=== PATIENT | male | born 1945 | race Caucasian/White ===

== ENCOUNTER → 2018-03-13 08:11 | Outpatient (CLI) | payer MEDICARE, OTHER, SELFPAY ==
--- NOTE | 2018-03-13 | DI.MRI.S_ITS ---
PROCEDURE: MR LUMBAR SPINE WO CON INDICATIONS: LUMBAR SPINE PAIN TECHNIQUE: Noncontrast sagittal T1 spin echo and T2 fast echo, sagittal STIR, axial T1 and T2 fast spin echo through the lumbar spine. In cases with scoliosis, additional coronal T2 fast spin echo may be performed. COMPARISON: [facility], CT, KIDNEY/ URETER/BLADDER, 04/29/2014, 1:57. [facility], CR, XR LUMBAR SPINE 2 OR 3 VIEWS, 03/05/2018, 10:36. FINDINGS: Image quality: Excellent. Alignment and Curvature: There is grade 1 anterolisthesis of L4 on L5. Bone Marrow: Marrow is of normal overall signal. No acute vertebral body compression fractures. Spinal Cord: Conus medullaris terminates at the L1-L2 level. Visualized cord demonstrates normal signal and size. Paraspinous Soft Tissues: No paravertebral masses. There is a 3 cm right renal cyst. L1-L2: Normal appearance. L2-L3: Mild loss of disc height and disc desiccation. There is mild broad posterior disc bulge. The central canal is mildly narrowed. Mild bilateral foraminal stenosis. L3-L4: Mild loss of disc height and disc desiccation. There is broad posterior disc bulge and small posterior central annular tear. Mild bilateral facet arthropathy and hypertrophy of ligamentum flavum. The central canal is mildly narrowed. Mild bilateral foraminal stenosis. L4-L5: Bgbg-em-upjjsmjk loss of disc height and disc desiccation. There is broad posterior disc bulge and disc protrusion. Moderate to severe bilateral facet arthropathy and hypertrophy of ligamentum flavum. The central canal is moderately narrowed. Zxkx-dg-puzjjrmd right and mild left foraminal stenosis. L5-S1: Mild loss of disc height and disc desiccation. There is broad posterior disc bulge. Mild bilateral facet arthropathy. The central canal is patent. Mild bilateral foraminal stenosis. IMPRESSION: 1. Multilevel degenerative disc disease and facet arthropathy as described. 2. Moderate central canal stenosis at L4-L5, and mild central canal stenosis at L2-L3 and L3-L4. 3. Multilevel foraminal stenoses as described. Dictated by: Esme Xiong M.D. on 03/13/2018 at 13:16 Approved by: Esme Xiong M.D. on 03/13/2018 at 13:25
== END ==
PROVIDERS: Family Provider Family Medicine; PCP Family Medicine; Visit Provider Physical Medicine & Rehabilitation Pain Medicine
DX: M51.36 Other intervertebral disc degeneration, lumbar region (principal); M48.061 Spinal stenosis, lumbar region without neurogenic claudication; M54.5 Low back pain
CPT/HCPCS: 72148

== ENCOUNTER → 2018-03-26 10:01 | Outpatient (CLI) | payer MEDICARE, OTHER, SELFPAY ==
[2018-03-26 11:28] LABS: BUN Creatinine Ratio 24.3 (6-22); Blood Urea Nitrogen 17 mg/dL (9-20); Calcium 9.9 mg/dL (8.4-10.2); Carbon Dioxide 27 mmol/L (22-32); Chloride 102 mmol/L (98-107); Estimated Glomerular Filt Rate > 60.0 mL/min (>60); Glucose 103 mg/dL (80-110); HEMOLYSIS < 15 (0-50); Potassium 4.5 mmol/L (3.4-5.1); Sodium 141 mmol/L (137-145)
== END ==
PROVIDERS: PCP Family Medicine; Visit Provider Internal Medicine Cardiovascular Disease
DX: I10 Essential (primary) hypertension (principal)
CPT/HCPCS: 36415; 80048

== ENCOUNTER → 2018-05-23 12:03 | Outpatient (CLI) | payer MEDICARE, OTHER, SELFPAY ==
--- NOTE | 2018-05-23 | DI.MRI.S_ITS ---
PROCEDURE: MR CERVICAL SPINE WO CON INDICATIONS: NECK AND RIGHT ARM PAIN TECHNIQUE: Noncontrast sagittal T1 spin echo and T2 fast spin echo, sagittal STIR, foraminal oblique sagittal T2 fast spin echo, and axial gradient echo or T2 fast spin echo through the cervical spine. COMPARISON: [facility], MR, C-SPINE WITHOUT CONTRAST, 04/09/2013, 17:29. FINDINGS: Image quality: Excellent. Alignment and Curvature: There is loss of normal cervical lordosis. There is mild grade 1 anterolisthesis of C3 on C4-3 mild grade 1 retrolisthesis of C4 on C5 and C7 on T1. Bone Marrow: Marrow demonstrates normal overall signal. There is mild reactive signal within the endplates adjacent to the C2-C3, C3-C4, and C5-C6 intervertebral discs. There is moderate reactive signal within the endplates adjacent to the C4-C5, C6-C7, and C7-T1 intervertebral discs. Spinal Cord: Visualized spinal cord has normal size and signal. No cerebellar tonsillar herniation. Paraspinous Soft Tissues: No paravertebral masses. Prevertebral soft tissues are normal in thickness. C2-C3: Mild disc desiccation. Mild facet and uncovertebral hypertrophy bilaterally. No significant canal stenosis. Mild bilateral foraminal stenosis. No change. C3-C4: Moderate disc desiccation. Left greater than right facet and uncovertebral hypertrophy. Mild canal stenosis. Severe left and moderate right foraminal stenosis. No change. C4-C5: Moderate disc height loss and desiccation. Mild diffuse disc bulge/osteophyte. Moderate facet and uncovertebral hypertrophy bilaterally. Increased, moderate canal stenosis. Increased, severe left greater than right foraminal stenosis. C5-C6: Severe disc height loss and desiccation. Mild diffuse disc bulge/osteophyte. Moderate facet and uncovertebral hypertrophy bilaterally. Moderate canal stenosis. Moderate left greater than right bilateral foraminal stenosis. No change. C6-C7: Moderate disc at loss and desiccation. Mild diffuse disc bulge/osteophyte. Mild facet and uncovertebral hypertrophy bilaterally. Mild canal stenosis. Mild bilateral foraminal stenosis. No change. C7-T1: Moderate disc at loss and desiccation. Mild diffuse disc bulge/osteophyte. Mild facet and uncovertebral hypertrophy. Mild canal stenosis. Moderate right and mild left foraminal stenosis. No change. IMPRESSION: 1. Multilevel degenerative disc and facet disease, as well as uncovertebral hypertrophy. 2. Multilevel canal stenoses worst at C4-C5 and C5-C6 where there are moderate canal stenoses present. 3. Multilevel foraminal stenoses, worst on the left at C3-C4, and left greater than right at C4-C5. Dictated by: Emory Morocho M.D. on 05/23/2018 at 12:57 Approved by: Emory Morocho M.D. on 05/23/2018 at 13:05
== END ==
PROVIDERS: PCP Family Medicine; Visit Provider Physical Medicine & Rehabilitation Pain Medicine
DX: M50.321 Other cervical disc degeneration at C4-C5 level (principal); M48.02 Spinal stenosis, cervical region; M79.601 Pain in right arm
CPT/HCPCS: 72141

== ENCOUNTER → 2018-08-03 12:02 | Outpatient (CLI) | payer MEDICARE, OTHER, SELFPAY ==
--- NOTE | 2018-08-03 | DI.MRI.S_ITS ---
PROCEDURE: MR SHOULDER RT WO CON INDICATIONS: INPIGMENT SYNDROME TECHNIQUE: Noncontrast oblique coronal T2 fast spin echo with fat saturation, oblique sagittal T1 spin echo and T2 fast spin echo with fat saturation, axial T1 spin echo and T2 fast spin echo with fat saturation through the shoulder. COMPARISON: None. FINDINGS: Image quality: Excellent. Rotator cuff: Supraspinatus tendinopathy and thickening is present. There is interstitial tearing as well as partial-thickness bursal and articular sided tear. No full-thickness defect is seen. There is also thickening and intrasubstance signal changes involving the subscapularis tendon in keeping with tendinopathy and interstitial tearing. There is low-grade bursal and articular surface fraying. The infraspinatus tendon appears intact. Teres minor appears intact. No atrophy of the rotator cuff musculature although mild fatty infiltration of the subscapularis, supraspinatus and infraspinatus muscles. Bones and bursae: No bone marrow contusions or fractures. Severe hypertrophic acromioclavicular joint degeneration. The acromion demonstrates conventional anatomy, without an os acromiale. Mild subacromial/subdeltoid bursal fluid is seen. Capsule and soft tissues: Low signal irregularity and mild hypertrophy of the anteroinferior labrum for example image 12 series 6. No intrasubstance fluid signal intensity to suggest discrete tear although this could be chronic tear with hypertrophy/scarring. Ill-defined fraying and similar signal changes present in the posterior and superior labrum, images 9 series 11, image 11 series 6. Inferior labrum is not well-visualized. There is slight posterior subluxation of the humeral head relative to glenoid. The long head of the biceps tendon demonstrates normal location and morphology. The rotator interval appears normal, without fibrosis. The coracohumeral ligament is normal in thickness. IMPRESSION: Supraspinatus tendinopathy with interstitial tearing, and partial-thickness bursal and articular sided tear. Subscapularis thickening and tendinopathy with low-grade bursal articular surface fraying. Diffuse fatty infiltration of the subscapularis, supraspinatus and infraspinatus muscles. Circumferential ill-defined intrasubstance signal changes as well as segmental hypertrophy in keeping with chronic degeneration versus long-standing poorly defined labral tear with scarring. Slight posterior subluxation of the humeral head relative to the glenoid suggestive of microinstability Mild subacromial/subdeltoid bursitis. Dictated by: Wes Scott M.D. on 08/03/2018 at 13:20 Approved by: Wes Scott M.D. on 08/03/2018 at 13:31
== END ==
PROVIDERS: PCP Family Medicine; Visit Provider Orthopaedic Surgery
DX: M75.41 Impingement syndrome of right shoulder (principal); M75.111 Incomplete rotator cuff tear or rupture of right shoulder, not specified as traumatic; M19.011 Primary osteoarthritis, right shoulder; M75.51 Bursitis of right shoulder
CPT/HCPCS: 73221

== ENCOUNTER → 2018-09-25 09:07 | Outpatient (CLI) | payer MEDICARE, OTHER, SELFPAY | PROVIDERS: PCP Family Medicine; Visit Provider Urology | DX: R97.20 Elevated prostate specific antigen [PSA] (principal) | CPT/HCPCS: 36415; 84153 ==

== ENCOUNTER 2018-11-29 23:57 | Emergency (ER) | payer MEDICARE, OTHER, SELFPAY ==
[2018-11-30 00:05] VITALS: BP 174/86; PULSE 79; RESP 15; TEMP 36.8; O2SAT 98; BMI 31.8
--- NOTE | 2018-11-30 00:38 | ED.EXTPRO ---
HPI - Extremity Problem General Chief complaint: Extremity Problem,Nontraumatic Stated complaint: RIGHT FOREARM PAIN X4 HOURS Time Seen by Provider: 11/30/18 00:11 Source: patient Mode of arrival: ambulatory Limitations: no limitations History of Present Illness HPI Narrative: Patient is 73-year-old male who presents with right forearm pain. It is in 1 particular area in the anterior side just above his wrist. He has no pain with flexion extension pronation. Able to move all fingers without any difficulty. He states yesterday he was painting a railing for about 3-4 hours. 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 Today he did not do much drove his to [place] him and was seen mainly fine until this evening. He has no arm weakness no headache no difficulty walking no chest pain shortness of breath nausea vomiting or vision changes. MD Complaint: extremity pain Onset (ago): minute(s) Pain Consistency: constant Location: right and upper extremity Quality: burning Radiation: none Relieving factors: nothing Exacerbating factors: range of motion Associated symptoms: denies other symptoms Related Data Home Medications Medication Instructions Recorded Confirmed Acyclovir (ZOVIRAX) 15 gm TOPICAL PRN #0 02/20/11 BETAMETH/CLOTRIMAZOLE 15 gm TOPICAL PRN #0 11/27/11 (Clotrimazole-Betamethasone Crm) Calcium Carbonate/Vitamin D 1 cap PO Q DAY #0 11/27/11 (#CALCIUM) FLAXSEED (FLAXSEED OIL) 1 cap PO Q DAY #0 11/27/11 MULTIVITAMIN (#MULTIPLE VITAMINS) 1 cap PO Q DAY #0 11/27/11 diltiazem HCl [Cartia XT] 240 mg PO Q DAY #0 11/27/11 fluocinonide 0.05 TP PRN #0 11/27/11 furosemide 20 mg PO QDAY PRN #0 06/03/17 potassium chloride [Klor-Con 8] 8 meq PO QDAY #0 06/03/17 Allergies Allergy/AdvReac Type Severity Reaction Status Date / Time niacin [NIACIN] Allergy Mild GETS ALL Unverified 11/29/17 12:18 RED/RASH Penicillins [PENICILLINS] Allergy Unknown Unverified 11/29/17 12:18 risedronate sodium Allergy Unknown Unverified 11/29/17 12:18 [RISEDRONATE SODIUM] cyclobenzaprine Allergy Verified 11/30/18 00:05 oxybutynin Allergy Verified 11/30/18 00:05 Pdxkrss-Lzj-Kpt Reductase Allergy Verified 11/30/18 00:05 Inhibitor ACTONAL Allergy Mild RASH Uncoded 11/29/17 12:18 Review of Systems Review of Systems ROS Unobtainable: All systems reviewed & are unremarkable except as noted in HPI and below Eyes Denies change in vision, Denies eye discharge, Denies irritation and Denies loss of vision Cardiovascular Denies chest pain, Denies irregular heart rhythm, Denies lightheadedness, Denies palpitations, Denies dyspnea, Denies dyspnea on exertion and Denies orthopnea Respiratory Denies cough, Denies dyspnea, Denies dyspnea on exertion and Denies wheezing Gastrointestinal Gastrointestinal: Denies abdominal pain, Denies change in bowel habits, Denies diarrhea, Denies nausea and Denies vomiting Musculoskeletal Reports as per HPI, Denies numbness and Denies tingling Integumentary/Breasts Denies pruritus, Denies erythema, Denies rash and Denies wounds Neurologic Denies lack of coordination, Denies loss of vision, Denies numbness, Denies tingling, Denies paresthesias and Denies tremor(s) Endocrine Denies palpitations Allergic/Immunologic Denies wheezing [facility] Medical History BPH (benign prostatic hyperplasia) (Acute) Social History (Updated 11/30/18 @ 01:34 by Micki Astudillo DO) marital status: lives independently: Yes Smoking Status: Never smoker alcohol intake: never substance use type: does not use Social History marital status: lives independently: Yes Smoking Status: Never smoker alcohol intake: never substance use type: does not use Exam Initial Vital Signs Initial Vital Signs: Vital Signs Temperature 98.2 F 11/30/18 00:05 Pulse Rate 79 11/30/18 00:05 Respiratory Rate 15 11/30/18 00:05 Blood Pressure 174/86 H 11/30/18 00:05 Pulse Oximetry 98 11/30/18 00:05 GENERAL: Alert elderly male no acute distress HEENT: Head atraumatic,EOMI, pupils reactive, CARDIOVASCULAR: Regular rate and rhythm without murmurs, rubs or gallops. RESPIRATORY: Breath sounds equal bilaterally, no wheezes rales or rhonchi. ABDOMEN: Soft, nontender. Normoactive bowel sounds all 4 quadrants. No guarding or rebound. EXTREMITIES: Normal range of motion, no clubbing or edema. Neurovascularly intact Right upper extremity: Pain in 1 area anterior distal arm near wrist. Positive Phalen's test full range of motion good pronation and supination against resistance. Good flexion and extension of wrist able to ab and adduct fingers cap refill less than 2 seconds. Product Distribution Specialist strength equal bilaterally. Distal radial pulses intact. no erythema no swelling NEUROLOGICAL: Alert and oriented x4.Normal gait and speech. SKIN: Warm, dry, no laceration, no petechiae, no rashes or lesions. Course Orders Ordered: ED Orders 11/30/18 00:40 Comprehensive Metabolic Panel Stat Creatine Kinase Stat 11/30/18 01:15 Complete Blood Count AUTO DIFF Stat Discontinued Medications Hydrocodone Bitart/Acetaminophen (Otis 5/325) 1 tab PO NOW ONE Stop: 11/30/18 01:28 Last Admin: 11/30/18 01:30 Dose: 1 tab Sodium Chloride (Normal Saline 0.9%) 1,000 mls @ 1,000 mls/hr IV BOLUS ONE Stop: 11/30/18 01:24 Last Infusion: 11/30/18 02:05 Dose: 0 mls/hr Admin: 11/30/18 01:32 Dose: 1,000 mls/hr Ketorolac Tromethamine (Toradol) 15 mg IV NOW ONE Stop: 11/30/18 00:26 Last Admin: 11/30/18 00:46 Dose: 15 mg Vital Signs - 8 hr 11/30/18 00:05 11/30/18 01:29 11/30/18 02:03 Temperature 98.2 F 97.0 F L Pulse Rate 79 63 64 Respiratory Rate 15 16 18 Blood Pressure 174/86 H 159/76 H Blood Pressure [Left Arm] 161/76 H Pulse Oximetry 98 97 MDM - Extremity (Nontraumatic) Lab Data Result diagrams: 11/30/18 01:15 11/30/18 00:40 Lab Results 11/30/18 11/30/18 Range/Units 00:40 01:15 WBC 4.7 (4.5-11.0) X10^3/uL RBC 4.21 L (4.5-5.9) X10^6/uL Hgb 14.1 (13.5-17.5) g/dL Hct 40.5 L (41-53) % MCV 96.4 (80-100) fL MCH 33.4 (26-34) PG MCHC 34.7 (30-36) % RDW 13.8 (11.6-14.8) % Plt Count 146 L (150-400) X10^3/uL Neut % (Auto) Not Reportable Lymph % (Auto) Not Reportable George % (Auto) Not Reportable Eos % (Auto) Not Reportable Baso % (Auto) Not Reportable Lymph # (Auto) Not Reportable George # (Auto) Not Reportable Baso # (Auto) Not Reportable Seg Neutrophils % 58.0 (38-70) % Band Neutrophils % 2.0 L (3-7) % Lymphocytes % (Manual) 23.0 L (25-45) % Monocytes % (Manual) 12.0 H (2-11) % Eosinophils % (Manual) 4.0 (2-4) % Basophils % (Manual) 1.0 (0-1) % RBC Morphology Normal morphology Sodium 141 (137-145) mmol/L Potassium 3.5 (3.4-5.1) mmol/L Chloride 104 (98-107) mmol/L Carbon Dioxide 26 (22-32) mmol/L BUN 14 (9-20) mg/dL Creatinine 0.80 (0.66-1.25) mg/dL Estimated GFR > 60.0 (>60) mL/min BUN/Creatinine Ratio 17.5 (6-22) Glucose 102 (80-110) mg/dL Calcium 8.9 (8.4-10.2) mg/dL Total Bilirubin 0.4 (0.2-1.3) mg/dL AST 33 (17-59) IU/L ALT 40 (21-72) IU/L Alkaline Phosphatase 55 (38-126) U/L Total Creatine Kinase 90 (55-170) U/L Total Protein 6.8 (6.3-8.2) g/dL Albumin 4.1 (3.5-5.0) g/dL Globulin 2.7 (1.7-4.1) g/dL Albumin/Globulin Ratio 1.5 (1.0-2.8) MDM Narrative Medical decision making narrative: Patient having significant pain in 1 area. At this time I do not believe him to have compartment syndrome he is moving his fingers quite easily no significant swelling. CPK was checked for any sort of rhabdo which is negative. Other blood work reassuring was given Toradol which does seem to help. Do not seem stroke logic he has moved his arm. This is in 1 particular area of his forearm, no fever. Based on patient's history of painting a rail and now increased pain. I think he likely strained it. He keeps moving it and opening and closing his hand. He says sometimes that helps it. He is given 1 Otis for increased pain. He states that he has Otis at home if needed. Discharge Plan Departure Patient Disposition: Home Clinical Impression: Repetitive strain injury of right forearm Discharge Date/Time: 11/30/18 02:05 Interventions: ED Discharge Assessment Last Done: 11/30/18 02:03 Instructions: DI for Forearm Muscle Strain Activity Restrictions/Additional Instructions: *You have been diagnosed with right forearm strain *What to do: I believe your pain is from painting. Recommend resting, elevating, ice *Continue to take medications as directed Ibuprofen 600 mg every 8 hours if needed for [id number] Otis 1 tablet every 6 hours if needed for severe pain *Follow up with your primary care provider in 2-3 days *Return to ER if you should have increasing numbness, tingling, weakness, inability to move fingers or any new, worsening or concerning symptoms Prescriptions: No Action Acyclovir (ZOVIRAX) 15 gm Topical PRN Qty: 0 RF: 0 diltiazem HCl [Cartia XT] 240 MG capsule,extended release 24hr 240 mg PO Q DAY Qty: 0 RF: 0 fluocinonide 0.05 % cream 0.05 TP PRN Qty: 0 RF: 0 BETAMETH/CLOTRIMAZOLE (Clotrimazole-Betamethasone Crm) 15 gm Topical PRN Qty: 0 RF: 0 Calcium Carbonate/Vitamin D (#CALCIUM) 1 cap PO Q DAY Qty: 0 RF: 0 FLAXSEED (FLAXSEED OIL) 1 cap PO Q DAY Qty: 0 RF: 0 MULTIVITAMIN (#MULTIPLE VITAMINS) 1 cap PO Q DAY Qty: 0 RF: 0 furosemide 20 MG tablet 20 mg PO QDAY PRNQty: 0 RF: 0 potassium chloride [Klor-Con 8] 8 MEQ tablet extended release 8 meq PO QDAY Qty: 0 RF: 0 Referrals: Noble Chino MD [Primary Care Provider] -
--- NOTE | 2018-11-30 00:41 | ED_ITS ---
HPI - Extremity Problem General Chief complaint: Extremity Problem,Nontraumatic Stated complaint: RIGHT FOREARM PAIN X4 HOURS Time Seen by Provider: 11/30/18 00:11 Source: patient Mode of arrival: ambulatory Limitations: no limitations History of Present Illness HPI Narrative: Patient is 73-year-old male who presents with right forearm pain. It is in 1 particular area in the anterior side just above his wrist. He has no pain with flexion extension pronation. Able to move all fingers without any difficulty. He states yesterday he was painting a railing for about 3-4 hours. 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 Today he did not do much drove his to [place] him and was seen mainly fine until this evening. He has no arm weakness no headache no di fficulty walking no chest pain shortness of breath nausea vomiting or vision changes. MD Complaint: extremity pain Onset (ago): minute(s) Pain Consistency: constant Location: right and upper extremity Quality: burning Radiation: none Relieving factors: nothing Exacerbating factors: range of motion Associated symptoms: denies other symptoms Related Data Home Medications Medication Instructions Recorded Confirmed Acyclovir (ZOVIRAX) 15 gm TOPICAL PRN #0 02/20/11 BETAMETH/CLOTRIMAZOLE 15 gm TOPICAL PRN #0 11/27/11 (Clotrimazole-Betamethasone Crm) Calcium Carbonate/Vitamin D 1 cap PO Q DAY #0 11/27/11 (#CALCIUM) FLAXSEED (FLAXSEED OIL) 1 cap PO Q DAY #0 11/27/11 MULTIVITAMIN (#MULTIPLE VITAMINS) 1 cap PO Q DAY #0 11/27/11 diltiazem HCl [Cartia XT] 240 mg PO Q DAY #0 11/27/11 fluocinonide 0.05 TP PRN #0 11/27/11 furosemide 20 mg PO QDAY PRN #0 06/03/17 potassium chloride [Klor-Con 8] 8 meq PO QDAY #0 06/03/17 Allergies Allergy/AdvReac Type Severity Reaction Status Date / Time niacin [NIACIN] Allergy Mild GETS ALL Unverified 11/29/17 12:18 RED/RASH Penicillins [PENICILLINS] Allergy Unknown Unverified 11/29/17 12:18 risedronate sodium Allergy Unknown Unverified 11/29/17 12:18 [RISEDRONATE SODIUM] cyclobenzaprine Allergy Verified 11/30/18 00:05 oxybutynin Allergy Verified 11/30/18 00:05 Xqfbucl-Uct-Ftw Reductase Allergy Verified 11/30/18 00:05 Inhibitor ACTONAL Allergy Mild RASH Uncoded 11/29/17 12:18 Review of Systems Review of Systems ROS Unobtainable: All systems reviewed & are unremarkable except as noted in HPI and below Eyes Denies change in vision, Denies eye discharge, Denies irritation and Denies loss of vision Cardiovascular Denies chest pain, Denies irregular heart rhythm, Denies lightheadedness, Denies palpitations, Denies dyspnea, Denies dyspnea on exertion and Denies orthopnea Respiratory Denies cough, Denies dyspnea, Denies dyspnea on exertion and Denies wheezing Gastrointestinal Gastrointestinal: Denies abdominal pain, Denies change in bowel habits, Denies diarrhea, Denies nausea and Denies vomiting Musculoskeletal Reports as per HPI, Denies numbness and Denies tingling Integumentary/Breasts Denies pruritus, Denies erythema, Denies rash and Denies wounds Neurologic Denies lack of coordination, Denies loss of vision, Denies numbness, Denies tingling, Denies paresthesias and Denies tremor(s) Endocrine Denies palpitations Allergic/Immunologic Denies wheezing [facility] Medical History BPH (benign prostatic hyperplasia) (Acute) Social History (Updated 11/30/18 @ 01:34 by Micki Astudillo DO) marital status: lives independently: Yes Smoking Status: Never smoker alcohol intake: never substance use type: does not use Social History marital status: lives independently: Yes Smoking Status: Never smoker alcohol intake: never substance use type: does not use Exam Initial Vital Signs Initial Vital Signs: Vital Signs Temperature 98.2 F 11/30/18 00:05 Pulse Rate 79 11/30/18 00:05 Respiratory Rate 15 11/30/18 00:05 Blood Pressure 174/86 H 11/30/18 00:05 Pulse Oximetry 98 11/30/18 00:05 GENERAL: Alert elderly male no acute distress HEENT: Head atraumatic,EOMI, pupils reactive, CARDIOVASCULAR: Regular rate and rhythm without murmurs, rubs or gallops. RESPIRATORY: Breath sounds equal bilaterally, no wheezes rales or rhonchi. ABDOMEN: Soft, nontender. Normoactive bowel sounds all 4 quadrants. No guarding or rebound. EXTREMITIES: Normal range of motion, no clubbing or edema. Neurovascularly intact Right upper extremity: Pain in 1 area anterior distal arm near wrist. Positive Phalen's test full range of motion good pronation and supination against resistance. Good flexion and extension of wrist able to ab and adduct fingers cap refill less than 2 seconds. Communication Specialist strength equal bilaterally. Distal radial pulses intact. no erythema no swelling NEUROLOGICAL: Alert and oriented x4.Normal gait and speech. SKIN: Warm, dry, no laceration, no petechiae, no rashes or lesions. Course Orders Ordered: ED Orders 11/30/18 00:40 Comprehensive Metabolic Panel Stat Creatine Kinase Stat 11/30/18 01:15 Complete Blood Count AUTO DIFF Stat Discontinued Medications Hydrocodone Bitart/Acetaminophen ([place] 5/325) 1 tab PO NOW ONE Stop: 11/30/18 01:28 Last Admin: 11/30/18 01:30 Dose: 1 tab Sodium Chloride (Normal Saline 0.9%) 1,000 mls @ 1,000 mls/hr IV BOLUS ONE Stop: 11/30/18 01:24 Last Infusion: 11/30/18 02:05 Dose: 0 mls/hr Admin: 11/30/18 01:32 Dose: 1,000 mls/hr Ketorolac Tromethamine (Toradol) 15 mg IV NOW ONE Stop: 11/30/18 00:26 Last Admin: 11/30/18 00:46 Dose: 15 mg Vital Signs - 8 hr 11/30/18 00:05 11/30/18 01:29 11/30/18 02:03 Temperature 98.2 F 97.0 F L Pulse Rate 79 63 64 Respiratory Rate 15 16 18 Blood Pressure 174/86 H 159/76 H Blood Pressure [Left Arm] 161/76 H Pulse Oximetry 98 97 MDM - Extremity (Nontraumatic) Lab Data Result diagrams: 11/30/18 01:15 11/30/18 00:40 Lab Results 11/30/18 11/30/18 Range/Units 00:40 01:15 WBC 4.7 (4.5-11.0) X10^3/uL RBC 4.21 L (4.5-5.9) X10^6/uL Hgb 14.1 (13.5-17.5) g/dL Hct 40.5 L (41-53) % MCV 96.4 (80-100) fL MCH 33.4 (26-34) PG MCHC 34.7 (30-36) % RDW 13.8 (11.6-14.8) % Plt Count 146 L (150-400) X10^3/uL Neut % (Auto) Not Reportable Lymph % (Auto) Not Reportable [place] % (Auto) Not Reportable Eos % (Auto) Not Reportable Baso % (Auto) Not Reportable Lymph # (Auto) Not Reportable [place] # (Auto) Not Reportable Baso # (Auto) Not Reportable Seg Neutrophils % 58.0 (38-70) % Band Neutrophils % 2.0 L (3-7) % Lymphocytes % (Manual) 23.0 L (25-45) % Monocytes % (Manual) 12.0 H (2-11) % Eosinophils % (Manual) 4.0 (2-4) % Basophils % (Manual) 1.0 (0-1) % RBC Morphology Normal morphology Sodium 141 (137-145) mmol/L Potassium 3.5 (3.4-5.1) mmol/L Chloride 104 (98-107) mmol/L Carbon Dioxide 26 (22-32) mmol/L BUN 14 (9-20) mg/dL Creatinine 0.80 (0.66-1.25) mg/dL Estimated GFR > 60.0 (>60) mL/min BUN/Creatinine Ratio 17.5 (6-22) Glucose 102 (80-110) mg/dL Calcium 8.9 (8.4-10.2) mg/dL Total Bilirubin 0.4 (0.2-1.3) mg/dL AST 33 (17-59) IU/L ALT 40 (21-72) IU/L Alkaline Phosphatase 55 (38-126) U/L Total Creatine Kinase 90 (55-170) U/L Total Protein 6.8 (6.3-8.2) g/dL Albumin 4.1 (3.5-5.0) g/dL Globulin 2.7 (1.7-4.1) g/dL Albumin/Globulin Ratio 1.5 (1.0-2.8) MDM Narrative Medical decision making narrative: Patient having significant pain in 1 area. At this time I do not believe him to have compartment syndrome he is moving his fingers quite easily no significant swelling. CPK was checked for any sort of rhabdo which is negative. Other blood work reassuring was given Toradol which does seem to help. Do not seem stroke logic he has moved his arm. This is in 1 particular area of his forearm, no fever. Based on patient's history of painting a rail and now increased pain. I think he likely strained it. He keeps moving it and opening and closing his hand. He says sometimes that helps it. He is given 1 Elvaston for increased pain. He states that he has Elvaston at home if needed. Discharge Plan Departure Patient Disposition: Home Clinical Impression: Repetitive strain injury of right forearm Discharge Date/Time: 11/30/18 02:05 Interventions: ED Discharge Assessment Last Done: 11/30/18 02:03 Instructions: DI for Forearm Muscle Strain Activity Restrictions/Additional Instructions: *You have been diagnosed with right forearm strain *What to do: I believe your pain is from painting. Recommend resting, elevating, ice *Continue to take medications as directed Ibuprofen 600 mg every 8 hours if needed for lelq-ur-iszcrqow Elvaston 1 tablet every 6 hours if needed for severe pain *Follow up with your primary care provider in 2-3 days *Return to ER if you should have increasing numbness, tingling, weakness, inability to move fingers or any new, worsening or concerning symptoms Prescriptions: No Action Acyclovir (ZOVIRAX) 15 gm Topical PRN Qty: 0 RF: 0 diltiazem HCl [Cartia XT] 240 MG capsule,extended release 24hr 240 mg PO Q DAY Qty: 0 RF: 0 fluocinonide 0.05 % cream 0.05 TP PRN Qty: 0 RF: 0 BETAMETH/CLOTRIMAZOLE (Clotrimazole-Betamethasone Crm) 15 gm Topical PRN Qty: 0 RF: 0 Calcium Carbonate/Vitamin D (#CALCIUM) 1 cap PO Q DAY Qty: 0 RF: 0 FLAXSEED (FLAXSEED OIL) 1 cap PO Q DAY Qty: 0 RF: 0 MULTIVITAMIN (#MULTIPLE VITAMINS) 1 cap PO Q DAY Qty: 0 RF: 0 furosemide 20 MG tablet 20 mg PO QDAY PRNQty: 0 RF: 0 potassium chloride [Klor-Con 8] 8 MEQ tablet extended release 8 meq PO QDAY Qty: 0 RF: 0 Referrals: Noble Chino MD [Primary Care Provider] -
[2018-11-30] MEDS: KETOROLAC 60 MG/2 ML VIAL 15 MG IV (00:46)
[2018-11-30 01:01] LABS: Alanine Aminotransferase 40 IU/L (21-72); Albumin 4.1 g/dL (3.5-5.0); Albumin Globulin Ratio 1.5 (1.0-2.8); Alkaline Phosphatase 55 U/L (38-126); Aspartate Aminotransferase 33 IU/L (17-59); BUN Creatinine Ratio 17.5 (6-22); Bilirubin Total 0.4 mg/dL (0.2-1.3); Blood Urea Nitrogen 14 mg/dL (9-20); Calcium 8.9 mg/dL (8.4-10.2); Carbon Dioxide 26 mmol/L (22-32); Chloride 104 mmol/L (98-107); Creatine Kinase 90 U/L (55-170); Estimated Glomerular Filt Rate > 60.0 mL/min (>60); Globulin 2.7 g/dL (1.7-4.1); Glucose 102 mg/dL (80-110); HEMOLYSIS 16 (0-50); Potassium 3.5 mmol/L (3.4-5.1); Sodium 141 mmol/L (137-145); Total Protein 6.8 g/dL (6.3-8.2)
[2018-11-30 01:29] VITALS: BP 161/76; PULSE 63; RESP 16; TEMP 36.1
[2018-11-30] MEDS: HYDROCODONE/ACET 5/325 TABLET 1 TAB PO (01:30)
[2018-11-30] MEDS: SODIUM CHLORIDE 0.9% 1,000 ML 1000 ML IV (01:32)
[2018-11-30 01:35] LABS: Hematocrit 40.5 % (41-53); Hemoglobin 14.1 g/dL (13.5-17.5); Mean Corpuscular HGB Conc 34.7 % (30-36); Mean Corpuscular Hemoglobin 33.4 PG (26-34); Mean Corpuscular Volume 96.4 fL (80-100); Platelet Count 146 X10^3/uL (150-400); Red Blood Cell Count 4.21 X10^6/uL (4.5-5.9); Red Cell Distribution Width 13.8 % (11.6-14.8); White Blood Cell Count 4.7 X10^3/uL (4.5-11.0)
[2018-11-30 01:56] LABS: Add Manual Diff / Slide Review YES
[2018-11-30 02:03] VITALS: BP 159/76; PULSE 64; RESP 18; O2SAT 97
[2018-11-30 02:03] LABS: RBC Morphology Normal Morphology
== END 2018-11-30 02:05 | disposition home or self-care (01) ==
PROVIDERS: Emergency Provider Emergency Medicine; PCP Family Medicine
DX: S56.911A Strain of unspecified muscles, fascia and tendons at forearm level, right arm, initial encounter (principal)
CPT/HCPCS: 36415; 80053; 82550; 85025; 96361; 96374; 99283; 99284; J1885

== ENCOUNTER 2019-01-21 00:05 | Emergency (ER) | payer MEDICARE, OTHER, SELFPAY ==
[2019-01-21 00:16] VITALS: BP 171/80; PULSE 71; RESP 18; TEMP 36.5; O2SAT 97
--- NOTE | 2019-01-21 02:10 | ED_ITS ---
HPI - Back Pain/Injury General Chief Complaint: Back Pain/Injury Stated Complaint: BACK WENT OUT/CANNOT WALK Time Seen by Provider: 01/21/19 00:21 Source: patient and family Mode of arrival: wheelchair Limitations: no limitations History of Present Illness HPI Narrative: 73-year-old male nonsmoker with history of multiple orthopedic injuries and hypertension presents with terrible lumbar pain with radiation down both legs that started on Monday. He denies any traumatic injury but states he was twisting at the torso in bent over ever so slightly and felt this pain. It is hot and searing in radiates from central back down into his hips. He denies any trouble with bowel or bladder control. He denies any numbness, tingling or weakness. He denies any foot drop. He denies saddle anesthesia. His pain is worse when standing upright and ambulating and improves with rest MD Complaint: back pain Onset (ago): day(s) Duration: constant Similar Symptoms Previously: No Location: lumbar spine Severity: severe Quality: sharp and stabbing Radiation: left leg and right leg Relieving factors: immobilization Exacerbating factors: movement and walking Context: turning/twisting Related Data Home Medications Medication Instructions Recorded Confirmed Acyclovir (ZOVIRAX) 15 gm TOPICAL PRN #0 02/20/11 BETAMETH/CLOTRIMAZOLE 15 gm TOPICAL PRN #0 11/27/11 (Clotrimazole-Betamethasone Crm) Calcium Carbonate/Vitamin D 1 cap PO Q DAY #0 11/27/11 (#CALCIUM) FLAXSEED (FLAXSEED OIL) 1 cap PO Q DAY #0 11/27/11 MULTIVITAMIN (#MULTIPLE VITAMINS) 1 cap PO Q DAY #0 11/27/11 diltiazem HCl [Cartia XT] 240 mg PO Q DAY #0 11/27/11 fluocinonide 0.05 TP PRN #0 11/27/11 furosemide 20 mg PO QDAY PRN #0 06/03/17 potassium chloride [Klor-Con 8] 8 meq PO QDAY #0 06/03/17 Previous Rx's Medication Instructions Recorded hydrocodone-acetaminophen 1 tab PO Q4-6H PRN #10 tab 01/21/19 ketorolac 10 mg PO Q6H PRN #14 tab 01/21/19 prednisone 10 mg PO BID #30 tab 01/21/19 Allergies Allergy/AdvReac Type Severity Reaction Status Date / Time niacin [NIACIN] Allergy Mild GETS ALL Verified 01/21/19 02:14 RED/RASH Penicillins [PENICILLINS] Allergy Unknown Verified 01/21/19 02:14 risedronate sodium Allergy Unknown Verified 01/21/19 02:14 [RISEDRONATE SODIUM] cyclobenzaprine Allergy Verified 01/21/19 02:14 oxybutynin Allergy Verified 01/21/19 02:14 Gjtvsbj-Sdp-Iew Reductase Allergy Verified 01/21/19 02:14 Inhibitor ACTONAL Allergy Mild RASH Uncoded 01/21/19 02:14 Review of Systems Constitutional Denies chills, Denies fever(s), Denies lethargy and Denies weakness Eyes Denies change in vision, Denies eye discharge, Denies irritation and Denies loss of vision ENT Ears, Nose, Mouth, and Throat: Denies change in voice, Denies neck pain and Denies sore throat Cardiovascular Denies chest pain, Denies irregular heart rhythm, Denies lightheadedness, Denies palpitations, Denies dyspnea, Denies dyspnea on exertion and Denies orthopnea Respiratory Denies cough, Denies dyspnea, Denies dyspnea on exertion and Denies wheezing Gastrointestinal Gastrointestinal: Denies abdominal pain, Denies change in bowel habits, Denies diarrhea, Denies nausea and Denies vomiting Genitourinary Denies hematuria, Denies flank pain, Denies urinary incontinence and Denies urinary urgency Musculoskeletal Reports limited range of motion and Denies neck pain Integumentary/Breasts Denies pruritus, Denies erythema, Denies rash and Denies wounds Neurologic Denies confusion, Denies loss of vision and Denies weakness Psychiatric Denies anxiety, Denies confusion, Denies depression, Denies homicidal ideation and Denies suicidal ideation Endocrine Denies palpitations Hematologic/Lymphatic Denies easy bruising Allergic/Immunologic Denies wheezing PFSH Medical History BPH (benign prostatic hyperplasia) (Acute) Social History marital status: lives independently: Yes Smoking Status: Never smoker alcohol intake: never substance use type: does not use Social History marital status: lives independently: Yes Smoking Status: Never smoker alcohol intake: never substance use type: does not use Exam Narrative Exam Narrative: GENERAL: 73-year-old male obviously uncomfortable. He appears stated age. Laying flat. HEAD: Atraumatic. Normocephalic. No temporal or scalp tenderness. EYES: Pupils equal round and reactive. Extraocular motions intact. No scleral icterus. No injection or drainage. ENT: Nose without bleeding, purulent drainage or septal hematoma. Throat without erythema, tonsillar hypertrophy or exudate. Uvula midline. Airway patent. NECK: Trachea midline. No JVD or lymphadenopathy. Supple, nontender, no meningeal signs. CARDIOVASCULAR: Regular rate and rhythm without murmurs, gallops, or rubs. RESPIRATORY: Clear to auscultation. Breath sounds equal bilaterally. No wheezes, rales, or rhonchi. GASTROINTESTINAL: Abdomen soft, non-tender, nondistended. No hepato- splenomegaly, or palpable masses. No guarding. EXTREMITIES: No clubbing, cyanosis, or edema. No joint tenderness, effusion, or edema noted. BACK: grinder tender but free of any obvious external abnormalities. Patient exam notes decreased range of motion and muscle spasm, but no CVA tenderness, or vertebral point tenderness. There are no symptoms of cauda equina such as saddle anesthesia, and decreased reflexes, decreased sensation or strength. NEURO: AOx3. SKIN: No rash or erythema. Initial Vital Signs Initial Vital Signs: Vital Signs Temperature 97.7 F 01/21/19 00:16 Pulse Rate 71 01/21/19 00:16 Respiratory Rate 18 01/21/19 00:16 Blood Pressure 171/80 H 01/21/19 00:16 Pulse Oximetry 97 01/21/19 00:16 Course Orders Ordered: Discontinued Medications Hydrocodone Bitart/Acetaminophen (Vicodin Prepack) 1 bottle MISC SEEINSTR ONE Stop: 01/21/19 02:03 Last Admin: 01/21/19 02:15 Dose: 1 bottle Ketorolac Tromethamine (Toradol) 60 mg IM NOW ONE Stop: 01/21/19 02:03 Last Admin: 01/21/19 02:15 Dose: 60 mg Prednisone (Deltasone) 40 mg PO NOW ONE Stop: 01/21/19 02:03 Last Admin: 01/21/19 02:15 Dose: 40 mg Vital Signs - 8 hr 01/21/19 00:16 Temperature 97.7 F Pulse Rate 71 Respiratory Rate 18 Blood Pressure 171/80 H Pulse Oximetry 97 MDM - Back Pain/Injury MDM Narrative Medical decision making narrative: Multiple etiologies of back pain considered including; Epidural abscess, cauda equina, mass occupying lesion, and other considered Discharge Plan Departure Patient Disposition: Home Clinical Impression: Lumbar radiculopathy Discharge Date/Time: 01/21/19 02:46 Instructions: DI for Back Pain With Sciatica Activity Restrictions/Additional Instructions: *You have been diagnosed with [lumbar back pain with radiculopathy] *What to do: *Take medications as directed *Follow up with Dr. Valdez today as planned. Let them know you were seen in the Emergency Department and that we ask that you be seen in follow up *Return to ER if you should have any new, worsening or concerning symptoms, such as [ ] Prescriptions: New hydrocodone-acetaminophen 5-325 mg tablet 1 tab PO Q4-6H PRN (Reason: pain) Qty: 10 RF: 0 ketorolac 10 mg tablet 10 mg PO Q6H PRN (Reason: pain) Qty: 14 RF: 0 prednisone 10 mg tablet 10 mg PO BID Qty: 30 RF: 0 No Action Acyclovir (ZOVIRAX) 15 gm Topical PRN Qty: 0 RF: 0 diltiazem HCl [Cartia XT] 240 MG capsule,extended release 24hr 240 mg PO Q DAY Qty: 0 RF: 0 fluocinonide 0.05 % cream 0.05 TP PRN Qty: 0 RF: 0 BETAMETH/CLOTRIMAZOLE (Clotrimazole-Betamethasone Crm) 15 gm Topical PRN Qty: 0 RF: 0 Calcium Carbonate/Vitamin D (#CALCIUM) 1 cap PO Q DAY Qty: 0 RF: 0 FLAXSEED (FLAXSEED OIL) 1 cap PO Q DAY Qty: 0 RF: 0 MULTIVITAMIN (#MULTIPLE VITAMINS) 1 cap PO Q DAY Qty: 0 RF: 0 furosemide 20 MG tablet 20 mg PO QDAY PRNQty: 0 RF: 0 potassium chloride [Klor-Con 8] 8 MEQ tablet extended release 8 meq PO QDAY Qty: 0 RF: 0 Referrals: Noble Chino MD [Primary Care Provider] -
[2019-01-21] MEDS: HYDROCODONE/ACET 5/325 PREPACK 1 BOTTLE MISC (02:15)
[2019-01-21] MEDS: predniSONE 20 MG TABLET 40 MG PO (02:15)
[2019-01-21] MEDS: KETOROLAC 60 MG/2 ML VIAL IM (02:15)
[2019-01-21 02:45] VITALS: BP 161/72; PULSE 70; RESP 18; O2SAT 99
== END 2019-01-21 02:46 | disposition home or self-care (01) ==
PROVIDERS: Emergency Provider Emergency Medicine; PCP Family Medicine
DX: M54.16 Radiculopathy, lumbar region (principal)
CPT/HCPCS: 96372; 99282; 99283; J1885

== ENCOUNTER → 2019-02-05 07:41 | Outpatient (CLI) | payer MEDICARE, OTHER, SELFPAY ==
--- NOTE | 2019-02-05 | DI.MRI.S_ITS ---
PROCEDURE: MR LUMBAR SPINE WO CON INDICATIONS: Other intervertebral disc degeneration, lumbar reg TECHNIQUE: Noncontrast sagittal T1 spin echo and T2 fast echo, sagittal STIR, axial T1 and T2 fast spin echo through the lumbar spine. In cases with scoliosis, additional coronal T2 fast spin echo may be performed. COMPARISON: [facility], MR, MR LUMBAR SPINE WO CON, 03/13/2018, 8:33. [facility], CT, KIDNEY/ URETER/BLADDER, 04/29/2014, 1:57. FINDINGS: Image quality: Excellent. Alignment and Curvature: There is minimal retrolisthesis seen at L2-L3 and L3-L4. Minimal anterolisthesis is seen at L4-L5. Bone Marrow: Marrow is of normal overall signal. Scattered foci are seen, which are hyperintense on T1-weighted and T2-weighted imaging, which are most consistent with benign vertebral body hemangiomas. The most prominent of these is seen within the S2 level. No acute vertebral body compression fractures. Spinal Cord: Conus medullaris terminates at the T12-L1 level. Visualized cord demonstrates normal signal and size. Paraspinous Soft Tissues: No paravertebral masses. There is a 3.1 cm cyst at the inferior pole of the right kidney posteriorly. T11-T12: Mild to moderate loss of disc height and disc signal are seen. No significant neural foraminal or central canal narrowing can be seen. T12-L1: Normal appearance. L1-L2: Normal appearance. L2-L3: The disc height is well-preserved. Loss of disc signal is seen at this level. Mild generalized disc bulge is seen. Moderate facet joint hypertrophy is seen. No significant neural foraminal or central canal narrowing can be seen. Stable from the prior study. L3-L4: The disc height is well-preserved. Loss of disc signal is seen at this level. Moderate generalized disc bulge is seen. Gbwi-hw-etyurtbe facet hypertrophy is seen. Mild bilateral neural foraminal narrowing is seen, right worse than left. Mild central canal narrowing is seen. Stable from the prior study. L4-L5: The disc height is well-preserved. Loss of disc signal is seen at this level. There is a focal annular fissure seen posteriorly. Moderate generalized disc bulge is seen. Moderate to prominent facet hypertrophy is seen. Moderate bilateral neural foraminal narrowing is seen. Moderate central canal narrowing is seen. No significant change from the prior. L5-S1: Mild loss of disc height is seen. Loss of disc signal is seen. There is a focal annular fissure seen posteriorly. Moderate generalized disc bulge is seen. Mild facet joint hypertrophy is seen. No significant neural foraminal or central canal narrowing can be seen. Stable from the prior study. IMPRESSION: Multilevel degenerative changes are seen, which are similar to 2018. Dictated by: Sergio Olivares M.D. on 02/05/2019 at 8:10 Approved by: Sergio Olivares M.D. on 02/05/2019 at 8:16
== END ==
PROVIDERS: PCP Family Medicine; Visit Provider Physical Medicine & Rehabilitation Pain Medicine
DX: M51.36 Other intervertebral disc degeneration, lumbar region (principal); M47.816 Spondylosis without myelopathy or radiculopathy, lumbar region; M47.817 Spondylosis without myelopathy or radiculopathy, lumbosacral region
CPT/HCPCS: 72148

== ENCOUNTER → 2019-04-18 07:06 | Outpatient (CLI) | payer MEDICARE, OTHER, SELFPAY ==
[2019-04-18 09:24] LABS: BUN Creatinine Ratio 18.8 (6-22); Blood Urea Nitrogen 15 mg/dL (9-20); Calcium 9.4 mg/dL (8.4-10.2); Carbon Dioxide 27 mmol/L (22-32); Chloride 102 mmol/L (98-107); Estimated Glomerular Filt Rate > 60.0 mL/min (>60); Glucose 96 mg/dL (80-110); HEMOLYSIS < 15 (0-50); Magnesium 1.9 mg/dL (1.6-2.3); Potassium 4.3 mmol/L (3.4-5.1); Sodium 138 mmol/L (137-145)
== END ==
PROVIDERS: Visit Provider Internal Medicine Cardiovascular Disease
DX: I10 Essential (primary) hypertension (principal)
CPT/HCPCS: 36415; 80048; 83735

== ENCOUNTER → 2019-09-06 09:49 | Outpatient (CLI) | payer MEDICARE, OTHER, SELFPAY ==
[2019-09-06 11:35] LABS: Prostate Specific Antigen 2.74 ng/mL (0.10-4.00)
== END ==
PROVIDERS: PCP Student in an Organized Health Care Education/Training Program; Visit Provider Urology
DX: R97.20 Elevated prostate specific antigen [PSA] (principal)
CPT/HCPCS: 36415; 84153

== ENCOUNTER → 2019-09-24 07:03 | Outpatient (CLI) | payer MEDICARE, OTHER, SELFPAY ==
[2019-09-24 08:31] LABS: BUN Creatinine Ratio 17.5 (6-22); Blood Urea Nitrogen 14 mg/dL (9-20); Carbon Dioxide 29 mmol/L (22-32); Chloride 104 mmol/L (98-107); Cholesterol 234 mg/dL (140-199); Estimated Glomerular Filt Rate > 60.0 mL/min (>60); Glucose 114 mg/dL (80-110); HDL Cholesterol 39 mg/dL (40-60); HEMOLYSIS < 15 (0-50); LDL Cholesterol Calculated 167 mg/dL (<100); Potassium 3.9 mmol/L (3.4-5.1); Sodium 139 mmol/L (137-145); Triglycerides 140 mg/dL (35-150)
== END ==
PROVIDERS: PCP Student in an Organized Health Care Education/Training Program; Referring Provider Internal Medicine Cardiovascular Disease; Visit Provider Internal Medicine Cardiovascular Disease
DX: E78.5 Hyperlipidemia, unspecified (principal)
CPT/HCPCS: 36415; 80048; 80061

== ENCOUNTER → 2019-10-18 08:48 | Outpatient (CLI) | payer MEDICARE, OTHER, SELFPAY ==
[2019-10-18 10:14] LABS: BUN Creatinine Ratio 17.8 (6-22); Blood Urea Nitrogen 16 mg/dL (9-20); Calcium 9.4 mg/dL (8.4-10.2); Carbon Dioxide 27 mmol/L (22-32); Chloride 101 mmol/L (98-107); Estimated Glomerular Filt Rate > 60.0 mL/min (>60); Glucose 146 mg/dL (80-110); HEMOLYSIS < 15 (0-50); Potassium 4.3 mmol/L (3.4-5.1); Sodium 138 mmol/L (137-145)
== END ==
PROVIDERS: PCP Student in an Organized Health Care Education/Training Program; Referring Provider Internal Medicine Cardiovascular Disease; Visit Provider Internal Medicine Cardiovascular Disease
DX: I10 Essential (primary) hypertension (principal)
CPT/HCPCS: 36415; 80048

== ENCOUNTER → 2020-01-14 07:47 | Outpatient (CLI) | payer MEDICARE, OTHER, SELFPAY ==
[2020-01-14 08:51] LABS: BUN Creatinine Ratio 17.1 (6-22); Blood Urea Nitrogen 14 mg/dL (9-20); Calcium 9.1 mg/dL (8.4-10.2); Carbon Dioxide 28 mmol/L (22-32); Chloride 103 mmol/L (98-107); Estimated Glomerular Filt Rate > 60.0 mL/min (>60); Glucose 122 mg/dL (80-110); HEMOLYSIS < 15 (0-50); Potassium 4.4 mmol/L (3.4-5.1); Sodium 138 mmol/L (137-145)
== END ==
PROVIDERS: PCP Student in an Organized Health Care Education/Training Program; Referring Provider Nurse Practitioner; Visit Provider Nurse Practitioner
DX: E78.5 Hyperlipidemia, unspecified (principal)
CPT/HCPCS: 36415; 80048

== ENCOUNTER → 2020-01-24 14:50 | Outpatient (CLI) | payer MEDICARE, OTHER, SELFPAY ==
--- NOTE | 2020-01-24 | DI.RAD.S_ITS ---
PROCEDURE: XR HIP W PEL IF DONE LT 2V INDICATIONS: LEFT HIP PAIN TECHNIQUE: AP pelvis with lateral view(s) of the left hip(s). COMPARISON: None. FINDINGS: Bones: No fractures or dislocations. Pelvic ring appears intact. No suspicious bony lesions. Soft tissues: The visualized bowel gas pattern is normal. No suspicious soft tissue calcifications. 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 Dictated by: Bishnu Muhammad M.D. on 01/24/2020 at 15:36 Approved by: Bishnu Muhammad M.D. on 01/24/2020 at 15:36
== END ==
PROVIDERS: PCP Student in an Organized Health Care Education/Training Program; Referring Provider Student in an Organized Health Care Education/Training Program; Visit Provider Student in an Organized Health Care Education/Training Program
DX: M25.552 Pain in left hip (principal); M16.12 Unilateral primary osteoarthritis, left hip
CPT/HCPCS: 73502

== ENCOUNTER → 2020-06-30 07:09 | Outpatient (CLI) | payer MEDICARE, OTHER, SELFPAY ==
[2020-06-30 09:05] LABS: Alanine Aminotransferase 27 IU/L (<50); Albumin 3.8 g/dL (3.5-5.0); Albumin Globulin Ratio 1.3 (1.0-2.8); Alkaline Phosphatase 65 U/L (38-126); Aspartate Aminotransferase 29 IU/L (17-59); BUN Creatinine Ratio 21.7 (6-22); Bilirubin Total 0.5 mg/dL (0.2-1.3); Blood Urea Nitrogen 20 mg/dL (9-20); Calcium 8.9 mg/dL (8.4-10.2); Carbon Dioxide 32 mmol/L (22-32); Chloride 103 mmol/L (98-107); Cholesterol 112 mg/dL (140-199); Estimated Glomerular Filt Rate > 60.0 mL/min (>60); Glucose 110 mg/dL (80-110); HDL Cholesterol 49 mg/dL (40-60); HEMOLYSIS < 15 (0-50); LDL Cholesterol Calculated 46 mg/dL (<100); Potassium 3.7 mmol/L (3.4-5.1); Sodium 137 mmol/L (137-145); Total Protein 6.8 g/dL (6.3-8.2); Triglycerides 84 mg/dL (35-150)
== END ==
PROVIDERS: PCP Student in an Organized Health Care Education/Training Program; Referring Provider Internal Medicine Cardiovascular Disease; Visit Provider Internal Medicine Cardiovascular Disease
DX: E78.5 Hyperlipidemia, unspecified (principal); I10 Essential (primary) hypertension
CPT/HCPCS: 36415; 80053; 80061

== ENCOUNTER 2020-09-07 15:18 | Observation (INO) | payer MEDICARE, OTHER, SELFPAY ==
[2020-09-07] VITALS (16 sets, daily range): BP systolic 147–190; BP diastolic 82–95; PULSE 72–84; RESP 11–29; TEMP 36.4–36.7; O2SAT 97–100; BMI 99.4
--- NOTE | 2020-09-07 15:38 | DI.RAD.S_ITS ---
PROCEDURE: XR CHEST 1V INDICATIONS: chest pain TECHNIQUE: One view of the chest was acquired. COMPARISON: [facility], , CHEST 1 VIEW, 06/03/2017, 11:22. FINDINGS: Surgical changes and devices: None. Lungs and pleura: An incomplete inspiratory result is noted, causing a crowded appearance to the lung markings. No focal infiltrates are seen. No pneumothorax or significant pleural effusions are seen. Mediastinum: The cardiac contours are within normal limits. The aorta demonstrates calcification and tortuosity. Bones and chest wall: No suspicious bony lesions. Age-appropriate bony degenerative changes are seen. Overlying soft tissues appear unremarkable. IMPRESSION: Limited portable chest examination, without a significant cardiopulmonary abnormality identified. Dictated by: Sergio Olivares M.D. on 09/07/2020 at 15:03 Approved by: Sergio Olivares M.D. on 09/07/2020 at 15:04
--- NOTE | 2020-09-07 15:41 | ED_ITS ---
HPI - Chest Pain General Chief Complaint: Chest Pain Stated Complaint: TIGHNESS OF MY CHEST Time Seen by Provider: 09/07/20 15:40 Source: patient and family Mode of arrival: Ambulatory Limitations: no limitations History of Present Illness HPI narrative: This is a 75-year-old male who comes to emergency department with complaint of chest tightness upon exertion. Patient states it is sort of substernal. Does not radiate to his neck, back, extremity or abdomen. Patient states it lasts about 5-10 minutes and when he rests it resolved. He had has not had any diaphoresis he denies any cold, cough or congestive type symptoms. He does feel little short of breath with these episodes he describes them as occurring when he goes up steps or goes for a long walk. Patient denies any nausea, no vomiting, no back or abdominal pain. No swelling in his extremities. Patient has not had symptoms in the past. He does have hypertension, dyslipidemia and chronic back pains. He takes an aspirin 81 mg every Monday, Monday and Monday and is on injectable cholesterol medication. He had a stress test 6 years prior, he has never had a cardiac catheterization. Patient has had multiple orthopedic surgeries as well as bilateral cataracts surgery. Patient's primary care is Dr. Leung and he follows with Dr. Mercado as his sociology adjunct instructor. Related Data Home Medications Medication Instructions Recorded Confirmed diltiazem HCl [Cartia XT] 240 mg PO Q DAY #0 11/27/11 09/07/20 furosemide 20 mg PO QDAY #0 06/03/17 09/07/20 acyclovir [Zovirax] 1 applic TOPICAL 5XD 09/07/20 09/07/20 alfuzosin 10 mg PO DAILY 09/07/20 09/07/20 ascorbate calcium (vitamin C) 500 mg PO BID 09/07/20 09/07/20 [Sheila-C] aspirin [Adult Low Dose Aspirin] 81 mg PO 3XW 09/07/20 09/07/20 calcium-vitamin D3-vitamin K 1 tab PO BID 09/07/20 09/07/20 chlorthalidone 12.5 mg PO QAM 09/07/20 09/07/20 cholecalciferol (vitamin D3) 75 mcg PO DAILY 09/07/20 09/07/20 [Vitamin D3] clotrimazole-betameth dip-zinc See Rx Instructions .ROUTE .COMPLEX 09/07/20 09/07/20 evolocumab [Repatha SureClick] 140 mg SUBCUT Q2W 09/07/20 09/07/20 fiber [Fiber Choice] 1 tab PO BID 09/07/20 09/07/20 flaxseed oil 2,000 mg PO BID 09/07/20 09/07/20 fluocinonide 1 applic TOPICAL BID-QID PRN 09/07/20 09/07/20 ketoconazole 1 applic TOPICAL 3XW 09/07/20 09/07/20 lactobacillus combination no.8 3,000 mmu cells PO BID 09/07/20 09/07/20 [Adult Probiotic] lisinopril 20 mg PO BID 09/07/20 09/07/20 omeprazole 20 mg PO DAILY 09/07/20 09/07/20 potassium gluconate 595 mg PO DAILY 09/07/20 09/07/20 pyridoxine (vitamin B6) 100 mg PO QAM 09/07/20 09/07/20 saw palmetto 160 mg PO BID 09/07/20 09/07/20 testosterone cypionate 50 mg IM QWEEK 09/07/20 09/07/20 timolol maleate 1 drp EYE-BOTH QAM 09/07/20 09/07/20 vitamin B complex 1 cap PO DAILY 09/07/20 09/07/20 Allergies Allergy/AdvReac Type Severity Reaction Status Date / Time niacin [NIACIN] Allergy Mild GETS ALL Verified 09/07/20 15:37 RED/RASH Penicillins [PENICILLINS] Allergy Unknown Verified 09/07/20 15:37 risedronate sodium Allergy Unknown Verified 09/07/20 15:37 [RISEDRONATE SODIUM] cyclobenzaprine Allergy Verified 09/07/20 15:37 oxybutynin Allergy Verified 09/07/20 15:37 Trehshe-Sau-Dui Reductase Allergy Verified 09/07/20 15:37 Inhibitor ACTONAL Allergy Mild RASH Uncoded 09/07/20 15:37 Review of Systems Review of Systems ROS Unobtainable: All systems reviewed & are unremarkable except as noted in HPI and below Patient History Medical History BPH (benign prostatic hyperplasia) Social History marital status: lives independently: Yes Smoking Status: Former smoker alcohol intake: never substance use type: does not use Smoking Status: Former smoker alcohol intake frequency: 3 or more drinks per day Alcohol type: wine Substance Use Type: does not use Exam Narrative Exam Narrative: GENERAL: Alert and oriented x three, well-nourished male in mild distress. HEENT: Head normocephalic, atraumatic, EOMI, pupils reactive, face symmetric, moist mucous membranes NECK: Supple, full range of motion CARDIOVASCULAR: Regular rate and rhythm without murmurs, rubs or gallops. No JVD no edema bilateral lower extremities. RESPIRATORY: Breath sounds equal bilaterally, no wheezes rales or rhonchi. ABDOMEN: Soft, nontender. Normoactive bowel sounds all 4 quadrants. No guarding or rebound, rigidity, no mass : No CVA tenderness EXTREMITIES: Normal range of motion. Neurovascularly intact NEUROLOGICAL: Cranial nerves II through XII grossly intact. Moving all extremities SKIN: Warm, dry, no petechiae, no rashes or lesions. Initial Vital Signs Initial Vital Signs: Vital Signs Temperature 98 F 09/07/20 15:32 Pulse Rate 79 09/07/20 15:32 Respiratory Rate 14 09/07/20 15:32 Blood Pressure 189/88 H 09/07/20 15:32 Pulse Oximetry 99 09/07/20 15:32 Scores HEART Score Heart Score history: Highly Suspicious Heart Score EKG: Non-Specific repolarization disturbance Heart Score Age: > or = 65 years old Heart Score risk factors: 1-2 risk factors Heart Score troponin: < or = to normal limit Heart Score Total: 6 Course Orders Ordered: ED Orders 09/07/20 15:37 Complete Blood Count AUTO DIFF Stat Comprehensive Metabolic Panel Stat Lipase Stat Partial Thromboplastin Time Stat Prothrombin Time INR Stat Troponin & CK Cardiac Panel Stat 09/07/20 15:38 XR chest 1V Stat EKG-12 Lead Stat 09/07/20 16:03 COVID19 Stat Discontinued Medications Aspirin (Aspirin 81 Mg Chew Tab) 324 mg PO NOW ONE Stop: 09/07/20 15:39 Last Admin: 09/07/20 15:52 Dose: 324 mg Documented by: SAM Consultations Consultation #1: Discussed with Dr. Pineda and he recommends stress testing as an inpatient. Does not feel patient needs to be transferred at this time. Time: 17:00 Consultation #2: Spoke with Dr. Boss who accepts for observation with plan for stress testing tomorrow. Discussed Dr. Joya recommendations and that he believes Dr. Mercado patient's personal sociology adjunct instructor is working tomorrow and available for consultation. Dr. Boss saw patient in the emergency department. Time: 17:16 Vital Signs Vital signs: Vital Signs - 8 hr 09/07/20 15:32 09/07/20 16:27 09/07/20 16:30 Temperature 98 F Pulse Rate 79 75 74 Respiratory Rate 14 24 11 L Blood Pressure 189/88 H 159/82 H Pulse Oximetry 99 99 98 09/07/20 16:45 09/07/20 17:00 09/07/20 17:15 Temperature Pulse Rate 74 72 76 Respiratory Rate 20 15 15 Blood Pressure 158/84 H Pulse Oximetry 99 99 99 MDM - Chest Pain Lab Data Attestation: I reviewed the patient's lab results. Result diagrams: 09/07/20 15:37 09/07/20 15:37 Labs: Lab Results 09/07/20 09/07/20 09/07/20 Range/Units 15:37 15:37 15:37 WBC 8.1 (4.5-11.0) X10^3/uL RBC 4.40 L (4.5-5.9) X10^6/uL Hgb 14.6 (13.5-17.5) g/dL Hct 42.6 (41-53) % MCV 96.8 (80-100) fL MCH 33.3 (26-34) PG MCHC 34.3 (30-36) % RDW 13.6 (11.6-14.8) % Plt Count 198 (150-400) X10^3/uL Neut % (Auto) 64.1 (50-75) % Lymph % (Auto) 22.0 L (25-40) % [place] % (Auto) 11.2 (3-14) % Eos % (Auto) 2.2 (2-4) % Baso % (Auto) 0.5 (0-2) % Neut # (Auto) 5200 (8810-1249) /uL Lymph # (Auto) 1800 (8335-2368) /uL [place] # (Auto) 900 (0-900) /uL Eos # (Auto) 200 (0-450) /uL Baso # (Auto) 0 (0-100) /uL PT 11.1 (10.1-12.7) SECONDS INR 1.0 (0.9-1.3) APTT 29 (26.4-36.2) SECONDS Sodium 135 L (137-145) mmol/L Potassium 3.4 (3.4-5.1) mmol/L Chloride 99 (98-107) mmol/L Carbon Dioxide 31 (22-32) mmol/L BUN 18 (9-20) mg/dL Creatinine 0.92 (0.66-1.25) mg/dL Estimated GFR > 60.0 (>60) mL/min BUN/Creatinine Ratio 19.6 (6-22) Glucose 105 (80-110) mg/dL Calcium 9.3 (8.4-10.2) mg/dL Total Bilirubin 0.5 (0.2-1.3) mg/dL AST 40 (17-59) IU/L ALT 47 (<50) IU/L Alkaline Phosphatase 70 (38-126) U/L Total Creatine Kinase 111 (55-170) U/L CK-MB (CK-2) 2.04 (<2.37) ng/mL CK-MB (CK-2) Rel Index 1.8 (1.5-5.0) % Troponin I < 0.012 (0.01-0.034) ng/mL Total Protein 7.5 (6.3-8.2) g/dL Albumin 4.4 (3.5-5.0) g/dL Globulin 3.1 (1.7-4.1) g/dL Albumin/Globulin Ratio 1.4 (1.0-2.8) Lipase 303 H (23-300) U/L SARS-CoV-2 (PCR) (Negative) 09/07/20 Range/Units 16:03 WBC (4.5-11.0) X10^3/uL RBC (4.5-5.9) X10^6/uL Hgb (13.5-17.5) g/dL Hct (41-53) % MCV (80-100) fL MCH (26-34) PG MCHC (30-36) % RDW (11.6-14.8) % Plt Count (150-400) X10^3/uL Neut % (Auto) (50-75) % Lymph % (Auto) (25-40) % [place] % (Auto) (3-14) % Eos % (Auto) (2-4) % Baso % (Auto) (0-2) % Neut # (Auto) (0316-5146) /uL Lymph # (Auto) (8952-3890) /uL [place] # (Auto) (0-900) /uL Eos # (Auto) (0-450) /uL Baso # (Auto) (0-100) /uL PT (10.1-12.7) SECONDS INR (0.9-1.3) APTT (26.4-36.2) SECONDS Sodium (137-145) mmol/L Potassium (3.4-5.1) mmol/L Chloride (98-107) mmol/L Carbon Dioxide (22-32) mmol/L BUN (9-20) mg/dL Creatinine (0.66-1.25) mg/dL Estimated GFR (>60) mL/min BUN/Creatinine Ratio (6-22) Glucose (80-110) mg/dL Calcium (8.4-10.2) mg/dL Total Bilirubin (0.2-1.3) mg/dL AST (17-59) IU/L ALT (<50) IU/L Alkaline Phosphatase (38-126) U/L Total Creatine Kinase (55-170) U/L CK-MB (CK-2) (<2.37) ng/mL CK-MB (CK-2) Rel Index (1.5-5.0) % Troponin I (0.01-0.034) ng/mL Total Protein (6.3-8.2) g/dL Albumin (3.5-5.0) g/dL Globulin (1.7-4.1) g/dL Albumin/Globulin Ratio (1.0-2.8) Lipase (23-300) U/L SARS-CoV-2 (PCR) Negative (Negative) Imaging Data Chest x-ray: Radiologist's Impression: [address] [id number] ReportSigned Patient: Rolo Naranjo FMR#: [id number]: 3Acct:[id number]/Sex: 75 / MDate of Service: 09/07/20Loc: EDAccession Number: [id number] Procedure: XR chest 1V Ordering Provider: Johana Woodruff D.O. PROCEDURE: XR CHEST 1V INDICATIONS: chest pain TECHNIQUE: One view of the chest was acquired. COMPARISON: [facility], CHEST 1 VIEW, 06/03/2017, 11:22. FINDINGS: Surgical changes and devices: None. Lungs and pleura: An incomplete inspiratory result is noted, causing a crowded appearance to the lung markings. No focal infiltrates are seen. No pneumothorax or significant pleural effusions are seen. Mediastinum: The cardiac contours are within normal limits. The aorta demonstrates calcification and tortuosity. Bones and chest wall: No suspicious bony lesions. Age-appropriate bony degenerative changes are seen. Overlying soft tissues appear unremarkable. IMPRESSION: Limited portable chest examination, without a significant cardiopulmonary abnormality identified. Dictated by: Sergio Olivares M.D. on 09/07/2020 at 15:03 Approved by: Sergio Olivares M.D. on 09/07/2020 at 15:04 ECG Data Attestation: I personally reviewed and interpreted this ECG as follows: Prior ECG tracings: available for review Interpretation: Sinus rhythm rate 72 P are 166 QRS of 96 and QTC 427[address] No [address] elevation depression appreciated. MDM Narrative Medical decision making narrative: 75-year-old male who comes in with classic stable angina symptoms he takes a baby aspirin Monday, Monday and Monday. He had 81 mg this morning an additional 243 mg in the department. He has no acute ST changes. He is not having any active chest pain, last episode was at 10am. His most recent episode was at 10:00 a.m. this morning after going up the stair s. Labs and imaging show no acute abnormalities, patient has lipase of 303. covid is negative. EKG shows no acute changes. Patient appears to have stable angina. After discussion with Dr. Pineda from Cardiology he recommends bring in for stress testing but does not feel patient needs transfer to outside facility or [facility] at this time. Discharge Plan Departure Patient Disposition: Admitted as Observation Clinical Impression: Stable angina Admit Date/Time: 09/07/20 17:18 Admit Provider: Jose David Boss
[2020-09-07 15:44] LABS: Add Manual Diff / Slide Review NO; Basophils Absolute Auto 0 /uL (0-100); Basophils Percent Auto 0.5 % (0-2); Eosinophils Absolute Auto 200 /uL (0-450); Eosinophils Percent Auto 2.2 % (2-4); Hematocrit 42.6 % (41-53); Hemoglobin 14.6 g/dL (13.5-17.5); Lymphocytes Absolute Auto 1800 /uL (1100-4500); Mean Corpuscular HGB Conc 34.3 % (30-36); Mean Corpuscular Hemoglobin 33.3 PG (26-34); Mean Corpuscular Volume 96.8 fL (80-100); Monocytes Absolute Auto 900 /uL (0-900); Monocytes Percent Auto 11.2 % (3-14); Neutrophils Absolute Auto 5200 /uL (1500-7000); Neutrophils Percent Auto 64.1 % (50-75); Platelet Count 198 X10^3/uL (150-400); Red Cell Distribution Width 13.6 % (11.6-14.8); White Blood Cell Count 8.1 X10^3/uL (4.5-11.0)
[2020-09-07] MEDS: ASPIRIN 81 MG CHEW TAB 324 MG PO (15:52)
[2020-09-07 15:58] LABS: Prothrombin Time 11.1 SECONDS (10.1-12.7)
[2020-09-07 16:00] LABS: PTT Partial Thromboplastin Tim 29 SECONDS (26.4-36.2)
[2020-09-07 16:02] LABS: HEMOLYSIS 16 (0-50); Potassium 3.4 mmol/L (3.4-5.1)
[2020-09-07 16:03] LABS: Alanine Aminotransferase 47 IU/L (<50); Albumin 4.4 g/dL (3.5-5.0); Albumin Globulin Ratio 1.4 (1.0-2.8); Alkaline Phosphatase 70 U/L (38-126); Aspartate Aminotransferase 40 IU/L (17-59); BUN Creatinine Ratio 19.6 (6-22); Bilirubin Total 0.5 mg/dL (0.2-1.3); Blood Urea Nitrogen 18 mg/dL (9-20); Calcium 9.3 mg/dL (8.4-10.2); Carbon Dioxide 31 mmol/L (22-32); Chloride 99 mmol/L (98-107); Creatine Kinase 111 U/L (55-170); Estimated Glomerular Filt Rate > 60.0 mL/min (>60); Globulin 3.1 g/dL (1.7-4.1); Glucose 105 mg/dL (80-110); Lipase 303 U/L (23-300); Sodium 135 mmol/L (137-145); Total Protein 7.5 g/dL (6.3-8.2)
[2020-09-07 16:16] LABS: Troponin I < 0.012 ng/mL (0.01-0.034)
[2020-09-07 16:18] LABS: CKMB % Relative Index 1.8 % (1.5-5.0); Creatine Kinase MB 2.04 ng/mL (<2.37)
[2020-09-07 16:45] LABS: COVID19 -Nasal RAPID Negative (Negative)
--- NOTE | 2020-09-07 18:27 | P.HP_ITS ---
History of Present Illness History of Present Illness Date Patient Seen: 09/07/20 Time Patient Seen: 18:27 Date of Onset of Symptoms: 09/07/20 Chief complaint: TIGHNESS OF MY CHEST Narrative: Patient is a 75-year-old male patient of Dr. Leung who has been in his usual state of health up until 3 days ago. Patient has had no previous discomfort in his chest and usually does well with hills or stairs but over the last 3 days no matter what he does going up stairs or going up hills he noticed substernal pressure which was new. He describes it as maybe 2 to 3/10 at its most intense. It had no radiation. Was not associated with any diaphoresis nausea vomiting or other changes. Lasted usually a few minutes after he rested. Never had it at rest. He otherwise has been feeling well. He has had no fevers or chills. No cough. No chest pain otherwise. Nothing with breathing. He has had no nausea vomiting or other changes. No also family has been sick. Patient's risk factors are hyperlipidemia hypertension. Has no other family history except for an 90-year-old dad with heart disease. 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 Patient History Medical History BPH (benign prostatic hyperplasia) Family & Social History Social History: lives independently Yes Safety & Behavioral: Feels Safe in Current Yes Environment Been Physically Hurt or No Threatened By a Person Tobacco & Substance use: Smoking Status Former smoker alcohol intake never alcohol intake frequency 3 or more drinks per day Substance Use Type does not use Meds Home Medications and Allergies Home Medications Medication Instructions Recorded Confirmed Type diltiazem HCl [Cartia XT] 240 mg PO Q DAY #0 11/27/11 09/07/20 History furosemide 20 mg PO QDAY #0 06/03/17 09/07/20 History acyclovir [Zovirax] 1 applic TOPICAL 5XD 09/07/20 09/07/20 History alfuzosin 10 mg PO DAILY 09/07/20 09/07/20 History ascorbate calcium (vitamin C) 500 mg PO BID 09/07/20 09/07/20 History [Sheila-C] aspirin [Adult Low Dose Aspirin] 81 mg PO 3XW 09/07/20 09/07/20 History calcium-vitamin D3-vitamin K 1 tab PO BID 09/07/20 09/07/20 History chlorthalidone 12.5 mg PO QAM 09/07/20 09/07/20 History cholecalciferol (vitamin D3) 75 mcg PO DAILY 09/07/20 09/07/20 History [Vitamin D3] clotrimazole-betameth dip-zinc See Rx Instructions .ROUTE .COMPLEX 09/07/20 09/07/20 History evolocumab [Repatha SureClick] 140 mg SUBCUT Q2W 09/07/20 09/07/20 History fiber [Fiber Choice] 1 tab PO BID 09/07/20 09/07/20 History flaxseed oil 2,000 mg PO BID 09/07/20 09/07/20 History fluocinonide 1 applic TOPICAL BID-QID PRN 09/07/20 09/07/20 History ketoconazole 1 applic TOPICAL 3XW 09/07/20 09/07/20 History lactobacillus combination no.8 3,000 mmu cells PO BID 09/07/20 09/07/20 History [Adult Probiotic] lisinopril 20 mg PO BID 09/07/20 09/07/20 History omeprazole 20 mg PO DAILY 09/07/20 09/07/20 History potassium gluconate 595 mg PO DAILY 09/07/20 09/07/20 History pyridoxine (vitamin B6) 100 mg PO QAM 09/07/20 09/07/20 History saw palmetto 160 mg PO BID 09/07/20 09/07/20 History testosterone cypionate 50 mg IM QWEEK 09/07/20 09/07/20 History timolol maleate 1 drp EYE-BOTH QAM 09/07/20 09/07/20 History vitamin B complex 1 cap PO DAILY 09/07/20 09/07/20 History Allergies Allergy/AdvReac Type Severity Reaction Status Date / Time niacin [NIACIN] Allergy Mild GETS ALL Verified 09/07/20 15:37 RED/RASH Penicillins [PENICILLINS] Allergy Unknown Verified 09/07/20 15:37 risedronate sodium Allergy Unknown Verified 09/07/20 15:37 [RISEDRONATE SODIUM] cyclobenzaprine Allergy Verified 09/07/20 15:37 oxybutynin Allergy Verified 09/07/20 15:37 Ulhhhsa-Uud-Jya Reductase Allergy Verified 09/07/20 15:37 Inhibitor ACTONAL Allergy Mild RASH Uncoded 09/07/20 15:37 Review of Systems Review of Systems ROS: Yes All systems reviewed with the patient and are negative except as otherwise documented Exam Vital Signs (past 8 hours): - 09/07/20 15:32 09/07/20 16:27 09/07/20 16:30 Temperature 98 F Pulse Rate 79 75 74 Respiratory Rate 14 24 11 L Blood Pressure 189/88 H 159/82 H Pulse Oximetry 99 99 98 09/07/20 16:45 09/07/20 17:00 09/07/20 17:15 Temperature Pulse Rate 74 72 76 Respiratory Rate 20 15 15 Blood Pressure 158/84 H Pulse Oximetry 99 99 99 09/07/20 17:39 09/07/20 17:42 09/07/20 17:45 Temperature Pulse Rate 80 79 80 Respiratory Rate 12 29 H Blood Pressure 186/95 H Pulse Oximetry 99 98 09/07/20 18:00 Temperature Pulse Rate 84 Respiratory Rate 19 Blood Pressure 190/90 H Pulse Oximetry 99 Oxygen Delivery Method Room Air Narrative Exam Narrative: Alert elderly male sitting in emergency room stretcher in no acute distress. HEENT exam is unremarkable neck supple without adenopathy JVD or bruits. Lungs are clear. Heart regular rate and rhythm without murmurs clicks rubs or gallops. Abdomen is benign. Extremities without cyanosis clubbing edema. Neurologic exam is nonfocal. Objective Labs Result Diagrams: 09/07/20 15:37 09/07/20 15:37 Labs: Laboratory Results - last 24 hr 09/07/20 09/07/20 09/07/20 15:37 15:37 15:37 WBC 8.1 RBC 4.40 L Hgb 14.6 Hct 42.6 MCV 96.8 MCH 33.3 MCHC 34.3 RDW 13.6 Plt Count 198 Neut % (Auto) 64.1 Lymph % (Auto) 22.0 L [place] % (Auto) 11.2 Eos % (Auto) 2.2 Baso % (Auto) 0.5 Neut # (Auto) 5200 Lymph # (Auto) 1800 [place] # (Auto) 900 Eos # (Auto) 200 Baso # (Auto) 0 PT 11.1 INR 1.0 APTT 29 Sodium 135 L Potassium 3.4 Chloride 99 Carbon Dioxide 31 BUN 18 Creatinine 0.92 Estimated GFR > 60.0 BUN/Creatinine Ratio 19.6 Glucose 105 Calcium 9.3 Total Bilirubin 0.5 AST 40 ALT 47 Alkaline Phosphatase 70 Total Creatine Kinase 111 CK-MB (CK-2) 2.04 CK-MB (CK-2) Rel Index 1.8 Troponin I < 0.012 Total Protein 7.5 Albumin 4.4 Globulin 3.1 Albumin/Globulin Ratio 1.4 Lipase 303 H SARS-CoV-2 (PCR) 09/07/20 16:03 WBC RBC Hgb Hct MCV MCH MCHC RDW Plt Count Neut % (Auto) Lymph % (Auto) [place] % (Auto) Eos % (Auto) Baso % (Auto) Neut # (Auto) Lymph # (Auto) [place] # (Auto) Eos # (Auto) Baso # (Auto) PT INR APTT Sodium Potassium Chloride Carbon Dioxide BUN Creatinine Estimated GFR BUN/Creatinine Ratio Glucose Calcium Total Bilirubin AST ALT Alkaline Phosphatase Total Creatine Kinase CK-MB (CK-2) CK-MB (CK-2) Rel Index Troponin I Total Protein Albumin Globulin Albumin/Globulin Ratio Lipase SARS-CoV-2 (PCR) Negative Assessment & Plan Assessment & Plan narrative: New onset stable angina. Emergency room physician discussed with uniform cap operator who recommends admission. Enzymes are negative and EKG is unremarkable. Chest x-ray is normal. Patient has significant risk factors. And certainly concerning with increasing change in chest discomfort. Will place in-hospital continue aspirin, telemetry, nitroglycerin as needed, probable thallium treadmill tomorrow and consult with uniform cap operator. Patient will call if any change. Due the fact his blood pressure was elevated will add metoprolol tonight and re-evaluate in a.m.. Hypertension. Will continue usual medicines plus metoprolol follow. Hyperlipidemia. Will continue his usual statin and follow from there. Does not need injectable at this time. Apparently has had significant problems with statins in the past. Glaucoma continue apparently medicines. BPH. Will continue usual medicine. History of reflux will continue PPI. Disposition. Will see what uniform cap operator recommends and will get treadmill and follow from there.
--- NOTE | 2020-09-07 19:40 | PC.NURSE ---
Pt admitted to rm 228 from ED for complaint of chest tightness and shortness of breath on exertion. Placed on residential monitor, oriented to environment, meal offered. Denies pain or shortness of breath at this time.
[2020-09-07] MEDS: diphenhydrAMINE 25 MG TABLET 50 MG PO (20:31)
[2020-09-07] MEDS: lisinopriL 20 MG TABLET PO (20:31)
[2020-09-07] MEDS: METOPROLOL IR 25 MG TABLET PO (23:46)
[2020-09-08] VITALS (9 sets, daily range): BP systolic 134–164; BP diastolic 72–89; PULSE 54–84; RESP 12–22; TEMP 36.6–36.9; O2SAT 95–99; BMI 31.1
[2020-09-08] MEDS: PANTOPRAZOLE 20 MG TABLET PO (06:09)
[2020-09-08 06:23] LABS: Creatine Kinase 96 U/L (55-170)
[2020-09-08 06:36] LABS: Troponin I 0.016 ng/mL (0.01-0.034)
[2020-09-08] MEDS: CHLORTHALIDONE 25 MG TABLET 12.5 MG PO (09:38)
[2020-09-08] MEDS: lisinopriL 20 MG TABLET PO ×2 (09:38→20:42)
[2020-09-08] MEDS: ENOXAPARIN 40 MG/0.4 ML SYRINGE SUBCUT (09:39)
[2020-09-08] MEDS: SODIUM CHLORIDE 0.9% FLUSH 10 ML IV ×2 (09:40→21:23)
[2020-09-08] MEDS: TIMOLOL 0.5% OPHTH 1 DROPS EYE-BOTH (09:40)
--- NOTE | 2020-09-08 09:50 | DI.ECHO.S_ITS ---
[place] +---------+ [facility] +---------+ : : [address] : : : : [id number] : : : : Phone: [phone]+ Echocardiogram Report + + :Name: JOSE CORLEY Study Date: 09/08/2020 Height: 70 in : :[facility] ReadingLocation: Weight: 229 lb : : Gender: Male BSA: 2.2 m2 : :: 1945 Age: 75 yrs BP: 164/85 mmHg: :Reason For Study: CHEST PAIN : :Ordering Physician: ANT, : :KARLO Performed By: Aaliyah Groves : :Referring: KARLO CAIN : + + Interpretation Summary Sinus bradycardia with heart rate 47-54 bpm. Normal LV size and wall thickness. Normal wall motion and left ventricular systolic function. Ejection fraction 60-65%. Moderate left atrial enlargement; mild right atrial enlargement. No significant valvular abnormalities. Mildly dilated aortic root measuring 4.1 cm and mildly enlarged ascending aorta. No prior study available for comparison. Procedure: A two-dimensional transthoracic echocardiogram with color flow and Doppler was performed. The study quality was technically adequate. There is no prior echocardiogram noted for this patient. The patient was in sinus bradycardia with heart rates between 47-54 bpm during the exam. Left Ventricle: The left ventricle is normal in size and wall thickness. The ejection fraction is estimated to be 60-65%. Diastolic parameters suggest a relaxation abnormality of the left ventricle, consistent with probable normal filling pressures. Right Ventricle: The right ventricle is mildly dilated. The right ventricular systolic function is normal. Atria: The left atrium is moderately dilated. The right atrium is mildly dilated. There is no Doppler evidence for an interatrial shunt. Mitral Valve: The mitral valve is normal in structure and function. There is mild mitral annular calcification. There is trace mitral regurgitation. Aortic Valve: The aortic valve is trileaflet. The aortic valve opens well. There is no aortic valve stenosis. No aortic regurgitation is present. Tricuspid Valve: The tricuspid valve is normal in structure and function. The right ventricular systolic pressure is estimated to be at least 24 mmHg based on an estimated right atrial pressure of 3 mm Hg. There is mild tricuspid regurgitation. Pulmonic Valve: The pulmonic valve leaflets are thin and pliable; valve motion is normal. There is mild pulmonic regurgitation. Great Vessels: The aortic root is normal size. The ascending aorta is mildly enlarged. The IVC is of normal diameter and collapses greater than 50% with a sniff. This suggests a low right atrial pressure of 3 mm Hg. Pericardium/ Pleura There is no pericardial effusion. There is no pleural effusion. MMode/2D Measurements & Calculations LVIDd: 5.1 cm LVOT diam: 2.3 cm LVIDs: 3.8 cm Ao root diam: 4.1 cm FS: 25.8 % asc Aorta Diam: 3.8 cm EPSS: 0.84 cm Ao Arch Diam (Prox Trans): 2.3 cm IVSd: 1.0 cm LVPWd: 1.0 cm LV smith. diameter/BSA (cm/m^2): 2.3 LV sys. diameter/BSA (cm/m^2): 1.7 LA A2 area: 26.7 cm2 RA long axis: 6.5 cm LA A4 area: 28.5 cm2 RA area: 25.6 cm2 LA length (vol): 6.5 cm RA vol: 86.3 ml LA vol: 99.9 ml RA : 39.1 ml/m2 LA vol index: 45.2 ml/m2 IVC diam: 1.9 cm RVD1 (basal): 4.4 cm TAPSE: 2.3 cm Doppler Measurements & Calculations Ao V2 max: 139.7 cm/sec LVOT Max Baldev: 112.8 cm/sec Ao V2 mean: 98.9 cm/sec LV V1 max P.1 mmHg Ao max P.8 mmHg LV V1 VTI: 25.3 cm Ao mean P.4 mmHg TEENA(I,D): 3.5 cm2 Ao V2 VTI: 30.9 cm TEENA(V,D): 3.4 cm2 sev ratio: 0.82 TEENA indexed to BSA (cm^2/m^2): 1.6 MV E max baldev: 49.9 cm/sec TR max baldev: 230.5 cm/sec MV A max baldev: 57.8 cm/sec TR max P.3 mmHg MV E/A: 0.86 PA V2 max: 74.9 cm/sec Med Peak E' Baldev: 6.3 cm/sec PA V2 mean: 43.1 cm/sec E/E' med: 7.9 PA mean P.93 mmHg Lat Peak E' Baldev: 7.4 cm/sec PA pr(Accel): 29.3 mmHg E/E' lat: 6.8 E/e' average: 7.3 MV dec time: 0.35 sec SV(LVOT): 106.8 ml Electronically signed by: Candace Sotleo M.D. on [place] Physician:09/08/2020 05:38 PM
[2020-09-08] MEDS: PSYLLIUM HUSK 1 PACKET PO (10:51)
--- NOTE | 2020-09-08 13:36 | PC.NURSE ---
rounded ~ 0900. Requested clarification of orders for cardiac stress test (not ordered). Reported VS. Reported HR 50s overnight and NOC RN held AM metoprolol dose. Requested clarification of orders for metoprolol and diltiazem. Orders received to dc metoprolol. Holding diltiazem and will re evaluate HR and BP. Dr. Jerome aware. Plan is for pt to have an echo and stress test. Pt is chest pain free with no c/o pain otherwise. He is using the call light and making his needs known. Supportive at bedside.
--- NOTE | 2020-09-08 14:44 | CM.DANOTE ---
Discharge Planning/Care Management DCP: assessment: case received, EMR reviewed and met with pt and his Lelia, at bedside. Introduced self and role. Pt is a 75 year old male who admitted yesterday eveing to care of Dr. Boss. PCP: dr. Lizzette Leung Payer: Medicare and [facility] Pt says he has not talked to a doctor since early this morning. He knows that a consult was planned with his sensitized paper tester Dr. Palafox and that Dr. Boss had ordered a treadmill. no one has any idea yet when this will be done. Pt and waiting patiently for further information. Pt is hoping he will be able to d/c home when stable but unknown at this time. CM Discharge Assessment Start: 09/08/20 14:43 Freq: Status: Active Protocol: Document 09/08/20 14:43 ITV (Rec: 09/08/20 14:43 ITV [id number]) Discharge Planning Assessment Advance Directives? Yes History Provided By Patient,Family Member,Medical Record Prior Living Arrangements House Household Members spouse Type of transportation used prior to Drives own vehicle admit Independent with ADL's Yes Is patient alert and oriented? Yes
[2020-09-08] MEDS: diphenhydrAMINE 25 MG TABLET 50 MG PO (20:42)
[2020-09-09 03:59] VITALS: BP 153/87; PULSE 74; RESP 22; TEMP 36.5; O2SAT 98
[2020-09-09 04:00] VITALS: O2SAT 98
[2020-09-09] MEDS: PANTOPRAZOLE 20 MG TABLET PO (05:42)
--- NOTE | 2020-09-09 06:41 | PC.NURSE ---
Experimental Technician Note-Patient slept throughout night, denies chest pain or dyspnea, SR w/ 1st degree AVB, HR does go up to 90s while ambulating. SpO2 95-98% RA, LS CTA. NPO at 0500.
[2020-09-09 08:00] VITALS: BP 144/84; PULSE 81; RESP 19; TEMP 36.1; O2SAT 98
[2020-09-09] MEDS: SODIUM CHLORIDE 0.9% FLUSH 10 ML IV (09:07)
[2020-09-09] MEDS: PSYLLIUM HUSK 1 PACKET PO (09:07)
[2020-09-09] MEDS: ENOXAPARIN 40 MG/0.4 ML SYRINGE SUBCUT (09:07)
[2020-09-09] MEDS: ASPIRIN EC 81 MG TABLET PO (09:07)
[2020-09-09] MEDS: dilTIAZem CD 240 MG CAP PO (09:08)
[2020-09-09] MEDS: lisinopriL 20 MG TABLET PO (09:08)
[2020-09-09] MEDS: TIMOLOL 0.5% OPHTH 1 DROPS EYE-BOTH (09:08)
[2020-09-09] MEDS: CHLORTHALIDONE 25 MG TABLET 12.5 MG PO (09:08)
--- NOTE | 2020-09-09 11:51 | PM.TREADMILL ---
Cardiac Stress Test Report Referral & Results Date Patient Seen: 09/09/20 Time Patient Seen: 11:51 Requesting provider: Jose David Boss Indication: chest pain Rest ECG: sinus rhythm Procedure Note: Standard Franck protocol, 8:01, 8.8 METS Very good exercise capacity, CATA -36% Normal hemodynamic response to exercise No chest pain or anginal symptoms No significant ST changes at peak exercise No ectopy Impression: Normal exercise stress test Please note: Actual ECG tracings can be found in the PACS system.
[2020-09-09 13:00] VITALS: BP 148/86; PULSE 87; RESP 16; TEMP 36.4; O2SAT 97
[2020-09-09] MEDS: ACETAMINOPHEN 325 MG TABLET 650 MG PO (15:58)
[2020-09-09 16:00] VITALS: BP 127/72; PULSE 70; RESP 17; TEMP 36.7; O2SAT 98
--- NOTE | 2020-09-09 17:06 | DI.NM.S_ITS ---
DATE OF SERVICE: 09/09/2020 PROCEDURE: Exercise perfusion study. INDICATIONS: Chest pain with underlying hypertension and hyperlipidemia. RADIOPHARMACEUTICAL: 28.5 millicurie technetium-99m Myoview IV was injected at stress and 13.2 millicurie technetium-99m Myoview IV was injected at rest. It was one day protocol. CARDIAC STRESS: The patient underwent exercise perfusion study under the supervision of an attending staff. The patient walked on Franck protocol for 8 minutes 01 seconds, achieved 97 percent of target heart rate, normal blood pressure response, 10.1 METs of workload and functional aerobic impairment -36 percent. No ischemic symptoms. The patient felt fatigue and some dyspnea. Baseline EKG revealed sinus rhythm. During stress, no convincing ischemic changes. No significant arrhythmias seen. RAW DATA: There was increased subdiaphragmatic activity. GATED STUDY: Stress LV ejection fraction 64 percent without any obvious wall motion abnormalities. Resting end-diastolic volume 114 mL. TID ratio 0.91, which is within normal limits. Lung/heart ratio 0.39 ,which is within normal limits. MYOCARDIAL PERFUSION: Stress supine, resting supine and stress prone images were compared to each other. Stress supine and resting supine images revealed moderate-size ,moderate to severely decreased perfusion of inferior wall extending into the inferoapex, as well as distal inferolateral wall, which got completely normalized during prone images suggestive of diaphragmatic tissue attenuation artifact. No convincing ischemia or infarction pattern is seen. CONCLUSION: I will call this study a normal myocardial perfusion study with evidence of diaphragmatic tissue attenuation artifact which got completely resolved during the stress prone images. Functional aerobic impairment -36 percent. No exertional chest pain. Normal hemodynamic response. No ischemic electrocardiographic changes. No significant arrhythmias. Overall, this is a low-risk myocardial perfusion scan. Rolo Naranjo - LAURA/arnulfo/huseyin doc#: [id number]/job#: [id number] dd: 09/09/2020 13:53:00 dt: 09/09/2020 16:23:00 DICTATING MD/COPIES TO: Amador Mercado MD COPIES MNE: JOSEFINA;
--- NOTE | 2020-09-09 17:38 | PM.DS.1 ---
History of Present Illness History of Present Illness Date Patient Seen: 09/09/20 Time Patient Seen: 17:39 Chief complaint: TIGHTNESS OF MY CHEST Narrative: Patient is a 75-year-old male patient of Dr. Leung who has been in his usual state of health up until 3 days ago. Patient has had no previous discomfort in his chest and usually does well with hills or stairs but over the last 3 days no matter what he does going up stairs or going up hills he noticed substernal pressure which was new. He describes it as maybe 2 to 3/10 at its most intense. It had no radiation. Was not associated with any diaphoresis nausea vomiting or other changes. Lasted usually a few minutes after he rested. Never had it at rest. He otherwise has been feeling well. He has had no fevers or chills. No cough. No chest pain otherwise. Nothing with breathing. He has had no nausea vomiting or other changes. No also family has been sick. Patient's risk factors are hyperlipidemia hypertension. Has no other family history except for an 90-year-old dad with heart disease. Discharge Providers Provider Date of admission: 09/07/20 17:18 Discharge Date: 09/09/20 Primary care physician: Melissa Leung MD Discharge provider: Melissa Leung MD Summary Hospital Course Discharge Diagnosis: 1. New onset stable angina. 2. Hypertension, chronic 3. Hyperlipidemia, chronic Hospital Course: Uneventful hospital stay. Troponins negative x2. Chest x-ray unremarkable. Echo showed normal ejection fraction. Stress test low risk. Patient was asymptomatic throughout his hospital stay. He was hypertensive upon entry into the ED, he thought this was secondary to white coat hypertension. Metoprolol 25 mg p.o. x1 was added to his normal routine but not administered secondary to low blood pressure. He was not discharged on metoprolol and plan will be to watch closely in the outpatient setting. He will follow-up in 1 week for blood pressure check. Discharged on nitroglycerin. On day of discharge, he was afebrile with stable vital signs throughout. Time spent on Discharge and Coordination of post-hospital care: 35 minutes Exam Vital Signs (past 8 hours): - 09/09/20 13:00 09/09/20 16:00 Temperature 97.5 F L 98.1 F Pulse Rate 87 70 Respiratory Rate 16 17 Blood Pressure 148/86 H 127/72 Pulse Oximetry 97 98 Oxygen Delivery Method Room Air Oxygen Flow Rate 0 Narrative Exam Narrative: GENERAL: Alert and oriented, appearing stated age and in no acute distress. HEENT: Head normocephalic/atraumatic. LUNGS: Clear to ausculation bilaterally, no wheezes, rhonchi or rales. CV: Normal S1 and S2 with regular rate and rhythm, no audible murmurs, rubs or gallops. ABDOMEN: Soft, non-tender, non-distended, no organomegaly. Positive bowel sounds. EXTREMITIES: No clubbing, cyanosis, or edema. NEURO: Cranial nerves II through XII grossly intact, no focal deficits. PSYCH: Alert and oriented x 3. SKIN: No concerning lesions. Objective Labs Result Diagrams: 09/07/20 15:37 09/07/20 15:37 [facility] Medical History BPH (benign prostatic hyperplasia) Social History marital status: household members: spouse lives independently: Yes Smoking Status: Former smoker alcohol intake: current substance use type: does not use Discharge Plan Discharge Plan Patient Disposition: Home Discharge orders & Medications Prescriptions: New nitroglycerin 0.4 mg tablet, sublingual 0.4 mg sublingual Q5-15M MDD 3 pills PRN (Reason: chest pain) Qty: 10 RF: 3 Continued diltiazem HCl [Cartia XT] 240 MG capsule,extended release 24hr 240 mg PO Q DAY Qty: 0 RF: 0 furosemide 20 MG tablet 20 mg PO QDAY Qty: 0 RF: 0 lisinopril 20 mg tablet 20 mg PO BID RF: 0 chlorthalidone 25 mg tablet 12.5 mg PO QAM RF: 0 alfuzosin 10 mg tablet extended release 24 hr 10 mg PO DAILY RF: 0 ketoconazole 2 % Shampoo 1 applic TOPICAL 3XW RF: 0 flaxseed oil 1,000 mg Capsule 2,000 mg PO BID RF: 0 saw palmetto 160 mg Capsule 160 mg PO BID RF: 0 omeprazole 20 mg Capsule,Delayed Release(Dr/Ec) 20 mg PO DAILY RF: 0 aspirin 81 mg Tablet 81 mg PO 3XW RF: 0 pyridoxine (vitamin B6) 100 mg Tablet 100 mg PO QAM RF: 0 testosterone cypionate 200 mg/mL oil 50 mg IM QWEEK RF: 0 fluocinonide 0.05 % Solution 1 applic TOPICAL BID-QID PRN (Reason: Rash) RF: 0 timolol maleate 0.5 % drops 1 drp EYE-BOTH QAM RF: 0 vitamin B complex Capsule 1 cap PO DAILY RF: 0 acyclovir [Zovirax] 5 % Cream 1 applic TOPICAL 5XD RF: 0 ascorbate calcium (vitamin C) 500 mg Capsule 500 mg PO BID RF: 0 fiber Tablet,Chewable 1 tab PO BID RF: 0 potassium gluconate 595 mg (99 mg) Tablet 595 mg PO DAILY RF: 0 cholecalciferol (vitamin D3) [Vitamin D3] 25 mcg (1,000 unit) Tablet,Chewable 75 mcg PO DAILY RF: 0 calcium-vitamin D3-vitamin K 500 mg-1,000 unit-40 mcg Tablet,Chewable 1 tab PO BID RF: 0 Adult Probiotic 3 billion cell Capsule 3,000 mmu cells PO BID RF: 0 Repatha SureClick 140 mg/mL Pen Injector 140 mg SUBCUT Q2W RF: 0 clotrimazole-betameth dip-zinc 1-0.05-20 % Combo Pack See Rx Instructions .ROUTE .COMPLEX RF: 0 psyllium Packet 1 packet PO DAILY RF: 0 Follow up/Referrals: Melissa Leung MD [Primary Care Provider] - Diet/Activity/Treatments Diet: Low-sodium Skin/Wound/Dressing Care Report to your healthcare provider any signs of infection, such as:: chills, fever and increased pain Visit Report/Discharge Packet Instructions: Angina Discharge Data Primary Care Provider: Melissa Leung Attending Provider: Jose David Boss
== END 2020-09-09 18:01 | disposition home or self-care (01) ==
LOC: ED 17:16 → AC 17:20 → ICU 17:35
PROVIDERS: Admitting Provider Family Medicine; Emergency Provider Emergency Medicine; PCP Student in an Organized Health Care Education/Training Program; Referring Provider Emergency Medicine; Visit Provider Family Medicine
DX: I20.9 Angina pectoris, unspecified (principal); R07.9 Chest pain, unspecified; I10 Essential (primary) hypertension; E78.5 Hyperlipidemia, unspecified; H40.9 Unspecified glaucoma; N40.0 Benign prostatic hyperplasia without lower urinary tract symptoms; K21.9 Gastro-esophageal reflux disease without esophagitis; Z20.822 Contact with and (suspected) exposure to COVID-19
CPT/HCPCS: 36415; 71045; 78452; 80053; 82550; 82553; 83690; 84484; 85025; 85610; 85730; 87635; 87797; 93005; 93010; 93017; 93306; 96372; 99282; 99284; C9803; G0378; A9502; J1650

== ENCOUNTER → 2020-09-14 07:24 | Outpatient (CLI) | payer MEDICARE, OTHER, SELFPAY ==
[2020-09-08 10:18] VITALS: BMI 31.1
[2020-09-14 08:58] LABS: Cholesterol 129 mg/dL (140-199); HDL Cholesterol 48 mg/dL (40-60); LDL Cholesterol Calculated 63 mg/dL (<100); Triglycerides 89 mg/dL (35-150)
== END ==
PROVIDERS: PCP Student in an Organized Health Care Education/Training Program; Referring Provider Nurse Practitioner; Visit Provider Nurse Practitioner
DX: E78.5 Hyperlipidemia, unspecified (principal)
CPT/HCPCS: 36415; 80061

== ENCOUNTER → 2020-10-02 08:57 | Outpatient (CLI) | payer MEDICARE, OTHER, SELFPAY ==
[2020-09-08 10:18] VITALS: BMI 31.1
[2020-10-02 11:00] LABS: BUN Creatinine Ratio 19.4 (6-22); Blood Urea Nitrogen 18 mg/dL (9-20); Calcium 9.3 mg/dL (8.4-10.2); Carbon Dioxide 27 mmol/L (22-32); Chloride 101 mmol/L (98-107); Estimated Glomerular Filt Rate > 60.0 mL/min (>60); Glucose 128 mg/dL (80-110); HEMOLYSIS < 15 (0-50); Magnesium 1.7 mg/dL (1.6-2.3); Potassium 3.8 mmol/L (3.4-5.1); Sodium 135 mmol/L (137-145)
== END ==
PROVIDERS: PCP Student in an Organized Health Care Education/Training Program; Referring Provider Internal Medicine Cardiovascular Disease; Visit Provider Internal Medicine Cardiovascular Disease
DX: E87.6 Hypokalemia (principal)
CPT/HCPCS: 36415; 80048; 83735

== ENCOUNTER → 2020-12-03 08:56 | Outpatient (CLI) | payer MEDICARE, OTHER, SELFPAY ==
[2020-09-08 10:18] VITALS: BMI 31.1
--- NOTE | 2020-12-03 | DI.RAD.S_ITS ---
PROCEDURE: XR KUB INDICATIONS: right flank pain TECHNIQUE: One view of the abdomen acquired. COMPARISON: [facility], , KUB XRAY (1 VIEW ABDOMEN), 09/02/2016, 8:14. FINDINGS: Surgical changes and devices: None. Bowel: Bowel gas pattern is normal. Soft tissues: No suspicious abdominal calcifications. Visualized solid organ contours appear normal in size. Bones: No suspicious bony lesions. IMPRESSION: Normal for age, source of current right flank pain symptoms is not seen. Dictated by: Bishnu Muhammad M.D. on 12/03/2020 at 9:57 Approved by: Bishnu Muhammad M.D. on 12/03/2020 at 9:59
== END ==
PROVIDERS: PCP Student in an Organized Health Care Education/Training Program; Referring Provider Student in an Organized Health Care Education/Training Program; Visit Provider Student in an Organized Health Care Education/Training Program
DX: R10.9 Unspecified abdominal pain (principal)
CPT/HCPCS: 74018

== ENCOUNTER → 2021-07-22 08:33 | Outpatient (CLI) | payer MEDICARE, OTHER, SELFPAY ==
[2020-09-08 10:18] VITALS: BMI 31.1
--- NOTE | 2021-07-22 08:35 | DI.MRI.S_ITS ---
PROCEDURE: MR SHOULDER RT WO CON INDICATIONS: Incomplete rotator cuff tear or rupture of right s TECHNIQUE: Noncontrast oblique coronal T2 fast spin echo with fat saturation, oblique sagittal T1 spin echo and T2 fast spin echo with fat saturation, axial T1 spin echo and T2 fast spin echo with fat saturation through the shoulder. COMPARISON: [facility], , MR SHOULDER RT WO CON, 08/03/2018, 12:15. FINDINGS: Rotator cuff: Severe supraspinatus tendinopathy and thickening. High-grade partial thickness articular and bursal sided defects at the junction of the critical zone and footprint although no large or retracted full-thickness defect seen. Infraspinatus tendinopathy and thickening noted. The teres minor tendon appears intact. Subscapularis tendinopathy with low-grade articular and bursal surface fraying. Atrophy of the subscapularis muscle is noted. There is mild fatty infiltration of the supraspinatus, infraspinatus and subscapularis muscles. Bones and bursae: No bone marrow contusions or fractures. Moderate hypertrophic acromioclavicular joint degeneration. Acromion demonstrates conventional anatomy, without an os acromiale. Moderate subacromial-subdeltoid bursitis. Capsule and soft tissues: Labrum: Blunted appearance of the posterior labrum although no definite intrasubstance fluid signal intensity. There is also mild fraying of the superior segment, as well as the inferior segment. There is mild and uniform low-grade partial-thickness glenohumeral chondral loss.. Glenohumeral ligaments: Inferior and superior glenohumeral ligaments are intact. Biceps tendon: Long head of the biceps tendon intact. Rotator interval: Normal signal intensity. Coracohumeral ligament: Intact. IMPRESSION: High-grade partial-thickness rotator cuff tear as above. Atrophy of the subscapularis muscle. Overall, findings appear diffusely progressed since the prior study. Interval progression of subscapularis muscle atrophy. Moderate subacromial-subdeltoid bursitis. This finding unchanged Circumferential labral degeneration and chronic fraying, no interval change.. Dictated by: Wes Scott M.D. on 07/22/2021 at 10:08 Approved by: Wes Scott M.D. on 07/22/2021 at 10:15
== END ==
PROVIDERS: PCP Student in an Organized Health Care Education/Training Program; Referring Provider Orthopaedic Surgery; Visit Provider Orthopaedic Surgery
DX: M75.111 Incomplete rotator cuff tear or rupture of right shoulder, not specified as traumatic (principal); M75.51 Bursitis of right shoulder
CPT/HCPCS: 73221

== ENCOUNTER → 2021-12-07 09:01 | Outpatient (CLI) | payer MEDICARE, OTHER, SELFPAY ==
[2020-09-08 10:18] VITALS: BMI 31.1
--- NOTE | 2021-12-07 | DI.MRI.S_ITS ---
PROCEDURE: MR SHOULDER RT W CON INDICATIONS: RIGHT SHOULDER ROTATOR CUFF TEAR TECHNIQUE: After the administration of 12 mL of dilute intra-articular Gadolinium contrast, oblique coronal T1 and T2 spin echo with fat saturation, oblique sagittal T1 spin echo with and without fat saturation, oblique sagittal T2 fast spin echo with fat saturation, axial T1 spin echo with fat saturation through the shoulder. COMPARISON: [facility], MR, SHOULDER WITH CONTRAST, 06/18/2015, 13:40. FINDINGS: Image quality: Excellent. Rotator cuff: Full-thickness supraspinatus tear, measuring approximately 2.2 by 1.6 cm. At least grade 3 atrophy of the supraspinatus muscle. Infraspinatus tendinopathy with small, partial articular surface tear. Minimal tendinopathy of the subscapularis tendon without evidence of tear. Bones and bursae: No bone marrow contusions or fractures. Surgical anchors in the humeral head. Moderate acromioclavicular joint degeneration with T2 hyperintense signal within the articulation. No os acromiale. Capsule and soft tissues: The labrum and glenohumeral ligaments appear intact. The long head of the biceps tendon demonstrates normal location and morphology. The coracohumeral ligament is of normal thickness. No intra-articular bodies. IMPRESSION: 1. Full-thickness supraspinatus tear as detailed above. 2. Atrophy of the supraspinatus muscle. 3. Infraspinatus tendinopathy with small, partial articular surface tear. 4. Moderate AC joint degeneration. Dictated by: Kendall Mathews M.D. on 12/07/2021 at 12:13 Approved by: Kendall Mathews M.D. on 12/07/2021 at 12:17
--- NOTE | 2021-12-07 | DI.RAD.S_ITS ---
PROCEDURE: FL SHOULDER INJECTION MR/CT RT INDICATIONS: RIGHT SHOULDER ROTATOR CUFF TEAR COMPARISON: None. TECHNIQUE: The indications, alternatives, benefits, risks, and complications of the procedure were explained to the patient. Written informed consent was obtained and placed in the chart. The shoulder was examined fluoroscopically and a site for needle placement chosen for entry into the glenohumeral joint from an anterior approach. The skin was prepped and draped in a sterile fashion, and 1% lidocaine infiltrated from skin down to joint capsule. A spinal needle was inserted into the glenohumeral joint, and a small amount of iodinated contrast media injected to confirm intra-articular placement of the needle tip. This was followed by approximately 12 mL dilute solution of a gadolinium containing MR contrast agent. The needle was removed and a dressing was applied. The patient was given postprocedural instructions and sent to the MR suite for MR imaging. FINDINGS: A single fluoroscopic spot image demonstrates intra-articular location of injected iodinated contrast. IMPRESSION: Successful fluoroscopically guided administration of dilute Gadolinium solution into the shoulder joint for MR arthrogram. Dictated by: Pascale Swenson MD, PhD on 12/07/2021 at 11:57 Approved by: Pascale Swenson MD, PhD on 12/07/2021 at 11:57
== END ==
PROVIDERS: PCP Family Medicine; Referring Provider Orthopaedic Surgery; Visit Provider Orthopaedic Surgery
DX: M75.121 Complete rotator cuff tear or rupture of right shoulder, not specified as traumatic (principal); M19.011 Primary osteoarthritis, right shoulder; M62.511 Muscle wasting and atrophy, not elsewhere classified, right shoulder
CPT/HCPCS: 23350; 73222; 77002

== ENCOUNTER → 2022-02-03 14:38 | Outpatient (CLI) | payer MEDICARE, OTHER, SELFPAY ==
[2020-09-08 10:18] VITALS: BMI 31.1
--- NOTE | 2022-02-03 | DI.RAD.S_ITS ---
PROCEDURE: XR HIP W PEL IF DONE DASHAWN MIN 4V INDICATIONS: pain TECHNIQUE: AP pelvis with lateral view(s) of the bilateral hip(s). COMPARISON: [facility], , XR HIP W PEL IF DONE LT 2V, 01/24/2020, 14:57. FINDINGS: Bones: No fractures or dislocations. Pelvic ring appears intact. No suspicious bony lesions. Moderate to severe left and severe right degenerative hip joint space narrowing. Minimal periarticular osteophytes. No erosions. It is minimally progressive compared to prior exam. Soft tissues: The visualized bowel gas pattern is normal. No suspicious soft tissue calcifications. 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 Dictated by: Sheyla Garces M.D. on 02/03/2022 at 16:57 Approved by: Sheyla Garces M.D. on 02/03/2022 at 16:58
== END ==
PROVIDERS: PCP Family Medicine; Referring Provider Family Medicine; Visit Provider Family Medicine
DX: M25.552 Pain in left hip (principal); M25.551 Pain in right hip; M16.0 Bilateral primary osteoarthritis of hip
CPT/HCPCS: 73522

== ENCOUNTER → 2022-06-16 12:00 | Outpatient (CLI) | payer MEDICARE, OTHER, SELFPAY ==
[2020-09-08 10:18] VITALS: BMI 31.1
--- NOTE | 2022-06-16 12:02 | DI.MRI.S_ITS ---
PROCEDURE: MR LUMBAR SPINE WO CON INDICATIONS: SPINAL STENOSIS WITH NEUROGENIC CLAUDICATION TECHNIQUE: Noncontrast sagittal T1 spin echo and T2 fast echo, sagittal STIR, and T2 fast spin echo through the lumbar spine. In cases with scoliosis, additional coronal T2 fast spin echo may be performed. COMPARISON: None. FINDINGS: Image quality: Excellent. Alignment and Curvature: Normal lumbar vertebral body height and alignment. Bone Marrow: No suspicious focal marrow signal abnormality or bone marrow edema. Spinal Cord: Normal position and appearance of the conus. Regional Soft Tissues: No paravertebral masses. T12-L1: Normal appearance. L1-L2: Normal appearance. L2-L3: Facet hypertrophy and small facet effusions. Diffuse disc bulge flattens the ventral thecal sac without mass effect upon the traversing L3 nerve roots. Foraminal components of the disc bulge and facet hypertrophy combine to produce mild-moderate neural foraminal stenosis. L3-L4: Diffuse disc bulge and a superimposed broad-based posterior disc protrusion which flattens and indents the ventral thecal sac as well as displaces the descending L4 nerve roots in both subarticular zones. There is an associated annular fissure. Foraminal components of the disc bulge and facet hypertrophy combine to produce mild bilateral neural foraminal stenosis. Moderate facet effusions. L4-L5: Diffuse disc bulge and a superimposed broad-based posterior disc protrusion flattens and indents the ventral thecal sac. Displacement of the descending L5 nerve roots in both subarticular zones. Foraminal components of the disc bulge combine with moderate facet hypertrophy to produce mild bilateral neural foraminal stenosis. Moderate facet effusions noted. L5-S1: Diffuse disc bulge displaces the descending S1 nerve roots in both subarticular zones. No neural foraminal narrowing. IMPRESSION: Moderate multilevel multifactorial degenerative changes, worst at L3-L4 and L4-L5. Bulky facet hypertrophy in the lower lumbar spine with associated facet effusions. Dictated by: Jamshid Cooley M.D. on 06/16/2022 at 13:51 Approved by: Jamshid Cooley M.D. on 06/16/2022 at 13:55
== END ==
PROVIDERS: PCP Family Medicine; Referring Provider Physical Medicine & Rehabilitation Pain Medicine; Visit Provider Physical Medicine & Rehabilitation Pain Medicine
DX: M48.062 Spinal stenosis, lumbar region with neurogenic claudication (principal); M47.816 Spondylosis without myelopathy or radiculopathy, lumbar region
CPT/HCPCS: 72148

== ENCOUNTER → 2022-08-02 15:29 | Outpatient (CLI) | payer MEDICARE, OTHER, SELFPAY ==
[2020-09-08 10:18] VITALS: BMI 31.1
[2022-08-02 17:09] LABS: Add Manual Diff / Slide Review NO; Basophils Absolute Auto 0 /uL (0-100); Basophils Percent Auto 0.5 % (0-2); Eosinophils Absolute Auto 200 /uL (0-450); Eosinophils Percent Auto 3.4 % (2-4); Hematocrit 45.5 % (41-53); Hemoglobin 15.4 g/dL (13.5-17.5); Lymphocytes Absolute Auto 1700 /uL (1100-4500); Lymphocytes Percent Auto 24.5 % (25-40); Mean Corpuscular Hemoglobin 32.8 PG (26-34); Mean Corpuscular Volume 96.5 fL (80-100); Monocytes Absolute Auto 900 /uL (0-900); Monocytes Percent Auto 12.8 % (3-14); Neutrophils Absolute Auto 4100 /uL (1500-7000); Neutrophils Percent Auto 58.8 % (50-75); Platelet Count 127 X10^3/uL (150-400); Red Blood Cell Count 4.71 X10^6/uL (4.5-5.9); Red Cell Distribution Width 13.4 % (11.6-14.8); White Blood Cell Count 6.9 X10^3/uL (4.5-11.0)
[2022-08-02 17:28] LABS: Alanine Aminotransferase 48 IU/L (<50); Albumin 4.3 g/dL (3.5-5.0); Albumin Globulin Ratio 1.3 (1.0-2.8); Alkaline Phosphatase 62 U/L (38-126); Aspartate Aminotransferase 41 IU/L (17-59); BUN Creatinine Ratio 16.3 (6-22); Bilirubin Total 0.6 mg/dL (0.2-1.3); Blood Urea Nitrogen 16 mg/dL (9-20); Calcium 9.1 mg/dL (8.4-10.2); Carbon Dioxide 27 mmol/L (22-32); Chloride 102 mmol/L (98-107); Estimated Glomerular Filt Rate > 60 mL/min (>60); Globulin 3.2 g/dL (1.7-4.1); Glucose 99 mg/dL (80-110); HEMOLYSIS < 15 (0-50); Potassium 3.5 mmol/L (3.4-5.1); Sodium 139 mmol/L (137-145); Total Protein 7.5 g/dL (6.3-8.2)
== END ==
PROVIDERS: PCP Family Medicine; Referring Provider Family Medicine; Visit Provider Family Medicine
DX: R10.9 Unspecified abdominal pain (principal)
CPT/HCPCS: 36415; 80053; 85025

== ENCOUNTER 2022-09-20 06:35 | Day surgery (SDC) | payer MEDICARE, OTHER, SELFPAY ==
[2020-09-08 10:18] VITALS: BMI 31.1
--- NOTE | 2022-09-20 | PATH_ITS ---
[facility] Accession Number: [id number] No. of containers..01 Tissue . 01 Material submitted: . rectum - RECTUM . 01 Diagnosis: Rectum, Biopsy Hyperplastic polyp. MRV 09/26/2022 1339 Local . 01 Electronically signed: . Karime Brooks MD, Pathologist NPI- [id number] . 01 Gross description: . RECTUM: Received in formalin is 1 fragment(s) of finnegan, soft tissue measuring 0.4 x 0.2 x 0.1 cm submitted entirely in 1 cassette(s) /CPE 09/21/2022 0844 Local . 01 Pathologist provided ICD-10: K62.1 . 01 CPT . 986621 Specimen Comment: A courtesy copy of this report has been sent to [phone] Performed at: 01 [facility] [address] [place] [address] [id number] MD Joe Galicia MD Phone: [phone]
[2022-09-20 07:02] VITALS: BP 178/89; PULSE 80; RESP 16; TEMP 36.7; O2SAT 99; BMI 311.2
[2022-09-20] MEDS: LACTATED RINGERS 1,000 ML 200 ML IV (07:09)
--- NOTE | 2022-09-20 07:41 | PM.HP.1 ---
History of Present Illness History of Present Illness Date Patient Seen: 09/20/22 Time Patient Seen: 07:41 Chief complaint: SDC Narrative: The patient presents for colorectal screening. Previously normal colonoscopy 10 years. No personal or family history of colon cancer. On further history denies any recent gastrointestinal symptoms. No nausea, vomiting, abdominal pain, loss of appetite, unexplained weight loss, change in bowel habits, or blood per rectum. Patient History Medical History BPH (benign prostatic hyperplasia) Family & Social History Social History: household members spouse lives independently Yes Tobacco & Substance use: Smoking Status Former smoker alcohol intake current alcohol intake frequency 3 or more drinks per day Substance Use Type does not use Meds Home Medications and Allergies Home Medications Medication Instructions Recorded Confirmed Type diltiazem HCl 240 mg 240 mg PO Q DAY ##0 11/27/11 09/20/22 History capsule,extended release 24 hr (Cartia XT) furosemide 20 mg tablet 20 mg PO QDAY ##0 06/03/17 09/20/22 History acyclovir 5 % topical cream 1 applic topical 5XD 09/07/20 09/20/22 History (Zovirax) alfuzosin 10 mg tablet,extended 10 mg PO DAILY 09/07/20 09/20/22 History release 24 hr ascorbate calcium (vitamin C) 500 500 mg PO BID 09/07/20 09/20/22 History mg capsule aspirin 81 mg tablet 81 mg PO 3XW 09/07/20 09/20/22 History calcium-vitamin D3-vitamin K 500 1 tab PO BID 09/07/20 09/20/22 History mg-1,000 unit-40 mcg chewable tablet chlorthalidone 25 mg tablet 12.5 mg PO QAM 09/07/20 09/20/22 History cholecalciferol (vitamin D3) 25 75 mcg PO DAILY 09/07/20 09/20/22 History mcg (1,000 unit) chewable tablet (Vitamin D3) clotrimazole 1 %-betamethasone See Rx Instructions .Route .COMPLEX 09/07/20 09/20/22 History 0.05 % cream-zinc ox 20 % paste topical evolocumab 140 mg/mL subcutaneous 140 mg SUBCUT Q2W 09/07/20 09/07/20 History pen injector (Repatha SureClick) fiber 1 tab PO BID 09/07/20 09/20/22 History flaxseed oil 1,000 mg capsule 2,000 mg PO BID 09/07/20 09/20/22 History fluocinonide 0.05 % topical 1 applic topical BID-QID PRN Rash 09/07/20 09/20/22 History solution ketoconazole 2 % shampoo 1 applic topical 3XW 09/07/20 09/20/22 History lactobacillus combination no.8 3 3,000 mmu cells PO BID 09/07/20 09/20/22 History billion cell capsule (Adult Probiotic) lisinopril 20 mg tablet 20 mg PO BID 09/07/20 09/20/22 History omeprazole 20 mg capsule,delayed 20 mg PO DAILY 09/07/20 09/20/22 History release potassium gluconate 595 mg (99 mg) 595 mg PO DAILY 09/07/20 09/20/22 History tablet pyridoxine (vitamin B6) 100 mg 100 mg PO QAM 09/07/20 09/07/20 History tablet saw palmetto 160 mg capsule 160 mg PO BID 09/07/20 09/07/20 History testosterone cypionate 200 mg/mL 50 mg IM QWEEK 09/07/20 09/07/20 History intramuscular oil timolol maleate 0.5 % eye drops 1 drp EYE-BOTH QAM 09/07/20 09/07/20 History vitamin B complex 1 cap PO DAILY 09/07/20 09/07/20 History psyllium 1 packet PO DAILY 09/08/20 09/08/20 History nitroglycerin 0.4 mg sublingual 0.4 mg sublingual Q5-15M PRN chest 09/09/20 Rx tablet pain #10 tabs Allergies Allergy/AdvReac Type Severity Reaction Status Date / Time risedronate sodium Allergy Mild Rash Verified 09/08/20 20:45 [RISEDRONATE SODIUM] cyclobenzaprine Allergy Verified 09/20/22 06:54 losartan Allergy Verified 09/20/22 06:52 niacin Allergy Verified 09/20/22 06:54 oxybutynin Allergy Verified 09/20/22 06:54 Penicillins Allergy Verified 09/20/22 06:54 Gmddglg-AEC-LmO Reductase Allergy Verified 09/20/22 06:54 Inhibitor Exam Vital Signs (past 8 hours): - 09/20/22 07:02 Temperature 98.0 F Pulse Rate 80 Respiratory Rate 16 Blood Pressure 178/89 H Pulse Oximetry 99 Oxygen Delivery Method Room Air Oxygen Delivery Method Room Air Narrative Exam Narrative: General adult male alert oriented no acute distress Abdomen soft nontender nondistended Assessment & Plan Assessment & Plan narrative: The patient requires colorectal screening and colonoscopy is recommended. Technical details were discussed. Risks, benefits, alternatives explained. Risks including but not limited to myocardial infarction, aspiration, bleeding, pain, missed lesion, incomplete examination, need for further radiographic studies, colonic perforation, and need for major abdominal surgery were discussed. All questions were answered to their satisfaction, and they are in agreement with this plan. Time Spent With Patient Critical Care time: I spent a total of [] minutes of critical care time on this patient's care today; this time is exclusive of procedural time.
--- NOTE | 2022-09-20 08:01 | P.HP_ITS ---
History of Present Illness History of Present Illness [place] [facility] [place]: The patient presents for colorectal screening. Previously normal colonoscopy 10 years. No personal or family history of colon cancer. On further history denies any recent gastrointestinal symptoms. No nausea, vomiting, abdominal pain, loss of appetite, unexplained weight loss, change in bowel habits, or blood per rectum. Patient History Medical History BPH (benign prostatic hyperplasia) Family & Social History Social History: household members spouse lives independently Yes Tobacco & Substance use: Smoking Status Former smoker alcohol intake current alcohol intake frequency 3 or more drinks per day Substance Use Type does not use Meds Home Medications and Allergies Home Medications Medication Instructions Recorded Confirmed Type diltiazem HCl 240 mg 240 mg PO Q DAY ##0 11/27/11 09/20/22 History capsule,extended release 24 hr (Cartia XT) furosemide 20 mg tablet 20 mg PO QDAY ##0 06/03/17 09/20/22 History acyclovir 5 % topical cream 1 applic topical 5XD 09/07/20 09/20/22 History (Zovirax) alfuzosin 10 mg tablet,extended 10 mg PO DAILY 09/07/20 09/20/22 History release 24 hr ascorbate calcium (vitamin C) 500 500 mg PO BID 09/07/20 09/20/22 History mg capsule aspirin 81 mg tablet 81 mg PO 3XW 09/07/20 09/20/22 History calcium-vitamin D3-vitamin K 500 1 tab PO BID 09/07/20 09/20/22 History mg-1,000 unit-40 mcg chewable tablet chlorthalidone 25 mg tablet 12.5 mg PO QAM 09/07/20 09/20/22 History cholecalciferol (vitamin D3) 25 75 mcg PO DAILY 09/07/20 09/20/22 History mcg (1,000 unit) chewable tablet (Vitamin D3) clotrimazole 1 %-betamethasone See Rx Instructions .Route .COMPLEX 09/07/20 09/20/22 History 0.05 % cream-zinc ox 20 % paste topical evolocumab 140 mg/mL subcutaneous 140 mg SUBCUT Q2W 09/07/20 09/07/20 History pen injector (Repatha Brunildaick) fiber 1 tab PO BID 09/07/20 09/20/22 History flaxseed oil 1,000 mg capsule 2,000 mg PO BID 09/07/20 09/20/22 History fluocinonide 0.05 % topical 1 applic topical BID-QID PRN Rash 09/07/20 09/20/22 History solution ketoconazole 2 % shampoo 1 applic topical 3XW 09/07/20 09/20/22 History lactobacillus combination no.8 3 3,000 mmu cells PO BID 09/07/20 09/20/22 History billion cell capsule (Adult Probiotic) lisinopril 20 mg tablet 20 mg PO BID 09/07/20 09/20/22 History omeprazole 20 mg capsule,delayed 20 mg PO DAILY 09/07/20 09/20/22 History release potassium gluconate 595 mg (99 mg) 595 mg PO DAILY 09/07/20 09/20/22 History tablet pyridoxine (vitamin B6) 100 mg 100 mg PO QAM 09/07/20 09/07/20 History tablet saw palmetto 160 mg capsule 160 mg PO BID 09/07/20 09/07/20 History testosterone cypionate 200 mg/mL 50 mg IM QWEEK 09/07/20 09/07/20 History intramuscular oil timolol maleate 0.5 % eye drops 1 drp EYE-BOTH QAM 09/07/20 09/07/20 History vitamin B complex 1 cap PO DAILY 09/07/20 09/07/20 History psyllium 1 packet PO DAILY 09/08/20 09/08/20 History nitroglycerin 0.4 mg sublingual 0.4 mg sublingual Q5-15M PRN chest 09/09/20 Rx tablet pain #10 tabs Allergies Allergy/AdvReac Type Severity Reaction Status Date / Time risedronate sodium Allergy Mild Rash Verified 09/08/20 20:45 [RISEDRONATE SODIUM] cyclobenzaprine Allergy Verified 09/20/22 06:54 losartan Allergy Verified 09/20/22 06:52 niacin Allergy Verified 09/20/22 06:54 oxybutynin Allergy Verified 09/20/22 06:54 Penicillins Allergy Verified 09/20/22 06:54 Wmxshak-QSU-LfH Reductase Allergy Verified 09/20/22 06:54 Inhibitor Exam Vital Signs (past 8 hours): - 09/20/22 07:02 Temperature 98.0 F Pulse Rate 80 Respiratory Rate 16 Blood Pressure 178/89 H Pulse Oximetry 99 Oxygen Delivery Method Room Air Oxygen Delivery Method Room Air Assessment & Plan Assessment & Plan narrative: The patient requires colorectal screening and colonoscopy is recommended. Technical details were discussed. Risks, benefits, alternatives explained. Risks including but not limited to myocardial infarction, aspiration, bleeding, pain, missed lesion, incomplete examination, need for further radiographic studies, colonic perforation, and need for major abdominal surgery were discussed. All questions were answered to their satisfaction, and they are in agreement with this plan. Time Spent With Patient Critical Care time: I spent a total of [] minutes of critical care time on this patient's care today; this time is exclusive of procedural time.
--- NOTE | 2022-09-20 08:02 | PM.OP.COLON ---
Operative Date/Time/Diagnoses Date of procedure: 09/20/22 Time of procedure: 08:02 Pre-op diagnosis: Colorectal screening Post-op diagnosis: same Procedure & Clinicians Study performed: Colonoscopy-aborted Same procedure as scheduled: Yes Indications: Colorectal screening Surgeon: Taz Espinoza Procedure Notes Procedure in detail: The history and physical was performed/updated and the patient is ASA class is 2. The procedure was discussed in detail with the patient. Potential risks complications including infection, bleeding, missed diagnosis, perforation, need for surgery, and were explained. Their questions were answered and informed consent was obtained. Patient was brought to the procedure room and placed standard monitoring equipment. The patient's vital signs were monitored continuously throughout the entire procedure. Prior to starting time-out was performed. The patient was placed in the left lateral recumbent position. Procedural sedation was administered by anesthesia. Examination began with a thorough inspection of the perianal area there was no evidence of fissures, fistulae, external hemorrhoids or cutaneous malignancy. The colonoscopy scope was then placed into the anal canal and was advanced forward. There was solid stool within the colon and moderate diverticulosis within the sigmoid colon. Procedure was aborted as result of inadequate prep. There was a 5 mm polyp within the distal rectum that was removed with cold snare. Specimen(s): other (Rectal polyp) Complications: none Impression: Aborted colonoscopy Post-procedure Plan for aftercare: Consider repeat colonoscopy with an alternative prep solution Disposition: same day surgery
[2022-09-20 08:05] VITALS: BP 105/62; PULSE 58; RESP 23; TEMP 36.8; O2SAT 96
[2022-09-20 08:10] VITALS: BP 121/73; PULSE 57; RESP 24; O2SAT 97
[2022-09-20 08:17] VITALS: BP 119/69; PULSE 57; RESP 20; TEMP 37.3; O2SAT 95
[2022-09-20 08:27] VITALS: BP 122/66; PULSE 55; RESP 18; TEMP 37.3; O2SAT 96
== END 2022-09-20 08:30 | disposition home or self-care (01) ==
PROVIDERS: PCP Family Medicine; Referring Provider Surgery; Visit Provider Surgery
PROC: 0DJD8ZZ Inspection of Lower Intestinal Tract, Via Natural or Artificial Opening Endoscopic (ICD-10-PCS; CPT 45378; principal; 2022-09-20 07:45)
DX: Z12.11 Encounter for screening for malignant neoplasm of colon (principal); Z53.09 Procedure and treatment not carried out because of other contraindication; K62.1 Rectal polyp
CPT/HCPCS: 45385; J2704

== ENCOUNTER → 2022-09-29 06:34 | Outpatient (CLI) | payer MEDICARE, OTHER, SELFPAY ==
[2020-09-08 10:18] VITALS: BMI 31.1
[2022-09-27 09:06] VITALS: BMI 31.1
--- NOTE | 2022-09-29 06:37 | DI.CT.S_ITS ---
PROCEDURE: CT SINUS SCREEN WO CON INDICATIONS: Deviated nasal septum/Chronic pansinusitis TECHNIQUE: Noncontrast 3.0 mm axial images acquired from the frontal sinuses to the mid-sella, with coronal and sagittal reformats. For radiation dose reduction, the following was used: automated exposure control, adjustment of mA and/or kV according to patient size. COMPARISON: None. FINDINGS: Image quality: Excellent. Sinuses: Left-sided postsurgical sinus changes are present. There is moderate mucosal thickening without fluid levels. Areas of increased density are noted within the mucosal thickening possibly related to high-density secretions. Minimal right maxillary sinus mucosal thickening. Ostiomeatal Complexes: Ostiomeatal complexes are patent. . Miscellaneous: Visualized intra-orbital contents are normal. No matthew bullosa or paradoxical turbinate curvature. There is atrophy of the middle and inferior turbinates. Leftward nasal septal deviation. IMPRESSION: Ostiomeatal complexes are patent. Prominent mucosal thickening within the left maxillary sinus without fluid level. Nasal septal deviation. Dictated by: Sheyla Garces M.D. on 09/29/2022 at 14:51 Approved by: Sheyla Garces M.D. on 09/29/2022 at 15:03
== END ==
PROVIDERS: PCP Family Medicine; Referring Provider Otolaryngology; Visit Provider Otolaryngology
DX: J32.4 Chronic pansinusitis (principal); J34.2 Deviated nasal septum
CPT/HCPCS: 70486

== ENCOUNTER → 2022-10-14 08:24 | Outpatient (CLI) | payer MEDICARE, OTHER, SELFPAY ==
[2022-09-27 09:06] VITALS: BMI 31.1
== END ==
PROVIDERS: PCP Family Medicine; Visit Provider Urology
DX: N20.0 Calculus of kidney (principal); N40.1 Benign prostatic hyperplasia with lower urinary tract symptoms; R35.1 Nocturia; R39.9 Unspecified symptoms and signs involving the genitourinary system
CPT/HCPCS: 51798; 52000; 81002; 87077; 87086; 87186

== ENCOUNTER → 2023-10-04 16:56 | Outpatient (CLI) | payer MEDICARE, OTHER, SELFPAY ==
[2022-09-27 09:06] VITALS: BMI 31.1
--- NOTE | 2023-10-04 | DI.RAD.S_ITS ---
PROCEDURE: XR CHEST 2V INDICATIONS: COUGH TECHNIQUE: 2 views of the chest were acquired. COMPARISON: [facility], , XR CHEST 1V, 09/07/2020, 15:49. FINDINGS: Surgical changes and devices: None. Lungs and pleura: Lungs are clear. No pleural effusions or pneumothorax. Mediastinum: Mediastinal contours are normal. Heart size is normal. Bones and chest wall: No suspicious bony abnormalities. Soft tissues appear unremarkable. IMPRESSION: No acute cardiopulmonary abnormality is seen. Approved by: Umair Gardner M.D. on 10/05/2023 at 17:29
== END ==
PROVIDERS: PCP Family Medicine; Referring Provider Family Medicine; Visit Provider Family Medicine
DX: R05.1 Acute cough (principal)
CPT/HCPCS: 71046

== ENCOUNTER → 2023-10-18 07:52 | Outpatient (CLI) | payer MEDICARE, OTHER, SELFPAY ==
[2022-09-27 09:06] VITALS: BMI 31.1
[2023-10-18 08:26] LABS: Estimated Glomerular Filt Rate > 60 mL/min (>60)
--- NOTE | 2023-10-18 08:30 | DI.CT.S_ITS ---
PROCEDURE: CT ANGIO CHEST PE PROTOCOL INDICATIONS: CHRONIC COUGH TECHNIQUE: After the administration of intravenous contrast, 2 mm thick sections acquired from the pulmonary apices to the posterior costophrenic angles. 3-dimensional maximum intensity projection (MIP) coronal and sagittal reformats were then acquired through the thorax. For radiation dose reduction, the following was used: automated exposure control, adjustment of mA and/or kV according to patient size. COMPARISON: None. FINDINGS: Image quality: Diagnostic. Pulmonary arteries: Enhancement of the pulmonary arteries is adequate. No filling defect in the pulmonary vasculature to the level of the proximal subsegmental pulmonary arteries. Main pulmonary artery is normal in caliber. Lower Neck: No enlarged lymph nodes. Thyroid: No thyroid nodules which require sonographic follow up, per consensus guidelines. Axillae: No enlarged lymph nodes. Chest Wall: Unremarkable. Bones: Unremarkable. Lungs and Pleura: No pneumothorax or pleural effusions. No suspicious pulmonary nodules or consolidation. Mild bilateral bronchial wall thickening. Patent central airways. Heart: Heart size is mildly enlarged with left atrial enlargement. No pericardial effusion. Thoracic Vessels: No aortic aneurysm. Mediastinum and Peri: No enlarged lymph nodes. Esophagus: No wall thickening. No hiatal hernia. Upper Abdomen: Visualized upper abdomen solid organs and bowel loops demonstrate no acute findings. Partially visualized colonic diverticulosis, without diverticulitis. Mild bilateral perinephric fat stranding, likely senescent. IMPRESSION: 1. No acute pulmonary embolism to the level of the proximal subsegmental pulmonary arteries. 2. No suspicious pulmonary nodule or consolidation. 3. Mild bilateral bronchial wall thickening suggestive of bronchiolitis of infectious or inflammatory etiology. Dictated by: Mikaela De La Rosa M.D. on 10/18/2023 at 15:07 Approved by: Mikaela De La Rosa M.D. on 10/18/2023 at 15:11
== END ==
PROVIDERS: Radiology Diagnostic Radiology; PCP Family Medicine; Referring Provider Family Medicine; Visit Provider Family Medicine
DX: R05.3 Chronic cough (principal)
CPT/HCPCS: 36415; 71275; 82565

== ENCOUNTER → 2023-10-31 07:59 | Outpatient (CLI) | payer MEDICARE, OTHER, SELFPAY ==
[2022-09-27 09:06] VITALS: BMI 31.1
--- NOTE | 2023-10-31 08:01 | DI.CT.S_ITS ---
PROCEDURE: CT SINUS SCREEN WO CON INDICATIONS: Chronic maxillary sinusitis TECHNIQUE: Noncontrast 3.0 mm axial images acquired from the frontal sinuses to the mid-sella, with coronal and sagittal reformats. For radiation dose reduction, the following was used: automated exposure control, adjustment of mA and/or kV according to patient size. COMPARISON: [facility], CT, CT SINUS SCREEN WO CON, 09/29/2022, 6:50. FINDINGS: Image quality: Excellent. Maxillary Sinuses: Thickening of the left maxillary sinus wall, consistent with chronic sinusitis. Moderate mucosal thickening with more high attenuation material centrally is stable in appearance compared to prior. Left maxillary antrostomy is noted. Mild mucosal thickening of the right maxillary sinus. Ethmoid Air Cells: No bony remodeling or destruction. Mild mucosal thickening bilaterally. Sphenoid Sinuses: No bony remodeling or destruction. Sinuses are clear. Frontal Sinuses: No bony remodeling or destruction. Sinuses are clear. Ostiomeatal Complexes: Left-sided antrostomy. Opacification of the right ostiomeatal complex. No Timi cells. Miscellaneous: Visualized intra-orbital contents are normal. Bilateral lens replacements. No matthew bullosa or paradoxical turbinate curvature. Mild leftward nasal septal deviation. Severe right temporomandibular joint degeneration. IMPRESSION: Paranasal sinus disease as above, most pronounced within the left maxillary sinus. Redemonstration of postsurgical changes in the left maxillary sinus. Dictated by: Amador Anderson M.D. on 10/31/2023 at 9:36 Approved by: Amador Anderson M.D. on 10/31/2023 at 9:42
== END ==
PROVIDERS: PCP Family Medicine; Referring Provider Otolaryngology; Visit Provider Otolaryngology
DX: J32.8 Other chronic sinusitis (principal); J34.89 Other specified disorders of nose and nasal sinuses
CPT/HCPCS: 70486

== ENCOUNTER → 2023-12-07 09:06 | Outpatient (CLI) | payer MEDICARE, OTHER, SELFPAY ==
[2022-09-27 09:06] VITALS: BMI 31.1
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
== END ==
LOC: CT 09:07
PROVIDERS: PCP Family Medicine; Referring Provider Otolaryngology; Visit Provider Otolaryngology
DX: J32.4 Chronic pansinusitis (principal); J34.89 Other specified disorders of nose and nasal sinuses; J34.2 Deviated nasal septum
CPT/HCPCS: 70486

== ENCOUNTER 2024-01-11 11:47 | Day surgery (SDC) | payer MEDICARE, OTHER, SELFPAY ==
[2022-09-27 09:06] VITALS: BMI 31.1
[2024-01-04 14:52] VITALS: BMI 32.5
--- NOTE | 2024-01-11 | PATH_ITS ---
[facility] Accession Number: [id number] No. of containers..01 Tissue . 01 Material submitted: . NASAL FLOOR - LEFT NASAL FLOOR POLYP . 01 Diagnosis: LEFT NASAL FLOOR POLYP, BIOPSY: Consistent with sinonasal inflammatory polyp. [facility] 01/18/2024 1145 Local . 01 Electronically signed: . Mare García MD, Pathologist NPI- [id number] . 01 Gross description: . LEFT NASAL FLOOR POLYP: Received in formalin is 1 fragment of finnegan soft tissue measuring 0.5 x 0.5 x 0.7 cm. Tissue is inked. Specimen is submitted in its entirety in 1 cassette. /[facility] 01/16/2024 1757 Local . 01 Pathologist provided ICD-10: J32.0, J33.9 . 01 CPT . 578574 Specimen Comment: A courtesy copy of this report has been sent to [phone] Performed at: [address] [facility] [address], [place], [place] [id number] MD Joe Galicia MD Phone: [phone]
[2024-01-11 12:25] VITALS: BP 158/74; PULSE 71; RESP 14; TEMP 36.9; O2SAT 96; BMI 32.5
[2024-01-11] MEDS: OXYMETAZOLINE NASAL SPRAY 30 ML 2 SPRAYS NASAL (12:47)
[2024-01-11] MEDS: LACTATED RINGERS 1,000 ML 42 ML IV (12:48)
--- NOTE | 2024-01-11 13:08 | PM.PREOP ---
Pre-operative Note Interval Note History & Physical reviewed/Exam performed by Physician: Yes Changes to H&P: Yes H&P completed within 30 days and has changed as indicated here:: Patient describes colored phlegm pointing at the base of his neck, evidently completed clindamycin orally recently per PCP with no change in symptoms. Stable cough, no change, elects to proceed with scheduled bilateral endoscopic sinus surgery.
--- NOTE | 2024-01-11 13:09 | P.OP_ITS ---
Operative Date/Time/Diagnoses Date of procedure: 01/11/24 Time of procedure: 15:21 Pre-op diagnosis: Chronic rhinosinusitis, chronic cough, postnasal drip Post-op diagnosis: same (With left nasal floor mass, excised) Procedure & Clinicians Procedure: 1. Bilateral endoscopic maxillary antrostomy with tissue removal 2. Bilateral endoscopic total ethmoidectomy 3. Excision left nasal floor mass Same procedure as scheduled: Yes (With additional left nasal floor mass excision found intraoperatively) Indications: 78 Year old male with the above diagnoses incompletely managed with medical therapy presents for the above procedure. Following discussion of the material risks benefits complications and alternatives, the patient elected to proceed. Surgeon: Marcin Hamilton Click Yes if Unassisted: Yes Anesthesia Type: General and Local Operative Notes Findings: Thick firm partially calcified debris left maxillary sinus completely removed, inflamed maxillary mucosa [id number]. Right maxillary sinus filled with thick mucoid fluid and purulence. Ethmoids filled with thick mucoid fluid. Natural os of the sphenoid sinus identified bilaterally but not manipulated. Less than 1 cm polypoid mass attached to the left mid nasal floor grossly completely resected, sent to pathology. Cultures taken of the left maxillary sinus debris and purulence. Specimen(s): other (Left nasal floor mass) Estimated Blood Loss (mL): 50 Procedure in detail: Following identification and confirmation of consent the patient was brought to the operating room suite and placed in the supine position. General endotracheal anesthesia was administered. Under endoscopic guidance I infiltrated the posterior and anterior superior insertion of each middle turbinate. 1:1000 topical epinephrine on small pledgets were placed within the middle meatus for 10 minutes prior. The left middle turbinate was slightly medialized and the backbiting forceps performed uncinectomy along with the microdebrider. Polyps and inflamed mucosa were partially resected from the maxillary antrostomy, with manual debridement and irrigation multiple times to remove the thick calcified debris of the left maxillary sinus until it was clear. Large Maxillary antrostomy was created by extending the natural os posteriorly and inferiorly. The ethmoid bulla was resected with the microdebrider. I penetrated the basal lamella inferiorly and medially to enter the posterior ethmoids and trimmed the inferior portion of the superior turbinate. The natural os of the sphenoid sinus was identified And did not require enlargement. Posterior to anterior ethmoid dissection was performed with the J curette and forceps although the frontal recess was not approached. Thick ethmoid bone anteriorly near the skull base was not manipulated. Hemostasis Was excellent. On the right side I performed similar injections as well as topical treatment with epinephrine. The middle turbinate slightly medialized and uncinectomy was performed with backbiting forceps. The maxillary antrostomy was performed and the entire sinus was suctioned of thick mucoid cloudy mucus and some purulence. The microdebrider also resected some polypoid tissue from deep within the maxillary sinus itself. The ethmoid bulla was polypoid but was completely resected. I penetrated the basal lamella to enter the posterior ethmoids and Again the natural os of the sphenoid was widely patent therefore not manipulated. Posterior to anterior dissection was performed bluntly To approach but not into the frontal recess but some high anterior ethmoid partitions were very firm and not manipulated. Suction cautery for small potential bleeding areas was utilized judiciously. Hemostasis was excellent. sponge counts were correct and he was extubated in the operating room and taken to recovery room in stable condition without no complication. Complications: none Post-operative Condition: stable Disposition: same day surgery Plan for aftercare: Nasal saline every hour while awake, begin irrigations t.i.d. tomorrow. Tylenol alternating with Advil for pain control, oxycodone for breakthrough pain. Yessy vate head of bed, no nose blowing, no straining for 2 weeks. Follow-up in 1 week for exam and endoscopy, possible debridement.
--- NOTE | 2024-01-11 13:56 | SUR.OPER ---
Supine on padded OR bed, head on gel donut, arms padded and tucked at sides, legs uncrossed, safety belt at thigh, tape over blanket over lower legs .
[2024-01-11] MEDS: EPINEPHrine 1 MG/ML 6 MG TOP (14:00)
[2024-01-11] MEDS: ACETAMINOPHEN IV 1,000 MG/100 ML VIAL 400 MG IV (14:34)
[2024-01-11 15:27] VITALS: BP 158/75; PULSE 71; RESP 18; TEMP 36.3; O2SAT 97
[2024-01-11 15:31] VITALS: BP 161/79; PULSE 63; RESP 16; O2SAT 92
[2024-01-11 15:37] VITALS: BP 154/73; PULSE 64; RESP 14; O2SAT 94
[2024-01-11 15:41] VITALS: BP 157/83; PULSE 59; RESP 12; TEMP 36.4; O2SAT 95
[2024-01-11 15:45] VITALS: BP 162/83; PULSE 60; RESP 14; O2SAT 95
[2024-01-11] MEDS: OXYCODONE IR 5 MG TABLET PO (15:49)
== END 2024-01-11 16:13 | disposition home or self-care (01) ==
PROVIDERS: PCP Family Medicine; Referring Provider Otolaryngology; Visit Provider Otolaryngology
PROC: (CPT 31231; principal; 2024-01-11 13:15)
DX: J32.0 Chronic maxillary sinusitis (principal); J34.89 Other specified disorders of nose and nasal sinuses
CPT/HCPCS: 31254; 31267; 30118; 87070; 87075; 87077; 87147; 87186; 87205; J0136; J0171; J1100; J1170; J2405; J2704

== ENCOUNTER 2024-04-09 16:41 | Emergency (ER) | payer MEDICARE, OTHER, SELFPAY ==
[2022-09-27 09:06] VITALS: BMI 31.1
[2024-04-09] VITALS (11 sets, daily range): BP systolic 177–213; BP diastolic 85–105; PULSE 55–76; RESP 16–18; TEMP 37; O2SAT 97–99; BMI 30.7
--- NOTE | 2024-04-09 16:54 | DI.RAD.S_ITS ---
PROCEDURE: XR CHEST 1V INDICATIONS: CHEST PAIN TECHNIQUE: One view of the chest was acquired. COMPARISON: [facility], CR, XR CHEST 2V, 10/04/2023, 17:00. [facility], CR, XR CHEST 1V, 09/07/2020, 15:49. FINDINGS: Surgical changes and devices: Left humeral head anchors. Lungs and pleura: Lungs appear clear. No pleural effusions or pneumothorax. Mediastinum: Mediastinal contours appear unchanged accounting for differences in positioning. Heart size is normal. Bones and chest wall: No suspicious bony lesions. Overlying soft tissues appear unremarkable. IMPRESSION: No acute cardiopulmonary abnormality is seen. Dictated by: Sohan Tariq M.D. on 04/09/2024 at 17:36 Approved by: Sohan Tariq M.D. on 04/09/2024 at 17:37
--- NOTE | 2024-04-09 16:54 | EKG_ITS ---
[place] [address] [address] [place] [id number] Test Date: 2024-04-09 Pat Name: Rolo Naranjo Department: [facility] Room: Gender: Male [employer] Operator: MERCEDES : 1945 Requested By: Order Number: [id number] Reading MD: Hubert Neal Measurements Intervals Brogue Rate: 52 P: 42 NJ: 158 QRS: 22 QRSD: 94 T: 13 QT: 418 QTc: 388 Interpretive Statements Sinus bradycardia with marked sinus arrhythmia Minimal voltage criteria for LVH, may be normal variant ( R in aVL ) Electronically Signed On 04-15-2024 9:10:17 PDT by Hubert Neal
[2024-04-09 17:20] LABS: Add Manual Diff / Slide Review NO; Basophils Absolute Auto 0 /uL (0-100); Basophils Percent Auto 0.6 % (0-2); Eosinophils Absolute Auto 300 /uL (0-450); Eosinophils Percent Auto 3.3 % (2-4); Hematocrit 45.5 % (41-53); Hemoglobin 15.5 g/dL (13.5-17.5); Lymphocytes Absolute Auto 1800 /uL (1100-4500); Lymphocytes Percent Auto 22.4 % (25-40); Mean Corpuscular HGB Conc 34.1 % (30-36); Mean Corpuscular Hemoglobin 33.5 PG (26-34); Mean Corpuscular Volume 98.2 fL (80-100); Monocytes Absolute Auto 1200 /uL (0-900); Monocytes Percent Auto 14.4 % (3-14); Neutrophils Absolute Auto 4800 /uL (1500-7000); Neutrophils Percent Auto 59.3 % (50-75); Platelet Count 142 X10^3/uL (150-400); Red Blood Cell Count 4.64 X10^6/uL (4.5-5.9); Red Cell Distribution Width 13.8 % (11.6-14.8)
[2024-04-09 17:30] LABS: Alanine Aminotransferase 36 IU/L (<50); Albumin 4.3 g/dL (3.5-5.0); Albumin Globulin Ratio 1.4 (1.0-2.8); Alkaline Phosphatase 62 U/L (38-126); Aspartate Aminotransferase 39 IU/L (17-59); Bilirubin Total 0.7 mg/dL (0.2-1.3); Blood Urea Nitrogen 21 mg/dL (9-20); Calcium 9.6 mg/dL (8.4-10.2); Carbon Dioxide 26 mmol/L (22-32); Chloride 103 mmol/L (98-107); Creatine Kinase 135 U/L (55-170); Estimated Glomerular Filt Rate > 60 mL/min (>60); Glucose 93 mg/dL (80-110); HEMOLYSIS < 15 (0-50); Lipase 357 U/L (23-300); Magnesium 1.8 mg/dL (1.6-2.3); Potassium 3.6 mmol/L (3.4-5.1); Sodium 138 mmol/L (137-145); Total Protein 7.3 g/dL (6.3-8.2)
[2024-04-09 17:42] LABS: NT-proBNP (BNP-Adult 18+) 341 pg/mL (<450); Troponin I < 0.012 ng/mL (0.01-0.034)
[2024-04-09 17:45] LABS: INR 0.9 (0.9-1.3); PTT Partial Thromboplastin Tim 33 SECONDS (25.1-36.5); Prothrombin Time 10.6 SECONDS (9.4-12.5)
--- NOTE | 2024-04-09 19:28 | ED.GENADULT ---
HPI - General Adult General Chief complaint: Hypertension Stated complaint: headache, high blood pressure Time Seen by Provider: 04/09/24 18:01 Source: patient Mode of arrival: Ambulatory History of Present Illness HPI narrative: Patient is an 78-year-old male. It was have history of high blood pressure. Did take his morning medications. States that earlier today he developed a slight left-sided headache. He denies chest pain and shortness of breath. He was somewhat lightheaded and triaged. He did not take anything for his headache. When he had a headache earlier today he took his blood pressure was elevated into the 190s. He states that normally his blood pressures in the 130s at home and when he is of the doctor in the 150s. Denies any fevers. No vision changes. No extremity tingling. Related Data Home Medications Medication Instructions Recorded Confirmed diltiazem HCl 240 mg 240 mg PO Q DAY ##0 11/27/11 01/11/24 capsule,extended release 24 hr (Cartia XT) furosemide 20 mg tablet 20 mg PO QDAY ##0 06/03/17 01/11/24 acyclovir 5 % topical cream 1 applic topical 5XD 09/07/20 01/11/24 (Zovirax) alfuzosin 10 mg tablet,extended 10 mg PO DAILY 09/07/20 01/11/24 release 24 hr ascorbate calcium (vitamin C) 500 500 mg PO BID 09/07/20 01/11/24 mg capsule aspirin 81 mg tablet 81 mg PO 3XW 09/07/20 01/11/24 calcium-vitamin D3-vitamin K 500 1 tab PO BID 09/07/20 01/11/24 mg-1,000 unit-40 mcg chewable tablet chlorthalidone 25 mg tablet 12.5 mg PO QAM 09/07/20 01/11/24 cholecalciferol (vitamin D3) 25 75 mcg PO DAILY 09/07/20 01/11/24 mcg (1,000 unit) chewable tablet (Vitamin D3) clotrimazole 1 %-betamethasone See Rx Instructions .Route .COMPLEX 09/07/20 01/11/24 0.05 % cream-zinc ox 20 % paste topical evolocumab 140 mg/mL subcutaneous 140 mg SUBCUT Q2W 09/07/20 01/11/24 pen injector (Repatha SureClick) fiber 1 tab PO BID 09/07/20 01/11/24 fluocinonide 0.05 % topical 1 applic topical BID-QID PRN Rash 09/07/20 01/11/24 solution ketoconazole 2 % shampoo 1 applic topical 3XW 09/07/20 01/11/24 lactobacillus combination no.8 3 3,000 mmu cells PO BID 09/07/20 01/11/24 billion cell capsule (Adult Probiotic) lisinopril 20 mg tablet 20 mg PO BID 09/07/20 01/11/24 omeprazole 20 mg capsule,delayed 20 mg PO DAILY 09/07/20 01/11/24 release potassium gluconate 595 mg (99 mg) 595 mg PO DAILY 09/07/20 01/11/24 tablet pyridoxine (vitamin B6) 100 mg 100 mg PO QAM 09/07/20 01/11/24 tablet saw palmetto 160 mg capsule 160 mg PO BID 09/07/20 01/11/24 timolol maleate 0.5 % eye drops 1 drp EYE-BOTH QA 09/07/20 01/11/24 vitamin B complex 1 cap PO DAILY 09/07/20 01/11/24 testosterone cypionate 200 mg/mL 0.3 mg IM QWEEK 06/16/23 01/11/24 intramuscular oil Previous Rx's Medication Instructions Recorded nitroglycerin 0.4 mg sublingual 0.4 mg sublingual Q5-15M PRN chest 09/09/20 tablet pain #10 tabs Allergies Allergy/AdvReac Type Severity Reaction Status Date / Time adhesive tape Allergy Verified 01/11/24 12:18 choline fenofibrate Allergy Muscle Pain Verified 01/11/24 12:18 cyclobenzaprine Allergy Verified 01/11/24 12:18 gatifloxacin Allergy Verified 01/11/24 12:18 losartan Allergy Verified 01/11/24 12:18 niacin Allergy ITCHING Verified 01/11/24 12:18 omega-3 acid ethyl esters Allergy Rash Verified 01/11/24 12:18 risedronate sodium Allergy Rash, body Verified 01/11/24 12:18 [RISEDRONATE SODIUM] pain [id number] Reductase Allergy Stomach Verified 01/11/24 12:18 Inhibitor pains, headache oxybutynin AdvReac SOB, Verified 01/11/24 12:18 stomach ache Penicillins AdvReac GI upset, Verified 01/11/24 12:18 diarrhea actonal Allergy Unknown shoulder, Uncoded 01/11/24 12:18 chest, knee, back rib pain dha Allergy Rash Uncoded 01/11/24 12:18 Review of Systems Review of Systems ROS Unobtainable: All systems reviewed & are unremarkable except as noted in HPI and below Patient History Medical History Asthma History of DVT (deep vein thrombosis) Chronic sinusitis Hypogonadism Incomplete emptying of bladder Nocturia more than twice per night Lower urinary tract symptoms Male circumcision Kidney stones High blood pressure Gout Diverticular disease Arthritis BPH (benign prostatic hyperplasia) Surgical History (Updated 01/04/24 @ 15:13 by Caitlin Healy RN) Hx of colonoscopy Hx of bilateral cataract extraction H/O vasectomy (1976) Hx of toe surgery Hx of nasal sinusotomy (2008) History of arthroscopy of left shoulder (2014) History of eye surgery Hx of elbow surgery (1996) Hx of left knee surgery History of prostate surgery Family History Father Diabetes mellitus Eczema Mother Bacterial UTI Social History marital status: number of children: 3 household members: spouse lives independently: Yes Smoking Status: Former smoker alcohol intake: current substance use type: does not use Type(s) of exercise: other frequency: 5-6 times per week Smoking Status: Former smoker alcohol intake frequency: a few times a week Alcohol type: wine Substance Use Type: does not use Exam Initial Vital Signs Initial Vital Signs: Vital Signs Temperature 98.6 F 04/09/24 16:47 Pulse Rate 57 L 04/09/24 16:47 Respiratory Rate 18 04/09/24 16:47 Blood Pressure 210/105 H 04/09/24 16:47 Pulse Oximetry 99 04/09/24 16:47 Oxygen Delivery Method Room Air 04/09/24 16:47 Const General: cooperative, comfortable and No ill appearing HENMT Head: normal to inspection and normocephalic Resp Effort & Inspection: normal respiratory effort Auscultation: clear to auscultation bilaterally Cardio Rate: regular rate Rhythm: regular rhythm Skin General: no rashes or lesions noted Neuro General: patient alert, patient awake and moves all extremities Extrem General: capillary refill normal Course Orders Ordered: ED Orders 04/09/24 19:28 CT head/brain wo con Stat Discontinued Medications Hydralazine HCl (Hydralazine 20 Mg/Ml Vial) 5 mg IV NOW ONE Stop: 04/09/24 19:29 Last Admin: 04/09/24 19:44 Dose: 5 mg Documented By: OMAIRA Acetaminophen (Ofirmev) 1,000 mg in 100 mls @ 400 mls/hr IV NOW ONE Stop: 04/09/24 19:42 Last Infusion: 04/09/24 20:17 Dose: Infused Documented By: Admin: 04/09/24 19:44 Dose: 400 mls/hr Documented By: OMAIRA Vital Signs Vital signs: Vital Signs - 8 hr 04/09/24 19:11 04/09/24 19:11 04/09/24 19:30 Pulse Rate 58 L 59 L 62 Respiratory Rate 16 Blood Pressure 198/98 H Pulse Oximetry 99 99 98 Oxygen Delivery Method Room Air 04/09/24 19:42 04/09/24 19:42 04/09/24 19:44 Pulse Rate 76 55 L Respiratory Rate Blood Pressure 213/100 H 213/100 H Pulse Oximetry 98 Oxygen Delivery Method 04/09/24 20:00 04/09/24 20:01 04/09/24 20:15 Pulse Rate 65 65 Respiratory Rate Blood Pressure 183/88 H Pulse Oximetry 98 97 Oxygen Delivery Method 04/09/24 20:15 04/09/24 20:25 04/09/24 20:30 Pulse Rate 56 L Respiratory Rate Blood Pressure 183/88 H 177/85 H Pulse Oximetry 97 Oxygen Delivery Method 04/09/24 20:30 04/09/24 21:00 04/09/24 21:00 Pulse Rate 59 L 65 Respiratory Rate Blood Pressure 177/94 H Pulse Oximetry 97 97 Oxygen Delivery Method Room Air Medical Decision Making Lab Data Lab results reviewed: Yes I reviewed the patient's lab results. 04/09/24 17:07 04/09/24 17:07 Labs: Lab Results 04/09/24 Range/Units 17:07 WBC 8.0 (4.5-11.0) X10^3/uL RBC 4.64 (4.5-5.9) X10^6/uL Hgb 15.5 (13.5-17.5) g/dL Hct 45.5 (41-53) % MCV 98.2 (80-100) fL MCH 33.5 (26-34) PG MCHC 34.1 (30-36) % RDW 13.8 (11.6-14.8) % Plt Count 142 L (150-400) X10^3/uL Neut % (Auto) 59.3 (50-75) % Lymph % (Auto) 22.4 L (25-40) % [place] % (Auto) 14.4 H (3-14) % Eos % (Auto) 3.3 (2-4) % Baso % (Auto) 0.6 (0-2) % Neut # (Auto) 4800 (1351-1996) /uL Lymph # (Auto) 1800 (2529-2630) /uL [place] # (Auto) 1200 H (0-900) /uL Eos # (Auto) 300 (0-450) /uL Baso # (Auto) 0 (0-100) /uL PT 10.6 (9.4-12.5) SECONDS INR 0.9 (0.9-1.3) APTT 33 (25.1-36.5) SECONDS Sodium 138 (137-145) mmol/L Potassium 3.6 (3.4-5.1) mmol/L Chloride 103 (98-107) mmol/L Carbon Dioxide 26 (22-32) mmol/L BUN 21 H (9-20) mg/dL Creatinine 1.00 (0.66-1.25) mg/dL Estimated GFR > 60 (>60) mL/min BUN/Creatinine Ratio 21.0 (6-22) Glucose 93 (80-110) mg/dL Calcium 9.6 (8.4-10.2) mg/dL Magnesium 1.8 (1.6-2.3) mg/dL Total Bilirubin 0.7 (0.2-1.3) mg/dL AST 39 (17-59) IU/L ALT 36 (<50) IU/L Alkaline Phosphatase 62 (38-126) U/L Total Creatine Kinase 135 (55-170) U/L Troponin I < 0.012 (0.01-0.034) ng/mL NT-Pro-B Natriuret Pep 341 (<450) pg/mL Total Protein 7.3 (6.3-8.2) g/dL Albumin 4.3 (3.5-5.0) g/dL Globulin 3.0 (1.7-4.1) g/dL Albumin/Globulin Ratio 1.4 (1.0-2.8) Lipase 357 H (23-300) U/L Imaging Data CT scan - head: Radiologist's Impression: PROCEDURE: CT HEAD/BRAIN WO CON INDICATIONS: headache and HTN TECHNIQUE: Noncontrast 4.5 mm thick angled axial sections acquired from the foramen magnum to the vertex, with coronal and sagittal reformats. For radiation dose reduction, the following was used: automated exposure control, adjustment of mA and/or kV according to patient size. COMPARISON: None. FINDINGS: Image quality: Diagnostic. CSF spaces: Basal cisterns are patent. No extra-axial fluid collections. The ventricles are symmetric in size and shape. Brain: No intracranial bleeds or masses. There is cerebral volume loss for age, with resultant ventricular and sulcal prominence. There are periventricular and deep white matter chronic small vessel ischemic changes. There is intracranial internal carotid artery atherosclerosis. Skull and face: Calvarium and visualized facial bones appear intact, without suspicious lesions. Sinuses: Mild paranasal sinus mucosal disease. The mastoids are clear. IMPRESSION: No acute intracranial pathology. Chest x-ray: Radiologist's Impression: No acute cardiopulmonary abnormality is seen ECG Data Attestation: I personally reviewed and interpreted this ECG as follows: Interpretation: Sinus bradycardia Ventricular rate of 52 Sinus arrhythmia Normal QRS No ST T wave changes MDM Narrative Medical decision making narrative: Head CT is unremarkable. EKG is nonischemic. Troponin is negative. Blood pressure did improve with treatment here in the emergency department. Low suspicion for ACS, CHF, kidney disease, pulmonary edema. Head CT is unremarkable as well. I did discuss elevated blood pressures with the patient and his . Plan will be to discharge home without any changes in his medicine will have him take his blood pressure at home on a regular basis. He was given return precautions and follow-up instructions. He expressed understanding and agreement. Discharge Plan Departure Patient Disposition: Home Clinical Impression: Hypertension Instructions: DI for High Blood Pressure Activity Restrictions/Additional Instructions: Recommend that you continue to take all of your medications as directed. Take your blood pressure at home like we discussed and record the values. Return to the emergency department for new or worsening symptoms. Prescriptions: No Action diltiazem HCl [Cartia XT] 240 MG capsule,extended release 24hr 240 mg PO Q DAY Qty: 0 furosemide 20 MG tablet 20 mg PO QDAY Qty: 0 lisinopril 20 mg tablet 20 mg PO BID chlorthalidone 25 mg tablet 12.5 mg PO QAM alfuzosin 10 mg tablet extended release 24 hr 10 mg PO DAILY ketoconazole 2 % Shampoo 1 applic TOPICAL 3XW saw palmetto 160 mg Capsule 160 mg PO BID omeprazole 20 mg Capsule,Delayed Release(Dr/Ec) 20 mg PO DAILY aspirin 81 mg Tablet 81 mg PO 3XW Rx Instructions: mon/wed/fri pyridoxine (vitamin B6) 100 mg Tablet 100 mg PO QAM fluocinonide 0.05 % Solution 1 applic TOPICAL BID-QID PRN (Reason: Rash) timolol maleate 0.5 % drops 1 drp EYE-BOTH QAM vitamin B complex Capsule 1 cap PO DAILY acyclovir [Zovirax] 5 % Cream 1 applic TOPICAL 5XD ascorbate calcium (vitamin C) 500 mg Capsule 500 mg PO BID fiber Tablet,Chewable 1 tab PO BID potassium gluconate 595 mg (99 mg) Tablet 595 mg PO DAILY cholecalciferol (vitamin D3) [Vitamin D3] 25 mcg (1,000 unit) Tablet,Chewable 75 mcg PO DAILY calcium-vitamin D3-vitamin K 500 mg-1,000 unit-40 mcg Tablet,Chewable 1 tab PO BID Adult Probiotic 3 billion cell Capsule 3,000 mmu cells PO BID Repatha SureClick 140 mg/mL Pen Injector 140 mg SUBCUT Q2W clotrimazole-betameth dip-zinc 1-0.05-20 % Combo Pack See Rx Instructions .ROUTE .COMPLEX Rx Instructions: 1 pkg topically nitroglycerin 0.4 mg tablet, sublingual 0.4 mg sublingual Q5-15M MDD 3 pills PRN (Reason: chest pain) Qty: 10 3RF Rx Instructions: do not exceed 3 doses per episode testosterone cypionate 200 mg/mL oil 0.3 mg IM QWEEK Referrals: Jose David Boss MD [Primary Care Provider] - Stand Alone Forms: Patient Portal/API
[2024-04-09] MEDS: HYDRALAZINE 20 MG/ML VIAL 5 MG IV (19:44)
[2024-04-09] MEDS: ACETAMINOPHEN IV 1,000 MG/100 ML VIAL 400 MG IV (19:44)
== END 2024-04-09 21:10 | disposition home or self-care (01) ==
PROVIDERS: Emergency Medicine; Emergency Provider Emergency Medicine; PCP Family Medicine
DX: I10 Essential (primary) hypertension (principal); R07.9 Chest pain, unspecified; R00.1 Bradycardia, unspecified; Z79.899 Other long term (current) drug therapy
CPT/HCPCS: 36415; 70450; 71045; 80053; 82550; 83690; 83735; 83880; 84484; 85025; 85610; 85730; 93005; 96365; 96375; 99284; J0136; J0360

== ENCOUNTER → 2024-06-10 08:05 | Outpatient (CLI) | payer MEDICARE, OTHER, SELFPAY ==
[2022-09-27 09:06] VITALS: BMI 31.1
[2024-06-10 09:43] LABS: Prostate Specific Antigen Scrn 4.63 ng/mL (0.1-4.0)
== END ==
PROVIDERS: PCP Family Medicine; Referring Provider Urology; Visit Provider Urology
DX: Z12.5 Encounter for screening for malignant neoplasm of prostate (principal)
CPT/HCPCS: 36415; G0103

== ENCOUNTER → 2024-07-05 07:09 | Outpatient (CLI) | payer MEDICARE, OTHER, SELFPAY ==
[2022-09-27 09:06] VITALS: BMI 31.1
--- NOTE | 2024-07-05 07:10 | DI.MRI.S_ITS ---
PROCEDURE: MR PELVIC PROSTATE PROTOCOL INDICATIONS: Elevated PSA TECHNIQUE: Coronal HASTE, axial T1 FSE with fat saturation, 3-plane nonbreath-hold T2 FSE. After the administration of contrast, dynamic axial, delayed axial and coronal VIBE or 2-D FLASH with fat saturation through the pelvis. Diffusion weighted imaging and ADC was performed. COMPARISON: None. FINDINGS: Image quality: Diffusion weighted and dynamic contrast enhanced images are diagnostic. Prostate: Gland size is 5.6 x 3.4 x 4.5 cm; ellipsoid gland volume is 44.6 mL. Estimated PSA density 0.103 Transitional zone heterogenous nodules are present, either well encapsulated or mostly encapsulated, compatible with PI-RADS 1 or 2 likely BPH nodules. Mildly T2 hypointense heterogenous striated appearance of the peripheral zone is commonly seen with current or prior prostatitis, PI-RADS 2. Seminal vesicles are clear. Right mid gland peripheral zone 8 x 9 x by 11 millimeter lesion (5/17, 4/11). T2 score 3. DWI score 3. DCE negative. PI-RADS 3. Genitourinary system: Trabeculated bladder, usually from chronic obstruction. Bowel and peritoneum: Colonic diverticula moderate fecal loading. No pathologic ascites Nodes and vessels: No aneurysmal vessel or pathologic lymph nodes by size criteria Soft tissues: Unremarkable pelvic wall Bones: No suspicious osseous enhancement IMPRESSION: PI-RADS 3 lesion in the right mid gland peripheral zone . No PI-RADS 4 or 5 lesions suspicious for clinically significant prostate adenocarcinoma. No extracapsular disease or seminal vesicle invasion. Other findings above. Approved by: Kvng Bar M.D. on 07/05/2024 at 11:26
== END ==
LOC: MRI 07:10
PROVIDERS: PCP Family Medicine; Referring Provider Urology; Visit Provider Urology
DX: N42.9 Disorder of prostate, unspecified (principal); R97.20 Elevated prostate specific antigen [PSA]
CPT/HCPCS: 72197; A9579

== ENCOUNTER → 2024-07-19 07:03 | Outpatient (CLI) | payer MEDICARE, OTHER, SELFPAY ==
[2022-09-27 09:06] VITALS: BMI 31.1
--- NOTE | 2024-07-19 07:04 | DI.MRI.S_ITS ---
PROCEDURE: MR LUMBAR SPINE WO CON INDICATIONS: SPINAL STENOSIS,LUMBAR REGION TECHNIQUE: Noncontrast sagittal T1 spin echo and T2 fast echo, sagittal STIR, and T2 fast spin echo through the lumbar spine. In cases with scoliosis, additional coronal T2 fast spin echo may be performed. COMPARISON: [facility], MR, MR LUMBAR SPINE WO CON, 06/16/2022, 12:13. FINDINGS: Image quality: Excellent. Alignment and Curvature: Mild anterolisthesis of L4 on L5. Bone Marrow: Mild degenerative endplate changes at L3-L4. Marrow is of normal overall signal. No acute vertebral body compression fractures. Spinal Cord: Conus medullaris terminates at the L1 level. Visualized cord demonstrates normal signal and size. Paraspinous Soft Tissues: No paravertebral masses. T12-L1: Normal appearance. L1-L2: Normal appearance. L2-L3: Disc desiccation and mild disc bulge. Facet arthropathy. No central canal stenosis. No significant neural foraminal stenosis. L3-L4: Disc desiccation and mild height loss. Diffuse disc bulge. New superimposed left paracentral disc extrusion extending inferiorly Facet arthropathy and thickening of ligamentum flavum. Epidural lipomatosis. Progression of moderate central canal stenosis. New narrowing of the left lateral recess with possible impingement of the descending left L4 nerve root. Mild bilateral neural foraminal stenosis. L4-L5: Disc desiccation and mild diffuse disc bulge. Facet arthropathy and thickening of ligamentum flavum. Stable mild central canal stenosis. Stable mild narrowing of the lateral recesses. Stable mild bilateral neural foraminal stenosis. L5-S1: Disc desiccation and mild height loss. Mild diffuse disc bulge with small superimposed right paracentral disc protrusion. Facet arthropathy and thickening of ligamentum flavum. No significant central canal or neural foraminal stenosis. IMPRESSION: 1. Multilevel degenerative changes of the lumbar spine with progression at L3-L4. 2. There is a new left paracentral disc extrusion at L3-L4 resulting in moderate central canal stenosis and narrowing of the left lateral recess with possible impingement the descending left L4 nerve root. 3. Degenerative changes are stable at other levels, as described above. Dictated by: Amador Anderson M.D. on 07/19/2024 at 9:48 Approved by: Amador Anderson M.D. on 07/19/2024 at 10:02
== END ==
PROVIDERS: PCP Family Medicine; Referring Provider Orthopaedic Surgery Orthopaedic Surgery of the Spine; Visit Provider Orthopaedic Surgery Orthopaedic Surgery of the Spine
DX: M48.062 Spinal stenosis, lumbar region with neurogenic claudication (principal); M47.816 Spondylosis without myelopathy or radiculopathy, lumbar region; M47.817 Spondylosis without myelopathy or radiculopathy, lumbosacral region; M51.26 Other intervertebral disc displacement, lumbar region
CPT/HCPCS: 72148

== ENCOUNTER 2024-09-12 07:45 | Emergency (ER) | payer MEDICARE, OTHER, SELFPAY ==
[2022-09-27 09:06] VITALS: BMI 31.1
--- NOTE | 2024-09-12 07:49 | ED.LOWEXIN ---
HPI - Extremity Injury (Lower) General Chief Complaint: Extremity Problem,Nontraumatic Stated Complaint: Poss torn muscles on RT ankle Time Seen by Provider: 09/12/24 07:49 History of Present Illness HPI Narrative: 79-year-old male past medical history of hypertension comes into the ED from home for evaluation of right ankle pain. States that he had sudden onset right today, states that he is worried that he might have ruptured/torn his muscle/tendon in his ankle given the fact that he is currently on Cipro Flagyl for history of diverticulitis. He is states that he is only on day 5 of 10. States that he has tolerated these medications in the past. He has not complaining of any other symptoms at this time. No trauma no fall Related Data Home Medications Medication Instructions Recorded Confirmed diltiazem HCl 240 mg 240 mg PO Q DAY ##0 11/27/11 07/11/24 capsule,extended release 24 hr (Cartia XT) furosemide 20 mg tablet 20 mg PO QDAY ##0 06/03/17 07/11/24 acyclovir 5 % topical cream 1 applic topical 5XD 09/07/20 07/11/24 (Zovirax) alfuzosin 10 mg tablet,extended 10 mg PO DAILY 09/07/20 07/11/24 release 24 hr ascorbate calcium (vitamin C) 500 500 mg PO BID 09/07/20 07/11/24 mg capsule calcium 500 mg-vitamin D3 1,000 1 tab PO BID 09/07/20 07/11/24 unit-vitamin K 40 mcg chewable tablet chlorthalidone 25 mg tablet 12.5 mg PO QAM 09/07/20 07/11/24 cholecalciferol (vitamin D3) 25 75 mcg PO DAILY 09/07/20 07/11/24 mcg (1,000 unit) chewable tablet (Vitamin D3) clotrimazole 1 %-betamethasone See Rx Instructions .Route .COMPLEX 09/07/20 07/11/24 0.05 % cream-zinc ox 20 % paste topical evolocumab 140 mg/mL subcutaneous 140 mg SUBCUT Q2W 09/07/20 07/11/24 pen injector (Marti Barcenas) fiber 1 tab PO BID 09/07/20 07/11/24 fluocinonide 0.05 % topical 1 applic topical BID-QID PRN Rash 09/07/20 07/11/24 solution ketoconazole 2 % shampoo 1 applic topical 3XW 09/07/20 07/11/24 lactobacillus combination no.8 3 3,000 mmu cells PO BID 09/07/20 07/11/24 billion cell capsule (Adult Probiotic) omeprazole 20 mg capsule,delayed 20 mg PO DAILY 09/07/20 07/11/24 release potassium gluconate 595 mg (99 mg) 595 mg PO DAILY 09/07/20 07/11/24 tablet pyridoxine (vitamin B6) 100 mg 100 mg PO QAM 09/07/20 07/11/24 tablet saw palmetto 160 mg capsule 160 mg PO BID 09/07/20 07/11/24 timolol maleate 0.5 % eye drops 1 drp EYE-BOTH QA 09/07/20 07/11/24 vitamin B complex 1 cap PO DAILY 09/07/20 07/11/24 testosterone cypionate 200 mg/mL 0.3 mg IM QWEEK 06/16/23 07/11/24 intramuscular oil Previous Rx's Medication Instructions Recorded nitroglycerin 0.4 mg sublingual 0.4 mg sublingual Q5-15M PRN chest 09/09/20 tablet pain #10 tabs sulfamethoxazole 800 1 tab PO BID 5 days #10 tabs 09/12/24 mg-trimethoprim 160 mg tablet (Bactrim DS) Allergies Allergy/AdvReac Type Severity Reaction Status Date / Time adhesive tape Allergy Verified 06/28/24 09:28 choline fenofibrate Allergy Muscle Pain Verified 06/28/24 09:28 cyclobenzaprine Allergy Verified 06/28/24 09:28 gatifloxacin Allergy Verified 06/28/24 09:28 losartan Allergy Verified 06/28/24 09:28 niacin Allergy ITCHING Verified 06/28/24 09:28 omega-3 acid ethyl esters Allergy Rash Verified 06/28/24 09:28 risedronate sodium Allergy Rash, body Verified 06/28/24 09:28 [RISEDRONATE SODIUM] pain [id number] Reductase Allergy Stomach Verified 06/28/24 09:28 Inhibitor pains, headache oxybutynin AdvReac SOB, Verified 06/28/24 09:28 stomach ache Penicillins AdvReac GI upset, Verified 06/28/24 09:28 diarrhea actonal Allergy Unknown shoulder, Uncoded 06/28/24 09:28 chest, knee, back rib pain dha Allergy Rash Uncoded 06/28/24 09:28 Review of Systems Review of Systems Narrative: General: Denies fever, chills, weight loss HEENT: Denies headache, eye drainage, eye irritation, head trauma, sore throat, voice change Cardiovascular: Denies any chest pain, palpitations, shortness of breath, tachycardia Respiratory: Denies any shortness of breath, cough, wheeze, stridor GI/: Denies any abdominal pain, nausea, vomiting, diarrhea, bright red blood per rectum, melanotic stools, urinary frequency, urinary retention, dysuria, hematuria MSK: Positive right ankle pain/tendon pain. Skin: Denies any rashes, lesions, discoloration Neuro: Denies any headache, lightheadedness, dizziness, fainting, weakness Psych: Denies SI/HI Patient History Medical History (Updated 09/12/24 @ 08:09 by Dex Kruse DO) Elevated PSA Asthma History of DVT (deep vein thrombosis) Chronic sinusitis Hypogonadism Incomplete emptying of bladder Nocturia more than twice per night Lower urinary tract symptoms Male circumcision Kidney stones High blood pressure Gout Diverticular disease Arthritis BPH (benign prostatic hyperplasia) Surgical History (Updated 01/04/24 @ 15:13 by Caitlin Healy RN) Hx of colonoscopy Hx of bilateral cataract extraction H/O vasectomy (1976) Hx of toe surgery Hx of nasal sinusotomy (2008) History of arthroscopy of left shoulder (2014) History of eye surgery Hx of elbow surgery (1996) Hx of left knee surgery History of prostate surgery Family History Father Diabetes mellitus Eczema Mother Bacterial UTI Social History marital status: number of children: 3 household members: spouse lives independently: Yes Smoking Status: Former smoker alcohol intake: current substance use type: does not use Type(s) of exercise: other frequency: 5-6 times per week Smoking Status: Former smoker alcohol intake frequency: a few times a week Alcohol type: wine Exam Narrative Exam Narrative: General: Cooperative, comfortable, well-developed, not in acute distress HEENT: Normocephalic, atraumatic, PERRLA, normal sclera, eyelids normal, Neck: Active full range of motion, atraumatic Chest: Normal to inspection, negative crepitus, no overlying erythema ecchymosis Respiratory: Normal respiratory effort, not in acute respiratory distress, clear to auscultation bilaterally negative cough, wheeze, tachypnea, rhonchi, rales Cardiology: Regular rate rhythm negative gallop, murmur, rubs GI/: Normal to inspection, soft, nonrigid, no tenderness to palpation, exam deferred MSK: Negative Rousseau test to the right, however there is tenderness to palpation over the insertion point of the Achilles tendon on the right towards the calcaneus, otherwise bilateral lower extremities neurovascularly intact Skin: No rashes lesions noted Neuro: Alert awake oriented x3, moves all 4 extremities spontaneously, cranial nerves intact, able to answer all questions appropriately follows commands appropriately Psych: Cooperative, negative suicidal or homicidal ideations Initial Vital Signs Initial Vital Signs: Vital Signs Temperature 97.6 F 09/12/24 08:02 Pulse Rate 63 09/12/24 08:02 Respiratory Rate 18 09/12/24 08:02 Blood Pressure 165/77 H 09/12/24 08:02 Pulse Oximetry 97 09/12/24 08:02 Oxygen Delivery Method Room Air 09/12/24 08:02 Course Orders Ordered: ED Orders 09/12/24 07:56 XR ankle RT min 3V Stat Vital Signs Vital signs: Vital Signs - 8 hr 09/12/24 08:02 Temperature 97.6 F Pulse Rate 63 Respiratory Rate 18 Blood Pressure 165/77 H Pulse Oximetry 97 Oxygen Delivery Method Room Air MDM - Extremity Injury (Lower) Differential Diagnosis Differential diagnosis: Likely ankle sprain and strain and ankle fracture Imaging Data Extremity x-ray #1: Radiologist's Impression: [address] [address] XRay Report Signed Patient: Rolo Naranjo MR#: [id number] : 1945 Acct:[id number] Age/Sex: 79 / M Date of Service: 09/12/24 Loc: ED Accession Number: [id number] Procedure: XR ankle RT min 3V Ordering Provider: Dex Kruse D.O. PROCEDURE: XR ANKLE RT MIN 3V INDICATIONS: pain to the insertion point of the achilles tendon TECHNIQUE: 3 views of the ankle were acquired. COMPARISON: None. FINDINGS: Bones: No fractures or dislocations. Ankle mortise is normally aligned. No suspicious bony lesions. Plantar and dorsal calcaneal enthesophytes. Soft tissues: No tibiotalar joint effusion. Achilles tendon appears normal. Significant soft tissue edema in Kager's fat pad. IMPRESSION: Significant soft tissue edema in Kager's fat pad. Achilles tendon injury not excluded. Consider ultrasound. Achilles insertional enthesophyte along the posterior surface of the calcaneus. MDM Narrative Medical decision making narrative: 79-year-old male with a history of hypertension presents to the emergency department from home for evaluation of right ankle pain. Patient states that he had sudden onset of pain to his right ankle, states that he is worried that he might ?ripped/tore his muscle/tendon given the fact that he just completed a course of Cipro and Flagyl for his history of diverticulitis. He has not complaining of any other symptoms at this time. No trauma no falls, not on any blood thinners. Patient with negative Rousseau test. Patient had x-rays performed here but did not show any acute fractures. Did show some mild swelling consistent with a possible Achilles tendinopathy, however patient without full pair on exam therefore will place patient in a ankle splint. Patient will be discharged home with outpatient follow up with Orthopedic surgery in a ankle splint. He will also be changed from his ciprofloxacin to Bactrim given the fact that patient states that he has a penicillin allergy, he was told to continue the Flagyl. Discharge Plan Departure Patient Disposition: Home Clinical Impression: Acute right ankle pain Instructions: DI for Achilles Tendinopathy Activity Restrictions/Additional Instructions: Please follow up with Orthopedic surgery and your primary care doctor Please read the discharge instructions sheet carefully and bring all papers to all doctor follow-up visits, as it may contain information that your doctor may want to see. Disease processes change and evolve, if your symptoms worsen or if you develop any new symptoms that are concerning to you please return for evaluation. Your evaluation today does not show any evidence of any life-threatening/serious illnesses requiring admission to the hospital or surgery. Please follow-up with your doctor for re-evaluation in approximately 1 day. Seek immediate medical attention for any worrisome symptoms. *If you do not have a primary care provider please contact the [facility] Resource line at [phone]. They will ask some questions about your medical history and help get you set up with a doctor in the community. Prescriptions: New sulfamethoxazole-trimethoprim [Bactrim DS] 800-160 mg tablet 1 tab PO BID 5 Days Qty: 10 0RF No Action diltiazem HCl [Cartia XT] 240 MG capsule,extended release 24hr 240 mg PO Q DAY Qty: 0 furosemide 20 MG tablet 20 mg PO QDAY Qty: 0 chlorthalidone 25 mg tablet 12.5 mg PO QAM alfuzosin 10 mg tablet extended release 24 hr 10 mg PO DAILY ketoconazole 2 % Shampoo 1 applic TOPICAL 3XW saw palmetto 160 mg Capsule 160 mg PO BID omeprazole 20 mg Capsule,Delayed Release(Dr/Ec) 20 mg PO DAILY pyridoxine (vitamin B6) 100 mg Tablet 100 mg PO QAM fluocinonide 0.05 % Solution 1 applic TOPICAL BID-QID PRN (Reason: Rash) timolol maleate 0.5 % drops 1 drp EYE-BOTH QAM vitamin B complex Capsule 1 cap PO DAILY acyclovir [Zovirax] 5 % Cream 1 applic TOPICAL 5XD ascorbate calcium (vitamin C) 500 mg Capsule 500 mg PO BID fiber Tablet,Chewable 1 tab PO BID potassium gluconate 595 mg (99 mg) Tablet 595 mg PO DAILY cholecalciferol (vitamin D3) [Vitamin D3] 25 mcg (1,000 unit) Tablet,Chewable 75 mcg PO DAILY calcium-vitamin D3-vitamin K 500 mg-1,000 unit-40 mcg Tablet,Chewable 1 tab PO BID Adult Probiotic 3 billion cell Capsule 3,000 mmu cells PO BID Repatha SureClick 140 mg/mL Pen Injector 140 mg SUBCUT Q2W clotrimazole-betameth dip-zinc 1-0.05-20 % Combo Pack See Rx Instructions .ROUTE .COMPLEX Rx Instructions: 1 pkg topically nitroglycerin 0.4 mg tablet, sublingual 0.4 mg sublingual Q5-15M MDD 3 pills PRN (Reason: chest pain) Qty: 10 3RF Rx Instructions: do not exceed 3 doses per episode testosterone cypionate 200 mg/mL oil 0.3 mg IM QWEEK Referrals: Jose David Boss MD [Primary Care Provider] - Hood Crystal MD [Physician] - Stand Alone Forms: Patient Portal/API/Survey
[2024-09-12 07:54] VITALS: PULSE 66; O2SAT 95
[2024-09-12 07:56] VITALS: BP 165/77; PULSE 63; O2SAT 98
--- NOTE | 2024-09-12 07:56 | DI.RAD.S_ITS ---
PROCEDURE: XR ANKLE RT MIN 3V INDICATIONS: pain to the insertion point of the achilles tendon TECHNIQUE: 3 views of the ankle were acquired. COMPARISON: None. FINDINGS: Bones: No fractures or dislocations. Ankle mortise is normally aligned. No suspicious bony lesions. Plantar and dorsal calcaneal enthesophytes. Soft tissues: No tibiotalar joint effusion. Achilles tendon appears normal. Significant soft tissue edema in Kager's fat pad. IMPRESSION: Significant soft tissue edema in Kager's fat pad. Achilles tendon injury not excluded. Consider ultrasound. Achilles insertional enthesophyte along the posterior surface of the calcaneus. Dictated by: Dada Bradshaw M.D. on 09/12/2024 at 8:13 Approved by: Dada Bradshaw M.D. on 09/12/2024 at 8:14
[2024-09-12 08:00] VITALS: PULSE 67; O2SAT 96
[2024-09-12 08:02] VITALS: BP 165/77; PULSE 63; RESP 18; TEMP 36.4; O2SAT 97; BMI 30.9
[2024-09-12 08:08] VITALS: PULSE 64
== END 2024-09-12 08:30 | disposition home or self-care (01) ==
PROVIDERS: Emergency Provider Student in an Organized Health Care Education/Training Program; PCP Family Medicine
DX: M25.571 Pain in right ankle and joints of right foot (principal); I10 Essential (primary) hypertension
CPT/HCPCS: 73610; 99281; 99283

== ENCOUNTER → 2024-10-04 08:01 | Outpatient (CLI) | payer MEDICARE, OTHER, SELFPAY ==
[2022-09-27 09:06] VITALS: BMI 31.1
[2024-10-05 09:09] LABS: PSA Free % 26.9 % (.); PSA, Total 3.6 ng/mL (0.0-4.0)
== END ==
PROVIDERS: PCP Family Medicine; Referring Provider Urology; Visit Provider Urology
DX: R97.20 Elevated prostate specific antigen [PSA] (principal)
CPT/HCPCS: 36415; 84153; 84154

== ENCOUNTER → 2024-10-11 06:50 | Outpatient (CLI) | payer MEDICARE, OTHER, SELFPAY ==
[2022-09-27 09:06] VITALS: BMI 31.1
--- NOTE | 2024-10-11 06:51 | DI.CT.S_ITS ---
PROCEDURE: CT ABDOMEN PELVIS W CON INDICATIONS: EPIGASTRIC ABDOMINAL PAIN TECHNIQUE: After the administration of intravenous contrast, axial sections acquired from the lung bases to the pubic symphysis. Coronal and sagittal reformats were performed. For radiation dose reduction, the following was used: automated exposure control, adjustment of mA and/or kV according to patient size. COMPARISON: None. FINDINGS: Image quality: Diagnostic. Lower Chest: No significant findings. ABDOMEN: Liver: No solid mass. Gallbladder: No radiopaque gallstones or wall thickening. Biliary ducts: No biliary dilation. Pancreas: No ductal dilation. Spleen: Size is within normal limits. Adrenal Glands: No adrenal nodules. Kidneys and Ureters: No hydronephrosis. No solid mass. No complex renal cystic lesion which requires follow up. Stomach and Bowel: Normal colonic caliber, without significant wall thickening. Normal caliber appendix in the right lower quadrant. Colonic diverticulosis without acute inflammation. Peritoneum: No abnormal intraperitoneal fluid. No free air. Ventral Wall: Tiny fat containing umbilical hernia. Abdominal Nodes: No retroperitoneal or mesenteric adenopathy by size criteria. Vessels: Aorta and inferior vena cava are normal in size. Aorto bi iliac atherosclerotic calcifications. PELVIS: Pelvic Organs: Prostatomegaly. Bladder: No bladder wall thickening, accounting for underdistention. Pelvic Nodes: No enlarged lymph nodes. Miscellaneous: No inguinal hernias are seen. Bones: No aggressive osseous abnormality. IMPRESSION: No acute abdominopelvic process. Colonic diverticulosis without CT evidence of acute diverticulitis. Prostatomegaly. Approved by: Yamileth Hamilton M.D.,Ph.D. on 10/11/2024 at 23:55
== END ==
PROVIDERS: PCP Family Medicine; Referring Provider Family Medicine; Visit Provider Family Medicine
DX: R10.13 Epigastric pain (principal); K57.90 Diverticulosis of intestine, part unspecified, without perforation or abscess without bleeding; N40.0 Benign prostatic hyperplasia without lower urinary tract symptoms
CPT/HCPCS: 74177; Q9967

== ENCOUNTER → 2025-01-10 08:14 | Outpatient (CLI) | payer MEDICARE, OTHER, SELFPAY ==
[2022-09-27 09:06] VITALS: BMI 31.1
== END ==
PROVIDERS: PCP Family Medicine; Referring Provider Urology; Visit Provider Urology
DX: R97.20 Elevated prostate specific antigen [PSA] (principal); N40.1 Benign prostatic hyperplasia with lower urinary tract symptoms; R35.1 Nocturia; R39.9 Unspecified symptoms and signs involving the genitourinary system
CPT/HCPCS: 36415; 84153

== ENCOUNTER → 2025-01-30 07:55 | Outpatient (CLI) | payer MEDICARE, OTHER, SELFPAY ==
[2022-09-27 09:06] VITALS: BMI 31.1
[2025-01-30 09:06] LABS: Add Manual Diff / Slide Review NO; Basophils Absolute Auto 100 /uL (0-100); Basophils Percent Auto 0.7 % (0-2); Eosinophils Absolute Auto 200 /uL (0-450); Eosinophils Percent Auto 2.6 % (2-4); Hematocrit 46.9 % (41-53); Hemoglobin 16.2 g/dL (13.5-17.5); Lymphocytes Absolute Auto 1200 /uL (1100-4500); Lymphocytes Percent Auto 14.8 % (25-40); Mean Corpuscular HGB Conc 34.5 % (30-36); Mean Corpuscular Hemoglobin 34.1 PG (26-34); Mean Corpuscular Volume 98.6 fL (80-100); Monocytes Absolute Auto 800 /uL (0-900); Monocytes Percent Auto 10.2 % (3-14); Neutrophils Absolute Auto 5900 /uL (1500-7000); Neutrophils Percent Auto 71.7 % (50-75); Platelet Count 176 X10^3/uL (150-400); Red Blood Cell Count 4.75 X10^6/uL (4.5-5.9); Red Cell Distribution Width 15.2 % (11.6-14.8); White Blood Cell Count 8.2 X10^3/uL (4.5-11.0)
[2025-01-30 09:46] LABS: Alanine Aminotransferase 45 IU/L (<50); Albumin 4.4 g/dL (3.5-5.0); Albumin Globulin Ratio 1.7 (1.0-2.8); Alkaline Phosphatase 73 U/L (38-126); Aspartate Aminotransferase 45 IU/L (17-59); BUN Creatinine Ratio 18.6 (6-22); Bilirubin Total 0.8 mg/dL (0.2-1.3); Blood Urea Nitrogen 19 mg/dL (9-20); Calcium 9.8 mg/dL (8.4-10.2); Carbon Dioxide 27 mmol/L (22-32); Chloride 102 mmol/L (98-107); Cholesterol 150 mg/dL (140-199); Estimated Glomerular Filt Rate > 60 mL/min (>60); Globulin 2.6 g/dL (1.7-4.1); Glucose 113 mg/dL (70-99); HDL Cholesterol 56 mg/dL (40-60); HEMOLYSIS < 15 (0-50); LDL Cholesterol Calculated 74 mg/dL (<100); Magnesium 1.7 mg/dL (1.6-2.3); Potassium 3.6 mmol/L (3.4-5.1); Sodium 139 mmol/L (137-145); Triglycerides 102 mg/dL (35-150)
[2025-01-30 10:14] LABS: Thyroid Stimulating Hormone 1.86 uIU/mL (0.47-4.68)
== END ==
PROVIDERS: PCP Family Medicine; Referring Provider Internal Medicine Cardiovascular Disease; Visit Provider Internal Medicine Cardiovascular Disease
DX: I10 Essential (primary) hypertension (principal); I49.3 Ventricular premature depolarization
CPT/HCPCS: 36415; 80053; 80061; 83735; 84443; 85025

== ENCOUNTER 2025-03-23 19:15 | Emergency (ER) | payer MEDICARE, OTHER, SELFPAY ==
[2022-09-27 09:06] VITALS: BMI 31.1
[2025-03-23 20:24] VITALS: BP 158/76; PULSE 78; RESP 18; TEMP 36.6; O2SAT 98; BMI 28.0
--- NOTE | 2025-03-23 20:30 | DI.RAD.S_ITS ---
PROCEDURE: XR CHEST 1V INDICATIONS: Shortness of breath TECHNIQUE: One view of the chest was acquired. COMPARISON: [facility], CR, XR CHEST 1V, 04/09/2024, 16:55. [facility], CR, XR CHEST 2V, 10/04/2023, 17:00. FINDINGS: Surgical changes and devices: None. Lungs and pleura: Lungs are clear. No pleural effusions or pneumothorax. Mediastinum: Mediastinal contours appear normal. Heart size is normal. Bones and chest wall: No suspicious bony lesions. Overlying soft tissues appear unremarkable. IMPRESSION: No acute cardiopulmonary abnormality is seen. Dictated by: Amador Anderson M.D. on 03/23/2025 at 21:25 Approved by: Amador Anderson M.D. on 03/23/2025 at 21:25
--- NOTE | 2025-03-23 20:30 | EKG_ITS ---
[address] [address] [place] [address] Test Date: 2025-03-24 Pat Name: Rolo Naranjo Department: [facility] Room: Gender: Male Keyboard Specialist: MERCEDES : 1945 Requested By: Order Number: [id number] Reading MD: Hubert Neal Measurements Intervals [place] Rate: 72 P: 57 VA: 170 QRS: 29 QRSD: 94 T: 45 QT: 418 QTc: 457 Interpretive Statements Sinus rhythm with premature atrial complexes Nonspecific ST abnormality Electronically Signed On 03-29-2025 7:29:44 PDT by Hubert Neal
[2025-03-24] VITALS (10 sets, daily range): BP systolic 150–194; BP diastolic 81–113; PULSE 59–74; RESP 13–23; O2SAT 90–99
--- NOTE | 2025-03-24 01:51 | DI.CT.S_ITS ---
PROCEDURE: CT HEAD/BRAIN WO CON INDICATIONS: headache TECHNIQUE: Noncontrast 4.5 mm thick angled axial sections acquired from the foramen magnum to the vertex, with coronal and sagittal reformats. For radiation dose reduction, the following was used: automated exposure control, adjustment of mA and/or kV according to patient size. COMPARISON: [facility], CT, CT HEAD/BRAIN WO CON, 04/09/2024, 19:32. FINDINGS: Image quality: Diagnostic. CSF spaces: Basal cisterns are patent. No extra-axial fluid collections. The ventricles are symmetric in size and shape. Brain: No intracranial bleeds or mass effect. There is cerebral volume loss, with resultant ventricular and sulcal prominence. There are periventricular and deep white matter chronic small vessel ischemic changes. There is intracranial internal carotid artery atherosclerosis. Skull and face: Calvarium and visualized facial bones appear intact, without suspicious lesions. Sinuses: Visualized sinuses and mastoids are clear. IMPRESSION: 1. CT head without acute intracranial abnormalities or acute calvarial fractures. 2. Age-related senescent changes and sequela of chronic small vessel ischemic disease. No significant discrepancy with the night time nanny radiology preliminary report. Dictated by: Mckinley Carcamo M.D. on 03/24/2025 at 6:50 Approved by: Mckinley Carcamo M.D. on 03/24/2025 at 6:51
--- NOTE | 2025-03-24 02:07 | PC.NURSE ---
Pt recently seen and treated for gout. Given allopurinal, prednisone, cholcine. Finished course of Prednisone about 2 days ago, while in lobby pt states symptoms have resolved.
[2025-03-24 02:12] LABS: Add Manual Diff / Slide Review NO; Hematocrit 47.9 % (41-53); Hemoglobin 16.2 g/dL (13.5-17.5); Lymphocytes Absolute Auto 1900 /uL (1100-4500); Mean Corpuscular HGB Conc 33.8 % (30-36); Mean Corpuscular Hemoglobin 33.7 PG (26-34); Mean Corpuscular Volume 99.7 fL (80-100); Platelet Count 171 X10^3/uL (150-400)
[2025-03-24 02:17] LABS: INR 0.9 (0.9-1.3); Prothrombin Time 10.4 SECONDS (9.4-12.5)
[2025-03-24 02:27] LABS: Alanine Aminotransferase 73 IU/L (<50); Albumin 4.2 g/dL (3.5-5.0); Albumin Globulin Ratio 1.4 (1.0-2.8); Alkaline Phosphatase 71 U/L (38-126); Blood Urea Nitrogen 23 mg/dL (9-20); Calcium 9.4 mg/dL (8.4-10.2); Carbon Dioxide 29 mmol/L (22-32); Chloride 99 mmol/L (98-107); Estimated Glomerular Filt Rate > 60 mL/min (>60); Globulin 3.1 g/dL (1.7-4.1); Glucose 106 mg/dL (70-99); HEMOLYSIS < 15 (0-50); Lactate (Lactic Acid) 0.9 mmol/L (0.7-2.1); Potassium 3.1 mmol/L (3.4-5.1); Sodium 137 mmol/L (137-145); Total Protein 7.3 g/dL (6.3-8.2)
[2025-03-24 02:39] LABS: NT-proBNP (BNP-Adult 18+) 265 pg/mL (<450); Troponin I 0.017 ng/mL (0.01-0.034)
--- NOTE | 2025-03-24 02:39 | ED.GENADULT ---
HPI - General Adult General Chief complaint: Shortness of Breath/Dyspnea Stated complaint: SOB dizzy headache Time Seen by Provider: 03/23/25 22:41 Source: patient Mode of arrival: Ambulatory History of Present Illness HPI narrative: 79-year-old male with history of gout, having recent flare, took 3 of prescribed 5 days prednisone, last dose of prednisone taken 3 days ago, his gout symptoms seemed to be improved, did not like how he felt on the prednisone, had some dizziness and some shortness of breath earlier today. No chest pain or shortness of breath. 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 He was not having preceding chest pain or shortness of breath, that prompted the stress testing scheduled. Denies cough, fevers, chills, chest pain. Chronic left leg swelling without pain. Related Data Home Medications ?Medication ?Instructions ?Recorded ?Confirmed diltiazem HCl 240 mg 240 mg PO Q DAY ##0 11/27/11 01/22/25 capsule,extended release 24 hr (Cartia XT) furosemide 20 mg tablet 20 mg PO QDAY ##0 06/03/17 01/22/25 acyclovir 5 % topical cream 1 applic topical 5XD 09/07/20 01/22/25 (Zovirax) alfuzosin 10 mg tablet,extended 10 mg PO DAILY 09/07/20 01/22/25 release 24 hr ascorbate calcium (vitamin C) 500 500 mg PO BID 09/07/20 01/22/25 mg capsule calcium 500 mg-vitamin D3 1,000 1 tab PO BID 09/07/20 01/22/25 unit-vitamin K 40 mcg chewable tablet chlorthalidone 25 mg tablet 12.5 mg PO QAM 09/07/20 01/22/25 cholecalciferol (vitamin D3) 25 75 mcg PO DAILY 09/07/20 01/22/25 mcg (1,000 unit) chewable tablet (Vitamin D3) clotrimazole 1 %-betamethasone See Rx Instructions .Route .COMPLEX 09/07/20 01/22/25 0.05 % cream-zinc ox 20 % paste topical evolocumab 140 mg/mL subcutaneous 140 mg SUBCUT Q2W 09/07/20 01/22/25 pen injector (Repatha SureClick) fiber 1 tab PO BID 09/07/20 01/22/25 fluocinonide 0.05 % topical 1 applic topical BID-QID PRN Rash 09/07/20 01/22/25 solution ketoconazole 2 % shampoo 1 applic topical 3XW 09/07/20 01/22/25 lactobacillus combination no.8 3 3,000 mmu cells PO BID 09/07/20 01/22/25 billion cell capsule (Adult Probiotic) omeprazole 20 mg capsule,delayed 20 mg PO DAILY 09/07/20 01/22/25 release potassium gluconate 595 mg (99 mg) 595 mg PO DAILY 09/07/20 01/22/25 tablet pyridoxine (vitamin B6) 100 mg 100 mg PO QAM 09/07/20 01/22/25 tablet saw palmetto 160 mg capsule 160 mg PO BID 09/07/20 01/22/25 timolol maleate 0.5 % eye drops 1 drp EYE-BOTH QAM 09/07/20 01/22/25 vitamin B complex 1 cap PO DAILY 09/07/20 01/22/25 testosterone cypionate 200 mg/mL 0.3 mg IM QWEEK 06/16/23 01/22/25 intramuscular oil Previous Rx's ?Medication ?Instructions ?Recorded nitroglycerin 0.4 mg sublingual 0.4 mg sublingual Q5-15M PRN chest 09/09/20 tablet pain #10 tabs tadalafil 20 mg tablet 20 mg PO DAILY PRN sexual activity 01/22/25 #15 tabs Allergies Allergy/AdvReac Type Severity Reaction Status Date / Time adhesive tape Allergy Verified 03/23/25 20:22 choline fenofibrate Allergy Muscle Pain Verified 03/23/25 20:22 cyclobenzaprine Allergy Verified 03/23/25 20:22 gatifloxacin Allergy Verified 03/23/25 20:22 losartan Allergy Verified 03/23/25 20:22 niacin Allergy ITCHING Verified 03/23/25 20:22 omega-3 acid ethyl esters Allergy Rash Verified 03/23/25 20:22 risedronate sodium Allergy Rash, body Verified 03/23/25 20:22 (RISEDRONATE SODIUM) pain Ilzrkya-CDU-StV Reductase Allergy Stomach Verified 03/23/25 20:22 Inhibitor pains, headache oxybutynin AdvReac SOB, Verified 03/23/25 20:22 stomach ache Penicillins AdvReac GI upset, Verified 03/23/25 20:22 diarrhea actonal Allergy Unknown shoulder, Uncoded 03/23/25 20:22 chest, knee, back rib pain dha Allergy Rash Uncoded 03/23/25 20:22 Patient History Medical History Elevated PSA Asthma History of DVT (deep vein thrombosis) Chronic sinusitis Hypogonadism Incomplete emptying of bladder Nocturia more than twice per night Lower urinary tract symptoms Male circumcision Kidney stones High blood pressure Gout Diverticular disease Arthritis BPH (benign prostatic hyperplasia) Surgical History Hx of colonoscopy Hx of bilateral cataract extraction H/O vasectomy (1976) Hx of toe surgery Hx of nasal sinusotomy (2008) History of arthroscopy of left shoulder (2014) History of eye surgery Hx of elbow surgery (1996) Hx of left knee surgery History of prostate surgery Family History Father Diabetes mellitus Eczema Mother Bacterial UTI Social History marital status: number of children: 3 household members: spouse lives independently: Yes Smoking Status: Former smoker alcohol intake: current substance use type: does not use Type(s) of exercise: other frequency: 5-6 times per week Smoking Status: Former smoker alcohol intake frequency: a few times a week Alcohol type: wine Exam Narrative Exam Narrative: GENERAL: Well-developed patient, in mild distress. HEAD: Atraumatic. Normocephalic. EYES: Pupils equal round and reactive. Extraocular motions intact. No scleral icterus. No injection or drainage. ENT: Nose without bleeding, purulent drainage. Airway patent. Face without obvious trauma. NECK: Trachea midline. Non tender CARDIOVASCULAR: Regular rate and rhythm without murmurs, gallops, or rubs. RESPIRATORY: Clear to auscultation. Breath sounds equal bilaterally. No wheezes, rales, or rhonchi. GASTROINTESTINAL: Abdomen soft, non-tender, nondistended. EXTREMITIES: Left leg swelling chronic, no tenderness induration redness or warmth. BACK: Nontender without deformity or crepitance. No flank tenderness. NEURO: AOx3. Motor functions grossly nonfocal. SKIN: No rash or erythema of visible areas Initial Vital Signs Initial Vital Signs: Vital Signs Temperature 97.9 F 03/23/25 20:24 Pulse Rate 78 03/23/25 20:24 Respiratory Rate 18 03/23/25 20:24 Blood Pressure 158/76 H 03/23/25 20:24 Pulse Oximetry 98 03/23/25 20:24 Oxygen Delivery Method Room Air 03/23/25 20:24 Course Orders Ordered: Discontinued Medications Potassium Chloride (Potassium Chloride 20 Meq/15 Ml Udc) 40 meq PO NOW ONE Stop: 03/24/25 02:32 Last Admin: 03/24/25 02:59 Dose: 40 meq Documented By: CELY Vital Signs Vital signs: Vital Signs - 8 hr 03/23/25 20:24 Temperature 97.9 F Pulse Rate 78 Respiratory Rate 18 Blood Pressure 158/76 H Pulse Oximetry 98 Oxygen Delivery Method Room Air Medical Decision Making Lab Data Lab results reviewed: Yes I reviewed the patient's lab results. Lab results narrative: White blood cell count 8700, hemoglobin 16.2, platelets 171. Glucose 106. BUN 23 with creatinine 1.07. Serum CO2 29. Potassium 3.1 low. Sodium 137 normal. AST 73 slight elevation, other liver functions normal. Lactate 0.9 normal. PT INR 0.9 normal. 03/24/25 02:00 03/24/25 02:00 Labs: Lab Results 03/24/25 03/24/25 Range/Units 02:00 04:10 WBC 8.7 (4.5-11.0) X10^3/uL RBC 4.80 (4.5-5.9) X10^6/uL Hgb 16.2 (13.5-17.5) g/dL Hct 47.9 (41-53) % MCV 99.7 (80-100) fL MCH 33.7 (26-34) PG MCHC 33.8 (30-36) % RDW 15.0 H (11.6-14.8) % Plt Count 171 (150-400) X10^3/uL Neut % (Auto) 63.7 (50-75) % Lymph % (Auto) 22.4 L (25-40) % [place] % (Auto) 11.1 (3-14) % Eos % (Auto) 1.8 L (2-4) % Baso % (Auto) 1.0 (0-2) % Neut # (Auto) 5500 (0503-9983) /uL Lymph # (Auto) 1900 (3158-6051) /uL [place] # (Auto) 1000 H (0-900) /uL Eos # (Auto) 200 (0-450) /uL Baso # (Auto) 100 (0-100) /uL PT 10.4 (9.4-12.5) SECONDS INR 0.9 (0.9-1.3) Sodium 137 (137-145) mmol/L Potassium 3.1 L (3.4-5.1) mmol/L Chloride 99 (98-107) mmol/L Carbon Dioxide 29 (22-32) mmol/L BUN 23 H (9-20) mg/dL Creatinine 1.07 (0.66-1.25) mg/dL Estimated GFR > 60 (>60) mL/min BUN/Creatinine Ratio 21.5 (6-22) Glucose 106 H (70-99) mg/dL Lactate 0.9 (0.7-2.1) mmol/L Calcium 9.4 (8.4-10.2) mg/dL Total Bilirubin 0.5 (0.2-1.3) mg/dL AST 49 (17-59) IU/L ALT 73 H (<50) IU/L Alkaline Phosphatase 71 (38-126) U/L Troponin I 0.017 0.020 (0.01-0.034) ng/mL NT-Pro-B Natriuret Pep 265 (<450) pg/mL Total Protein 7.3 (6.3-8.2) g/dL Albumin 4.2 (3.5-5.0) g/dL Globulin 3.1 (1.7-4.1) g/dL Albumin/Globulin Ratio 1.4 (1.0-2.8) Imaging Data Chest x-ray: Radiologist's Impression: [address] [address] XRay Report Signed Patient: Rolo Naranjo MR#: [id number] : 1945 Acct:[id number] Age/Sex: 79 / M Date of Service: 03/23/25 Loc: ED Accession Number: [id number] Procedure: XR chest 1V Ordering Provider: Eduardo Rousseau MD PROCEDURE: XR CHEST 1V INDICATIONS: Shortness of breath TECHNIQUE: One view of the chest was acquired. COMPARISON: [facility], CR, XR CHEST 1V, 04/09/2024, 16:55. [facility], CR, XR CHEST 2V, 10/04/2023, 17:00. FINDINGS: Surgical changes and devices: None. Lungs and pleura: Lungs are clear. No pleural effusions or pneumothorax. Mediastinum: Mediastinal contours appear normal. Heart size is normal. Bones and chest wall: No suspicious bony lesions. Overlying soft tissues appear unremarkable. IMPRESSION: No acute cardiopulmonary abnormality is seen. Dictated by: Amador Anderson M.D. on 03/23/2025 at 21:25 Approved by: Amador Anderson M.D. on 03/23/2025 at 21:25 ECG Data Attestation: I personally reviewed and interpreted this ECG as follows: Interpretation: 0156, sinus rhythm with PAC, ventricular response rate 72, no obvious ST segment elevation or depression changes. NC 170, QRS 94, QTC 457. MDM Narrative Medical decision making narrative: 79-year-old male with resolved shortness of breath and dizziness, no chest pain, awaiting elective rescheduled exercise stress test. Recent prednisone 3 day course of 5 prescribed for gout that seems to be improved. Symptoms improved while in the waiting room. No wheezing or fevers or chills or cough. EKG, chest x-ray, labs pending. EKG without obvious ischemic changes. Chest x-ray without acute changes. See radiology report. Lab data: White blood cell count 8700, hemoglobin 16.2, platelets 171. Glucose 106. BUN 23 with creatinine 1.07. Serum CO2 29. Potassium 3.1 low. Sodium 137 normal. AST 73 slight elevation, other liver functions normal. Lactate 0.9 normal. PT INR 0.9 normal. Initial troponin measurable but quite low, we will repeat interval troponin. Potassium 3.1 low, oral potassium repletion given. CT head noncontrast study. No acute intracranial abnormality. See tele radiology report. Repeat troponin also quite low. Patient would like ot go home. FU with cardiology for stress testing as planned. DC home with . Return precautions discussed. Discharge Plan Departure Patient Disposition: Home Clinical Impression: Dizziness, Shortness of breath, Hypokalemia Activity Restrictions/Additional Instructions: Resolved dizziness and shortness of breath without specific treatment. Awaiting elective rescheduled cardiac exercise stress test, that was postpone due to a gouty flare. You recently had some prednisone that you took for 3 days of 5 day prescribed a course, and did not like how you felt on the prednisone. Some dizziness with some shortness of breath today. Resolved without specific treatment while in the emergency department. Screening labs showed low potassium blood level, oral potassium repletion given. CT head study showed no acute changes. Chest x-ray negative. EKG and serial blood tests not suggestive of heart attack at this time. Follow up with your labor conciliator for stress testing as planned. Consider recheck of your potassium level later this week in clinic to see if you need higher dose of repletion potassium. Return earlier to this/nearest emergency department for any change worsening symptoms or any concerns prior. Prescriptions: No Action diltiazem HCl [Cartia XT] 240 MG capsule,extended release 24hr 240 mg PO Q DAY Qty: 0 furosemide 20 MG tablet 20 mg PO QDAY Qty: 0 chlorthalidone 25 mg tablet 12.5 mg PO QAM alfuzosin 10 mg tablet extended release 24 hr 10 mg PO DAILY ketoconazole 2 % Shampoo 1 applic TOPICAL 3XW saw palmetto 160 mg Capsule 160 mg PO BID omeprazole 20 mg Capsule,Delayed Release(Dr/Ec) 20 mg PO DAILY pyridoxine (vitamin B6) 100 mg Tablet 100 mg PO QAM fluocinonide 0.05 % Solution 1 applic TOPICAL BID-QID PRN (Reason: Rash) timolol maleate 0.5 % drops 1 drp EYE-BOTH QAM vitamin B complex Capsule 1 cap PO DAILY acyclovir [Zovirax] 5 % Cream 1 applic TOPICAL 5XD ascorbate calcium (vitamin C) 500 mg Capsule 500 mg PO BID fiber Tablet,Chewable 1 tab PO BID potassium gluconate 595 mg (99 mg) Tablet 595 mg PO DAILY cholecalciferol (vitamin D3) [Vitamin D3] 25 mcg (1,000 unit) Tablet,Chewable 75 mcg PO DAILY calcium-vitamin D3-vitamin K 500 mg-1,000 unit-40 mcg Tablet,Chewable 1 tab PO BID Adult Probiotic 3 billion cell Capsule 3,000 mmu cells PO BID Repatha SureClick 140 mg/mL Pen Injector 140 mg SUBCUT Q2W clotrimazole-betameth dip-zinc 1-0.05-20 % Combo Pack See Rx Instructions .ROUTE .COMPLEX Rx Instructions: 1 pkg topically nitroglycerin 0.4 mg tablet, sublingual 0.4 mg sublingual Q5-15M MDD 3 pills PRN (Reason: chest pain) Qty: 10 3RF Rx Instructions: do not exceed 3 doses per episode testosterone cypionate 200 mg/mL oil 0.3 mg IM QWEEK tadalafil 20 mg tablet 20 mg PO DAILY PRN (Reason: sexual activity) Qty: 15 2RF Rx Instructions: administer approximately 30min before sexual activity; do not use more than 1 dose per 24hrs Referrals: Jose David Boss MD [Primary Care Provider, Family Practice] Stand Alone Forms: Patient Portal/API
[2025-03-24] MEDS: POTASSIUM CHLORIDE 20 MEQ/15 ML UDC 40 MEQ PO (02:59)
[2025-03-24 04:46] LABS: Troponin I 0.020 ng/mL (0.01-0.034)
== END 2025-03-24 05:17 | disposition home or self-care (01) ==
PROVIDERS: Emergency Provider Emergency Medicine; PCP Family Medicine
DX: R42 Dizziness and giddiness (principal); R06.02 Shortness of breath; E87.6 Hypokalemia
CPT/HCPCS: 36415; 70450; 71045; 80053; 83605; 83880; 84484; 85025; 85610; 93005; 99283; 99284

== ENCOUNTER 2025-05-18 10:59 | Emergency (ER) | payer MEDICARE, OTHER, SELFPAY ==
[2022-09-27 09:06] VITALS: BMI 31.1
[2025-05-18] VITALS (16 sets, daily range): BP systolic 120–153; BP diastolic 59–68; PULSE 53–71; RESP 16–44; TEMP 36.8; O2SAT 87–100; BMI 27.8
--- NOTE | 2025-05-18 11:18 | EKG_ITS ---
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
--- NOTE | 2025-05-18 11:24 | DI.RAD.S_ITS ---
PROCEDURE: XR CHEST 1V INDICATIONS: Shortness of breath TECHNIQUE: One view of the chest was acquired. COMPARISON: [facility], CR, XR CHEST 1V, 03/23/2025, 20:37. FINDINGS: Surgical changes and devices: None. Lungs and pleura: Lungs are clear. No pleural effusions or pneumothorax. Mediastinum: Mediastinal contours appear normal. Heart size is normal. Bones and chest wall: No suspicious bony lesions. Overlying soft tissues appear unremarkable. IMPRESSION: No acute cardiopulmonary pathology. Dictated by: Herb Don M.D. on 05/18/2025 at 11:51 Approved by: Herb Don M.D. on 05/18/2025 at 11:51
--- NOTE | 2025-05-18 11:38 | ED.SOB ---
HPI - SOB/Dyspnea General Chief Complaint: Shortness of Breath/Dyspnea Stated Complaint: SOB started yesterday Time Seen by Provider: 05/18/25 11:37 Source: patient Mode of arrival: Ambulatory Limitations: no limitations History of Present Illness HPI Narrative: Patient is an 79-year-old male without significant past medical history presenting to day with shortness of breath and weakness. and he report that he has not felt well for the last 2 days. Decrease in appetite had a fever got Tylenol this morning. It is also having a headache. Generally feeling fatigued. No significant cough abdominal pain or chest pain. He is found he does get hypoxic down to 82% on room air requiring oxygen. By taking deep breaths and supplemental oxygen it comes up quickly. He denies any travel. Related Data Home Medications ?Medication ?Instructions ?Recorded ?Confirmed diltiazem HCl 240 mg 240 mg PO Q DAY ##0 11/27/11 05/19/25 capsule,extended release 24 hr (Cartia XT) furosemide 20 mg tablet 20 mg PO QDAY ##0 06/03/17 05/19/25 acyclovir 5 % topical cream 1 applic topical 5XD 09/07/20 05/19/25 (Zovirax) alfuzosin 10 mg tablet,extended 10 mg PO DAILY 09/07/20 05/19/25 release 24 hr chlorthalidone 25 mg tablet 50 mg PO QAM 09/07/20 05/19/25 cholecalciferol (vitamin D3) 25 75 mcg PO DAILY 09/07/20 05/19/25 mcg (1,000 unit) chewable tablet (Vitamin D3) clotrimazole 1 %-betamethasone See Rx Instructions .Route .COMPLEX 09/07/20 05/19/25 0.05 % cream-zinc ox 20 % paste topical evolocumab 140 mg/mL subcutaneous 140 mg SUBCUT Q2W 09/07/20 05/19/25 pen injector (Marti Barcenas) fluocinonide 0.05 % topical 1 applic topical BID-QID PRN Rash 09/07/20 05/19/25 solution ketoconazole 2 % shampoo 1 applic topical 3XW 09/07/20 05/19/25 lactobacillus combination no.8 3 3,000 mmu cells PO BID 09/07/20 05/19/25 billion cell capsule (Adult Probiotic) potassium gluconate 595 mg (99 mg) 595 mg PO DAILY 09/07/20 05/19/25 tablet saw palmetto 160 mg capsule 160 mg PO BID 09/07/20 05/19/25 timolol maleate 0.5 % eye drops 1 drp EYE-BOTH QAM 09/07/20 05/19/25 testosterone cypionate 200 mg/mL 0.3 mg IM QWEEK 06/16/23 05/19/25 intramuscular oil allopurinol 200 mg tablet 400 mg PO DAILY 05/19/25 05/19/25 budesonide-formoterol HFA 160 2 inh inhalation BID 05/19/25 05/19/25 mcg-4.5 mcg/actuation aerosol inhaler (Symbicort) colchicine 0.6 mg tablet 0.6 mg PO BID PRN gout 05/19/25 05/19/25 fluticasone propionate 50 2 spray intranasal BID 05/19/25 05/19/25 mcg/actuation nasal spray,suspension metoprolol succinate 50 mg 50 mg PO DAILY 05/19/25 05/19/25 tablet,extended release 24 hr psyllium husk 0.4 gram capsule 0.4 g PO DAILY 05/19/25 05/19/25 (Metamucil) Previous Rx's ?Medication ?Instructions ?Recorded nitroglycerin 0.4 mg sublingual 0.4 mg sublingual Q5-15M PRN chest 09/09/20 tablet pain #10 tabs tadalafil 20 mg tablet 20 mg PO DAILY PRN sexual activity 01/22/25 #15 tabs Allergies Allergy/AdvReac Type Severity Reaction Status Date / Time adhesive tape Allergy Verified 05/19/25 06:18 choline fenofibrate Allergy Muscle Pain Verified 05/19/25 06:18 cyclobenzaprine Allergy Verified 05/19/25 06:18 gatifloxacin Allergy Verified 05/19/25 06:18 losartan Allergy Verified 05/19/25 06:18 niacin Allergy ITCHING Verified 05/19/25 06:18 omega-3 acid ethyl esters Allergy Rash Verified 05/19/25 06:18 risedronate sodium Allergy Rash, body Verified 05/19/25 06:18 (RISEDRONATE SODIUM) pain [id number] Reductase Allergy Stomach Verified 05/19/25 06:18 Inhibitor pains, headache ciprofloxacin AdvReac Severe achilles Verified 05/19/25 15:43 tendon tears Penicillins AdvReac Intermediate GI upset, Verified 05/19/25 12:34 diarrhea clonidine AdvReac Mild Dry Mucus Verified 05/19/25 15:43 Membranes oxybutynin AdvReac SOB, Verified 05/19/25 06:18 stomach ache actonal Allergy Unknown shoulder, Uncoded 05/19/25 06:18 chest, knee, back rib pain dha Allergy Rash Uncoded 05/19/25 06:18 Patient History Medical History Elevated PSA Asthma History of DVT (deep vein thrombosis) Chronic sinusitis Hypogonadism Incomplete emptying of bladder Nocturia more than twice per night Lower urinary tract symptoms Male circumcision Kidney stones High blood pressure Gout Diverticular disease Arthritis BPH (benign prostatic hyperplasia) Surgical History Hx of colonoscopy Hx of bilateral cataract extraction H/O vasectomy (1976) Hx of toe surgery Hx of nasal sinusotomy (2008) History of arthroscopy of left shoulder (2014) History of eye surgery Hx of elbow surgery (1996) Hx of left knee surgery History of prostate surgery Family History Father Diabetes mellitus Eczema Mother Bacterial UTI Social History marital status: number of children: 3 household members: spouse lives independently: Yes Smoking Status: Never smoker alcohol intake: current substance use type: does not use Type(s) of exercise: other frequency: 5-6 times per week Smoking Status: Never smoker alcohol intake frequency: a few times a week Alcohol type: wine Exam Initial Vital Signs Initial Vital Signs: Vital Signs Temperature 98.3 F 05/18/25 11:19 Pulse Rate 53 L 05/18/25 11:19 Respiratory Rate 18 05/18/25 11:19 Blood Pressure 133/68 05/18/25 11:19 Pulse Oximetry 99 05/18/25 11:19 Oxygen Delivery Method Room Air 05/18/25 11:19 GENERAL: Alert 79-year-old male appears to not feel well HEENT: Head atraumatic,EOMI, pupils reactive, face symmetric, moist mucous membranes NECK: Supple no meningeal signs CARDIOVASCULAR: Regular rate and rhythm without murmurs, rubs or gallops. RESPIRATORY: Breath sounds equal bilaterally, no wheezes rales or rhonchi. No respiratory distress clear breath sounds ABDOMEN: Soft, nontender. Normoactive bowel sounds all 4 quadrants. No guarding or rebound. EXTREMITIES: Normal range of motion, no clubbing or edema. Neurovascularly intact NEUROLOGICAL: Alert and oriented x4.Normal gait and speech. Cranial nerves II through XII grossly intact. SKIN: Warm, dry, no laceration, no petechiae, no rashes or lesions. Course Orders Ordered: Discontinued Medications Albuterol/Ipratropium (Albuterol/Ipratropium 3 Ml Ampul) 3 ml INH Q1H PRN PRN Reason: Shortness Of Breath Last Admin: 05/18/25 11:41 Dose: 3 ml Documented By: POLINA Apixaban (Apixaban 5 Mg Tablet) 5 mg PO NOW ONE Stop: 05/18/25 16:16 Last Admin: 05/18/25 16:25 Dose: Not Given Documented By: HAYLEY Sodium Chloride (Normal Saline 0.9%) 500 mls @ 1,000 mls/hr IV BOLUS ONE Stop: 05/18/25 12:50 Last Infusion: 05/18/25 14:02 Dose: Infused Documented By: Admin: 05/18/25 12:50 Dose: 1,000 mls/hr Documented By: HAYLEY Ketorolac Tromethamine (Ketorolac 30 Mg/Ml Vial) 15 mg IV NOW ONE Stop: 05/18/25 12:41 Last Admin: 05/18/25 12:47 Dose: 15 mg Documented By: HAYLEY Vital Signs Vital signs: Vital Signs - 8 hr 05/18/25 11:19 05/18/25 11:19 05/18/25 11:30 Temperature 98.3 F Pulse Rate 53 L 63 62 Respiratory Rate 18 32 H 25 H Blood Pressure 133/68 Pulse Oximetry 99 98 98 Oxygen Delivery Method Room Air Oxygen Flow Rate Fraction of Inspired Oxygen 05/18/25 11:30 05/18/25 11:44 05/18/25 11:45 Temperature Pulse Rate 60 58 L Respiratory Rate 20 22 Blood Pressure 129/60 Pulse Oximetry 98 98 Oxygen Delivery Method Room Air Oximask Oxygen Flow Rate 3 Fraction of Inspired Oxygen 05/18/25 11:45 05/18/25 12:00 05/18/25 12:00 Temperature Pulse Rate 67 Respiratory Rate 29 H Blood Pressure 120/60 124/59 L Pulse Oximetry 96 Oxygen Delivery Method Oxygen Flow Rate Fraction of Inspired Oxygen 05/18/25 12:15 05/18/25 12:15 05/18/25 12:30 Temperature Pulse Rate 68 Respiratory Rate 25 H Blood Pressure 143/67 H 133/60 Pulse Oximetry 87 L Oxygen Delivery Method Oximask Oxygen Flow Rate 3 Fraction of Inspired Oxygen 05/18/25 12:30 05/18/25 12:45 05/18/25 12:45 Temperature Pulse Rate 66 69 Respiratory Rate 38 H 37 H Blood Pressure 123/62 Pulse Oximetry 100 100 Oxygen Delivery Method Oximask Oximask Oximask Oxygen Flow Rate 3 3 3 Fraction of Inspired Oxygen 05/18/25 13:00 05/18/25 13:00 05/18/25 13:15 Temperature Pulse Rate 71 65 Respiratory Rate 44 H 19 Blood Pressure 153/67 H Pulse Oximetry 100 93 Oxygen Delivery Method Oximask Oxygen Flow Rate 3 Fraction of Inspired Oxygen 05/18/25 13:15 05/18/25 13:30 05/18/25 13:30 Temperature Pulse Rate 64 Respiratory Rate 22 Blood Pressure 144/67 H 147/67 H Pulse Oximetry 99 Oxygen Delivery Method Oxygen Flow Rate Fraction of Inspired Oxygen 05/18/25 14:00 Temperature Pulse Rate 62 Respiratory Rate 16 Blood Pressure Pulse Oximetry 96 Oxygen Delivery Method Oxygen Flow Rate Fraction of Inspired Oxygen MDM - SOB/Dyspnea Lab Data 05/18/25 11:25 05/18/25 11:25 Labs: Lab Results 05/18/25 05/18/25 05/18/25 Range/Units 11:25 12:55 13:30 WBC 11.3 H (4.5-11.0) X10^3/uL RBC 4.71 (4.5-5.9) X10^6/uL Hgb 15.9 (13.5-17.5) g/dL Hct 46.3 (41-53) % MCV 98.3 (80-100) fL MCH 33.9 (26-34) PG MCHC 34.5 (30-36) % RDW 15.2 H (11.6-14.8) % Plt Count 192 (150-400) X10^3/uL Neut % (Auto) 76.1 H (50-75) % Lymph % (Auto) 14.2 L (25-40) % [place] % (Auto) 8.4 (3-14) % Eos % (Auto) 0.2 L (2-4) % Baso % (Auto) 1.1 (0-2) % Neut # (Auto) 8600 H (0268-5603) /uL Lymph # (Auto) 1600 (8761-1026) /uL [place] # (Auto) 1000 H (0-900) /uL Eos # (Auto) 0 (0-450) /uL Baso # (Auto) 100 (0-100) /uL PT 11.8 (9.4-12.5) SECONDS INR 1.0 (0.9-1.3) D-Dimer 6791 H (<500) ng/ml Sodium 131 L (137-145) mmol/L Potassium 3.5 (3.4-5.1) mmol/L Chloride 95 L (98-107) mmol/L Carbon Dioxide 26 (22-32) mmol/L BUN 16 (9-20) mg/dL Creatinine 0.83 (0.66-1.25) mg/dL Estimated GFR > 60 (>60) mL/min BUN/Creatinine Ratio 19.3 (6-22) Glucose 119 H (70-99) mg/dL Lactate 1.6 (0.7-2.1) mmol/L Calcium 9.1 (8.4-10.2) mg/dL Total Bilirubin 1.0 (0.2-1.3) mg/dL AST 40 (17-59) IU/L ALT 40 (<50) IU/L Alkaline Phosphatase 69 (38-126) U/L Troponin I 0.039 H 0.035 H (0.01-0.034) ng/mL NT-Pro-B Natriuret Pep 594 H (<450) pg/mL Total Protein 7.0 (6.3-8.2) g/dL Albumin 4.1 (3.5-5.0) g/dL Globulin 2.9 (1.7-4.1) g/dL Albumin/Globulin Ratio 1.4 (1.0-2.8) SARS-CoV-2 (PCR) Negative (Negative) Influenza A (RT-PCR) Flu a negative (NEGATIVE) Influenza B (RT-PCR) Flu b negative (NEGATIVE) RSV (PCR) Negative (Negative) Imaging Data Chest x-ray: Radiologist's Impression: PROCEDURE: XR CHEST 1V INDICATIONS: Shortness of breath TECHNIQUE: One view of the chest was acquired. COMPARISON: [facility], CR, XR CHEST 1V, 03/23/2025, 20:37. FINDINGS: Surgical changes and devices: None. Lungs and pleura: Lungs are clear. No pleural effusions or pneumothorax. Mediastinum: Mediastinal contours appear normal. Heart size is normal. Bones and chest wall: No suspicious bony lesions. Overlying soft tissues appear unremarkable. IMPRESSION: No acute cardiopulmonary pathology. Dictated by: Herb Don M.D. on 05/18/2025 at 11:51 CT scan - chest: Radiologist's Impression: PROCEDURE: CT ANGIO CHEST PE PROTOCOL INDICATIONS: hypoxia very high dimer TECHNIQUE: After the administration of intravenous contrast, 2 mm thick sections acquired from the pulmonary apices to the posterior costophrenic angles. 3-dimensional maximum intensity projection (MIP) coronal and sagittal reformats were then acquired through the thorax. For radiation dose reduction, the following was used: automated exposure control, adjustment of mA and/or kV according to patient size. COMPARISON: [facility], CT, CT ANGIO CHEST PE PROTOCOL, 10/18/2023, 8:25. FINDINGS: Image quality: Diagnostic. Pulmonary arteries: Pulmonary arteries are normal in size, and demonstrate no intraluminal filling defects to suggest central pulmonary embolism. Lower Neck: No enlarged lymph nodes. Thyroid: No thyroid nodules which require sonographic follow up, per consensus guidelines. Axillae: No enlarged lymph nodes. Chest Wall: Unremarkable. Bones: Unremarkable. Lungs and Pleura: No pneumothorax or pleural effusions. Dependent atelectasis in posterior aspect of bilateral lung bases are seen. No consolidation or suspicious nodules. Heart: Heart size is enlarged. No pericardial effusion. Thoracic Vessels: Ascending thoracic aortic aneurysm measures up to 4.4 cm in largest AP diameter. No descending thoracic aortic aneurysm. No gross aortic dissection. Mediastinum and Peri: No enlarged lymph nodes. Esophagus: No wall thickening. No significant hiatal hernia. Upper Abdomen: Visualized upper abdomen solid organs and bowel loops appear normal. IMPRESSION: 1. No pulmonary embolus. Ascending thoracic aortic aneurysm measures up to 4.4 cm in largest AP diameter. No gross aortic dissection. 2. Bibasilar dependent atelectasis. No focal infiltrate, pleural effusion or pneumothorax. 3. Cardiomegaly, no pericardial effusion. No mediastinal or hilar lymphadenopathy. Dictated by: Herb Don M.D. on 05/18/2025 at 13:58 ECG Data Attestation: I personally reviewed and interpreted this ECG as follows: Interpretation: And atrial fibr sinus rhythm with PAC do not agree with atrial fibrillation Repeat EKGs shows sinus rhythm with PAC rate 60 MDM Narrative Medical decision making narrative: MDM CC: Weakness shortness of breath Complicating co-morbidities: Hypertension Data collected from: [Patient and Medical records reviewed: No evidence of echocardiogram Differential considered: Viral infection pneumonia, CHF, acute coronary syndrome pulmonary embolism Exam documented above, pertinent findings include: Patient 79-year-old male appear layers weak and lethargic breath sounds are clear regular rate and rhythm abdomen is soft nontender no peripheral edema or evidence of fluid overload Lab Test results independently reviewed as above. Pertinent findings: Troponin 0.039-->0.035 BNP 594 CBC WBCs 11.3 no anemia platelets 192 CMP sodium 131 potassium 3.5 chloride 95 creatinine 0.8 glucose 119 Lactate 1.6 Bilirubin liver enzymes within normal limits Independently reviewed EKG as above EKGs 1. Sinus PVC noted Monitor Shows atrial fibrillation Repeat EKG, sinus rhythm with PACs Imaging studies independently reviewed: Chest x-ray no acute cardiopulmonary process CT angio shows a 4.4 cm ascending thoracic aortic aneurysm Consultations: 1530 Megan Vicente CVT consulted in regards to ascending thoracic aneurysm. At this time recommends echocardiogram follow up at all. 1600 DR. Samaniego, updated on patient's symptoms test results CVT recommendations need for close outpatient follow up in regards to shortness of breath. Treatments: IV fluids toradol Re-evaluations: Patient ambulated in the ED Discussion: Patient is a 79-year-old male who presents today with increasing shortness of breath. He is found to have an incidental thoracic aortic aneurysm, CVT was consulted no need for transfer but recommends ultrasound and outpatient follow-up. Patient does have some indeterminate troponins but are trending down words. Discussion about admission with patient and . He would really like to go home. He understands he needs close outpatient follow-up. He may need oxygen however he ambulated without any kind of difficulty. Sitting now at rest at 95% and no supplemental oxygen. Unclear what is causing his shortness of breath. No evidence of pulmonary embolism pneumonia COVID congestive heart failure. He is actually hypoxic it could still could be acute coronary syndrome. Monitor it does look like he is in atrial fibrillation but it is rate controlled EKGs shows sinus rhythm with PAC. This could be explaining some of his shortness of breath. This time I would not start him on anticoagulation. Actually did discuss admission however patient requested he go home. I have called and arranged follow-up with PCP Strict return precautions with and has been given and when to return to ED Discharge Plan Departure Patient Disposition: Home Clinical Impression: Aneurysm of thoracic aorta Instructions: DI for Atrial Fibrillation Activity Restrictions/Additional Instructions: *You have been diagnosed with thoracic aneurysm *What to do: At this time is unclear what is causing your shortness of breath. It was recommended that you stay in the hospital for further evaluation. Please contact Dr. Boss's office tomorrow for close follow-up. Monitor oxygen closely at home *Continue to take medications as directed *Follow up with your primary care provider in 2-3 days or call [phone] *Return to ER if you should have increasing shortness of breath, chest pain weakness [or] any new, worsening or concerning symptoms Prescriptions: No Action diltiazem HCl [Cartia XT] 240 MG capsule,extended release 24hr 240 mg PO Q DAY Qty: 0 furosemide 20 MG tablet 20 mg PO QDAY Qty: 0 chlorthalidone 25 mg tablet 50 mg PO QAM alfuzosin 10 mg tablet extended release 24 hr 10 mg PO DAILY ketoconazole 2 % Shampoo 1 applic TOPICAL 3XW saw palmetto 160 mg Capsule 160 mg PO BID fluocinonide 0.05 % Solution 1 applic TOPICAL BID-QID PRN (Reason: Rash) timolol maleate 0.5 % drops 1 drp EYE-BOTH QAM acyclovir [Zovirax] 5 % Cream 1 applic TOPICAL 5XD potassium gluconate 595 mg (99 mg) Tablet 595 mg PO DAILY cholecalciferol (vitamin D3) [Vitamin D3] 25 mcg (1,000 unit) Tablet,Chewable 75 mcg PO DAILY Adult Probiotic 3 billion cell Capsule 3,000 mmu cells PO BID Repatha SureClick 140 mg/mL Pen Injector 140 mg SUBCUT Q2W clotrimazole-betameth dip-zinc 1-0.05-20 % Combo Pack See Rx Instructions .ROUTE .COMPLEX Rx Instructions: 1 pkg topically nitroglycerin 0.4 mg tablet, sublingual 0.4 mg sublingual Q5-15M MDD 3 pills PRN (Reason: chest pain) Qty: 10 3RF Rx Instructions: do not exceed 3 doses per episode testosterone cypionate 200 mg/mL oil 0.3 mg IM QWEEK allopurinol 200 mg tablet 400 mg PO DAILY colchicine 0.6 mg tablet 0.6 mg PO BID PRN (Reason: gout) metoprolol succinate 50 mg tablet extended release 24 hr 50 mg PO DAILY budesonide-formoterol [Symbicort] 160-4.5 mcg/actuation HFA aerosol inhaler 2 inh inhalation BID fluticasone propionate 50 mcg/actuation spray,suspension 2 spray intranasal BID psyllium husk [Metamucil] 0.4 gram capsule 0.4 g PO DAILY tadalafil 20 mg tablet 20 mg PO DAILY PRN (Reason: sexual activity) Qty: 15 2RF Rx Instructions: administer approximately 30min before sexual activity; do not use more than 1 dose per 24hrs Referrals: Jose David Boss MD [Primary Care Provider, Family Practice] Stand Alone Forms: Patient Portal/API
[2025-05-18] MEDS: ALBUTEROL/IPRATROPIUM 3 ML AMPUL INH (11:41)
[2025-05-18 11:43] LABS: INR 1.0 (0.9-1.3); Prothrombin Time 11.8 SECONDS (9.4-12.5)
[2025-05-18 11:47] LABS: Add Manual Diff / Slide Review NO; Hematocrit 46.3 % (41-53); Hemoglobin 15.9 g/dL (13.5-17.5); Lymphocytes Absolute Auto 1600 /uL (1100-4500); Mean Corpuscular HGB Conc 34.5 % (30-36); Mean Corpuscular Hemoglobin 33.9 PG (26-34); Mean Corpuscular Volume 98.3 fL (80-100); Platelet Count 192 X10^3/uL (150-400)
[2025-05-18 11:54] LABS: Lactate (Lactic Acid) 1.6 mmol/L (0.7-2.1)
[2025-05-18 11:55] LABS: Alanine Aminotransferase 40 IU/L (<50); Albumin 4.1 g/dL (3.5-5.0); Albumin Globulin Ratio 1.4 (1.0-2.8); Alkaline Phosphatase 69 U/L (38-126); Blood Urea Nitrogen 16 mg/dL (9-20); Calcium 9.1 mg/dL (8.4-10.2); Carbon Dioxide 26 mmol/L (22-32); Chloride 95 mmol/L (98-107); Estimated Glomerular Filt Rate > 60 mL/min (>60); Globulin 2.9 g/dL (1.7-4.1); Glucose 119 mg/dL (70-99); Potassium 3.5 mmol/L (3.4-5.1); Sodium 131 mmol/L (137-145); Total Protein 7.0 g/dL (6.3-8.2)
[2025-05-18 11:58] LABS: HEMOLYSIS 99 (0-50)
[2025-05-18 12:07] LABS: NT-proBNP (BNP-Adult 18+) 594 pg/mL (<450); Troponin I 0.039 ng/mL (0.01-0.034)
[2025-05-18] MEDS: KETOROLAC 30 MG/ML VIAL 15 MG IV (12:47)
[2025-05-18] MEDS: SODIUM CHLORIDE 0.9% 500 ML 1000 ML IV (12:50)
--- NOTE | 2025-05-18 13:34 | DI.CT.S_ITS ---
PROCEDURE: CT ANGIO CHEST PE PROTOCOL INDICATIONS: hypoxia very high dimer TECHNIQUE: After the administration of intravenous contrast, 2 mm thick sections acquired from the pulmonary apices to the posterior costophrenic angles. 3-dimensional maximum intensity projection (MIP) coronal and sagittal reformats were then acquired through the thorax. For radiation dose reduction, the following was used: automated exposure control, adjustment of mA and/or kV according to patient size. COMPARISON: [facility], CT, CT ANGIO CHEST PE PROTOCOL, 10/18/2023, 8:25. FINDINGS: Image quality: Diagnostic. Pulmonary arteries: Pulmonary arteries are normal in size, and demonstrate no intraluminal filling defects to suggest central pulmonary embolism. Lower Neck: No enlarged lymph nodes. Thyroid: No thyroid nodules which require sonographic follow up, per consensus guidelines. Axillae: No enlarged lymph nodes. Chest Wall: Unremarkable. Bones: Unremarkable. Lungs and Pleura: No pneumothorax or pleural effusions. Dependent atelectasis in posterior aspect of bilateral lung bases are seen. No consolidation or suspicious nodules. Heart: Heart size is enlarged. No pericardial effusion. Thoracic Vessels: Ascending thoracic aortic aneurysm measures up to 4.4 cm in largest AP diameter. No descending thoracic aortic aneurysm. No gross aortic dissection. Mediastinum and Peri: No enlarged lymph nodes. Esophagus: No wall thickening. No significant hiatal hernia. Upper Abdomen: Visualized upper abdomen solid organs and bowel loops appear normal. IMPRESSION: 1. No pulmonary embolus. Ascending thoracic aortic aneurysm measures up to 4.4 cm in largest AP diameter. No gross aortic dissection. 2. Bibasilar dependent atelectasis. No focal infiltrate, pleural effusion or pneumothorax. 3. Cardiomegaly, no pericardial effusion. No mediastinal or hilar lymphadenopathy. Dictated by: Herb Don M.D. on 05/18/2025 at 13:58 Approved by: Herb Don M.D. on 05/18/2025 at 14:01
[2025-05-18 14:01] LABS: Troponin I 0.035 ng/mL (0.01-0.034)
[2025-05-18 15:01] LABS: Influenza A - CEPHEID Flu A NEGATIVE (NEGATIVE); Influenza B - CEPHEID Flu B NEGATIVE (NEGATIVE)
[2025-05-18 15:02] LABS: COVID-19 CEPHEID 4-PLEX PCR Negative (Negative)
--- NOTE | 2025-05-18 16:20 | EKG_ITS ---
[address] [address] Test Date: 2025-05-18 Pat Name: Rolo Naranjo Department: [facility] Room: Gender: Male Mesh Man: TOMY : 1945 Requested By: Order Number: [id number] Reading MD: Hubert Neal Measurements Intervals [place] Rate: 61 P: 28 NV: 170 QRS: 6 QRSD: 96 T: 38 QT: 448 QTc: 450 Interpretive Statements Sinus rhythm with premature atrial complexes with aberrant conduction Electronically Signed On 05-21-2025 8:04:56 PDT by Hubert Neal
== END 2025-05-18 16:30 | disposition home or self-care (01) ==
PROVIDERS: Emergency Provider Emergency Medicine; PCP Family Medicine
DX: I71.20 Thoracic aortic aneurysm, without rupture, unspecified (principal); R09.02 Hypoxemia; I10 Essential (primary) hypertension; I48.91 Unspecified atrial fibrillation
CPT/HCPCS: 36415; 71045; 71275; 80053; 83605; 83880; 84484; 85025; 85379; 85610; 87637; 93005; 94640; 99284; J1885; Q9967

== ENCOUNTER 2025-05-19 06:10 | Inpatient (IN) | payer MEDICARE, OTHER, SELFPAY ==
[2022-09-27 09:06] VITALS: BMI 31.1
[2025-05-19] VITALS (31 sets, daily range): BP systolic 136–172; BP diastolic 70–87; PULSE 47–76; RESP 12–32; TEMP 36.5–36.9; O2SAT 87–100; BMI 30.1
--- NOTE | 2025-05-19 06:22 | ED.SOB ---
HPI - SOB/Dyspnea <Timothy Cruz MD - Last Filed: 05/20/25 00:47> General Chief Complaint: Shortness of Breath/Dyspnea Stated Complaint: SOB, little dizzy was here last night . Time Seen by Provider: 05/19/25 06:20 Source: patient Mode of arrival: Ambulatory Limitations: no limitations History of Present Illness HPI Narrative: 79-year-old male who was just here yesterday for the exact same symptoms of shortness of breath, headache and sore throat. Upon being discharged yesterday, the patient still has not been able to go back to his baseline. He was also found to have a thoracic aortic aneurysm that measured at 4.4 cm. Thoracic surgery was consulted by previous ER physician and suggested that the patient have close outpatient monitoring and did not need an emergent transfer at that time. His shortness of breath did get slightly worse this morning prompting him to come into the ER again. Related Data Home Medications ?Medication ?Instructions ?Recorded ?Confirmed diltiazem HCl 240 mg 240 mg PO Q DAY ##0 11/27/11 05/19/25 capsule,extended release 24 hr (Cartia XT) furosemide 20 mg tablet 20 mg PO QDAY ##0 06/03/17 05/19/25 acyclovir 5 % topical cream 1 applic topical 5XD 09/07/20 05/19/25 (Zovirax) alfuzosin 10 mg tablet,extended 10 mg PO DAILY 09/07/20 05/19/25 release 24 hr chlorthalidone 25 mg tablet 50 mg PO QAM 09/07/20 05/19/25 cholecalciferol (vitamin D3) 25 75 mcg PO DAILY 09/07/20 05/19/25 mcg (1,000 unit) chewable tablet (Vitamin D3) clotrimazole 1 %-betamethasone See Rx Instructions .Route .COMPLEX 09/07/20 05/19/25 0.05 % cream-zinc ox 20 % paste topical evolocumab 140 mg/mL subcutaneous 140 mg SUBCUT Q2W 09/07/20 05/19/25 pen injector (Marti Barcenas) fluocinonide 0.05 % topical 1 applic topical BID-QID PRN Rash 09/07/20 05/19/25 solution ketoconazole 2 % shampoo 1 applic topical 3XW 09/07/20 05/19/25 lactobacillus combination no.8 3 3,000 mmu cells PO BID 09/07/20 05/19/25 billion cell capsule (Adult Probiotic) potassium gluconate 595 mg (99 mg) 595 mg PO DAILY 09/07/20 05/19/25 tablet saw palmetto 160 mg capsule 160 mg PO BID 09/07/20 05/19/25 timolol maleate 0.5 % eye drops 1 drp EYE-BOTH QAM 09/07/20 05/19/25 testosterone cypionate 200 mg/mL 0.3 mg IM QWEEK 06/16/23 05/19/25 intramuscular oil allopurinol 200 mg tablet 400 mg PO DAILY 05/19/25 05/19/25 budesonide-formoterol HFA 160 2 inh inhalation BID 05/19/25 05/19/25 mcg-4.5 mcg/actuation aerosol inhaler (Symbicort) colchicine 0.6 mg tablet 0.6 mg PO BID PRN gout 05/19/25 05/19/25 fluticasone propionate 50 2 spray intranasal BID 05/19/25 05/19/25 mcg/actuation nasal spray,suspension metoprolol succinate 50 mg 50 mg PO DAILY 05/19/25 05/19/25 tablet,extended release 24 hr psyllium husk 0.4 gram capsule 0.4 g PO DAILY 05/19/25 05/19/25 (Metamucil) Previous Rx's ?Medication ?Instructions ?Recorded nitroglycerin 0.4 mg sublingual 0.4 mg sublingual Q5-15M PRN chest 09/09/20 tablet pain #10 tabs tadalafil 20 mg tablet 20 mg PO DAILY PRN sexual activity 01/22/25 #15 tabs Allergies Allergy/AdvReac Type Severity Reaction Status Date / Time adhesive tape Allergy Verified 05/19/25 06:18 choline fenofibrate Allergy Muscle Pain Verified 05/19/25 06:18 cyclobenzaprine Allergy Verified 05/19/25 06:18 gatifloxacin Allergy Verified 05/19/25 06:18 losartan Allergy Verified 05/19/25 06:18 niacin Allergy ITCHING Verified 05/19/25 06:18 omega-3 acid ethyl esters Allergy Rash Verified 05/19/25 06:18 risedronate sodium Allergy Rash, body Verified 05/19/25 06:18 (RISEDRONATE SODIUM) pain Nnrhjcc-FCA-AsG Reductase Allergy Stomach Verified 05/19/25 06:18 Inhibitor pains, headache ciprofloxacin AdvReac Severe achilles Verified 05/19/25 15:43 tendon tears Penicillins AdvReac Intermediate GI upset, Verified 05/19/25 12:34 diarrhea clonidine AdvReac Mild Dry Mucus Verified 05/19/25 15:43 Membranes oxybutynin AdvReac SOB, Verified 05/19/25 06:18 stomach ache actonal Allergy Unknown shoulder, Uncoded 05/19/25 06:18 chest, knee, back rib pain dha Allergy Rash Uncoded 05/19/25 06:18 Review of Systems <Timothy Cruz MD - Last Filed: 05/20/25 00:47> Review of Systems ROS Unobtainable: All systems reviewed & are unremarkable except as noted in HPI and below Patient History <Timothy Cruz MD - Last Filed: 05/20/25 00:47> Medical History Elevated PSA Asthma History of DVT (deep vein thrombosis) Chronic sinusitis Hypogonadism Incomplete emptying of bladder Nocturia more than twice per night Lower urinary tract symptoms Male circumcision Kidney stones High blood pressure Gout Diverticular disease Arthritis BPH (benign prostatic hyperplasia) Surgical History Hx of colonoscopy Hx of bilateral cataract extraction H/O vasectomy (1976) Hx of toe surgery Hx of nasal sinusotomy (2008) History of arthroscopy of left shoulder (2014) History of eye surgery Hx of elbow surgery (1996) Hx of left knee surgery History of prostate surgery Family History Father Diabetes mellitus Eczema Mother Bacterial UTI Social History marital status: number of children: 3 household members: spouse lives independently: Yes Smoking Status: Never smoker alcohol intake: current substance use type: does not use Type(s) of exercise: other frequency: 5-6 times per week Smoking Status: Never smoker alcohol intake frequency: a few times a week Alcohol type: wine Exam <Timothy Cruz MD - Last Filed: 05/20/25 00:47> Narrative Exam Narrative: General: Patient appears to be in no acute distress, having difficult speaking for longer periods of time Head: normocephalic, atraumatic, HEENT: Pupils equal round reactive, eyes tracking well, neck supple, no JVD Heart: regular rate and rhythm, no murmurs, rubs, or gallops heard Lungs: clear to auscultation, no adventitious sounds Abdomen: soft , nontender, nondistended, positive bowel sounds Neurological: no focal neurological signs, moving all extremities well, alert and oriented x3, Psych: good judgment ,good insight, mood is normal. Initial Vital Signs Initial Vital Signs: Vital Signs Pulse Rate 47 L 05/19/25 06:17 Respiratory Rate 26 H 05/19/25 06:17 Pulse Oximetry 98 05/19/25 06:17 <Jairo Ritchie MD - Last Filed: 05/19/25 15:28> Initial Vital Signs Initial Vital Signs: Vital Signs Pulse Rate 47 L 05/19/25 06:17 Respiratory Rate 26 H 05/19/25 06:17 Pulse Oximetry 98 05/19/25 06:17 Course <Timothy Cruz MD - Last Filed: 05/20/25 00:47> Orders Ordered: Acetaminophen (Acetaminophen 325 Mg Tablet) 650 mg PO Q6H PRN PRN Reason: Fever/Mild Pain (1-3) Hydrocodone Bitart/Acetaminophen (Hydrocodone/Acet 5/325 Tablet) 1 tab PO Q4H PRN PRN Reason: Pain, Moderate (4-6) Last Admin: 05/19/25 15:35 Dose: 1 tab Documented By: IRAIS Al Hydrox/Mg Hydrox/Simethicone (Mag Hydrox/Alum/Simeth 30 Ml Udc) 30 ml PO Q6HR PRN PRN Reason: Dyspepsia Apixaban (Apixaban 5 Mg Tablet) 10 mg PO BID [facility] Stop: 05/25/25 21:01 Last Admin: 05/19/25 21:15 Dose: 10 mg Documented By: Admin: 05/19/25 15:27 Dose: 10 mg Documented By: IRAIS Diltiazem HCl (Diltiazem Cd 120 Mg Cap) 240 mg PO DAILY RIC Sodium Chloride (Normal Saline 0.9%) 1,000 mls @ 100 mls/hr IV CONT RIC Last Admin: 05/19/25 15:28 Dose: 100 mls/hr Documented By: IRAIS Magnesium Hydroxide (Magnesium Hydroxide 30 Ml Udc) 30 ml PO DAILY PRN PRN Reason: Constipation Naloxone HCl (Naloxone 0.4 Mg/Ml Vial) 0.2 mg IV Q2MIN PRN PRN Reason: Opiate Reversal Nitroglycerin (Nitroglycerin 0.4 Mg Sl Tab) 0.4 mg SL Q5MIN PRN PRN Reason: chest pain Non-Formulary Medication (Alfuzosin) 10 mg PO DAILY [facility] Non-Formulary Medication (Evolocumab [Repatha Sureclick]) 140 mg SUBCUT Q2W [facility] Last Admin: 05/19/25 14:23 Dose: Not Given Documented By: IRAIS Ondansetron HCl (Ondansetron 4 Mg/2 Ml Inj) 4 mg IV Q8HR PRN PRN Reason: Nausea And Vomiting Pantoprazole Sodium (Pantoprazole Dr 20 Mg Tablet) 20 mg PO 0600 [facility] Potassium Chloride (Potassium Chloride 20 Meq Tab) 40 meq PO BIDWM [facility] Last Admin: 05/19/25 17:02 Dose: 40 meq Documented By: IRAIS Timolol Maleate (Timolol 0.5% Oph) 1 drops EYE-BOTH DAILY [facility] Discontinued Medications Acetaminophen (Acetaminophen 325 Mg Tablet) 650 mg PO NOW ONE Stop: 05/19/25 08:24 Last Admin: 05/19/25 08:55 Dose: 650 mg Documented By: REED Apixaban (Apixaban 5 Mg Tablet) 10 mg PO BID [facility] Stop: 05/26/25 09:01 Heparin Sodium (Porcine) (Heparin 5,000 Unit/Ml Vial) 8,000 unit 80 unit/kg (8000 unit) IV NOW ONE Stop: 05/19/25 08:10 Last Admin: 05/19/25 08:55 Dose: 8,000 unit Documented By: REED Heparin Sodium/Dextrose (Heparin Drip) 25,000 unit in 500 mls @ 35.28 mls/hr IV CONT RIC; Protocol Last Titration: 05/19/25 15:28 Dose: Infused Documented By: IRAIS Co-signed By: HANNA Titration: 05/19/25 13:55 Dose: 18 units/kg/hr, 35.28 mls/hr Documented By: PARI Co-signed By: MARY Admin: 05/19/25 08:58 Dose: 18 units/kg/hr, 35.28 mls/hr Documented By: REED Co-signed By: RB Vital Signs Vital signs: Vital Signs - 8 hr 05/19/25 07:30 05/19/25 07:30 05/19/25 08:00 Pulse Rate 54 L 60 Respiratory Rate 12 15 Blood Pressure 157/79 H Pulse Oximetry 97 97 05/19/25 08:00 05/19/25 08:51 05/19/25 09:00 Pulse Rate 63 54 L Respiratory Rate 20 Blood Pressure 152/73 H Pulse Oximetry 99 99 05/19/25 09:30 05/19/25 09:30 Pulse Rate 51 L Respiratory Rate 14 Blood Pressure 144/70 H Pulse Oximetry 98 <Jairo Ritchie MD - Last Filed: 05/19/25 15:28> Orders Ordered: Acetaminophen (Acetaminophen 325 Mg Tablet) 650 mg PO Q6H PRN PRN Reason: Fever/Mild Pain (1-3) Hydrocodone Bitart/Acetaminophen (Hydrocodone/Acet 5/325 Tablet) 1 tab PO Q4H PRN PRN Reason: Pain, Moderate (4-6) Last Admin: 05/19/25 15:35 Dose: 1 tab Documented By: IRAIS Al Hydrox/Mg Hydrox/Simethicone (Mag Hydrox/Alum/Simeth 30 Ml Udc) 30 ml PO Q6HR PRN PRN Reason: Dyspepsia Apixaban (Apixaban 5 Mg Tablet) 10 mg PO BID [facility] Stop: 05/25/25 21:01 Last Admin: 05/19/25 21:15 Dose: 10 mg Documented By: MARIA INES Admin: 05/19/25 15:27 Dose: 10 mg Documented By: IRAIS Diltiazem HCl (Diltiazem Cd 120 Mg Cap) 240 mg PO DAILY [facility] Sodium Chloride (Normal Saline 0.9%) 1,000 mls @ 100 mls/hr IV CONT RIC Last Admin: 05/19/25 15:28 Dose: 100 mls/hr Documented By: IRAIS Magnesium Hydroxide (Magnesium Hydroxide 30 Ml Udc) 30 ml PO DAILY PRN PRN Reason: Constipation Naloxone HCl (Naloxone 0.4 Mg/Ml Vial) 0.2 mg IV Q2MIN PRN PRN Reason: Opiate Reversal Nitroglycerin (Nitroglycerin 0.4 Mg Sl Tab) 0.4 mg SL Q5MIN PRN PRN Reason: chest pain Non-Formulary Medication (Alfuzosin) 10 mg PO DAILY [facility] Non-Formulary Medication (Evolocumab [Repatha Sureclick]) 140 mg SUBCUT Q2W [facility] Last Admin: 05/19/25 14:23 Dose: Not Given Documented By: IRAIS Ondansetron HCl (Ondansetron 4 Mg/2 Ml Inj) 4 mg IV Q8HR PRN PRN Reason: Nausea And Vomiting Pantoprazole Sodium (Pantoprazole Dr 20 Mg Tablet) 20 mg PO 0600 [facility] Potassium Chloride (Potassium Chloride 20 Meq Tab) 40 meq PO BIDWM [facility] Last Admin: 05/19/25 17:02 Dose: 40 meq Documented By: IRAIS Timolol Maleate (Timolol 0.5% Oph) 1 drops EYE-BOTH DAILY [facility] Discontinued Medications Acetaminophen (Acetaminophen 325 Mg Tablet) 650 mg PO NOW ONE Stop: 05/19/25 08:24 Last Admin: 05/19/25 08:55 Dose: 650 mg Documented By: REED Apixaban (Apixaban 5 Mg Tablet) 10 mg PO BID [facility] Stop: 05/26/25 09:01 Heparin Sodium (Porcine) (Heparin 5,000 Unit/Ml Vial) 8,000 unit 80 unit/kg (8000 unit) IV NOW ONE Stop: 05/19/25 08:10 Last Admin: 05/19/25 08:55 Dose: 8,000 unit Documented By: REED Heparin Sodium/Dextrose (Heparin Drip) 25,000 unit in 500 mls @ 35.28 mls/hr IV CONT RIC; Protocol Last Titration: 05/19/25 15:28 Dose: Infused Documented By: IRAIS Co-signed By: HANNA Titration: 05/19/25 13:55 Dose: 18 units/kg/hr, 35.28 mls/hr Documented By: PARI Co-signed By: MARY Admin: 05/19/25 08:58 Dose: 18 units/kg/hr, 35.28 mls/hr Documented By: REED Co-signed By: RB Reevaluation(s) Reevaluation #1: Care assumed at 7:00 a.m. shift change. 79-year-old male who I am going to presume has a history of coronary disease based on his medication list likely history of hypertension as well presenting with continued dyspnea. He was seen yesterday for the same thing. I reviewed yesterday's emergency department notes imaging and EKG as well as labs. They are remarkable for an elevated but stable troponin, aneurysm of the ascending aorta which is thought to be an incidental finding. Today he has persistent dyspnea. EKG from today shows sinus rhythm at [address] segment changes and previous infarction. CT is pending, respiratory panel is pending. Additional review, had a chest pain admission in August of 2020 negative troponins normal echo normal cardiac stress test, discharged with a prescription for nitroglycerin which he is not using. Has a prescription for medications for erectile dysfunction he is not taking that. Does take Symbicort. But is not aware of any pre-existing history of lung disease. Cardiac risk factors are hypertension and elevated cholesterol. Additional history, had a flu shot 4 days ago. Three days ago had a fever to 102 and began feeling symptoms of shortness of breath cough with ?phlegm? and weakness. Having some mild intermittent chest pain at times not having chest pain at present chest pain does not seem to be exertional. On examination he appears breathless. He says that the oxygen made his breathing feel better although he had a normal room air saturation on presentation. He is lungs are clear, his heart sounds are normal vital signs are unremarkable. No pedal edema Consultations Consultation #1: Case discussed with Dr. Jerome, accepts admission Vital Signs Vital signs: Vital Signs - 8 hr 05/19/25 07:30 05/19/25 07:30 05/19/25 08:00 Pulse Rate 54 L 60 Respiratory Rate 12 15 Blood Pressure 157/79 H Pulse Oximetry 97 97 05/19/25 08:00 05/19/25 08:51 05/19/25 09:00 Pulse Rate 63 54 L Respiratory Rate 20 Blood Pressure 152/73 H Pulse Oximetry 99 99 05/19/25 09:30 05/19/25 09:30 Pulse Rate 51 L Respiratory Rate 14 Blood Pressure 144/70 H Pulse Oximetry 98 MDM - SOB/Dyspnea <Timothy Cruz MD - Last Filed: 05/20/25 00:47> Lab Data 05/19/25 06:35 05/19/25 06:35 Labs: Lab Results 05/19/25 05/19/25 Range/Units 06:35 07:00 WBC 9.7 (4.5-11.0) X10^3/uL RBC 4.76 (4.5-5.9) X10^6/uL Hgb 16.3 (13.5-17.5) g/dL Hct 47.0 (41-53) % MCV 98.7 (80-100) fL MCH 34.3 H (26-34) PG MCHC 34.7 (30-36) % RDW 14.8 (11.6-14.8) % Plt Count 182 (150-400) X10^3/uL Neut % (Auto) 78.9 H (50-75) % Lymph % (Auto) 9.7 L (25-40) % [place] % (Auto) 10.3 (3-14) % Eos % (Auto) 0.3 L (2-4) % Baso % (Auto) 0.8 (0-2) % Neut # (Auto) 7700 H (6136-2848) /uL Lymph # (Auto) 900 L (4364-6156) /uL [place] # (Auto) 1000 H (0-900) /uL Eos # (Auto) 0 (0-450) /uL Baso # (Auto) 100 (0-100) /uL PT 11.4 (9.4-12.5) SECONDS INR 1.0 (0.9-1.3) APTT 27 (25.1-36.5) SECONDS Sodium 130 L (137-145) mmol/L Potassium 2.9 L (3.4-5.1) mmol/L Chloride 97 L (98-107) mmol/L Carbon Dioxide 26 (22-32) mmol/L BUN 14 (9-20) mg/dL Creatinine 0.82 (0.66-1.25) mg/dL Estimated GFR > 60 (>60) mL/min BUN/Creatinine Ratio 17.1 (6-22) Glucose 110 H (70-99) mg/dL Calcium 8.8 (8.4-10.2) mg/dL Magnesium 1.6 (1.6-2.3) mg/dL Total Bilirubin 1.1 (0.2-1.3) mg/dL AST 31 (17-59) IU/L ALT 37 (<50) IU/L Alkaline Phosphatase 69 (38-126) U/L Total Creatine Kinase 49 L (55-170) U/L Troponin I 0.035 H (0.01-0.034) ng/mL NT-Pro-B Natriuret Pep 581 H (<450) pg/mL Total Protein 6.6 (6.3-8.2) g/dL Albumin 3.7 (3.5-5.0) g/dL Globulin 2.9 (1.7-4.1) g/dL Albumin/Globulin Ratio 1.3 (1.0-2.8) Lipase 188 (23-300) U/L Chlamy pneumoniae PCR Not detected (Not Detect) Adenovirus (PCR) Not detected (Not Detect) B. pertussis DNA (PCR) Not detected (Not Detect) B.parapertussis DNA PCR Not detected (Not Detecte) Coronavirus OC43 (PCR) Not detected (Not Detect) Coronavirus HKU1 (PCR) Not detected (Not Detect) Coronavirus 229E (PCR) Not detected (Not Detect) SARS-CoV-2 (PCR) Not detected (Not Detecte) Coronavirus NL63 (PCR) Not detected (Not Detect) Human Metapneumovir PCR Not detected (Not Detect) Influenza Type A (PCR) Not detected (Not Detect) Influenza Type B (PCR) Not detected (Not Detect) M. pneumoniae (PCR) Not detected (Not Detect) Parainfluenza 1 (PCR) Not detected (Not Detect) Parainfluenza 2 (PCR) Not detected (Not Detect) Parainfluenza 3 (PCR) Not detected (Not Detect) Parainfluenza 4 (PCR) Not detected (Not Detect) RSV (PCR) Not detected (Not Detect) Entero/Rhino (PCR) Not detected (Not Detect) ECG Data Interpretation: EKG showed the sinus bradycardia with sinus arrhythmia at 55 beats per minute normal axis, normal [place] intervals, no major STT wave changes. previous ekg showed : Sinus rhythm with premature atrial complexes with aberrant conduction at 61 bpm. MDM Narrative Medical decision making narrative: 79-year-old male who was seen here yesterday for a thoracic aortic aneurysm presents again with the same symptoms and slightly worsening shortness of breath. We will work the patient up to rule out worsening aneurysm and a PE. Patient is signed out to Dr. Ritchie <Jairo Ritchie MD - Last Filed: 05/19/25 15:28> Lab Data Lab results narrative: CBC with diff is unremarkable, has mild hypokalemia, troponin is stably elevated, proBNP is stably elevated. Respiratory panel was negative Labs: Lab Results 05/19/25 05/19/25 Range/Units 06:35 07:00 WBC 9.7 (4.5-11.0) X10^3/uL RBC 4.76 (4.5-5.9) X10^6/uL Hgb 16.3 (13.5-17.5) g/dL Hct 47.0 (41-53) % MCV 98.7 (80-100) fL MCH 34.3 H (26-34) PG MCHC 34.7 (30-36) % RDW 14.8 (11.6-14.8) % Plt Count 182 (150-400) X10^3/uL Neut % (Auto) 78.9 H (50-75) % Lymph % (Auto) 9.7 L (25-40) % [place] % (Auto) 10.3 (3-14) % Eos % (Auto) 0.3 L (2-4) % Baso % (Auto) 0.8 (0-2) % Neut # (Auto) 7700 H (4400-4919) /uL Lymph # (Auto) 900 L (0471-9407) /uL [place] # (Auto) 1000 H (0-900) /uL Eos # (Auto) 0 (0-450) /uL Baso # (Auto) 100 (0-100) /uL PT 11.4 (9.4-12.5) SECONDS INR 1.0 (0.9-1.3) APTT 27 (25.1-36.5) SECONDS Sodium 130 L (137-145) mmol/L Potassium 2.9 L (3.4-5.1) mmol/L Chloride 97 L (98-107) mmol/L Carbon Dioxide 26 (22-32) mmol/L BUN 14 (9-20) mg/dL Creatinine 0.82 (0.66-1.25) mg/dL Estimated GFR > 60 (>60) mL/min BUN/Creatinine Ratio 17.1 (6-22) Glucose 110 H (70-99) mg/dL Calcium 8.8 (8.4-10.2) mg/dL Magnesium 1.6 (1.6-2.3) mg/dL Total Bilirubin 1.1 (0.2-1.3) mg/dL AST 31 (17-59) IU/L ALT 37 (<50) IU/L Alkaline Phosphatase 69 (38-126) U/L Total Creatine Kinase 49 L (55-170) U/L Troponin I 0.035 H (0.01-0.034) ng/mL NT-Pro-B Natriuret Pep 581 H (<450) pg/mL Total Protein 6.6 (6.3-8.2) g/dL Albumin 3.7 (3.5-5.0) g/dL Globulin 2.9 (1.7-4.1) g/dL Albumin/Globulin Ratio 1.3 (1.0-2.8) Lipase 188 (23-300) U/L Chlamy pneumoniae PCR Not detected (Not Detect) Adenovirus (PCR) Not detected (Not Detect) B. pertussis DNA (PCR) Not detected (Not Detect) B.parapertussis DNA PCR Not detected (Not Detecte) Coronavirus OC43 (PCR) Not detected (Not Detect) Coronavirus HKU1 (PCR) Not detected (Not Detect) Coronavirus 229E (PCR) Not detected (Not Detect) SARS-CoV-2 (PCR) Not detected (Not Detecte) Coronavirus NL63 (PCR) Not detected (Not Detect) Human Metapneumovir PCR Not detected (Not Detect) Influenza Type A (PCR) Not detected (Not Detect) Influenza Type B (PCR) Not detected (Not Detect) M. pneumoniae (PCR) Not detected (Not Detect) Parainfluenza 1 (PCR) Not detected (Not Detect) Parainfluenza 2 (PCR) Not detected (Not Detect) Parainfluenza 3 (PCR) Not detected (Not Detect) Parainfluenza 4 (PCR) Not detected (Not Detect) RSV (PCR) Not detected (Not Detect) Entero/Rhino (PCR) Not detected (Not Detect) Imaging Data CT scan - chest: My Impression: Independently reviewed CT chest, no infiltrate no central pulmonary embolism Radiologist's Impression: [address] [address] [address] Scan Report Signed Patient: Rolo Naranjo MR#: [id number] : 1945 Acct:[id number] Age/Sex: 79 / M Date of Service: 05/19/25 Loc: ED Accession Number: [id number] Procedure: CT angio chest PE protocol Ordering Provider: Timothy Cruz MD PROCEDURE: CT ANGIO CHEST PE PROTOCOL INDICATIONS: shortness of breath/hx of thoracic aortic aneurysm TECHNIQUE: After the administration of intravenous contrast, 2 mm thick sections acquired from the pulmonary apices to the posterior costophrenic angles. 3-dimensional maximum intensity projection (MIP) coronal and sagittal reformats were then acquired through the thorax. For radiation dose reduction, the following was used: automated exposure control, adjustment of mA and/or kV according to patient size. COMPARISON: [facility], CT, CT ANGIO CHEST PE PROTOCOL, 05/18/2025, 13:40. FINDINGS: Image quality: Diagnostic. Pulmonary arteries: Subsegmental pulmonary embolus in the left lower lobe. Lower Neck: No enlarged lymph nodes. Thyroid: No thyroid nodules which require sonographic follow up, per consensus guidelines. Axillae: No enlarged lymph nodes. Chest Wall: Unremarkable. Bones: Unremarkable. Lungs and Pleura: No pneumothorax or pleural effusions. No consolidation or suspicious nodules. Physiologic air trapping. Heart: Heart size is enlarged. No pericardial effusion. Left ventricle to right ventricle ratio is greater than 1. Thoracic Vessels: No aortic aneurysm. Mediastinum and Peri: No enlarged lymph nodes. Esophagus: No wall thickening. No hiatal hernia. Upper Abdomen: Visualized upper abdomen solid organs and bowel loops appear normal. IMPRESSION: Small segmental pulmonary embolus in the left lower lobe. No evidence of heart strain. No infarct. Agree with preliminary report. Dictated by: Dada Bradshaw M.D. on 05/19/2025 at 8:49 Approved by: Dada Bradshaw M.D. on 05/19/2025 at 8:51 [facility] Narrative Medical decision making narrative: 79-year-old male who was seen here yesterday for a thoracic aortic aneurysm presents again with the same symptoms and slightly worsening shortness of breath. We will work the patient up to rule out worsening aneurysm and a PE. Patient is signed out to Dr. Ritchie 79-year-old man with a 2nd emergency department visit in 24 hours for dyspnea. Had a high D-dimer yesterday. Troponin is stably elevated as is proBNP however he does not look like he is in failure does not have ischemic EKG changes. CT today does show pulmonary embolism although it is a small PE, ultrasound of the lower extremities is negative for DVT. He does not appear to have an infiltrate, he does not appear to be in acute heart failure he does not appear to be experiencing right heart strain. I have anticoagulated him for pulmonary embolism and he will be admitted to the hospitalist Discharge Plan Departure Patient Disposition: Admitted As Inpatient Clinical Impression: Pulmonary embolism Qualifiers: Pulmonary embolism type: single subsegmental (without acute cor pulmonale) Qualified Code(s): I26.93 - Single subsegmental thrombotic pulmonary embolism without acute cor pulmonale Admit Date/Time: 05/19/25 09:42 Admit Provider: Jose David Boss
--- NOTE | 2025-05-19 06:28 | EKG_ITS ---
[address] [address] Test Date: 2025-05-19 Pat Name: Rolo Naranjo Department: Room: 90D Gender: Male Oral Therapist: jose david : 1945 Requested By: Order Number: [id number] Reading MD: Hubert Neal Measurements Intervals [place] Rate: 55 P: 28 [place]: 144 QRS: 13 QRSD: 92 T: 53 QT: 454 QTc: 434 Interpretive Statements Sinus bradycardia with sinus arrhythmia Electronically Signed On 05-21-2025 8:05:45 PDT by Hubert Neal
--- NOTE | 2025-05-19 06:38 | DI.CT.S_ITS ---
PROCEDURE: CT ANGIO CHEST PE PROTOCOL INDICATIONS: shortness of breath/hx of thoracic aortic aneurysm TECHNIQUE: After the administration of intravenous contrast, 2 mm thick sections acquired from the pulmonary apices to the posterior costophrenic angles. 3-dimensional maximum intensity projection (MIP) coronal and sagittal reformats were then acquired through the thorax. For radiation dose reduction, the following was used: automated exposure control, adjustment of mA and/or kV according to patient size. COMPARISON: [facility], CT, CT ANGIO CHEST PE PROTOCOL, 05/18/2025, 13:40. FINDINGS: Image quality: Diagnostic. Pulmonary arteries: Subsegmental pulmonary embolus in the left lower lobe. Lower Neck: No enlarged lymph nodes. Thyroid: No thyroid nodules which require sonographic follow up, per consensus guidelines. Axillae: No enlarged lymph nodes. Chest Wall: Unremarkable. Bones: Unremarkable. Lungs and Pleura: No pneumothorax or pleural effusions. No consolidation or suspicious nodules. Physiologic air trapping. Heart: Heart size is enlarged. No pericardial effusion. Left ventricle to right ventricle ratio is greater than 1. Thoracic Vessels: No aortic aneurysm. Mediastinum and Peri: No enlarged lymph nodes. Esophagus: No wall thickening. No hiatal hernia. Upper Abdomen: Visualized upper abdomen solid organs and bowel loops appear normal. IMPRESSION: Small segmental pulmonary embolus in the left lower lobe. No evidence of heart strain. No infarct. Agree with preliminary report. Dictated by: Dada Bradshaw M.D. on 05/19/2025 at 8:49 Approved by: Dada Bradshaw M.D. on 05/19/2025 at 8:51
[2025-05-19 06:43] LABS: Add Manual Diff / Slide Review NO; Hematocrit 47.0 % (41-53); Hemoglobin 16.3 g/dL (13.5-17.5); Lymphocytes Absolute Auto 900 /uL (1100-4500); Mean Corpuscular HGB Conc 34.7 % (30-36); Mean Corpuscular Hemoglobin 34.3 PG (26-34); Mean Corpuscular Volume 98.7 fL (80-100); Platelet Count 182 X10^3/uL (150-400)
[2025-05-19 06:55] LABS: INR 1.0 (0.9-1.3); Prothrombin Time 11.4 SECONDS (9.4-12.5)
[2025-05-19 06:58] LABS: PTT Partial Thromboplastin Tim 27 SECONDS (25.1-36.5)
[2025-05-19 06:59] LABS: Alanine Aminotransferase 37 IU/L (<50); Albumin 3.7 g/dL (3.5-5.0); Albumin Globulin Ratio 1.3 (1.0-2.8); Alkaline Phosphatase 69 U/L (38-126); Blood Urea Nitrogen 14 mg/dL (9-20); Calcium 8.8 mg/dL (8.4-10.2); Carbon Dioxide 26 mmol/L (22-32); Chloride 97 mmol/L (98-107); Creatine Kinase 49 U/L (55-170); Estimated Glomerular Filt Rate > 60 mL/min (>60); Globulin 2.9 g/dL (1.7-4.1); Glucose 110 mg/dL (70-99); HEMOLYSIS < 15 (0-50); Lipase 188 U/L (23-300); Magnesium 1.6 mg/dL (1.6-2.3); Potassium 2.9 mmol/L (3.4-5.1); Sodium 130 mmol/L (137-145); Total Protein 6.6 g/dL (6.3-8.2)
[2025-05-19 07:11] LABS: NT-proBNP (BNP-Adult 18+) 581 pg/mL (<450); Troponin I 0.035 ng/mL (0.01-0.034)
[2025-05-19 07:55] LABS: Coronavirus NL 63 Not Detected (Not Detect); SARS- CoV-2 Not Detected (Not Detecte)
--- NOTE | 2025-05-19 08:17 | DI.US.S_ITS ---
PROCEDURE: US PERIPH VENOUS LOW EXTREM BI INDICATIONS: pulmonary emoblism TECHNIQUE: Real-time imaging, as well as color and pulse Doppler interrogation, were performed of the deep veins of both legs from the inguinal ligament to the popliteal fossa, with documentation of the visualized calf veins. COMPARISON: None. FINDINGS: Right: The common femoral, femoral, popliteal, and the visualized calf veins are normally compressible, and free of intraluminal thrombus. Color and pulse Doppler demonstrate normal phasic intravascular flow. There is normal augmentation response to distal compression maneuver. Left: The common femoral, femoral, popliteal, and the visualized calf veins are normally compressible, and free of intraluminal thrombus. Color and pulse Doppler demonstrate normal phasic intravascular flow. There is normal augmentation response to distal compression maneuver. IMPRESSION: No findings of deep venous thrombosis in either lower extremity. Dictated by: Mckinley Carcamo M.D. on 05/19/2025 at 9:01 Approved by: Mckinley Carcamo M.D. on 05/19/2025 at 9:01
--- NOTE | 2025-05-19 08:17 | DI.ECHO.S_ITS ---
:Name: JOSE CORLEY Study Date: 05/19/2025 Height: 71 in : :[facility] ReadingLocation: Weight: 200 lb : : Gender: Male BSA: 2.1 m2 : :: 1945 Age: 79 yrs BP: 152/73 mmHg: :Reason For Study: Shortness of breath : :Ordering Physician: VIVEK RODRIGUEZ Performed By: Brandon Campuzano : :Referring: VIVEK RODRIGUEZ : + + Interpretation Summary The left ventricle is normal in size. Left ventricular ejection fraction is estimated to be 50 +/- 5%. Compared to the prior exam, the left ventricular function is reduced. Previous LVEF 60 to 65% The right ventricle is normal in size and function. There is mild tricuspid regurgitation. Compared to the prior echo exam, there has been no change in TR severity. Right ventricular systolic pressure is estimated to be 25 mmHg plus the clinically estimated CVP which cannot be estimated on this exam. Procedure: A two-dimensional transthoracic echocardiogram with color flow and Doppler was performed in limited views only to assess wall motion and RV strain. The study quality was technically adequate. Comparison is made with the echocardiogram of 04/09/2025. The heart rate ranged between 47-61 bpm during the study. Sinus bradycardia with heart rate ranging 47-61 bpm. The patient had occasional PVCs during the exam. Left Ventricle: The left ventricle is normal in size. Left ventricular wall thickness is borderline increased. There is no thrombus. Left ventricular ejection fraction is estimated to be 50 +/- 5%. Compared to the prior exam, the left ventricular function is reduced. There are no focal wall motion abnormalities. Right Ventricle: The right ventricle is normal in size and function. Tricuspid Valve: The tricuspid valve is normal. There is mild tricuspid regurgitation. Compared to the prior echo exam, there has been no change in TR severity. Right ventricular systolic pressure is estimated to be 25 mmHg plus the clinically estimated CVP which cannot be estimated on this exam. Pericardium/ Pleura There is no pericardial effusion. MMode/2D Measurements & Calculations LVIDd: 4.0 cm LVOT diam: 2.2 cm LVIDs: 3.2 cm FS: 21.0 % IVSd: 1.1 cm LVPWd: 1.0 cm LV smith. diameter/BSA (cm/m^2): 1.9 LV sys. diameter/BSA (cm/m^2): 1.5 TAPSE: 2.0 cm Doppler Measurements & Calculations Ao V2 max: 174.6 cm/sec LVOT Max Baldev: 113.6 cm/sec Ao V2 mean: 106.3 cm/sec LV V1 max P.2 mmHg Ao max P.2 mmHg LV V1 VTI: 25.1 cm Ao mean P.7 mmHg TEENA(I,D): 3.1 cm2 Ao V2 VTI: 31.8 cm TEENA(V,D): 2.6 cm2 sev ratio: 0.79 TEENA indexed to BSA (cm^2/m^2): 1.5 TR max baldev: 250.0 cm/sec SV(LVOT): 99.5 ml TR max P.0 mmHg
[2025-05-19] MEDS: HEPARIN 5,000 UNIT/ML VIAL 8000 UNIT IV (08:55)
[2025-05-19] MEDS: ACETAMINOPHEN 325 MG TABLET 650 MG PO (08:55)
[2025-05-19] MEDS: HEPARIN DRIP 25,000 UNIT/500 ML IV.SOLN 35.28 UNIT IV (08:58)
--- NOTE | 2025-05-19 10:11 | CM.DANOTE ---
ED PUBLIC RELATIONS SPECIALIST DCP Assessment Note: Pt is a 79yo male, resident of [place], is admitted for pulmonary embolism. Pt lives in a house with his , Lelia. Pt's Primary Care Provider is Dr. Jose David Boss and insurance is Medicare and [facility]. Reviewed chart and discussed with multidisciplinary team pt's medical status and initial discharge needs. DCP met w/patient at bedside; introduced self and role. Present in the room is pt's , Lelia. Patient was found in bed, alert and oriented, cooperative with assessment. Pt confirmed living situation and good support in spouse. Pt reports no use of DME at home, no CPAP or supportive O2 at baseline. Pt expressed preference in discharge home when cleared. Pt has no history of SNF Rehab or home health. Plan: Acute Care admission, anticipating home with home health (if necessary) at discharge. Pt spouse can transport home. CM team will follow closely for coordination of discharge plans. ZAKIA Aquino Discharge Planning/Care Management CM Discharge Assessment Start: 05/19/25 10:09 Freq: Status: Active Protocol: Document 05/19/25 10:09 MW (Rec: 05/19/25 10:11 MW [id number]) Discharge Planning Assessment Assigned Discharge CARROL [employer] Maintenance Technician Provider Dr. Jose David Boss Insurance Medicare,[employer] DPOA/Assigned Yaz Rowell Designee Name Contact Information [phone] Advance Directives? Yes History Provided By Patient,Family Member,Medical Record Has Patient been No admitted in last 30 days? Prior Living House Arrangements Household Members spouse Type of Drives own vehicle transporation used prior to admit Independent with ADL Yes 's Is patient alert and Yes oriented? Caregiver for No Another Barriers to No Discharge Discharge Plan Home Transportation Arrangement Review Status In Process Please Provide Date 05/19/25 Initial DC Assessment Was Performed Next Review Type Continued Stay Review
[2025-05-19 10:45] LABS: Appearance Urine UA CLEAR; Bilirubin Urine UA NEGATIVE (NEGATIVE); Color Urine UA YELLOW; Glucose Urine UA NEGATIVE (Negative); Ketones Urine UA 1+ (NEGATIVE); Leukocyte Esterase Urine UA NEGATIVE (NEGATIVE); Nitrite Urine UA NEGATIVE (Negative); Occult Blood Urine UA NEGATIVE (Negative); Protein Urine UA NEGATIVE (Negative); Specific Gravity Urine UA 1.010 (1.000-1.035); Urobilinogen Urine UA 1.0 E.U./dL (0.2); pH Urine UA 7.0 (4.5-8.0)
[2025-05-19 10:47] LABS: Culture Indicated Urine Cult Not Indicated
--- NOTE | 2025-05-19 14:37 | PC.NURSE ---
Patient arrived from ER to room 205, oriented to room and call light, call light and urinal placed within reach. Heparin gtt infusing from ER at current settings- patient denies pain, VSS. Call placed immediately to Dr. Boss to clarify heparin gtt./eliquis orders. Continue to follow.
[2025-05-19] MEDS: APIXABAN 5 MG TABLET 10 MG PO ×2 (15:27→21:15)
[2025-05-19] MEDS: SODIUM CHLORIDE 0.9% 1,000 ML 100 ML IV (15:28)
[2025-05-19] MEDS: POTASSIUM CHLORIDE 20 MEQ TAB 40 MEQ PO (17:02)
[2025-05-19 18:16] LABS: PTT Partial Thromboplastin Tim 96 SECONDS (25.1-36.5)
--- NOTE | 2025-05-19 18:46 | PM.DS.1 ---
History of Present Illness History of Present Illness Date Patient Seen: 05/21/25 Time Patient Seen: 08:50 Chief complaint: SOB, little dizzy was here last night . Narrative: Patient is 79-year-old male well known to me who presents for dyspnea with exertion. Apparently last week he was doing well up until he got his flu shot on Monday night. Woke up on Monday acutely short of breath. [place] like he just could not catch his breath. Having difficulty breathing. Had a low-grade fever. But no other changes. Patient otherwise was having no definitive chest pain he just felt like his whole chest was somewhat sore. He had no cough orthopnea PND or other changes. Patient with no other definitive complaint or changes. Went to the emergency room and was CT scan showed a 4.4 cm aneurysm which was discussed with vascular surgeon who felt like an outpatient monitoring would be fine. But was not related to his current symptoms. Patient continued to have shortness of breath he had no symptoms at night slept well but woke up and was feeling shortness of breath again and I and then presented today to the emergency room. He had no further fevers chills no change in his chest discomfort no change in his breathing. No abdominal pain fever change in bowel movements nausea vomiting or other change. [place] a little dizzy. Discharge Providers Provider Date of admission: 05/19/25 09:42 Discharge Date: 05/21/25 Primary care physician: Jose David Boss MD Discharge provider: Jose David Boss MD Summary Hospital Course Discharge Diagnosis: Acute respiratory distress Pulmonary embolus Aortic aneurysm Hypokalemia Congestive heart failure. Left heart. Hyponatremia Headache BPH Memory change Hypogonadism Hospital Course: Acute respiratory distress. Patient with 2 days prior to admission of increasing shortness of breath. Patient was here in the emergency room found to have a pulmonary embolism. He was on O2 for approximately 12 hours and then discontinued. He has been stable since that time. All felt to be secondary to his pulmonary embolism. He will be followed as an outpatient at this point appears stable. Pulmonary embolus. Patient interestingly had a CT 1 day prior to admission which was negative. Next CT on day of admission was positive for pulmonary embolus. It was not related to any definitive cause. No DVT was noted. Etiology is unclear but patient was started on heparin then switched to Eliquis. He actually is feeling quite a bit better today will be discharged home on Eliquis will obtain Hematology consult on discharge. Aortic aneurysm. Patient on Monday had a CT scan which showed a 4.3 cm ascending aortic aneurysm. ER doctor had discussed with vascular surgeon who did not feel like it was emergent and needs close follow-up. Will refer to vascular surgeon on Monday when I see him in follow-up. Hypokalemia. Patient was initially hypokalemic. Patient usually takes [id number] potassium at home but otherwise has been stable. He was placed on oral potassium numbers on discharge were stable will be followed up on Monday. No treatment at this time. Hyponatremia. Patient was noted to be hyponatremic and was started on fluids over the course of the 1st 24 hours. It was noted that he did well and has been stable after discontinuation of fluids. Congestive heart failure. Left heart. His BNP was mildly elevated. He was not having any definitive symptoms. He has not had an echo we attempted to get that done prior to discharge but it was not available. Will obtain to assess cardiac function as outpatient. Headache. Patient with pretty significant headache during his admission he would usually does not have headaches. There was no evidence of infection question whether this could be viral. He noted that it persisted and CT scan showed no evidence of bleed. He otherwise has a normal neurologic exam no other changes. We discussed this. Will follow as outpatient continue pain medicine at home. Memory changes. On day of discharge patient was stating that he has some short term memory changes. Etiology of this is unclear. CT scan did not show any change could be secondary to possible viral infection and or illness in the hospital. Will see what happens over the next week to 2 weeks if not improving will consider MRI and neuropsychiatric testing. BPH. Stable throughout. Patient has significant issues will have to follow. If he continues to assess will need Urology Hypogonadism stable Exam Vital Signs (past 8 hours): - 05/19/25 11:00 05/19/25 11:01 05/19/25 11:01 Temperature Pulse Rate 50 L 54 L Respiratory Rate 18 18 Blood Pressure 155/77 H Pulse Oximetry 99 98 Oxygen Delivery Method Oxygen Flow Rate 05/19/25 11:15 05/19/25 11:15 05/19/25 11:30 Temperature Pulse Rate 54 L Respiratory Rate 14 Blood Pressure 144/76 H 165/83 H Pulse Oximetry 98 Oxygen Delivery Method Oxygen Flow Rate 05/19/25 11:30 05/19/25 11:45 05/19/25 11:45 Temperature Pulse Rate 50 L 55 L Respiratory Rate 12 18 Blood Pressure 163/81 H Pulse Oximetry 98 97 Oxygen Delivery Method Nasal Cannula Oxygen Flow Rate 2 05/19/25 12:00 05/19/25 12:00 05/19/25 12:30 Temperature Pulse Rate 61 59 L Respiratory Rate 14 13 Blood Pressure 160/82 H Pulse Oximetry 98 97 Oxygen Delivery Method Oxygen Flow Rate 05/19/25 13:00 05/19/25 13:02 05/19/25 13:02 Temperature Pulse Rate 63 66 Respiratory Rate 22 32 H Blood Pressure 150/83 H Pulse Oximetry 98 98 Oxygen Delivery Method Nasal Cannula Oxygen Flow Rate 2 05/19/25 13:15 05/19/25 13:15 05/19/25 13:30 Temperature Pulse Rate 70 Respiratory Rate 18 Blood Pressure 158/87 H 143/81 H Pulse Oximetry 98 Oxygen Delivery Method Oxygen Flow Rate 05/19/25 13:30 05/19/25 13:45 05/19/25 13:45 Temperature Pulse Rate 69 68 Respiratory Rate 18 22 Blood Pressure 142/81 H Pulse Oximetry 98 98 Oxygen Delivery Method Nasal Cannula Nasal Cannula Oxygen Flow Rate 3 3 05/19/25 14:30 05/19/25 15:05 Temperature 98.4 F Pulse Rate 62 Respiratory Rate 15 Blood Pressure 153/87 H Pulse Oximetry 100 Oxygen Delivery Method Nasal Cannula Oxygen Flow Rate 0 Oxygen Delivery Method Nasal Cannula Oxygen Flow Rate 0 Narrative Exam Narrative: Alert male in no acute distress smiling interactive HEENT exam is unremarkable neck supple without adenopathy lungs are clear heart is regular rate and rhythm without murmurs clicks rubs or gallops neurologic exam was unremarkable Objective Labs 05/20/25 04:36 05/21/25 04:14 Labs: Laboratory Results - last 24 hr 05/19/25 05/19/25 05/19/25 06:35 07:00 10:37 WBC 9.7 RBC 4.76 Hgb 16.3 Hct 47.0 MCV 98.7 MCH 34.3 H MCHC 34.7 RDW 14.8 Plt Count 182 Neut % (Auto) 78.9 H Lymph % (Auto) 9.7 L Kay % (Auto) 10.3 Eos % (Auto) 0.3 L Baso % (Auto) 0.8 Neut # (Auto) 7700 H Lymph # (Auto) 900 L Kay # (Auto) 1000 H Eos # (Auto) 0 Baso # (Auto) 100 PT 11.4 INR 1.0 APTT 27 Sodium 130 L Potassium 2.9 L Chloride 97 L Carbon Dioxide 26 BUN 14 Creatinine 0.82 Estimated GFR > 60 BUN/Creatinine Ratio 17.1 Glucose 110 H Calcium 8.8 Magnesium 1.6 Total Bilirubin 1.1 AST 31 ALT 37 Alkaline Phosphatase 69 Total Creatine Kinase 49 L Troponin I 0.035 H NT-Pro-B Natriuret Pep 581 H Total Protein 6.6 Albumin 3.7 Globulin 2.9 Albumin/Globulin Ratio 1.3 Lipase 188 Urine Color Yellow Urine Appearance Clear Urine pH 7.0 Ur Specific Conway 1.010 Urine Protein Negative Urine Glucose (UA) Negative Urine Ketones 1+ H Urine Occult Blood Negative Urine Nitrate Negative Urine Bilirubin Negative Urine Urobilinogen 1.0 Ur Leukocyte Esterase Negative Urine RBC None seen Urine WBC None seen Ur Squamous Epith Cells None seen Urine Bacteria None seen Ur Culture Indicated? Cult not indicated Vol Urine Centrifuged 10ml (spun) Chlamy pneumoniae PCR Not detected Adenovirus (PCR) Not detected B. pertussis DNA (PCR) Not detected B.parapertussis DNA PCR Not detected Coronavirus OC43 (PCR) Not detected Coronavirus HKU1 (PCR) Not detected Coronavirus 229E (PCR) Not detected SARS-CoV-2 (PCR) Not detected Coronavirus NL63 (PCR) Not detected Human Metapneumovir PCR Not detected Influenza Type A (PCR) Not detected Influenza Type B (PCR) Not detected M. pneumoniae (PCR) Not detected Parainfluenza 1 (PCR) Not detected Parainfluenza 2 (PCR) Not detected Parainfluenza 3 (PCR) Not detected Parainfluenza 4 (PCR) Not detected RSV (PCR) Not detected Entero/Rhino (PCR) Not detected 05/19/25 15:52 WBC RBC Hgb Hct MCV MCH MCHC RDW Plt Count Neut % (Auto) Lymph % (Auto) Kay % (Auto) Eos % (Auto) Baso % (Auto) Neut # (Auto) Lymph # (Auto) Kay # (Auto) Eos # (Auto) Baso # (Auto) PT INR APTT 96 H* D Sodium Potassium Chloride Carbon Dioxide BUN Creatinine Estimated GFR BUN/Creatinine Ratio Glucose Calcium Magnesium Total Bilirubin AST ALT Alkaline Phosphatase Total Creatine Kinase Troponin I NT-Pro-B Natriuret Pep Total Protein Albumin Globulin Albumin/Globulin Ratio Lipase Urine Color Urine Appearance Urine pH Ur Specific Conway Urine Protein Urine Glucose (UA) Urine Ketones Urine Occult Blood Urine Nitrate Urine Bilirubin Urine Urobilinogen Ur Leukocyte Esterase Urine RBC Urine WBC Ur Squamous Epith Cells Urine Bacteria Ur Culture Indicated? Vol Urine Centrifuged Chlamy pneumoniae PCR Adenovirus (PCR) B. pertussis DNA (PCR) B.parapertussis DNA PCR Coronavirus OC43 (PCR) Coronavirus HKU1 (PCR) Coronavirus 229E (PCR) SARS-CoV-2 (PCR) Coronavirus NL63 (PCR) Human Metapneumovir PCR Influenza Type A (PCR) Influenza Type B (PCR) M. pneumoniae (PCR) Parainfluenza 1 (PCR) Parainfluenza 2 (PCR) Parainfluenza 3 (PCR) Parainfluenza 4 (PCR) RSV (PCR) Entero/Rhino (PCR) PFSH Medical History Elevated PSA Asthma History of DVT (deep vein thrombosis) Chronic sinusitis Hypogonadism Incomplete emptying of bladder Nocturia more than twice per night Lower urinary tract symptoms Male circumcision Kidney stones High blood pressure Gout Diverticular disease Arthritis BPH (benign prostatic hyperplasia) Surgical History Hx of colonoscopy Hx of bilateral cataract extraction H/O vasectomy (1976) Hx of toe surgery Hx of nasal sinusotomy (2008) History of arthroscopy of left shoulder (2014) History of eye surgery Hx of elbow surgery (1996) Hx of left knee surgery History of prostate surgery Family History Father Diabetes mellitus Eczema Mother Bacterial UTI Social History marital status: number of children: 3 household members: spouse lives independently: Yes Smoking Status: Never smoker alcohol intake: current substance use type: does not use Type(s) of exercise: other frequency: 5-6 times per week Discharge Assessment & Plan Assessment and Plan Assessment: Improve Plan of Treatment: Discharge Discharge Plan Discharge Plan Patient Disposition: Home Discharge orders & Medications Prescriptions: New Eliquis 5 mg Tablet 5 mg PO BID Qty: 60 3RF Continued diltiazem HCl [Cartia XT] 240 MG capsule,extended release 24hr 240 mg PO Q DAY Qty: 0 furosemide 20 MG tablet 20 mg PO QDAY Qty: 0 chlorthalidone 25 mg tablet 50 mg PO QAM alfuzosin 10 mg tablet extended release 24 hr 10 mg PO DAILY ketoconazole 2 % Shampoo 1 applic TOPICAL 3XW saw palmetto 160 mg Capsule 160 mg PO BID fluocinonide 0.05 % Solution 1 applic TOPICAL BID-QID PRN (Reason: Rash) timolol maleate 0.5 % drops 1 drp EYE-BOTH QAM acyclovir [Zovirax] 5 % Cream 1 applic TOPICAL 5XD potassium gluconate 595 mg (99 mg) Tablet 595 mg PO DAILY cholecalciferol (vitamin D3) [Vitamin D3] 25 mcg (1,000 unit) Tablet,Chewable 75 mcg PO DAILY Adult Probiotic 3 billion cell Capsule 3,000 mmu cells PO BID Repatha SureClick 140 mg/mL Pen Injector 140 mg SUBCUT Q2W clotrimazole-betameth dip-zinc 1-0.05-20 % Combo Pack See Rx Instructions .ROUTE .COMPLEX Rx Instructions: 1 pkg topically nitroglycerin 0.4 mg tablet, sublingual 0.4 mg sublingual Q5-15M MDD 3 pills PRN (Reason: chest pain) Qty: 10 3RF Rx Instructions: do not exceed 3 doses per episode testosterone cypionate 200 mg/mL oil 0.3 mg IM QWEEK allopurinol 200 mg tablet 400 mg PO DAILY colchicine 0.6 mg tablet 0.6 mg PO BID PRN (Reason: gout) metoprolol succinate 50 mg tablet extended release 24 hr 50 mg PO DAILY budesonide-formoterol [Symbicort] 160-4.5 mcg/actuation HFA aerosol inhaler 2 inh inhalation BID fluticasone propionate 50 mcg/actuation spray,suspension 2 spray intranasal BID psyllium husk [Metamucil] 0.4 gram capsule 0.4 g PO DAILY tadalafil 20 mg tablet 20 mg PO DAILY PRN (Reason: sexual activity) Qty: 15 2RF Rx Instructions: administer approximately 30min before sexual activity; do not use more than 1 dose per 24hrs Follow up/Referrals: Jose David Boss MD [Primary Care Provider, Family Practice] - 05/26/25 Referral Note: Please call for appointment Diet/Activity/Treatments Diet: Diet as Tolerated Activity: As tolerated Skin/Wound/Dressing Care Report to your healthcare provider any signs of infection, such as:: chills, fever and night sweats Visit Report/Discharge Packet Stand Alone Forms: Patient Portal/API, Stroke Signs & Symptoms Discharge Data Primary Care Provider: Jose David Boss
--- NOTE | 2025-05-19 18:49 | PM.HP.1 ---
History of Present Illness History of Present Illness Date Patient Seen: 05/19/25 Time Patient Seen: 18:49 Date of Onset of Symptoms: 05/17/25 Chief complaint: SOB, little dizzy was here last night . Narrative: Patient is 79-year-old male well known to me who presents for dyspnea with exertion. Apparently last week he was doing well up until he got his flu shot on Monday night. Woke up on Monday acutely short of breath. [place] like he just could not catch his breath. Having difficulty breathing. Had a low-grade fever. But no other changes. Patient otherwise was having no definitive chest pain he just felt like his whole chest was somewhat sore. He had no cough orthopnea PND or other changes. Patient with no other definitive complaint or changes. Went to the emergency room and was CT scan showed a 4.4 cm aneurysm which was discussed with vascular surgeon who felt like an outpatient monitoring would be fine. But was not related to his current symptoms. Patient continued to have shortness of breath he had no symptoms at night slept well but woke up and was feeling shortness of breath again and I and then presented today to the emergency room. He had no further fevers chills no change in his chest discomfort no change in his breathing. No abdominal pain fever change in bowel movements nausea vomiting or other change. [place] a little dizzy. [facility] Medical History Elevated PSA Asthma History of DVT (deep vein thrombosis) Chronic sinusitis Hypogonadism Incomplete emptying of bladder Nocturia more than twice per night Lower urinary tract symptoms Male circumcision Kidney stones High blood pressure Gout Diverticular disease Arthritis BPH (benign prostatic hyperplasia) Surgical History Hx of colonoscopy Hx of bilateral cataract extraction H/O vasectomy (1976) Hx of toe surgery Hx of nasal sinusotomy (2008) History of arthroscopy of left shoulder (2014) History of eye surgery Hx of elbow surgery (1996) Hx of left knee surgery History of prostate surgery Family History Father Diabetes mellitus Eczema Mother Bacterial UTI Social History marital status: number of children: 3 household members: spouse lives independently: Yes Smoking Status: Never smoker alcohol intake: current substance use type: does not use Type(s) of exercise: other frequency: 5-6 times per week Meds Home Medications and Allergies Home Medications ?Medication ?Instructions ?Recorded ?Confirmed ?Type diltiazem HCl 240 mg 240 mg PO Q DAY ##0 11/27/11 05/19/25 History capsule,extended release 24 hr (Cartia XT) furosemide 20 mg tablet 20 mg PO QDAY ##0 06/03/17 05/19/25 History acyclovir 5 % topical cream 1 applic topical 5XD 09/07/20 05/19/25 History (Zovirax) alfuzosin 10 mg tablet,extended 10 mg PO DAILY 09/07/20 05/19/25 History release 24 hr chlorthalidone 25 mg tablet 50 mg PO QAM 09/07/20 05/19/25 History cholecalciferol (vitamin D3) 25 75 mcg PO DAILY 09/07/20 05/19/25 History mcg (1,000 unit) chewable tablet (Vitamin D3) clotrimazole 1 %-betamethasone See Rx Instructions .Route .COMPLEX 09/07/20 05/19/25 History 0.05 % cream-zinc ox 20 % paste topical evolocumab 140 mg/mL subcutaneous 140 mg SUBCUT Q2W 09/07/20 05/19/25 History pen injector (Marti Bacrenas) fluocinonide 0.05 % topical 1 applic topical BID-QID PRN Rash 09/07/20 05/19/25 History solution ketoconazole 2 % shampoo 1 applic topical 3XW 09/07/20 05/19/25 History lactobacillus combination no.8 3 3,000 mmu cells PO BID 09/07/20 05/19/25 History billion cell capsule (Adult Probiotic) potassium gluconate 595 mg (99 mg) 595 mg PO DAILY 09/07/20 05/19/25 History tablet saw palmetto 160 mg capsule 160 mg PO BID 09/07/20 05/19/25 History timolol maleate 0.5 % eye drops 1 drp EYE-BOTH QAM 09/07/20 05/19/25 History nitroglycerin 0.4 mg sublingual 0.4 mg sublingual Q5-15M PRN chest 09/09/20 05/19/25 Rx tablet pain #10 tabs testosterone cypionate 200 mg/mL 0.3 mg IM QWEEK 06/16/23 05/19/25 History intramuscular oil tadalafil 20 mg tablet 20 mg PO DAILY PRN sexual activity 01/22/25 05/19/25 Rx #15 tabs allopurinol 200 mg tablet 400 mg PO DAILY 05/19/25 05/19/25 History budesonide-formoterol HFA 160 2 inh inhalation BID 05/19/25 05/19/25 History mcg-4.5 mcg/actuation aerosol inhaler (Symbicort) colchicine 0.6 mg tablet 0.6 mg PO BID PRN gout 05/19/25 05/19/25 History fluticasone propionate 50 2 spray intranasal BID 05/19/25 05/19/25 History mcg/actuation nasal spray,suspension metoprolol succinate 50 mg 50 mg PO DAILY 05/19/25 05/19/25 History tablet,extended release 24 hr psyllium husk 0.4 gram capsule 0.4 g PO DAILY 05/19/25 05/19/25 History (Metamucil) Allergies Allergy/AdvReac Type Severity Reaction Status Date / Time adhesive tape Allergy Verified 05/19/25 06:18 choline fenofibrate Allergy Muscle Pain Verified 05/19/25 06:18 cyclobenzaprine Allergy Verified 05/19/25 06:18 gatifloxacin Allergy Verified 05/19/25 06:18 losartan Allergy Verified 05/19/25 06:18 niacin Allergy ITCHING Verified 05/19/25 06:18 omega-3 acid ethyl esters Allergy Rash Verified 05/19/25 06:18 risedronate sodium Allergy Rash, body Verified 05/19/25 06:18 (RISEDRONATE SODIUM) pain [id number] Reductase Allergy Stomach Verified 05/19/25 06:18 Inhibitor pains, headache ciprofloxacin AdvReac Severe achilles Verified 05/19/25 15:43 tendon tears Penicillins AdvReac Intermediate GI upset, Verified 05/19/25 12:34 diarrhea clonidine AdvReac Mild Dry Mucus Verified 05/19/25 15:43 Membranes oxybutynin AdvReac SOB, Verified 05/19/25 06:18 stomach ache actonal Allergy Unknown shoulder, Uncoded 05/19/25 06:18 chest, knee, back rib pain dha Allergy Rash Uncoded 05/19/25 06:18 Review of Systems Review of Systems Narrative: Negative except above Exam Vital Signs (past 8 hours): - 05/19/25 11:00 05/19/25 11:01 05/19/25 11:01 Temperature Pulse Rate 50 L 54 L Respiratory Rate 18 18 Blood Pressure 155/77 H Pulse Oximetry 99 98 Oxygen Delivery Method Oxygen Flow Rate 05/19/25 11:15 05/19/25 11:15 05/19/25 11:30 Temperature Pulse Rate 54 L Respiratory Rate 14 Blood Pressure 144/76 H 165/83 H Pulse Oximetry 98 Oxygen Delivery Method Oxygen Flow Rate 05/19/25 11:30 05/19/25 11:45 05/19/25 11:45 Temperature Pulse Rate 50 L 55 L Respiratory Rate 12 18 Blood Pressure 163/81 H Pulse Oximetry 98 97 Oxygen Delivery Method Nasal Cannula Oxygen Flow Rate 2 05/19/25 12:00 05/19/25 12:00 05/19/25 12:30 Temperature Pulse Rate 61 59 L Respiratory Rate 14 13 Blood Pressure 160/82 H Pulse Oximetry 98 97 Oxygen Delivery Method Oxygen Flow Rate 05/19/25 13:00 05/19/25 13:02 05/19/25 13:02 Temperature Pulse Rate 63 66 Respiratory Rate 22 32 H Blood Pressure 150/83 H Pulse Oximetry 98 98 Oxygen Delivery Method Nasal Cannula Oxygen Flow Rate 2 05/19/25 13:15 05/19/25 13:15 05/19/25 13:30 Temperature Pulse Rate 70 Respiratory Rate 18 Blood Pressure 158/87 H 143/81 H Pulse Oximetry 98 Oxygen Delivery Method Oxygen Flow Rate 05/19/25 13:30 05/19/25 13:45 05/19/25 13:45 Temperature Pulse Rate 69 68 Respiratory Rate 18 22 Blood Pressure 142/81 H Pulse Oximetry 98 98 Oxygen Delivery Method Nasal Cannula Nasal Cannula Oxygen Flow Rate 3 3 05/19/25 14:30 05/19/25 15:05 Temperature 98.4 F Pulse Rate 62 Respiratory Rate 15 Blood Pressure 153/87 H Pulse Oximetry 100 Oxygen Delivery Method Nasal Cannula Oxygen Flow Rate 0 Oxygen Delivery Method Nasal Cannula Oxygen Flow Rate 0 Narrative Exam Narrative: Alert male lying in bed no acute respiratory distress with oxygen. HEENT exam is unremarkable neck supple without adenopathy JVD or bruits lungs are clear heart is regular rate and rhythm without murmurs clicks rubs or gallops abdomen is soft positive bowel sounds nontender extremities without cyanosis clubbing edema. No calf tenderness. Negative Homans sign. Neurologic exam is unremarkable Objective Labs 05/19/25 06:35 05/19/25 06:35 Labs: Laboratory Results - last 24 hr 05/19/25 05/19/25 05/19/25 06:35 07:00 10:37 WBC 9.7 RBC 4.76 Hgb 16.3 Hct 47.0 MCV 98.7 MCH 34.3 H MCHC 34.7 RDW 14.8 Plt Count 182 Neut % (Auto) 78.9 H Lymph % (Auto) 9.7 L [place] % (Auto) 10.3 Eos % (Auto) 0.3 L Baso % (Auto) 0.8 Neut # (Auto) 7700 H Lymph # (Auto) 900 L [place] # (Auto) 1000 H Eos # (Auto) 0 Baso # (Auto) 100 PT 11.4 INR 1.0 APTT 27 Sodium 130 L Potassium 2.9 L Chloride 97 L Carbon Dioxide 26 BUN 14 Creatinine 0.82 Estimated GFR > 60 BUN/Creatinine Ratio 17.1 Glucose 110 H Calcium 8.8 Magnesium 1.6 Total Bilirubin 1.1 AST 31 ALT 37 Alkaline Phosphatase 69 Total Creatine Kinase 49 L Troponin I 0.035 H NT-Pro-B Natriuret Pep 581 H Total Protein 6.6 Albumin 3.7 Globulin 2.9 Albumin/Globulin Ratio 1.3 Lipase 188 Urine Color Yellow Urine Appearance Clear Urine pH 7.0 Ur Specific [place] 1.010 Urine Protein Negative Urine Glucose (UA) Negative Urine Ketones 1+ H Urine Occult Blood Negative Urine Nitrate Negative Urine Bilirubin Negative Urine Urobilinogen 1.0 Ur Leukocyte Esterase Negative Urine RBC None seen Urine WBC None seen Ur Squamous Epith Cells None seen Urine Bacteria None seen Ur Culture Indicated? Cult not indicated Vol Urine Centrifuged 10ml (spun) Chlamy pneumoniae PCR Not detected Adenovirus (PCR) Not detected B. pertussis DNA (PCR) Not detected B.parapertussis DNA PCR Not detected Coronavirus OC43 (PCR) Not detected Coronavirus HKU1 (PCR) Not detected Coronavirus 229E (PCR) Not detected SARS-CoV-2 (PCR) Not detected Coronavirus NL63 (PCR) Not detected Human Metapneumovir PCR Not detected Influenza Type A (PCR) Not detected Influenza Type B (PCR) Not detected M. pneumoniae (PCR) Not detected Parainfluenza 1 (PCR) Not detected Parainfluenza 2 (PCR) Not detected Parainfluenza 3 (PCR) Not detected Parainfluenza 4 (PCR) Not detected RSV (PCR) Not detected Entero/Rhino (PCR) Not detected 05/19/25 15:52 WBC RBC Hgb Hct MCV MCH MCHC RDW Plt Count Neut % (Auto) Lymph % (Auto) [place] % (Auto) Eos % (Auto) Baso % (Auto) Neut # (Auto) Lymph # (Auto) [place] # (Auto) Eos # (Auto) Baso # (Auto) PT INR APTT 96 H* D Sodium Potassium Chloride Carbon Dioxide BUN Creatinine Estimated GFR BUN/Creatinine Ratio Glucose Calcium Magnesium Total Bilirubin AST ALT Alkaline Phosphatase Total Creatine Kinase Troponin I NT-Pro-B Natriuret Pep Total Protein Albumin Globulin Albumin/Globulin Ratio Lipase Urine Color Urine Appearance Urine pH Ur Specific [place] Urine Protein Urine Glucose (UA) Urine Ketones Urine Occult Blood Urine Nitrate Urine Bilirubin Urine Urobilinogen Ur Leukocyte Esterase Urine RBC Urine WBC Ur Squamous Epith Cells Urine Bacteria Ur Culture Indicated? Vol Urine Centrifuged Chlamy pneumoniae PCR Adenovirus (PCR) B. pertussis DNA (PCR) B.parapertussis DNA PCR Coronavirus OC43 (PCR) Coronavirus HKU1 (PCR) Coronavirus 229E (PCR) SARS-CoV-2 (PCR) Coronavirus NL63 (PCR) Human Metapneumovir PCR Influenza Type A (PCR) Influenza Type B (PCR) M. pneumoniae (PCR) Parainfluenza 1 (PCR) Parainfluenza 2 (PCR) Parainfluenza 3 (PCR) Parainfluenza 4 (PCR) RSV (PCR) Entero/Rhino (PCR) Assessment & Plan Assessment & Plan narrative: Acute respiratory distress. No evidence of infection. CT is negative except for PE. I suspect this is all secondary to that will have to see how things go. Currently not hypoxic but is on oxygen I think that would be good for him. Will see if we weaned down over the next 24 hours. Will get echo. EKG was unremarkable troponin was negative Pulmonary embolism. Interesting process was negative yesterday now today I do not think this is related to his flu shot. He has no evidence of calf tenderness DVT on exam or other changes. 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 We will discontinue heparin load with apixaban and follow. Will need Hematology as out patient. Hypokalemia. Will replace orally recheck a.m.. Hypo natremia. Will treat with IV saline recheck a.m.. Hold salt pills for now. Will see how it goes. Probably secondary to dehydration and pulmonary impact but will have to see how he responds. Will hold workup further until we see what happens in the next 24 hours. Hypertension stable. BPH. Will continue usual tamsulosin. Hypogonadism. Will hold meds. Code status no code GI prophylaxis will continue his usual PPI. Disposition. We will get echo and see how electrolytes resolved. Rechecked tomorrow. Maybe another 24 hours will just have to see how he does. Time-Based Coding :: [TOTAL MINUTES] spent with patient and on the chart (including review of chart, obtaining history, exam, reviewing outside data, placing orders, documenting exam and treatment plan, and counseling patient) on [DATE].
[2025-05-20] VITALS (8 sets, daily range): BP systolic 123–155; BP diastolic 67–102; PULSE 62–96; RESP 16–24; TEMP 36.6–37.4; O2SAT 96–98
[2025-05-20] MEDS: SODIUM CHLORIDE 0.9% 1,000 ML 100 ML IV (00:50)
[2025-05-20] MEDS: ACETAMINOPHEN 325 MG TABLET 650 MG PO ×2 (00:51→20:42)
[2025-05-20 05:26] LABS: Add Manual Diff / Slide Review NO; Hematocrit 48.8 % (41-53); Hemoglobin 16.8 g/dL (13.5-17.5); Lymphocytes Absolute Auto 1300 /uL (1100-4500); Mean Corpuscular HGB Conc 34.4 % (30-36); Mean Corpuscular Hemoglobin 34.0 PG (26-34); Mean Corpuscular Volume 99.0 fL (80-100); Platelet Count 176 X10^3/uL (150-400)
[2025-05-20 05:55] LABS: Alanine Aminotransferase 44 IU/L (<50); Albumin 3.7 g/dL (3.5-5.0); Albumin Globulin Ratio 1.4 (1.0-2.8); Alkaline Phosphatase 69 U/L (38-126); Blood Urea Nitrogen 14 mg/dL (9-20); Calcium 8.8 mg/dL (8.4-10.2); Carbon Dioxide 25 mmol/L (22-32); Chloride 101 mmol/L (98-107); Estimated Glomerular Filt Rate > 60 mL/min (>60); Globulin 2.7 g/dL (1.7-4.1); Glucose 92 mg/dL (70-99); HEMOLYSIS < 15 (0-50); Potassium 3.1 mmol/L (3.4-5.1); Sodium 134 mmol/L (137-145); Total Protein 6.4 g/dL (6.3-8.2)
[2025-05-20] MEDS: PANTOPRAZOLE DR 20 MG TABLET PO (06:31)
--- NOTE | 2025-05-20 08:32 | DI.CT.S_ITS ---
PROCEDURE: CT HEAD/BRAIN WO CON INDICATIONS: headache TECHNIQUE: Noncontrast 4.5 mm thick angled axial sections acquired from the foramen magnum to the vertex, with coronal and sagittal reformats. For radiation dose reduction, the following was used: automated exposure control, adjustment of mA and/or kV according to patient size. COMPARISON: [facility], CT, CT HEAD/BRAIN WO CON, 03/24/2025, 2:14. [facility], CT, CT HEAD/BRAIN WO CON, 04/09/2024, 19:32. FINDINGS: Image quality: Diagnostic. CSF spaces: Basal cisterns are patent. No extra-axial fluid collections. The ventricles are symmetric in size and shape. Brain: No acute intracranial hemorrhage or mass effect. There is cerebral volume loss, with resultant ventricular and sulcal prominence. There are periventricular and deep white matter chronic small vessel ischemic changes. There is intracranial internal carotid artery atherosclerosis. Skull and face: Calvarium and visualized facial bones appear intact, without suspicious lesions. Sinuses: Visualized sinuses and mastoids are clear. IMPRESSION: No acute intracranial pathology. Approved by: Cisco Chanel M.D. on 05/20/2025 at 9:52
[2025-05-20] MEDS: APIXABAN 5 MG TABLET PO ×2 (08:56→20:42)
[2025-05-20] MEDS: FLUTICASONE 120 SPRAY/16 GM SPRAY.SUSP NASAL ×2 (08:57→20:43)
[2025-05-20] MEDS: PSYLLIUM HUSK 1 PACKET PO (08:58)
[2025-05-20] MEDS: BUDESONIDE 0.5 MG/2 ML NEB INH ×2 (09:09→18:17)
[2025-05-20] MEDS: ALBUTEROL 2.5 MG/3 ML NEB (ADULT) INH ×2 (09:10→18:17)
[2025-05-20] MEDS: POTASSIUM CHLORIDE 20 MEQ/15 ML UDC 40 MEQ PO (09:23)
--- NOTE | 2025-05-20 13:21 | PM.PN.1 ---
Exam Vital Signs (past 8 hours): - 05/20/25 08:00 05/20/25 09:16 05/20/25 11:20 Temperature 98.7 F 99.4 F Pulse Rate 82 86 86 Respiratory Rate 23 24 20 Blood Pressure 143/90 H 146/102 H Pulse Oximetry 96 98 96 Oxygen Flow Rate 0 Fraction of Inspired Oxygen 21 Fraction of Inspired Oxygen 21 SaO2/FiO2 Ratio 461 Oxygen Delivery Method Nasal Cannula Oxygen Flow Rate 0 Objective Labs 05/20/25 04:36 05/20/25 04:36 Labs: Laboratory Results - last 24 hr 05/19/25 05/20/25 15:52 04:36 WBC 8.8 RBC 4.92 Hgb 16.8 Hct 48.8 MCV 99.0 MCH 34.0 MCHC 34.4 RDW 14.9 H Plt Count 176 Neut % (Auto) 70.1 Lymph % (Auto) 15.3 L [place] % (Auto) 12.4 Eos % (Auto) 1.2 L Baso % (Auto) 1.0 Neut # (Auto) 6200 Lymph # (Auto) 1300 [place] # (Auto) 1100 H Eos # (Auto) 100 Baso # (Auto) 100 APTT 96 H* D Sodium 134 L Potassium 3.1 L Chloride 101 Carbon Dioxide 25 BUN 14 Creatinine 0.85 Estimated GFR > 60 BUN/Creatinine Ratio 16.5 Glucose 92 Calcium 8.8 Total Bilirubin 0.9 AST 41 ALT 44 Alkaline Phosphatase 69 Total Protein 6.4 Albumin 3.7 Globulin 2.7 Albumin/Globulin Ratio 1.4 PFSH Medical History Elevated PSA Asthma History of DVT (deep vein thrombosis) Chronic sinusitis Hypogonadism Incomplete emptying of bladder Nocturia more than twice per night Lower urinary tract symptoms Male circumcision Kidney stones High blood pressure Gout Diverticular disease Arthritis BPH (benign prostatic hyperplasia) Surgical History Hx of colonoscopy Hx of bilateral cataract extraction H/O vasectomy (1976) Hx of toe surgery Hx of nasal sinusotomy (2008) History of arthroscopy of left shoulder (2014) History of eye surgery Hx of elbow surgery (1996) Hx of left knee surgery History of prostate surgery Family History Father Diabetes mellitus Eczema Mother Bacterial UTI Social History marital status: number of children: 3 household members: spouse lives independently: Yes Smoking Status: Never smoker alcohol intake: current substance use type: does not use Type(s) of exercise: other frequency: 5-6 times per week Assessment & Plan Assessment & Plan narrative: Assessment & Plan narrative: Headache. I think this is all related to just his illness maybe has a virus. Certainly nothing definitive. Could it be related to his flu shot I guess it is possible. Normal neurologic exam. Unusual for him though. At this point will obtain CT scan just to make sure everything is stable. Re-evaluate in a.m.. Continue pain medicine as needed. CT scan was negative. Will treat symptomatically. No definitive abnormality and will follow hopefully resolve over the next 24 hours Acute respiratory distress. Secondary to pulmonary embolus. Resolved today. Off of O2. Will follow. Pulmonary embolism. Interesting process was negative yesterday now today I do not think this is related to his flu shot. He has no evidence of calf tenderness DVT on exam or other changes. 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 We will discontinue heparin load with apixaban and follow. Will need Hematology as out patient. Feeling better today. Will continue to follow. Hypokalemia. Improved but not resolved. Will continue oral replacement recheck a.m. Hypo natremia. Improved but not resolved but 134. Will discontinue fluid and recheck a.m.. Hopefully will be stable. Presumed secondary to pulmonary issues Hypertension stable. BPH. Will continue usual tamsulosin. Hypogonadism. Will hold meds. Stable Code status no code GI prophylaxis will continue his usual PPI. Disposition. Improved but not completely resolved did evaluate headache. Awaiting echo. Hopefully will be done this afternoon. Anticipate discharge tomorrow. Trending in the right direction. 60 minute spent with patient. Nursing. Reviewing data. Dictation orders Time-Based Coding :: [TOTAL MINUTES] spent with patient and on the chart (including review of chart, obtaining history, exam, reviewing outside data, placing orders, documenting exam and treatment plan, and counseling patient) on [DATE].
[2025-05-20] MEDS: POTASSIUM CHLORIDE 20 MEQ TAB 40 MEQ PO (18:28)
[2025-05-21 04:17] VITALS: BP 132/86; PULSE 64; RESP 16; TEMP 36.9; O2SAT 94
[2025-05-21 04:48] LABS: Blood Urea Nitrogen 15 mg/dL (9-20); Calcium 8.7 mg/dL (8.4-10.2); Carbon Dioxide 27 mmol/L (22-32); Chloride 102 mmol/L (98-107); Estimated Glomerular Filt Rate > 60 mL/min (>60); Glucose 100 mg/dL (70-99); HEMOLYSIS < 15 (0-50); Potassium 3.4 mmol/L (3.4-5.1); Sodium 134 mmol/L (137-145)
[2025-05-21] MEDS: PANTOPRAZOLE DR 20 MG TABLET PO (06:58)
[2025-05-21] MEDS: ALBUTEROL 2.5 MG/3 ML NEB (ADULT) INH (07:30)
[2025-05-21] MEDS: BUDESONIDE 0.5 MG/2 ML NEB INH (07:30)
[2025-05-21 07:35] VITALS: PULSE 88; RESP 16; O2SAT 99
[2025-05-21] MEDS: FLUTICASONE 120 SPRAY/16 GM SPRAY.SUSP NASAL (08:51)
[2025-05-21] MEDS: POTASSIUM CHLORIDE 20 MEQ TAB 40 MEQ PO (08:51)
[2025-05-21] MEDS: APIXABAN 5 MG TABLET PO (08:51)
[2025-05-21] MEDS: TIMOLOL 0.5% OPHTH 1 DROPS EYE-BOTH (08:52)
[2025-05-21] MEDS: PSYLLIUM HUSK 1 PACKET PO (08:52)
--- NOTE | 2025-05-21 10:11 | CM.DPC ---
DCP Cont. Reviewed EMR and team rounds for status updates. Pt has been medically cleared for home d/c. No CM d/c needs were identified during his stay. Family will transport home.
--- NOTE | 2025-05-21 10:40 | PC.NURSE ---
Discharge instructions given and understood by pt and pt's spouse. PIV and telemetery device removed. Home med returned. Pt discharged via private vehicle, escorted using a wheelchair.
== END 2025-05-21 10:10 | disposition home or self-care (01) | DRG 176 ==
LOC: ED 08:19 → AC 09:43
PROVIDERS: Family Medicine; Admitting Provider Family Medicine; Emergency Provider Emergency Medicine; PCP Family Medicine; Referring Provider Emergency Medicine; Visit Provider Family Medicine
DX: I26.99 Other pulmonary embolism without acute cor pulmonale (principal); E87.1 Hypo-osmolality and hyponatremia; I50.1 Left ventricular failure, unspecified; E87.6 Hypokalemia; N40.0 Benign prostatic hyperplasia without lower urinary tract symptoms; R06.03 Acute respiratory distress; R51.9 Headache, unspecified; I11.0 Hypertensive heart disease with heart failure; I71.21 Aneurysm of the ascending aorta, without rupture; R41.3 Other amnesia; M10.9 Gout, unspecified; J45.909 Unspecified asthma, uncomplicated; Z86.718 Personal history of other venous thrombosis and embolism; I71.20 Thoracic aortic aneurysm, without rupture, unspecified; R09.02 Hypoxemia; I48.91 Unspecified atrial fibrillation
CPT/HCPCS: 36415; 70450; 71045; 71275; 80048; 80053; 81001; 82550; 83605; 83690; 83735; 83880; 84484; 85025; 85379; 85610; 85730; 87633; 87637; 93005; 93307; 93970; 94640; 96361; 96365; 96366; 96374; 99284; 99285; J1644; J1885; J7613; Q9967

== ENCOUNTER → 2025-06-17 07:24 | Outpatient (CLI) | payer MEDICARE, OTHER, SELFPAY ==
[2025-05-19 17:09] VITALS: BMI 30.1
[2025-06-17 08:20] LABS: Add Manual Diff / Slide Review NO; Hematocrit 50.2 % (41-53); Hemoglobin 16.9 g/dL (13.5-17.5); Lymphocytes Absolute Auto 1200 /uL (1100-4500); Mean Corpuscular HGB Conc 33.6 % (30-36); Mean Corpuscular Hemoglobin 33.4 PG (26-34); Mean Corpuscular Volume 99.3 fL (80-100); Platelet Count 158 X10^3/uL (150-400)
[2025-06-17 09:11] LABS: Prostate Specific Antigen 3.88 ng/mL (0.10-4.00)
== END ==
PROVIDERS: Urology; PCP Family Medicine; Referring Provider Family Medicine
DX: R97.20 Elevated prostate specific antigen [PSA] (principal); I26.99 Other pulmonary embolism without acute cor pulmonale
CPT/HCPCS: 36415; 81240; 81241; 81270; 83520; 84153; 84154; 85025; 86147; 86148

== ENCOUNTER → 2025-06-27 11:02 | Outpatient (ROUT) | payer MEDICARE, OTHER, SELFPAY ==
[2025-05-19 17:09] VITALS: BMI 30.1
[2025-06-27 11:16] LABS: INR 1.1 (0.9-1.3); Prothrombin Time 12.2 SECONDS (9.4-12.5)
== END ==
PROVIDERS: PCP Family Medicine; Visit Provider Family Medicine
DX: I26.94 Multiple subsegmental thrombotic pulmonary emboli without acute cor pulmonale (principal)
CPT/HCPCS: 85610

== ENCOUNTER → 2025-07-02 10:34 | Outpatient (ROUT) | payer MEDICARE, OTHER, SELFPAY ==
[2025-05-19 17:09] VITALS: BMI 30.1
[2025-07-02 10:49] LABS: INR 4.5 (0.9-1.3); Prothrombin Time 49.4 SECONDS (9.4-12.5)
== END ==
PROVIDERS: PCP Family Medicine; Visit Provider Family Medicine
DX: Z79.01 Long term (current) use of anticoagulants (principal)
CPT/HCPCS: 85610

== ENCOUNTER 2025-07-05 04:40 | Emergency (ER) | payer MEDICARE, OTHER, SELFPAY ==
[2025-05-19 17:09] VITALS: BMI 30.1
[2025-07-05] VITALS (22 sets, daily range): BP systolic 135–180; BP diastolic 76–91; PULSE 47–88; RESP 12–29; TEMP 36.5; O2SAT 92–99; BMI 27.6
--- NOTE | 2025-07-05 04:42 | ED.GENADULT ---
HPI - General Adult <Johana Woodruff DO - Last Filed: 07/07/25 15:50> General Chief complaint: Back Pain/Injury Stated complaint: Headache, Back pain, SOB Time Seen by Provider: 07/05/25 04:42 Source: patient, RN notes reviewed and old records reviewed Mode of arrival: Ambulatory Limitations: no limitations History of Present Illness HPI narrative: [age] male history of pulmonary embolism currently on warfarin, known thoracic ascending aortic aneurysm 4.3 cm, congestive heart failure, hypertension, gout, dyslipidemia BPH who presents with complaint of a headaches since April when he was diagnosed with a pulmonary embolism. States his headache has not changed is consistent and has been started on gabapentin which was helpful and leaves it at a /10. He states no fevers or chills. He notes some right-sided chest pain that started overnight that was in his right thoracic back earlier this evening. He states the back pain has resolved but still has discomfort in the right lateral chest. No rash or skin changes noted. Patient states he does feel short of breath he does not think that it is worse than his typical and he describes chronic shortness of breath. He notes a chronic cough which is occasionally productive. No hemoptysis. No nausea or vomiting. No diarrhea or constipation. He notes a slight increase his swelling in his lower extremities from his normal chronic edema. Patient denies any syncope or lightheadedness. Patient has full up with his primary care physician on Monday but his new symptoms prompted him to come for evaluation. He notes that his warfarin was held for several days because it was elevated. He is supposed to restart it today. Patient has a former smoker, occasional alcohol, no recreational drugs. Patient denies any other new medication changes. Related Data Home Medications ?Medication ?Instructions ?Recorded ?Confirmed diltiazem HCl 240 mg 240 mg PO Q DAY ##0 11/27/11 05/19/25 capsule,extended release 24 hr (Cartia XT) furosemide 20 mg tablet 20 mg PO QDAY ##0 06/03/17 05/19/25 acyclovir 5 % topical cream 1 applic topical 5XD 09/07/20 05/19/25 (Zovirax) alfuzosin 10 mg tablet,extended 10 mg PO DAILY 09/07/20 05/19/25 release 24 hr chlorthalidone 25 mg tablet 50 mg PO QAM 09/07/20 05/19/25 cholecalciferol (vitamin D3) 25 75 mcg PO DAILY 09/07/20 05/19/25 mcg (1,000 unit) chewable tablet (Vitamin D3) clotrimazole 1 %-betamethasone See Rx Instructions .Route .COMPLEX 09/07/20 05/19/25 0.05 % cream-zinc ox 20 % paste topical evolocumab 140 mg/mL subcutaneous 140 mg SUBCUT Q2W 09/07/20 05/19/25 pen injector (Marti Barcenas) fluocinonide 0.05 % topical 1 applic topical BID-QID PRN Rash 09/07/20 05/19/25 solution ketoconazole 2 % shampoo 1 applic topical 3XW 09/07/20 05/19/25 lactobacillus combination no.8 3 3,000 mmu cells PO BID 09/07/20 05/19/25 billion cell capsule (Adult Probiotic) potassium gluconate 595 mg (99 mg) 595 mg PO DAILY 09/07/20 05/19/25 tablet saw palmetto 160 mg capsule 160 mg PO BID 09/07/20 05/19/25 timolol maleate 0.5 % eye drops 1 drp EYE-BOTH QAM 09/07/20 05/19/25 testosterone cypionate 200 mg/mL 0.3 mg IM QWEEK 06/16/23 05/19/25 intramuscular oil allopurinol 200 mg tablet 400 mg PO DAILY 05/19/25 05/19/25 budesonide-formoterol HFA 160 2 inh inhalation BID 05/19/25 05/19/25 mcg-4.5 mcg/actuation aerosol inhaler (Symbicort) colchicine 0.6 mg tablet 0.6 mg PO BID PRN gout 05/19/25 05/19/25 fluticasone propionate 50 2 spray intranasal BID 05/19/25 05/19/25 mcg/actuation nasal spray,suspension metoprolol succinate 50 mg 50 mg PO DAILY 05/19/25 05/19/25 tablet,extended release 24 hr psyllium husk 0.4 gram capsule 0.4 g PO DAILY 05/19/25 05/19/25 (Metamucil) Previous Rx's ?Medication ?Instructions ?Recorded nitroglycerin 0.4 mg sublingual 0.4 mg sublingual Q5-15M PRN chest 09/09/20 tablet pain #10 tabs tadalafil 20 mg tablet 20 mg PO DAILY PRN sexual activity 01/22/25 #15 tabs apixaban 5 mg tablet (Eliquis) 5 mg PO BID #60 tabs 05/21/25 dexamethasone 4 mg tablet 4 mg PO TID #60 tabs 07/05/25 levetiracetam 500 mg tablet 500 mg PO BID #60 tabs 07/05/25 (Keppra) Allergies Allergy/AdvReac Type Severity Reaction Status Date / Time adhesive tape Allergy Verified 07/05/25 04:44 choline fenofibrate Allergy Muscle Pain Verified 07/05/25 04:44 cyclobenzaprine Allergy Verified 07/05/25 04:44 gatifloxacin Allergy Verified 07/05/25 04:44 losartan Allergy Verified 07/05/25 04:44 niacin Allergy ITCHING Verified 07/05/25 04:44 omega-3 acid ethyl esters Allergy Rash Verified 07/05/25 04:44 risedronate sodium Allergy Rash, body Verified 07/05/25 04:44 (RISEDRONATE SODIUM) pain Pipjeeo-GCO-BkO Reductase Allergy Stomach Verified 07/05/25 04:44 Inhibitor pains, headache ciprofloxacin AdvReac Severe achilles Verified 07/05/25 04:44 tendon tears Penicillins AdvReac Intermediate GI upset, Verified 07/05/25 04:44 diarrhea clonidine AdvReac Mild Dry Mucus Verified 07/05/25 04:44 Membranes oxybutynin AdvReac SOB, Verified 07/05/25 04:44 stomach ache actonal Allergy Unknown shoulder, Uncoded 07/05/25 04:44 chest, knee, back rib pain dha Allergy Rash Uncoded 07/05/25 04:44 Review of Systems <Johana Woodruff DO - Last Filed: 07/07/25 15:50> Review of Systems ROS Unobtainable: All systems reviewed & are unremarkable except as noted in HPI and below Patient History <Johana Woodruff DO - Last Filed: 07/07/25 15:50> Medical History Elevated PSA Asthma History of DVT (deep vein thrombosis) Chronic sinusitis Hypogonadism Incomplete emptying of bladder Nocturia more than twice per night Lower urinary tract symptoms Male circumcision Kidney stones High blood pressure Gout Diverticular disease Arthritis BPH (benign prostatic hyperplasia) Surgical History Hx of colonoscopy Hx of bilateral cataract extraction H/O vasectomy (1976) Hx of toe surgery Hx of nasal sinusotomy (2008) History of arthroscopy of left shoulder (2014) History of eye surgery Hx of elbow surgery (1996) Hx of left knee surgery History of prostate surgery Family History Father Diabetes mellitus Eczema Mother Bacterial UTI Social History marital status: number of children: 3 household members: spouse lives independently: Yes alcohol intake: current substance use type: does not use Type(s) of exercise: other frequency: 5-6 times per week alcohol intake frequency: a few times a week Alcohol type: wine Exam <Johana Woodruff DO - Last Filed: 07/07/25 15:50> Narrative Exam Narrative: GENERAL: Alert and oriented x three, elderly male in mild distress, normal speech HEENT: Head normocephalic, atraumatic, EOMI, pupils reactive, face symmetric, moist mucous membranes, no facial droop NECK: Supple, full range of motion CARDIOVASCULAR: Regular rate and rhythm without murmurs, rubs or gallops. No JVD. Mild edema bilateral lower extremities. Patient does have chronic venous stasis changes bilateral lower extremities. No reproducible tenderness of the chest. No rash or skin changes appreciated/ RESPIRATORY: Breath sounds equal bilaterally, no wheezes rales or rhonchi. Patient has a mild tachypnea. No accessory muscle use. ABDOMEN: Soft, nontender. Normoactive bowel sounds all 4 quadrants. No guarding or rebound, rigidity, no mass : No CVA tenderness EXTREMITIES: Normal range of motion. Neurovascularly intact NEUROLOGICAL: Cranial nerves II through XII grossly intact. Moving all extremities SKIN: Warm, dry, no petechiae, no rashes or lesions otherwise noted. Initial Vital Signs Initial Vital Signs: Vital Signs Temperature 97.7 F 07/05/25 04:44 Pulse Rate 69 07/05/25 04:44 Respiratory Rate 17 07/05/25 04:44 Blood Pressure 180/87 H 07/05/25 04:44 Pulse Oximetry 98 07/05/25 04:44 Oxygen Delivery Method Room Air 07/05/25 04:44 <aJiro Ritchie MD - Last Filed: 07/05/25 13:39> Initial Vital Signs Initial Vital Signs: Vital Signs Temperature 97.7 F 07/05/25 04:44 Pulse Rate 69 07/05/25 04:44 Respiratory Rate 17 07/05/25 04:44 Blood Pressure 180/87 H 07/05/25 04:44 Pulse Oximetry 98 07/05/25 04:44 Oxygen Delivery Method Room Air 07/05/25 04:44 Course <Johana Woodruff DO - Last Filed: 07/07/25 15:50> Orders Ordered: Discontinued Medications Acetaminophen (Acetaminophen 325 Mg Tablet) 975 mg PO NOW ONE Stop: 07/05/25 05:08 Last Admin: 07/05/25 05:15 Dose: 975 mg Documented By: POONAM Acetaminophen (Acetaminophen 325 Mg Tablet) 975 mg PO NOW ONE Stop: 07/05/25 12:41 Last Admin: 07/05/25 12:44 Dose: 650 mg Documented By: EVELYNE Dexamethasone (Dexamethasone 4 Mg Tablet) 4 mg PO NOW ONE Stop: 07/05/25 12:26 Last Admin: 07/05/25 12:34 Dose: 4 mg Documented By: EVELYNE Levetiracetam (Levetiracetam 250 Mg Tablet) 500 mg PO NOW ONE Stop: 07/05/25 12:26 Last Admin: 07/05/25 12:33 Dose: 500 mg Documented By: EVELYNE Vital Signs Vital signs: Vital Signs - 8 hr 07/05/25 06:00 07/05/25 06:00 07/05/25 06:30 Pulse Rate 73 Respiratory Rate 17 Blood Pressure 152/87 H 141/86 H Pulse Oximetry 99 07/05/25 06:30 07/05/25 07:00 07/05/25 07:00 Pulse Rate 72 69 Respiratory Rate 19 12 Blood Pressure 158/77 H Pulse Oximetry 96 94 07/05/25 07:30 07/05/25 07:30 07/05/25 08:00 Pulse Rate 65 Respiratory Rate Blood Pressure 143/79 H 135/76 Pulse Oximetry 95 07/05/25 08:00 07/05/25 08:32 07/05/25 08:33 Pulse Rate 67 75 Respiratory Rate Blood Pressure 155/84 H Pulse Oximetry 95 94 07/05/25 08:33 07/05/25 09:00 07/05/25 09:00 Pulse Rate 75 70 Respiratory Rate Blood Pressure 138/77 Pulse Oximetry 97 96 07/05/25 09:38 07/05/25 10:00 07/05/25 10:34 Pulse Rate 74 66 47 L Respiratory Rate Blood Pressure Pulse Oximetry 97 94 92 07/05/25 11:00 07/05/25 11:30 07/05/25 12:00 Pulse Rate 75 81 76 Respiratory Rate Blood Pressure Pulse Oximetry 96 96 98 <Jairo Ritchie MD - Last Filed: 07/05/25 13:39> Orders Ordered: Discontinued Medications Acetaminophen (Acetaminophen 325 Mg Tablet) 975 mg PO NOW ONE Stop: 07/05/25 05:08 Last Admin: 07/05/25 05:15 Dose: 975 mg Documented By: POONAM Acetaminophen (Acetaminophen 325 Mg Tablet) 975 mg PO NOW ONE Stop: 07/05/25 12:41 Last Admin: 07/05/25 12:44 Dose: 650 mg Documented By: EVELYNE Dexamethasone (Dexamethasone 4 Mg Tablet) 4 mg PO NOW ONE Stop: 07/05/25 12:26 Last Admin: 07/05/25 12:34 Dose: 4 mg Documented By: EVELYNE Levetiracetam (Levetiracetam 250 Mg Tablet) 500 mg PO NOW ONE Stop: 07/05/25 12:26 Last Admin: 07/05/25 12:33 Dose: 500 mg Documented By: EVELYNE Consultations Consultation #1: Discussed with neurosurgery Coty Rodriguez-recommends dexamethasone 4 mg t.i.d. and Keppra 500 p.o. b.i.d.. Does not need to be transferred today. Continue anticoagulation. They will follow up in the office in the coming week. Consultation #2: Discussed with primary care service, Dr. Owens-they will follow up with the patient for workup of unknown primary Vital Signs Vital signs: Vital Signs - 8 hr 07/05/25 06:00 07/05/25 06:00 07/05/25 06:30 Pulse Rate 73 Respiratory Rate 17 Blood Pressure 152/87 H 141/86 H Pulse Oximetry 99 07/05/25 06:30 07/05/25 07:00 07/05/25 07:00 Pulse Rate 72 69 Respiratory Rate 19 12 Blood Pressure 158/77 H Pulse Oximetry 96 94 07/05/25 07:30 07/05/25 07:30 07/05/25 08:00 Pulse Rate 65 Respiratory Rate Blood Pressure 143/79 H 135/76 Pulse Oximetry 95 07/05/25 08:00 07/05/25 08:32 07/05/25 08:33 Pulse Rate 67 75 Respiratory Rate Blood Pressure 155/84 H Pulse Oximetry 95 94 07/05/25 08:33 07/05/25 09:00 07/05/25 09:00 Pulse Rate 75 70 Respiratory Rate Blood Pressure 138/77 Pulse Oximetry 97 96 07/05/25 09:38 07/05/25 10:00 07/05/25 10:34 Pulse Rate 74 66 47 L Respiratory Rate Blood Pressure Pulse Oximetry 97 94 92 07/05/25 11:00 07/05/25 11:30 07/05/25 12:00 Pulse Rate 75 81 76 Respiratory Rate Blood Pressure Pulse Oximetry 96 96 98 Medical Decision Making <Johana Woodruff, DO - Last Filed: 07/07/25 15:50> Lab Data 07/05/25 05:03 07/05/25 05:03 Labs: Lab Results 07/05/25 07/05/25 07/05/25 Range/Units 05:03 05:15 07:04 WBC 9.3 (4.5-11.0) X10^3/uL RBC 5.16 (4.5-5.9) X10^6/uL Hgb 17.4 (13.5-17.5) g/dL Hct 51.0 (41-53) % MCV 98.8 (80-100) fL MCH 33.6 (26-34) PG MCHC 34.0 (30-36) % RDW 14.4 (11.6-14.8) % Plt Count 200 (150-400) X10^3/uL Neut % (Auto) 68.7 (50-75) % Lymph % (Auto) 17.3 L (25-40) % Ocean % (Auto) 10.5 (3-14) % Eos % (Auto) 1.9 L (2-4) % Baso % (Auto) 1.6 (0-2) % Neut # (Auto) 6400 (0379-5762) /uL Lymph # (Auto) 1600 (2064-5723) /uL Ocean # (Auto) 1000 H (0-900) /uL Eos # (Auto) 200 (0-450) /uL Baso # (Auto) 100 (0-100) /uL PT 36.3 H D (9.4-12.5) SECONDS INR 3.3 H (0.9-1.3) Sodium 141 (137-145) mmol/L Potassium 3.5 (3.4-5.1) mmol/L Chloride 101 (98-107) mmol/L Carbon Dioxide 29 (22-32) mmol/L BUN 17 (9-20) mg/dL Creatinine 1.00 (0.66-1.25) mg/dL Estimated GFR > 60 (>60) mL/min BUN/Creatinine Ratio 17.0 (6-22) Glucose 116 H (70-99) mg/dL Calcium 9.5 (8.4-10.2) mg/dL Magnesium 1.7 (1.6-2.3) mg/dL Total Bilirubin 0.7 (0.2-1.3) mg/dL AST 39 (17-59) IU/L ALT 47 (<50) IU/L Alkaline Phosphatase 69 (38-126) U/L Troponin I 0.017 0.015 (0.01-0.034) ng/mL NT-Pro-B Natriuret Pep 149 (<450) pg/mL Total Protein 7.9 (6.3-8.2) g/dL Albumin 4.6 (3.5-5.0) g/dL Globulin 3.3 (1.7-4.1) g/dL Albumin/Globulin Ratio 1.4 (1.0-2.8) Lipase 337 H (23-300) U/L SARS-CoV-2 (PCR) Negative (Negative) Influenza A (RT-PCR) Flu a negative (NEGATIVE) Influenza B (RT-PCR) Flu b negative (NEGATIVE) RSV (PCR) Negative (Negative) MDM Narrative Medical decision making narrative: Labs, CBC shows normal white count, hemoglobin and platelets, chemistries are appropriate BUN and creatinine are normal range glucose is 116 troponin is 0.017 with a BNP of 149 lipase is 337. INR 3.3 EKG, sinus rhythm with sinus arrhythmia rate 85 [place] 142 QRS of [address] depression 2 3 AVF Q-wave present. No acute ST-elevation appreciated. Patient has prior from 05/19/2025 which showed sinus bradycardia with sinus arrhythmia. Covid/Influenza/RSV is negative. CT head, night read shows new 3 cm medial left temporal lobe mass and new area left parietal lobe vasogenic edema findings suspicious for metastatic disease. Consider further characterization by contrast-enhanced brain MR. CT angio chest abdomen and pelvis, Chest x-ray, 79-year-old male presents with complaint of right-sided chest and thoracic back discomfort that is started overnight, chronic headache and chronic shortness of breath patient was recently diagnosed with a pulmonary embolism on 05/19/2025 he was supratherapeutic on his INR and has been holding his warfarin over the last several days he has a has a known aneurysm of thoracic aorta at 4.3 cm. Patient signed out to Dr. Ritchie while rest of CT imaging. 79-year-old male presenting with chest pain headache back pain. Recently diagnosed with pulmonary embolism and appropriately anticoagulated. Workup today shows normal troponins does not have ischemic EKG changes CT of chest abdomen and pelvis is negative for pulmonary embolism or primary tumor. Noncontrast CT head today showed brain lesions that were not present in April when his head was last imaged. This was followed with MRI that shows 2 lesions that are presumably metastatic. Patient is neurologically intact, vital signs are reassuring. Case was discussed with Neurosurgery and their recommendations were incorporated, primary care services aware of today's events and he has an appointment on Monday 2 days from now. Patient discharged to home. <Jairo Ritchie MD - Last Filed: 07/05/25 13:39> Lab Data Labs: Lab Results 07/05/25 07/05/25 07/05/25 Range/Units 05:03 05:15 07:04 WBC 9.3 (4.5-11.0) X10^3/uL RBC 5.16 (4.5-5.9) X10^6/uL Hgb 17.4 (13.5-17.5) g/dL Hct 51.0 (41-53) % MCV 98.8 (80-100) fL MCH 33.6 (26-34) PG MCHC 34.0 (30-36) % RDW 14.4 (11.6-14.8) % Plt Count 200 (150-400) X10^3/uL Neut % (Auto) 68.7 (50-75) % Lymph % (Auto) 17.3 L (25-40) % Ocean % (Auto) 10.5 (3-14) % Eos % (Auto) 1.9 L (2-4) % Baso % (Auto) 1.6 (0-2) % Neut # (Auto) 6400 (2868-1543) /uL Lymph # (Auto) 1600 (7980-1467) /uL Ocean # (Auto) 1000 H (0-900) /uL Eos # (Auto) 200 (0-450) /uL Baso # (Auto) 100 (0-100) /uL PT 36.3 H D (9.4-12.5) SECONDS INR 3.3 H (0.9-1.3) Sodium 141 (137-145) mmol/L Potassium 3.5 (3.4-5.1) mmol/L Chloride 101 (98-107) mmol/L Carbon Dioxide 29 (22-32) mmol/L BUN 17 (9-20) mg/dL Creatinine 1.00 (0.66-1.25) mg/dL Estimated GFR > 60 (>60) mL/min BUN/Creatinine Ratio 17.0 (6-22) Glucose 116 H (70-99) mg/dL Calcium 9.5 (8.4-10.2) mg/dL Magnesium 1.7 (1.6-2.3) mg/dL Total Bilirubin 0.7 (0.2-1.3) mg/dL AST 39 (17-59) IU/L ALT 47 (<50) IU/L Alkaline Phosphatase 69 (38-126) U/L Troponin I 0.017 0.015 (0.01-0.034) ng/mL NT-Pro-B Natriuret Pep 149 (<450) pg/mL Total Protein 7.9 (6.3-8.2) g/dL Albumin 4.6 (3.5-5.0) g/dL Globulin 3.3 (1.7-4.1) g/dL Albumin/Globulin Ratio 1.4 (1.0-2.8) Lipase 337 H (23-300) U/L SARS-CoV-2 (PCR) Negative (Negative) Influenza A (RT-PCR) Flu a negative (NEGATIVE) Influenza B (RT-PCR) Flu b negative (NEGATIVE) RSV (PCR) Negative (Negative) Imaging Data MRI brain: Radiologist's Impression: [address] [address] Magnetic Resonance Report Signed Patient: Rolo Naranjo MR#: [id number] : 1945 Acct:[id number] Age/Sex: 79 / M Date of Service: 07/05/25 Loc: ED Accession Number: [id number] Procedure: MR head/brain wo/w con Ordering Provider: Jairo Ritchie MD PROCEDURE:MR HEAD/BRAIN WO/W CON COMPARISON:[facility], CT, CT HEAD/BRAIN WO CON, 05/20/2025, 9:39. [facility], CT, CT HEAD/BRAIN WO CON, 07/05/2025, 5:39. INDICATIONS:new mass Technique: MRI examination of the brain with sequences obtained before and after administration of IV contrast. FINDINGS: No acute diffusion restricting ischemic lesion. No midline shift or herniation. No extra-axial fluid collection. Enhancing mass of the left hippocampus and medial temporal lobe measuring approximately 4.3 x 2.2 x 2.3 cm. Enhancing mass in the subcortical white matter of the left parietal lobe with surrounding vasogenic edema measuring 1.7 x 1.3 x 1.2 cm. Ventricular size normal. Mild diffuse cerebral volume loss. No filling defects in the intracranial cerebral arteries or sinuses. Orbits and soft tissues are unremarkable. Trace left mastoid effusion. IMPRESSION: Intracranial metastases. Dictated by: Jose Hernandez M.D. on 07/05/2025 at 9:54 Approved by: Jose Hernandez M.D. on 07/05/2025 at 10:02 MDM Narrative Medical decision making narrative: Labs, CBC shows normal white count, hemoglobin and platelets, chemistries are appropriate BUN and creatinine are normal range glucose is 116 troponin is 0.017 with a BNP of 149 lipase is 337. INR 3.3 EKG, sinus rhythm with sinus arrhythmia rate 85 [place] 142 QRS of [address] depression 2 3 AVF Q-wave present. No acute ST-elevation appreciated. Patient has prior from 05/19/2025 which showed sinus bradycardia with sinus arrhythmia. Covid/Influenza/RSV is negative. CT head, night read shows new 3 cm medial left temporal lobe mass and new area left parietal lobe vasogenic edema findings suspicious for metastatic disease. Consider further characterization by contrast-enhanced brain MR. CT angio chest abdomen and pelvis, Chest x-ray, 79-year-old male presents with complaint of right-sided chest and thoracic back discomfort that is started overnight, chronic headache and chronic shortness of breath patient was recently diagnosed with a pulmonary embolism on 05/19/2025 he was supratherapeutic on his INR and has been holding his warfarin over the last several days he has a has a known aneurysm of thoracic aorta at 4.3 cm. \ 79-year-old male presenting with chest pain headache back pain. Recently diagnosed with pulmonary embolism and appropriately anticoagulated. Workup today shows normal troponins does not have ischemic EKG changes CT of chest abdomen and pelvis is negative for pulmonary embolism or primary tumor. Noncontrast CT head today showed brain lesions that were not present in April when his head was last imaged. This was followed with MRI that shows 2 lesions that are presumably metastatic. Patient is neurologically intact, vital signs are reassuring. Case was discussed with Neurosurgery and their recommendations were incorporated, primary care services aware of today's events and he has an appointment on Monday 2 days from now. Patient discharged to home. Discharge Plan Departure Patient Disposition: Home Clinical Impression: Brain mass Headache Qualifiers: Headache type: other headache syndrome Qualified Code(s): G44.89 - Other headache syndrome Chest pain Qualifiers: Chest pain type: unspecified Qualified Code(s): R07.9 - Chest pain, unspecified Activity Restrictions/Additional Instructions: Emergency department workup today is unfortunately notable for a new diagnosis of 2 masses in your brain. As we discussed, it is most likely that this is metastatic cancer of some kind and as of yet we do not know where the original tumor is. We have started to medications, Keppra prevent seizures and dexamethasone to decreased brain swelling, hopefully the dexamethasone will help your headaches. At this point, do not take your warfarin until you see Dr. Boss on Monday and they recheck your INR. Follow up with Neurosurgery at [facility]. Dr. Rodriguez, . They will see you in the coming week, call them Monday afternoon if you do not hear from them Monday morning Continue your other previous home medications. If you are having severe headache vomiting fevers increasing shortness of breath or other acute symptoms recheck in the emergency department Prescriptions: New dexamethasone 4 mg tablet 4 mg PO TID Qty: 60 0RF levetiracetam [Keppra] 500 mg tablet 500 mg PO BID Qty: 60 0RF No Action diltiazem HCl [Cartia XT] 240 MG capsule,extended release 24hr 240 mg PO Q DAY Qty: 0 furosemide 20 MG tablet 20 mg PO QDAY Qty: 0 chlorthalidone 25 mg tablet 50 mg PO QAM alfuzosin 10 mg tablet extended release 24 hr 10 mg PO DAILY ketoconazole 2 % Shampoo 1 applic TOPICAL 3XW saw palmetto 160 mg Capsule 160 mg PO BID fluocinonide 0.05 % Solution 1 applic TOPICAL BID-QID PRN (Reason: Rash) timolol maleate 0.5 % drops 1 drp EYE-BOTH QAM acyclovir [Zovirax] 5 % Cream 1 applic TOPICAL 5XD potassium gluconate 595 mg (99 mg) Tablet 595 mg PO DAILY cholecalciferol (vitamin D3) [Vitamin D3] 25 mcg (1,000 unit) Tablet,Chewable 75 mcg PO DAILY Adult Probiotic 3 billion cell Capsule 3,000 mmu cells PO BID Repatha SureClick 140 mg/mL Pen Injector 140 mg SUBCUT Q2W clotrimazole-betameth dip-zinc 1-0.05-20 % Combo Pack See Rx Instructions .ROUTE .COMPLEX Rx Instructions: 1 pkg topically nitroglycerin 0.4 mg tablet, sublingual 0.4 mg sublingual Q5-15M MDD 3 pills PRN (Reason: chest pain) Qty: 10 3RF Rx Instructions: do not exceed 3 doses per episode testosterone cypionate 200 mg/mL oil 0.3 mg IM QWEEK allopurinol 200 mg tablet 400 mg PO DAILY colchicine 0.6 mg tablet 0.6 mg PO BID PRN (Reason: gout) metoprolol succinate 50 mg tablet extended release 24 hr 50 mg PO DAILY budesonide-formoterol [Symbicort] 160-4.5 mcg/actuation HFA aerosol inhaler 2 inh inhalation BID fluticasone propionate 50 mcg/actuation spray,suspension 2 spray intranasal BID psyllium husk [Metamucil] 0.4 gram capsule 0.4 g PO DAILY Eliquis 5 mg Tablet 5 mg PO BID Qty: 60 3RF tadalafil 20 mg tablet 20 mg PO DAILY PRN (Reason: sexual activity) Qty: 15 2RF Rx Instructions: administer approximately 30min before sexual activity; do not use more than 1 dose per 24hrs Referrals: Jose David Boss MD [Primary Care Provider, Family Practice] Stand Alone Forms: Patient Portal/API
--- NOTE | 2025-07-05 04:51 | DI.RAD.S_ITS ---
PROCEDURE: XR CHEST 1V INDICATIONS: R side CP, SOB TECHNIQUE: One view of the chest was acquired. COMPARISON: [facility], CR, XR CHEST 1V, 05/18/2025, 11:27. FINDINGS: Surgical changes and devices: None. Lungs and pleura: Lungs are clear. No pleural effusions or pneumothorax. Mediastinum: Mediastinal contours appear normal. Heart size is normal. Bones and chest wall: No suspicious bony lesions. Overlying soft tissues appear unremarkable. IMPRESSION: No acute cardiopulmonary abnormality is seen. Dictated by: Sergey Cooley M.D. on 07/05/2025 at 9:17 Approved by: Sergey Cooley M.D. on 07/05/2025 at 9:18
--- NOTE | 2025-07-05 04:51 | DI.CT.S_ITS ---
PROCEDURE: CT HEAD/BRAIN WO CON INDICATIONS: MONROY since april TECHNIQUE: Noncontrast 4.5 mm thick angled axial sections acquired from the foramen magnum to the vertex, with coronal and sagittal reformats. For radiation dose reduction, the following was used: automated exposure control, adjustment of mA and/or kV according to patient size. COMPARISON: [facility], MR, MR HEAD/BRAIN WO/W CON, 07/05/2025, 9:08. [facility], CT, CT HEAD/BRAIN WO CON, 05/20/2025, 9:39. FINDINGS: Image quality: Diagnostic. CSF spaces: Basal cisterns are patent. No extra-axial fluid collections. Ventricles are normal in size and shape. Brain: New heterogeneous hypodensity within the left temporal lobe measuring 2.8 cm 2.8 cm with slight mass effect upon the basal cistern. New hypodensity within the left parietal white matter measuring 3 cm on the sagittal view Skull and face: Calvarium and visualized facial bones are intact, without suspicious lesions. Sinuses: Visualized sinuses and mastoids are clear. IMPRESSION: 1. Left heterogeneous temporal lobe mass measuring up to 2.9 cm with surrounding vasogenic edema. 2. Left parietal area of vasogenic edema measuring 3.1 cm. These findings are suggestive of metastatic disease. Recommend follow-up with MRI with contrast. Final interpretation is concordant with overnight read. Dictated by: Sergey Cooley M.D. on 07/05/2025 at 9:18 Approved by: Sergey Cooley M.D. on 07/05/2025 at 9:26
--- NOTE | 2025-07-05 04:51 | EKG_ITS ---
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
--- NOTE | 2025-07-05 04:54 | DI.CT.S_ITS ---
PROCEDURE: CT ANGIO CHEST ABDOMEN PELVIS INDICATIONS: MONROY, R chest/back pain, hx PE and thoracic aneurysm TECHNIQUE: Precontrast 5 mm thick sections acquired from the lung apices to the iliac crests. After the administration of intravenous contrast, 2.5 mm thick sections again acquired from the lung apices to the iliac crests. Maximum intensity projection (MIP) oblique sagittal and coronal reformats were then acquired. For radiation dose reduction, the following was used: automated exposure control. COMPARISON: None. FINDINGS: Image quality: Diagnostic. AORTA: No aortic aneurysm. No acute aortic syndrome. CHEST: Lower Neck: No enlarged lymph nodes. Thyroid: No thyroid nodules which require sonographic evaluation. Axillae: No enlarged lymph nodes. Chest Wall: Unremarkable. Lungs and Pleura: No pneumothorax or pleural effusions. No consolidation or suspicious nodules. Heart: Heart size is normal. No pericardial effusion. Thoracic Vessels: Ascending aorta measures 4 cm in diameter.. Mediastinum and Peri: No enlarged lymph nodes. Esophagus: No wall thickening. No hiatal hernia. ABDOMEN: Liver: No solid mass. Gallbladder: No radiopaque gallstones or wall thickening. Biliary ducts: No biliary dilation. Pancreas: No ductal dilation. Spleen: Size is within normal limits. Adrenal Glands: No adrenal nodules. Kidneys and Ureters: No hydronephrosis. No solid mass. No complex renal cystic lesion which requires follow up. Stomach and Bowel: Normal colonic caliber, without significant wall thickening. Numerous colonic diverticula without evidence of acute diverticulitis. Peritoneum: No abnormal intraperitoneal fluid. No free air. Ventral Wall: Left fat containing inguinal hernia Abdominal Nodes: No retroperitoneal or mesenteric adenopathy by size criteria. Vessels: Inferior vena cava is normal in size. PELVIS: Pelvic Organs: Unremarkable. Bladder: Unremarkable. Pelvic Nodes: No enlarged lymph nodes. Miscellaneous: No inguinal hernias are seen. Bones: Unremarkable. 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 No acute findings within the chest, abdomen, or pelvis. Dictated by: Sergey Cooley M.D. on 07/05/2025 at 9:11 Approved by: Sergey Cooley M.D. on 07/05/2025 at 9:17
[2025-07-05] MEDS: ACETAMINOPHEN 325 MG TABLET 975 MG PO ×2 (05:15→12:44)
[2025-07-05 05:16] LABS: Add Manual Diff / Slide Review NO; Hematocrit 51.0 % (41-53); Hemoglobin 17.4 g/dL (13.5-17.5); Lymphocytes Absolute Auto 1600 /uL (1100-4500); Mean Corpuscular HGB Conc 34.0 % (30-36); Mean Corpuscular Hemoglobin 33.6 PG (26-34); Mean Corpuscular Volume 98.8 fL (80-100); Platelet Count 200 X10^3/uL (150-400)
[2025-07-05 05:31] LABS: Alanine Aminotransferase 47 IU/L (<50); Albumin 4.6 g/dL (3.5-5.0); Albumin Globulin Ratio 1.4 (1.0-2.8); Alkaline Phosphatase 69 U/L (38-126); Blood Urea Nitrogen 17 mg/dL (9-20); Calcium 9.5 mg/dL (8.4-10.2); Carbon Dioxide 29 mmol/L (22-32); Chloride 101 mmol/L (98-107); Estimated Glomerular Filt Rate > 60 mL/min (>60); Globulin 3.3 g/dL (1.7-4.1); Glucose 116 mg/dL (70-99); HEMOLYSIS 33 (0-50); Lipase 337 U/L (23-300); Magnesium 1.7 mg/dL (1.6-2.3); Potassium 3.5 mmol/L (3.4-5.1); Sodium 141 mmol/L (137-145); Total Protein 7.9 g/dL (6.3-8.2)
[2025-07-05 05:43] LABS: NT-proBNP (BNP-Adult 18+) 149 pg/mL (<450); Troponin I 0.017 ng/mL (0.01-0.034)
[2025-07-05 06:07] LABS: Influenza A - CEPHEID Flu A NEGATIVE (NEGATIVE); Influenza B - CEPHEID Flu B NEGATIVE (NEGATIVE)
[2025-07-05 06:11] LABS: COVID-19 CEPHEID 4-PLEX PCR Negative (Negative)
[2025-07-05 06:33] LABS: INR 3.3 (0.9-1.3); Prothrombin Time 36.3 SECONDS (9.4-12.5)
--- NOTE | 2025-07-05 07:16 | DI.MRI.S_ITS ---
PROCEDURE: MR HEAD/BRAIN WO/W CON COMPARISON: [facility], CT, CT HEAD/BRAIN WO CON, 05/20/2025, 9:39. [facility], CT, CT HEAD/BRAIN WO CON, 07/05/2025, 5:39. INDICATIONS: new mass Technique: MRI examination of the brain with sequences obtained before and after administration of IV contrast. FINDINGS: No acute diffusion restricting ischemic lesion. No midline shift or herniation. No extra-axial fluid collection. Enhancing mass of the left hippocampus and medial temporal lobe measuring approximately 4.3 x 2.2 x 2.3 cm. Enhancing mass in the subcortical white matter of the left parietal lobe with surrounding vasogenic edema measuring 1.7 x 1.3 x 1.2 cm. Ventricular size normal. Mild diffuse cerebral volume loss. No filling defects in the intracranial cerebral arteries or sinuses. Orbits and soft tissues are unremarkable. Trace left mastoid effusion. IMPRESSION: Intracranial metastases. Dictated by: Jose Hernandez M.D. on 07/05/2025 at 9:54 Approved by: Jose Hernandez M.D. on 07/05/2025 at 10:02
[2025-07-05 07:38] LABS: Troponin I 0.015 ng/mL (0.01-0.034)
== END 2025-07-05 13:58 | disposition home or self-care (01) ==
PROVIDERS: Emergency Medicine; Emergency Provider Emergency Medicine; PCP Family Medicine
DX: G93.89 Other specified disorders of brain (principal); G44.89 Other headache syndrome; Z86.711 Personal history of pulmonary embolism; Z79.01 Long term (current) use of anticoagulants; I50.9 Heart failure, unspecified; I10 Essential (primary) hypertension; R07.9 Chest pain, unspecified; R00.1 Bradycardia, unspecified; M54.6 Pain in thoracic spine
CPT/HCPCS: 36415; 70450; 70553; 71045; 71275; 74174; 80053; 83690; 83735; 83880; 84484; 85025; 85610; 87637; 93005; 99284; A9579; Q9967

== ENCOUNTER → 2025-07-07 11:50 | Outpatient (ROUT) | payer MEDICARE, OTHER, SELFPAY ==
[2025-05-19 17:09] VITALS: BMI 30.1
[2025-07-07 14:28] LABS: INR 1.9 (0.9-1.3); Prothrombin Time 21.3 SECONDS (9.4-12.5)
== END ==
PROVIDERS: PCP Family Medicine; Visit Provider Family Medicine
DX: I26.94 Multiple subsegmental thrombotic pulmonary emboli without acute cor pulmonale (principal); Z79.01 Long term (current) use of anticoagulants
CPT/HCPCS: 85610

== ENCOUNTER → 2025-07-14 07:31 | Outpatient (CLI) | payer MEDICARE, OTHER, SELFPAY ==
[2025-05-19 17:09] VITALS: BMI 30.1
[2025-07-14 08:35] LABS: Prostate Specific Antigen 4.39 ng/mL (0.10-4.00)
[2025-07-14 08:58] LABS: Prothrombin Time 60.5 SECONDS (9.4-12.5)
[2025-07-14 10:18] LABS: INR 5.6 (0.9-1.3)
== END ==
PROVIDERS: PCP Family Medicine; Referring Provider Family Medicine; Visit Provider Urology
DX: N40.1 Benign prostatic hyperplasia with lower urinary tract symptoms (principal); Z79.01 Long term (current) use of anticoagulants
CPT/HCPCS: 36415; 84153; 85610

== ENCOUNTER 2025-07-21 11:19 | Inpatient (IN) | payer MEDICARE, OTHER, SELFPAY ==
[2025-05-19 17:09] VITALS: BMI 30.1
[2025-07-21] VITALS (56 sets, daily range): BP systolic 100–148; BP diastolic 59–97; PULSE 52–70; RESP 11–24; TEMP 36.4–36.8; O2SAT 96–100; BMI 27.3
--- NOTE | 2025-07-21 11:29 | EKG_ITS ---
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
[2025-07-21 11:34] LABS: Add Manual Diff / Slide Review NO; Hematocrit 51.8 % (41-53); Hemoglobin 17.3 g/dL (13.5-17.5); Lymphocytes Absolute Auto 500 /uL (1100-4500); Mean Corpuscular HGB Conc 33.4 % (30-36); Mean Corpuscular Hemoglobin 33.0 PG (26-34); Mean Corpuscular Volume 98.7 fL (80-100); Platelet Count 91 X10^3/uL (150-400)
[2025-07-21 11:43] LABS: INR 4.2 (0.9-1.3); Prothrombin Time 46.2 SECONDS (9.4-12.5)
[2025-07-21 11:46] LABS: PTT Partial Thromboplastin Tim 32 SECONDS (25.1-36.5)
[2025-07-21 11:48] LABS: Alanine Aminotransferase 99 IU/L (<50); Albumin 3.4 g/dL (3.5-5.0); Albumin Globulin Ratio 1.4 (1.0-2.8); Alkaline Phosphatase 48 U/L (38-126); Blood Urea Nitrogen 36 mg/dL (9-20); Calcium 8.3 mg/dL (8.4-10.2); Carbon Dioxide 28 mmol/L (22-32); Chloride 98 mmol/L (98-107); Estimated Glomerular Filt Rate > 60 mL/min (>60); Globulin 2.5 g/dL (1.7-4.1); Glucose 138 mg/dL (70-99); HEMOLYSIS 34 (0-50); Potassium 3.5 mmol/L (3.4-5.1); Sodium 132 mmol/L (137-145); Total Protein 5.9 g/dL (6.3-8.2)
[2025-07-21 13:51] LABS: Clostridium difficile toxin AB Detected (Not Detect); Enteroaggregative E.coli Not Detected (Not Detect); Enteropathogenic E.coli Not Detected (Not Detect); Enterotoxigenic E.coli It/st Not Detected (Not Detect); Plesiomonsa shigelloides Not Detected (Not Detect); Shiga-like toxin-prod E.coli Not Detected (Not Detect)
--- NOTE | 2025-07-21 14:05 | DI.CT.S_ITS ---
PROCEDURE: CT ANGIO ABD/PEL GI BLEED INDICATIONS: Rectal bleeding TECHNIQUE: After the administration of intravenous contrast, 2.5 mm sections acquired from the diaphragm to the iliac crests. 10 mm maximum intensity projection (MIP) coronal and sagittal reformats were then performed. For radiation dose reduction, the following was used: automated exposure control. COMPARISON: [facility], CT, CT ABDOMEN PELVIS W CON, 10/11/2024, 8:28. [facility], CT, CT ANGIO CHEST ABDOMEN PELVIS, 07/05/2025, 5:44. FINDINGS: Image quality: Diagnostic. Abdominal aorta: No aortic aneurysm or evidence of acute aortic syndrome. Mesenteric arteries: Patent without hemodynamically significant stenosis. Renal arteries: Patent without hemodynamically significant stenosis. Lower chest: Unremarkable. ABDOMEN: Liver: No solid mass. Gallbladder: No radiopaque gallstones or wall thickening. Biliary ducts: No biliary dilation. Pancreas: No ductal dilation. Spleen: Size is within normal limits. Adrenal Glands: No adrenal nodules. Kidneys and Ureters: No hydronephrosis. No solid mass. No complex renal cystic lesion which requires follow up. Stomach and Bowel: Normal colonic caliber, without significant wall thickening. Severe sigmoid diverticulosis with acute diverticular hemorrhage in the sigmoid. This is well seen on coronal images 47 and 48 of the coronal post contrast arterial sequence, series 12. Peritoneum: No abnormal intraperitoneal fluid. No free air. Ventral Wall: No hernia. Abdominal Nodes: No retroperitoneal or mesenteric adenopathy by size criteria. Vessels: Aorta, as above. Normal IVC. PELVIS: Pelvic Organs: Prostatomegaly.. Bladder: Unremarkable. Pelvic Nodes: No enlarged lymph nodes. Miscellaneous: Fat containing left inguinal hernia. Tiny fat containing umbilical hernia. Bones: No aggressive osseous abnormality. IMPRESSION: Severe sigmoid diverticulosis with acute sigmoid diverticular hemorrhage. Comment: Findings were discussed with Dr. Matthews at the time of study dictation on 07/21/2025 at 1454 hours. Dictated by: He Gurrola M.D. on 07/21/2025 at 14:48 Approved by: He Gurrola M.D. on 07/21/2025 at 14:57
--- NOTE | 2025-07-21 14:44 | ED.GIBLEED ---
HPI - GI Bleed General Chief complaint: GI Bleed Stated complaint: Blood in stool, bright red Time Seen by Provider: 07/21/25 11:33 Source: patient Mode of arrival: EMS History of Present Illness HPI Narrative: Patient here with . He has had 4 episodes of bright red blood per rectum since last night. Had 3 of them here today I did not see blood in the toilet. Bright red blood. Dizzy but no syncope. No abdominal pain no chest pain. No shortness of breath. 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 Did follow up with hematology services. Patient also had CT head which showed brain masses and has follow up in 2 days for this. Patient denies abdominal pain. No chest pain. No shortness a breath. Related Data Home Medications ?Medication ?Instructions ?Recorded ?Confirmed diltiazem HCl 240 mg 240 mg PO Q DAY ##0 11/27/11 07/21/25 capsule,extended release 24 hr (Cartia XT) furosemide 20 mg tablet 20 mg PO QDAY ##0 06/03/17 07/21/25 acyclovir 5 % topical cream 1 applic topical 5XD 09/07/20 05/19/25 (Zovirax) alfuzosin 10 mg tablet,extended 10 mg PO DAILY 09/07/20 07/21/25 release 24 hr chlorthalidone 25 mg tablet 50 mg PO QAM 09/07/20 07/21/25 cholecalciferol (vitamin D3) 25 75 mcg PO DAILY 09/07/20 07/21/25 mcg (1,000 unit) chewable tablet (Vitamin D3) clotrimazole 1 %-betamethasone See Rx Instructions .Route 09/07/20 07/21/25 0.05 % cream-zinc ox 20 % paste .COMPLEX PRN rash topical evolocumab 140 mg/mL subcutaneous 140 mg SUBCUT Q2W 09/07/20 07/21/25 pen injector (Marti Barcenas) fluocinonide 0.05 % topical 1 applic topical BID-QID PRN Rash 09/07/20 07/21/25 solution ketoconazole 2 % shampoo 1 applic topical 3XW 09/07/20 07/21/25 potassium gluconate 595 mg (99 mg) 595 mg PO DAILY 09/07/20 07/21/25 tablet saw palmetto 160 mg capsule 160 mg PO BID 09/07/20 07/21/25 timolol maleate 0.5 % eye drops 1 drp EYE-BOTH QAM 09/07/20 07/21/25 testosterone cypionate 200 mg/mL 0.3 mg IM QWEEK 06/16/23 07/21/25 intramuscular oil allopurinol 200 mg tablet 400 mg PO DAILY 05/19/25 07/21/25 budesonide-formoterol HFA 160 2 inh inhalation BID 05/19/25 07/21/25 mcg-4.5 mcg/actuation aerosol inhaler (Symbicort) colchicine 0.6 mg tablet 0.6 mg PO BID PRN gout 05/19/25 07/21/25 fluticasone propionate 50 2 spray intranasal BID 05/19/25 07/21/25 mcg/actuation nasal spray,suspension metoprolol succinate 50 mg 50 mg PO DAILY 05/19/25 07/21/25 tablet,extended release 24 hr psyllium husk 0.4 gram capsule 0.4 g PO DAILY 05/19/25 07/21/25 (Metamucil) Lactobacillus acidophilus 2 tab PO DAILY 07/21/25 07/21/25 (Acidophilus chewable tablet) acyclovir 5 % topical cream 1 applic topical 5XD PRN cold sores 07/21/25 07/21/25 (Zovirax) gabapentin 100 mg capsule 100 mg PO 3XD 07/21/25 07/21/25 indomethacin 25 mg capsule 75 mg PO DAILY PRN acute attack 07/21/25 07/21/25 metoprolol succinate 25 mg 12.5 mg PO DAILY 07/21/25 07/21/25 tablet,extended release 24 hr warfarin 5 mg tablet 10 mg PO DAILY 07/21/25 07/21/25 Previous Rx's ?Medication ?Instructions ?Recorded nitroglycerin 0.4 mg sublingual 0.4 mg sublingual Q5-15M PRN chest 09/09/20 tablet pain #10 tabs tadalafil 20 mg tablet 20 mg PO DAILY PRN sexual activity 01/22/25 #15 tabs apixaban 5 mg tablet (Eliquis) 5 mg PO BID #60 tabs 05/21/25 dexamethasone 4 mg tablet 4 mg PO TID #60 tabs 07/05/25 levetiracetam 500 mg tablet 500 mg PO BID #60 tabs 07/05/25 (Keppra) Allergies Allergy/AdvReac Type Severity Reaction Status Date / Time adhesive tape Allergy Verified 07/21/25 11:26 choline fenofibrate Allergy Muscle Pain Verified 07/21/25 11:26 cyclobenzaprine Allergy Verified 07/21/25 11:26 gatifloxacin Allergy Verified 07/21/25 11:26 losartan Allergy Verified 07/21/25 11:26 niacin Allergy ITCHING Verified 07/21/25 11:26 omega-3 acid ethyl esters Allergy Rash Verified 07/21/25 11:26 risedronate sodium Allergy Rash, body Verified 07/21/25 11:26 (RISEDRONATE SODIUM) pain [id number] Reductase Allergy Stomach Verified 07/21/25 11:26 Inhibitor pains, headache ciprofloxacin AdvReac Severe achilles Verified 07/21/25 11:26 tendon tears Penicillins AdvReac Intermediate GI upset, Verified 07/21/25 11:26 diarrhea clonidine AdvReac Mild Dry Mucus Verified 07/21/25 11:26 Membranes oxybutynin AdvReac SOB, Verified 07/21/25 11:26 stomach ache actonal Allergy Unknown shoulder, Uncoded 07/21/25 11:26 chest, knee, back rib pain dha Allergy Rash Uncoded 07/21/25 11:26 Review of Systems Review of Systems Narrative: GENERAL: Negative chills, fatigue, malaise, fever, sweats. HEENT: Negative sinus pain, ear pain, sore throat RESPIRATORY: Negative dyspnea, cough CARDIOVASCULAR: Negative chest pain, palpitations GASTROINTESTINAL: Negative vomiting, nausea, abdominal pain, positive rectal bleeding : Negative dysuria, frequency, hematuria MUSCULOSKELETAL: Negative muscle or bony pain SKIN: Negative rash, skin lesions NEUROLOGIC: Negative weakness, numbness, positive dizzy ROS Unobtainable: All systems reviewed & are unremarkable except as noted in HPI and below Patient History Medical History Elevated PSA Asthma History of DVT (deep vein thrombosis) Chronic sinusitis Hypogonadism Incomplete emptying of bladder Nocturia more than twice per night Lower urinary tract symptoms Male circumcision Kidney stones High blood pressure Gout Diverticular disease Arthritis BPH (benign prostatic hyperplasia) Surgical History Hx of colonoscopy Hx of bilateral cataract extraction H/O vasectomy (1976) Hx of toe surgery Hx of nasal sinusotomy (2008) History of arthroscopy of left shoulder (2014) History of eye surgery Hx of elbow surgery (1996) Hx of left knee surgery History of prostate surgery Family History Father Diabetes mellitus Eczema Mother Bacterial UTI Social History marital status: number of children: 3 household members: spouse lives independently: Yes Smoking Status: Former smoker alcohol intake: current substance use type: does not use Type(s) of exercise: other frequency: 5-6 times per week Smoking Status: Unknown if ever smoked alcohol intake frequency: a few times a week Alcohol type: wine Exam Narrative Exam Narrative: GENERAL: in no distress, not toxic not dyspneic HEAD: Normocephalic. EYES: Pupils equal round, pink conjunctiva ENT: Mucous membranes moist. NECK: Trachea midline. CARDIOVASCULAR: Regular rate and rhythm RESPIRATORY: Clear to auscultation. Breath sounds equal bilaterally. No wheezes, rales, or rhonchi. GASTROINTESTINAL: Abdomen soft, nontender no peritoneal signs no guarding or rebound. Bowel sounds are present. BACK: No flank tenderness. EXTREMITIES: No gross deformities. Brisk cap refills on the fingers. Fingers are pink NEURO: AOx4. Clear speech SKIN: Warm and dry PSYCH: Not anxious, is cooperative Initial Vital Signs Initial Vital Signs: Vital Signs Temperature 97.8 F 07/21/25 11:20 Pulse Rate 56 L 07/21/25 11:20 Respiratory Rate 14 07/21/25 11:20 Blood Pressure 143/78 H 07/21/25 11:20 Pulse Oximetry 99 07/21/25 11:20 Oxygen Delivery Method Room Air 07/21/25 11:20 Course Orders Ordered: Acetaminophen (Acetaminophen 325 Mg Tablet) 650 mg PO Q6H PRN PRN Reason: Pain, Mild (1-3) Last Admin: 07/22/25 03:18 Dose: 650 mg Documented By: AT Albuterol (Albuterol 2.5 Mg/3 Ml Neb (Adult)) 2.5 mg INH [id number] RIC Last Admin: 07/22/25 08:21 Dose: Not Given Documented By: JDago Admin: 07/21/25 22:53 Dose: Not Given Documented By: Admin: 07/21/25 20:03 Dose: Not Given Documented By: JASMYN Albuterol (Albuterol 2.5 Mg/3 Ml Neb (Adult)) 2.5 mg INH Q2H PRN PRN Reason: Shortness Of Breath Budesonide (Budesonide 0.5 Mg/2 Ml Neb) 0.5 mg INH RTBID [facility] Last Admin: 07/22/25 08:21 Dose: Not Given Documented By: Admin: 07/21/25 20:03 Dose: Not Given Documented By: JASMYN Hydromorphone HCl (Hydromorphone Hcl 0.5 Mg/0.5 Ml Syringe) 0.5 mg IV Q2H PRN PRN Reason: Pain, Severe (7-10) Lactated Ringer's (Lactated Ringers) 1,000 mls @ 125 mls/hr IV CONT [facility] Last Admin: 07/22/25 04:06 Dose: 125 mls/hr Documented By: Infusion: 07/22/25 04:06 Dose: Infused Documented By: Admin: 07/21/25 20:28 Dose: 125 mls/hr Documented By: AT Levetiracetam 500 mg/ Sodium (Chloride) 105 mls @ 420 mls/hr IV Q12H RIC Methylprednisolone (Methylprednisolone Succ 125 Mg/2 Ml Vial) 60 mg IV Q8H [facility] Last Admin: 07/22/25 01:52 Dose: 60 mg Documented By: Admin: 07/21/25 20:28 Dose: 60 mg Documented By: AT Naloxone HCl (Naloxone 0.4 Mg/Ml Vial) 0.2 mg IV Q2MIN PRN PRN Reason: Opiate Reversal Ondansetron HCl (Ondansetron 4 Mg/2 Ml Inj) 4 mg IV Q8HR PRN PRN Reason: Nausea And Vomiting Pantoprazole Sodium (Pantoprazole 40 Mg Vial) 40 mg IV DAILY [facility] Timolol Maleate (Timolol 0.5% Ophth) 1 drops EYE-BOTH DAILY [facility] Discontinued Medications PROTHROMBIN HUMAN COMPLEX-LANS (2,000 unit/ Miscellaneous) 80 mls @ 640.109 mls/hr IV NOW ONE Stop: 07/21/25 15:37 Last Infusion: 07/21/25 16:11 Dose: Infused Documented By: Admin: 07/21/25 15:56 Dose: 3 unit/kg/min, 640.109 mls/hr Documented By: ISABELLE Sodium Chloride (Normal Saline 0.9%) 500 mls @ 1,000 mls/hr IV BOLUS ONE Stop: 07/21/25 16:51 Last Infusion: 07/21/25 17:05 Dose: Infused Documented By: Admin: 07/21/25 16:26 Dose: 1,000 mls/hr Documented By: ISABELLE Levetiracetam 500 mg/ Sodium (Chloride) 105 mls @ 420 mls/hr IV Q12H RIC Last Infusion: 07/21/25 21:18 Dose: Infused Documented By: Admin: 07/21/25 20:41 Dose: 420 mls/hr Documented By: AT Polyethylene Glycol/Electrolytes ([id number]/Sod Sulf,Bicarb,Cl/Kcl 4,000 Ml Solution) 4,000 ml PO NOW ONE Stop: 07/21/25 15:44 Last Admin: 07/21/25 20:34 Dose: 4,000 ml Documented By: AT Vital Signs Vital signs: Vital Signs - 8 hr 07/21/25 11:20 07/21/25 12:30 07/21/25 12:36 Temperature 97.8 F Pulse Rate 56 L 56 L Respiratory Rate 14 Blood Pressure 143/78 H 148/72 H Pulse Oximetry 99 100 Oxygen Delivery Method Room Air 07/21/25 12:37 07/21/25 12:37 07/21/25 13:00 Temperature Pulse Rate 59 L 59 L Respiratory Rate 20 Blood Pressure 129/72 Pulse Oximetry 99 98 Oxygen Delivery Method 07/21/25 13:01 07/21/25 13:01 07/21/25 13:30 Temperature Pulse Rate 60 Respiratory Rate 22 Blood Pressure 132/79 141/75 H Pulse Oximetry 97 Oxygen Delivery Method 07/21/25 13:30 07/21/25 14:00 07/21/25 14:34 Temperature Pulse Rate 64 64 65 Respiratory Rate 24 21 Blood Pressure Pulse Oximetry 99 100 100 Oxygen Delivery Method 07/21/25 14:34 07/21/25 15:05 07/21/25 15:07 Temperature Pulse Rate 52 L Respiratory Rate 23 Blood Pressure 142/79 H 138/83 Pulse Oximetry 99 Oxygen Delivery Method 07/21/25 15:07 Temperature Pulse Rate 70 Respiratory Rate Blood Pressure Pulse Oximetry 100 Oxygen Delivery Method MDM - GI Bleed Lab Data 07/22/25 02:05 07/22/25 06:49 Labs: Lab Results 07/21/25 07/21/25 07/21/25 Range/Units 11:15 11:35 12:01 WBC 15.8 H (4.5-11.0) X10^3/uL RBC 5.24 (4.5-5.9) X10^6/uL Hgb 17.3 (13.5-17.5) g/dL Hct 51.8 (41-53) % MCV 98.7 (80-100) fL MCH 33.0 (26-34) PG MCHC 33.4 (30-36) % RDW 14.6 (11.6-14.8) % Plt Count 91 L (150-400) X10^3/uL Neut % (Auto) 91.8 H (50-75) % Lymph % (Auto) 3.1 L (25-40) % [place] % (Auto) 4.9 (3-14) % Eos % (Auto) 0.0 L (2-4) % Baso % (Auto) 0.2 (0-2) % Neut # (Auto) 53217 H (3950-8903) /uL Lymph # (Auto) 500 L (9099-3550) /uL [place] # (Auto) 800 (0-900) /uL Eos # (Auto) 0 (0-450) /uL Baso # (Auto) 0 (0-100) /uL PT 46.2 H D (9.4-12.5) SECONDS INR 4.2 H (0.9-1.3) APTT 32 (25.1-36.5) SECONDS Sodium 132 L (137-145) mmol/L Potassium 3.5 (3.4-5.1) mmol/L Chloride 98 (98-107) mmol/L Carbon Dioxide 28 (22-32) mmol/L BUN 36 H (9-20) mg/dL Creatinine 0.99 (0.66-1.25) mg/dL Estimated GFR > 60 (>60) mL/min BUN/Creatinine Ratio 36.4 H (6-22) Glucose 138 H (70-99) mg/dL Calcium 8.3 L (8.4-10.2) mg/dL Total Bilirubin 1.3 (0.2-1.3) mg/dL AST 47 (17-59) IU/L ALT 99 H (<50) IU/L Alkaline Phosphatase 48 (38-126) U/L Total Protein 5.9 L (6.3-8.2) g/dL Albumin 3.4 L (3.5-5.0) g/dL Globulin 2.5 (1.7-4.1) g/dL Albumin/Globulin Ratio 1.4 (1.0-2.8) Urine RBC None seen (0-5/HPF) Urine WBC None seen (0-5/HPF) Ur Squamous Epith Cells None seen (0-5/HPF) Urine Bacteria None seen (None) Ur Culture Indicated? Cult not indicated Vol Urine Centrifuged 10ml (spun) Stl C. cayetanensis PCR Not detected (Not Detect) Stool Rotavirus (PCR) Not detected (Not Detect) Stool Adenovirus (PCR) Not detected (Not Detect) Stool Astrovirus (PCR) Not detected (Not Detect) Stool Cryptosporidium PCR Not detected (Not Detect) Stl E.coli Shiga Tox PCR Not detected (Not Detect) St Sh/Enteroin Ecoli PCR Not detected (Not Detect) Stl Enterotoxigenic E PCR Not detected (Not Detect) Stool EPEC (PCR) Not detected (Not Detect) Stl E. histolytica PCR Not detected (Not Detect) Stool Giardia Lamblia PCR Not detected (Not Detect) Stool Sapovirus (PCR) Not detected (Not Detect) Stl P. shigelloides PCR Not detected (Not Detect) St Y.enterocolitica PCR Not detected (Not Detect) Stool Vibrio (PCR) Not detected (Not Detect) Stl Vibrio cholerae PCR Not detected (Not Detect) Stl Enteroaggr Ecoli PCR Not detected (Not Detect) Stl Norovirus GI/GII PCR Not detected (Not Detect) Campylobacter (PCR) Not detected (Not Detect) C. difficile Tox (PCR) Detected H (Not Detect) Salmonella (PCR) Not detected (Not Detect) Blood Type A Positive Antibody Screen Negative Crossmatch See Detail Point of Care Testing Stool Occult Blood Positive Urine Dip Bedside Urine Glucose Negative Bedside Urine Bilirubin - Negative Bedside Urine Ketone - Negative Urine Specific [place] 1.010 Bedside Urine Occult Blood +/- Bedside Urine pH 7.0 Bedside Urine Protein - Negative Bedside Urine Urobilinogen - Negative Bedside Urine Nitrite - Negative Bedside Urine Leukocytes - Negative Esterase Imaging Data CT scan - abdomen/pelvis: Radiologist's Impression: [address] [address] [address] Scan Report Signed Patient: Rolo Naranjo MR#: [id number] : 1945 Acct:[id number] Age/Sex: 80 / M Date of Service: 07/21/25 Loc: ED Accession Number: [id number] Procedure: CT angio Abd/Pel GI Bleed Ordering Provider: Sergey Matthews MD PROCEDURE: CT ANGIO ABD/PEL GI BLEED INDICATIONS: Rectal bleeding TECHNIQUE: After the administration of intravenous contrast, 2.5 mm sections acquired from the diaphragm to the iliac crests. 10 mm maximum intensity projection (MIP) coronal and sagittal reformats were then performed. For radiation dose reduction, the following was used: automated exposure control. COMPARISON: [facility], CT, CT ABDOMEN PELVIS W CON, 10/11/2024, 8:28. [facility], CT, CT ANGIO CHEST ABDOMEN PELVIS, 07/05/2025, 5:44. FINDINGS: Image quality: Diagnostic. Abdominal aorta: No aortic aneurysm or evidence of acute aortic syndrome. Mesenteric arteries: Patent without hemodynamically significant stenosis. Renal arteries: Patent without hemodynamically significant stenosis. Lower chest: Unremarkable. ABDOMEN: Liver: No solid mass. Gallbladder: No radiopaque gallstones or wall thickening. Biliary ducts: No biliary dilation. Pancreas: No ductal dilation. Spleen: Size is within normal limits. Adrenal Glands: No adrenal nodules. Kidneys and Ureters: No hydronephrosis. No solid mass. No complex renal cystic lesion which requires follow up. Stomach and Bowel: Normal colonic caliber, without significant wall thickening. Severe sigmoid diverticulosis with acute diverticular hemorrhage in the sigmoid. This is well seen on coronal images 47 and 48 of the coronal post contrast arterial sequence, series 12. Peritoneum: No abnormal intraperitoneal fluid. No free air. Ventral Wall: No hernia. Abdominal Nodes: No retroperitoneal or mesenteric adenopathy by size criteria. Vessels: Aorta, as above. Normal IVC. PELVIS: Pelvic Organs: Prostatomegaly.. Bladder: Unremarkable. Pelvic Nodes: No enlarged lymph nodes. Miscellaneous: Fat containing left inguinal hernia. Tiny fat containing umbilical hernia. Bones: No aggressive osseous abnormality. IMPRESSION: Severe sigmoid diverticulosis with acute sigmoid diverticular hemorrhage. Comment: Findings were discussed with Dr. Matthews at the time of study dictation on 07/21/2025 at 1454 hours. Dictated by: He Gurrola M.D. on 07/21/2025 at 14:48 Approved by: He Gurrola M.D. on 07/21/2025 at 14:57 [facility] Narrative Medical decision making narrative: Patient here with . He has had 4 episodes of bright red blood per rectum since last night. Had 3 of them here today I did not see blood in the toilet. Bright red blood. Dizzy but no syncope. No abdominal pain no chest pain. No shortness of breath. 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 Did follow up with hematology services. Patient also had CT head which showed brain masses and has follow up in 2 days for this. Patient denies abdominal pain. No chest pain. No shortness a breath. MDM After history and exam, CBC CMP PT INR EKG CT angio abdomen pelvis type and screen Differential considered: Includes but not limited to diverticulosis lower GI bleed warfarin toxicity Medical records reviewed: July 05, [address] head CT chest abdomen pelvis CT angiogram shows diverticulosis, brain metastasis. Lab Test results independently reviewed as above. Pertinent findings: WBC 15.8 hemoglobin 17.3 hematocrit 51.8 platelets 91 INR 4.2 sodium 132 potassium 3.5 BUN 36 creatinine 0.99 GI panel positive C diff tox reflex pending Independently reviewed EKG sinus bradycardia rate 55 Imaging studies independently reviewed: CT angiogram abdomen pelvis positive middle sigmoid diverticular bleed Consultations: 3:01 p.m. spoke with General surgery Dr. Esposito, who will follow in consult. Desires Kcentra to be given 3:43 p.m.. I spoke with patient's family doctor, Dr. Jose David Boss. will admit patient Re-evaluations: 2:45 p.m.. Spoke with patient and . They understand he has a diverticular bleed in the colon. Will need admission. Stable at this time. 2:53 p.m.. Pharmacist is placing Kcentra in based on INR 4.2 Discussion: IV contrast use for CT imaging. Appropriate for admission. Patient will need general surgery services. Patient has been stable. No vasopressors indicated no transfusion indicated at this time. Diagnosis: Diverticular bleed Discharge Plan Departure Patient Disposition: Admitted As Inpatient Clinical Impression: Diverticular hemorrhage Admit Date/Time: 07/21/25 15:46 Admit Provider: Jose David Boss
--- NOTE | 2025-07-21 14:53 | PC.NURSE ---
1345:this nurse was made aware by pt that prior to arrival he had three bouts of bloody diarrhea 1400: nurse pastoral assistant reported to this nurse that pt declined BSC, she assisted pt to bathroom and noted copious bloody stool. 1420: pt again wanted to ambulate to bathroom and not use BSC, other staff assisted him to bathroom while this nurse was in another pt room, pt was returned to room, but SOB and dizzy, stool output was observed by this nurse and provider, copious bloody stool in toilet noted. 1425: this nurse brought BSC with measuring hat to pt room and advised no longer ambulating to bathroom to prevent fall and minimize exertion, explained safety rationale to pt and . they agreed
[2025-07-21 15:28] LABS: Culture Indicated Urine Cult Not Indicated
--- NOTE | 2025-07-21 16:25 | PC.NURSE ---
called for help from the room and I entered to find patient standing over commode after having 400ml dark red blood output from rectum. Patient was pale and diaphoretic, I helped him back to bed and then he had a syncopal episode in bed. I laid his head abck and checked his BP which was 106/75. I called Dr. Woodruff to bedside to assess patient and paged hospitalist to update Dr. Jerome.
[2025-07-21] MEDS: SODIUM CHLORIDE 0.9% 500 ML 1000 ML IV (16:26)
--- NOTE | 2025-07-21 16:27 | PC.NURSE ---
assisted pt to BSC, pt felt faint after using, advised to pt no more use of BSC, to use bedpan from now on, pt/family agreed. pt in bed, low locked, with call light in reach, provider aware
--- NOTE | 2025-07-21 17:12 | CM.DANOTE ---
DCP Assessment Note: Pt is a 79yo male, resident of [place], is admitted for diverticular bleed. Pt lives in a house with his , Lelia. Pt's Primary Care Provider is Dr. Jose David Boss and insurance is Medicare and [facility]. Reviewed chart and discussed with multidisciplinary team pt's medical status and initial discharge needs. Per ED Provider, pt to obtain units of blood in the ED and to be admitted with General Surgery consult. Pt was admitted in Apr 2025 for pulmonary embolism and was discharged home. DCP met w/patient at bedside; introduced self and role. Present in the room is pt's , Lelia. Patient was found in bed, alert and oriented, cooperative with assessment. Pt confirmed living situation and good support in spouse. Pt expressed preference in discharge home when cleared. Pt has no history of SNF Rehab or home health. Plan: Anticipating discharge home with suspected home health referral, spouse will transport home. CM team will follow closely for coordination of discharge plans. Trinidad Green [facility] Discharge Planning/Care Management CM Discharge Assessment Start: 07/21/25 17:11 Freq: Status: Active Protocol: Document 07/21/25 17:11 MW (Rec: 07/21/25 17:12 MW [id number]) Discharge Planning Assessment Assigned Discharge CARROL [facility] [employer] Provider Dr. Jose David Boss Insurance Medicare,[employer] DPOA/Assigned Jeffrey Rowell Designee Name Contact Information [phone] Advance Directives? Yes Advance Directives No on File History Provided By Patient,Family Member,Medical Record Prior Living House Arrangements Household Members spouse Type of Drives own vehicle transporation used prior to admit Independent with ADL Yes 's Is patient alert and Yes oriented? Discharge Plan Home Transportation Arrangement Review Status In Process Please Provide Date 07/21/25 Initial DC Assessment Was Performed Next Review Type Continued Stay Review
[2025-07-21 17:17] LABS: Hematocrit 40.7 % (41-53); Hemoglobin 13.7 g/dL (13.5-17.5)
--- NOTE | 2025-07-21 17:59 | PM.CN.IH.1 ---
History of Present Illness Consult details Date Patient Seen: 07/21/25 Time Patient Seen: 18:00 Chief complaint: Blood in stool, bright red Reason for consult: LGI bleed Requesting provider: Sergey Matthews Narrative: Surgery consult requested by ED for BRBPR, CTA +activity in sigmoid. Takes coumadin for PE, INR >4. Reversed with Kcentra. Hemodynamically stable. Initial hgb 13.7. H/O two colonoscopy attempts in the past unsuccessful due to poor prep. Patient admitting to hospitalist team for bowel prep tonight and colonoscopy tomorrow. Meds Home Medications and Allergies Home Medications ?Medication ?Instructions ?Recorded ?Confirmed ?Type diltiazem HCl 240 mg 240 mg PO Q DAY ##0 11/27/11 05/19/25 History capsule,extended release 24 hr (Cartia XT) furosemide 20 mg tablet 20 mg PO QDAY ##0 06/03/17 05/19/25 History acyclovir 5 % topical cream 1 applic topical 5XD 09/07/20 05/19/25 History (Zovirax) alfuzosin 10 mg tablet,extended 10 mg PO DAILY 09/07/20 05/19/25 History release 24 hr chlorthalidone 25 mg tablet 50 mg PO QAM 09/07/20 05/19/25 History cholecalciferol (vitamin D3) 25 75 mcg PO DAILY 09/07/20 05/19/25 History mcg (1,000 unit) chewable tablet (Vitamin D3) clotrimazole 1 %-betamethasone See Rx Instructions .Route .COMPLEX 09/07/20 05/19/25 History 0.05 % cream-zinc ox 20 % paste topical evolocumab 140 mg/mL subcutaneous 140 mg SUBCUT Q2W 09/07/20 05/19/25 History pen injector (Marti Barcenas) fluocinonide 0.05 % topical 1 applic topical BID-QID PRN Rash 09/07/20 05/19/25 History solution ketoconazole 2 % shampoo 1 applic topical 3XW 09/07/20 05/19/25 History lactobacillus combination no.8 3 3,000 mmu cells PO BID 09/07/20 05/19/25 History billion cell capsule (Adult Probiotic) potassium gluconate 595 mg (99 mg) 595 mg PO DAILY 09/07/20 05/19/25 History tablet saw palmetto 160 mg capsule 160 mg PO BID 09/07/20 05/19/25 History timolol maleate 0.5 % eye drops 1 drp EYE-BOTH QAM 09/07/20 05/19/25 History nitroglycerin 0.4 mg sublingual 0.4 mg sublingual Q5-15M PRN chest 09/09/20 05/19/25 Rx tablet pain #10 tabs testosterone cypionate 200 mg/mL 0.3 mg IM QWEEK 06/16/23 05/19/25 History intramuscular oil tadalafil 20 mg tablet 20 mg PO DAILY PRN sexual activity 01/22/25 05/19/25 Rx #15 tabs allopurinol 200 mg tablet 400 mg PO DAILY 05/19/25 05/19/25 History budesonide-formoterol HFA 160 2 inh inhalation BID 05/19/25 05/19/25 History mcg-4.5 mcg/actuation aerosol inhaler (Symbicort) colchicine 0.6 mg tablet 0.6 mg PO BID PRN gout 05/19/25 05/19/25 History fluticasone propionate 50 2 spray intranasal BID 05/19/25 05/19/25 History mcg/actuation nasal spray,suspension metoprolol succinate 50 mg 50 mg PO DAILY 05/19/25 05/19/25 History tablet,extended release 24 hr psyllium husk 0.4 gram capsule 0.4 g PO DAILY 05/19/25 05/19/25 History (Metamucil) apixaban 5 mg tablet (Eliquis) 5 mg PO BID #60 tabs 05/21/25 Rx dexamethasone 4 mg tablet 4 mg PO TID #60 tabs 07/05/25 Rx levetiracetam 500 mg tablet 500 mg PO BID #60 tabs 07/05/25 Rx (Keppra) Allergies Allergy/AdvReac Type Severity Reaction Status Date / Time adhesive tape Allergy Verified 07/21/25 11:26 choline fenofibrate Allergy Muscle Pain Verified 07/21/25 11:26 cyclobenzaprine Allergy Verified 07/21/25 11:26 gatifloxacin Allergy Verified 07/21/25 11:26 losartan Allergy Verified 07/21/25 11:26 niacin Allergy ITCHING Verified 07/21/25 11:26 omega-3 acid ethyl esters Allergy Rash Verified 07/21/25 11:26 risedronate sodium Allergy Rash, body Verified 07/21/25 11:26 (RISEDRONATE SODIUM) pain [place]-OIB-QfH Reductase Allergy Stomach Verified 07/21/25 11:26 Inhibitor pains, headache ciprofloxacin AdvReac Severe achilles Verified 07/21/25 11:26 tendon tears Penicillins AdvReac Intermediate GI upset, Verified 07/21/25 11:26 diarrhea clonidine AdvReac Mild Dry Mucus Verified 07/21/25 11:26 Membranes oxybutynin AdvReac SOB, Verified 07/21/25 11:26 stomach ache actonal Allergy Unknown shoulder, Uncoded 07/21/25 11:26 chest, knee, back rib pain dha Allergy Rash Uncoded 07/21/25 11:26 Exam Vital Signs (past 8 hours): - 07/21/25 11:20 07/21/25 12:30 07/21/25 12:36 Temperature 97.8 F Pulse Rate 56 L 56 L Respiratory Rate 14 Blood Pressure 143/78 H 148/72 H Pulse Oximetry 99 100 Oxygen Delivery Method Room Air 07/21/25 12:37 07/21/25 12:37 07/21/25 13:00 Temperature Pulse Rate 59 L 59 L Respiratory Rate 20 Blood Pressure 129/72 Pulse Oximetry 99 98 Oxygen Delivery Method 07/21/25 13:01 07/21/25 13:01 07/21/25 13:30 Temperature Pulse Rate 60 Respiratory Rate 22 Blood Pressure 132/79 141/75 H Pulse Oximetry 97 Oxygen Delivery Method 07/21/25 13:30 07/21/25 14:00 07/21/25 14:34 Temperature Pulse Rate 64 64 65 Respiratory Rate 24 21 Blood Pressure Pulse Oximetry 99 100 100 Oxygen Delivery Method 07/21/25 14:34 07/21/25 15:05 07/21/25 15:07 Temperature Pulse Rate 52 L Respiratory Rate 23 Blood Pressure 142/79 H 138/83 Pulse Oximetry 99 Oxygen Delivery Method 07/21/25 15:07 07/21/25 15:30 07/21/25 15:30 Temperature Pulse Rate 70 70 Respiratory Rate 19 Blood Pressure 113/74 Pulse Oximetry 100 99 Oxygen Delivery Method 07/21/25 16:17 07/21/25 16:18 07/21/25 16:18 Temperature Pulse Rate 52 L 53 L Respiratory Rate 20 12 Blood Pressure 106/71 Pulse Oximetry 97 98 Oxygen Delivery Method 07/21/25 16:22 07/21/25 16:22 07/21/25 16:25 Temperature Pulse Rate 60 Respiratory Rate 16 Blood Pressure 138/77 134/75 Pulse Oximetry 99 Oxygen Delivery Method 07/21/25 16:25 07/21/25 16:30 07/21/25 16:30 Temperature Pulse Rate 59 L 61 Respiratory Rate 12 16 Blood Pressure 142/74 H Pulse Oximetry 99 99 Oxygen Delivery Method 07/21/25 16:35 07/21/25 16:35 07/21/25 16:40 Temperature Pulse Rate 62 61 Respiratory Rate 16 17 Blood Pressure 122/77 Pulse Oximetry 100 99 Oxygen Delivery Method 07/21/25 16:40 07/21/25 16:46 07/21/25 16:46 Temperature Pulse Rate 66 Respiratory Rate 23 Blood Pressure 121/73 109/69 Pulse Oximetry 100 Oxygen Delivery Method 07/21/25 16:50 07/21/25 16:50 07/21/25 16:55 Temperature Pulse Rate 60 Respiratory Rate 18 Blood Pressure 139/78 Pulse Oximetry 100 100 Oxygen Delivery Method 07/21/25 16:55 07/21/25 17:00 07/21/25 17:00 Temperature Pulse Rate 62 Respiratory Rate 24 Blood Pressure 132/77 135/69 Pulse Oximetry 100 Oxygen Delivery Method 07/21/25 17:05 07/21/25 17:05 07/21/25 17:05 Temperature 98.2 F Pulse Rate 63 62 Respiratory Rate 20 21 Blood Pressure 135/69 120/73 Pulse Oximetry 100 Oxygen Delivery Method 07/21/25 17:10 07/21/25 17:10 07/21/25 17:20 Temperature 97.8 F Pulse Rate 60 64 Respiratory Rate 17 16 Blood Pressure 136/71 128/68 Pulse Oximetry 100 Oxygen Delivery Method Oxygen Delivery Method Room Air Narrative Exam Narrative: Const General: comfortable and no acute distress Orientation: alert and oriented x3 Resp Effort & Inspection: normal respiratory effort and able to speak in complete sentences Cardio Rate: regular rate GI Palpation: soft (NT) Objective Labs 07/21/25 16:46 07/21/25 11:15 Labs: Laboratory Results - last 24 hr 07/21/25 07/21/25 07/21/25 11:15 11:35 12:01 WBC 15.8 H RBC 5.24 Hgb 17.3 Hct 51.8 MCV 98.7 MCH 33.0 MCHC 33.4 RDW 14.6 Plt Count 91 L Neut % (Auto) 91.8 H Lymph % (Auto) 3.1 L [place] % (Auto) 4.9 Eos % (Auto) 0.0 L Baso % (Auto) 0.2 Neut # (Auto) 72335 H Lymph # (Auto) 500 L [place] # (Auto) 800 Eos # (Auto) 0 Baso # (Auto) 0 PT 46.2 H D INR 4.2 H APTT 32 Sodium 132 L Potassium 3.5 Chloride 98 Carbon Dioxide 28 BUN 36 H Creatinine 0.99 Estimated GFR > 60 BUN/Creatinine Ratio 36.4 H Glucose 138 H Calcium 8.3 L Total Bilirubin 1.3 AST 47 ALT 99 H Alkaline Phosphatase 48 Total Protein 5.9 L Albumin 3.4 L Globulin 2.5 Albumin/Globulin Ratio 1.4 Urine RBC None seen Urine WBC None seen Ur Squamous Epith Cells None seen Urine Bacteria None seen Ur Culture Indicated? Cult not indicated Vol Urine Centrifuged 10ml (spun) Stl C. cayetanensis PCR Not detected Stool Rotavirus (PCR) Not detected Stool Adenovirus (PCR) Not detected Stool Astrovirus (PCR) Not detected Stool Cryptosporidium PCR Not detected Stl E.coli Shiga Tox PCR Not detected St Sh/Enteroin Ecoli PCR Not detected Stl Enterotoxigenic E PCR Not detected Stool EPEC (PCR) Not detected Stl E. histolytica PCR Not detected Stool Giardia Lamblia PCR Not detected Stool Sapovirus (PCR) Not detected Stl P. shigelloides PCR Not detected St Y.enterocolitica PCR Not detected Stool Vibrio (PCR) Not detected Stl Vibrio cholerae PCR Not detected Stl Enteroaggr Ecoli PCR Not detected Stl Norovirus GI/GII PCR Not detected Campylobacter (PCR) Not detected C. difficile Tox (PCR) Detected H Salmonella (PCR) Not detected Blood Type A Positive Antibody Screen Negative Crossmatch See Detail 07/21/25 16:46 WBC RBC Hgb 13.7 Hct 40.7 L MCV MCH MCHC RDW Plt Count Neut % (Auto) Lymph % (Auto) [place] % (Auto) Eos % (Auto) Baso % (Auto) Neut # (Auto) Lymph # (Auto) [place] # (Auto) Eos # (Auto) Baso # (Auto) PT INR APTT Sodium Potassium Chloride Carbon Dioxide BUN Creatinine Estimated GFR BUN/Creatinine Ratio Glucose Calcium Total Bilirubin AST ALT Alkaline Phosphatase Total Protein Albumin Globulin Albumin/Globulin Ratio Urine RBC Urine WBC Ur Squamous Epith Cells Urine Bacteria Ur Culture Indicated? Vol Urine Centrifuged Stl C. cayetanensis PCR Stool Rotavirus (PCR) Stool Adenovirus (PCR) Stool Astrovirus (PCR) Stool Cryptosporidium PCR Stl E.coli Shiga Tox PCR St Sh/Enteroin Ecoli PCR Stl Enterotoxigenic E PCR Stool EPEC (PCR) Stl E. histolytica PCR Stool Giardia Lamblia PCR Stool Sapovirus (PCR) Stl P. shigelloides PCR St Y.enterocolitica PCR Stool Vibrio (PCR) Stl Vibrio cholerae PCR Stl Enteroaggr Ecoli PCR Stl Norovirus GI/GII PCR Campylobacter (PCR) C. difficile Tox (PCR) Salmonella (PCR) Blood Type Antibody Screen Crossmatch [facility] Medical History Elevated PSA Asthma History of DVT (deep vein thrombosis) Chronic sinusitis Hypogonadism Incomplete emptying of bladder Nocturia more than twice per night Lower urinary tract symptoms Male circumcision Kidney stones High blood pressure Gout Diverticular disease Arthritis BPH (benign prostatic hyperplasia) Surgical History Hx of colonoscopy Hx of bilateral cataract extraction H/O vasectomy (1976) Hx of toe surgery Hx of nasal sinusotomy (2008) History of arthroscopy of left shoulder (2014) History of eye surgery Hx of elbow surgery (1996) Hx of left knee surgery History of prostate surgery Family History Father Diabetes mellitus Eczema Mother Bacterial UTI Social History marital status: number of children: 3 household members: spouse lives independently: Yes Tobacco & Substance Use Smoking Status: Unknown if ever smoked alcohol intake: current substance use type: does not use Diet and Exercise Type(s) of exercise: other frequency: 5-6 times per week Assessment & Plan Assessment and plan (1) Diverticular hemorrhage: Status: Acute Plan Plan colonoscopy, possible biopsy. The risks, benefits and options regarding the procedure were explained to the patient in detail. Risk discussion included but not limited to: bleeding, perforation, unable to reach cecum, missed lesion. The patient was encouraged to ask questions and they were answered to their satisfaction. The patient understands and is agreeable to proceed. Time-Based Coding :: [TOTAL MINUTES] spent with patient and on the chart (including review of chart, obtaining history, exam, reviewing outside data, placing orders, documenting exam and treatment plan, and counseling patient) on [DATE]. PROFEE Charge Codes Inpatient or Observation consultation: 85915
--- NOTE | 2025-07-21 18:07 | PM.HP.1 ---
History of Present Illness History of Present Illness Date Patient Seen: 07/21/25 Time Patient Seen: 18:07 Date of Onset of Symptoms: 07/21/25 Chief complaint: Blood in stool, bright red Narrative: Patient is a 80-year-old well known to me who presents with bright red blood per rectum. 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 And a biopsy. Had no other significant changes. Started feeling kind of off. And then had 3 episodes of bright red blood per rectum. No dizziness no lightheadedness no abdominal pain. No fevers chills nausea or other complaint. Patient at this point felt like there was a lot of blood and came to the emergency room through 911. Otherwise he has been doing well. He has recently been on Coumadin and has been difficult to adjust. Has had some elevation in his Coumadin up to 6. Recently was 4. Head in the process of adjusting. We are trying to get him on Eliquis but insurance was not able to cover would not refill. There was no other significant new changes or complaints. 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 Patient is continuing having headache. He was recently placed on Keppra and dexamethasone until he was seen by the neurosurgeon and the oncologist down whenever it. He has no other new complaint or problem he has had no nausea or vomiting. Patient was reversed with his Coumadin in the emergency room. Surgeon has been consulted [facility] Medical History Elevated PSA Asthma History of DVT (deep vein thrombosis) Chronic sinusitis Hypogonadism Incomplete emptying of bladder Nocturia more than twice per night Lower urinary tract symptoms Male circumcision Kidney stones High blood pressure Gout Diverticular disease Arthritis BPH (benign prostatic hyperplasia) Surgical History Hx of colonoscopy Hx of bilateral cataract extraction H/O vasectomy (1976) Hx of toe surgery Hx of nasal sinusotomy (2008) History of arthroscopy of left shoulder (2014) History of eye surgery Hx of elbow surgery (1996) Hx of left knee surgery History of prostate surgery Family History Father Diabetes mellitus Eczema Mother Bacterial UTI Social History marital status: number of children: 3 household members: spouse lives independently: Yes Smoking Status: Unknown if ever smoked alcohol intake: current substance use type: does not use Type(s) of exercise: other frequency: 5-6 times per week Meds Home Medications and Allergies Home Medications ?Medication ?Instructions ?Recorded ?Confirmed ?Type diltiazem HCl 240 mg 240 mg PO Q DAY ##0 11/27/11 05/19/25 History capsule,extended release 24 hr (Cartia XT) furosemide 20 mg tablet 20 mg PO QDAY ##0 06/03/17 05/19/25 History acyclovir 5 % topical cream 1 applic topical 5XD 09/07/20 05/19/25 History (Zovirax) alfuzosin 10 mg tablet,extended 10 mg PO DAILY 09/07/20 05/19/25 History release 24 hr chlorthalidone 25 mg tablet 50 mg PO QAM 09/07/20 05/19/25 History cholecalciferol (vitamin D3) 25 75 mcg PO DAILY 09/07/20 05/19/25 History mcg (1,000 unit) chewable tablet (Vitamin D3) clotrimazole 1 %-betamethasone See Rx Instructions .Route .COMPLEX 09/07/20 05/19/25 History 0.05 % cream-zinc ox 20 % paste topical evolocumab 140 mg/mL subcutaneous 140 mg SUBCUT Q2W 09/07/20 05/19/25 History pen injector (Marti Barcenas) fluocinonide 0.05 % topical 1 applic topical BID-QID PRN Rash 09/07/20 05/19/25 History solution ketoconazole 2 % shampoo 1 applic topical 3XW 09/07/20 05/19/25 History lactobacillus combination no.8 3 3,000 mmu cells PO BID 09/07/20 05/19/25 History billion cell capsule (Adult Probiotic) potassium gluconate 595 mg (99 mg) 595 mg PO DAILY 09/07/20 05/19/25 History tablet saw palmetto 160 mg capsule 160 mg PO BID 09/07/20 05/19/25 History timolol maleate 0.5 % eye drops 1 drp EYE-BOTH QAM 09/07/20 05/19/25 History nitroglycerin 0.4 mg sublingual 0.4 mg sublingual Q5-15M PRN chest 09/09/20 05/19/25 Rx tablet pain #10 tabs testosterone cypionate 200 mg/mL 0.3 mg IM QWEEK 06/16/23 05/19/25 History intramuscular oil tadalafil 20 mg tablet 20 mg PO DAILY PRN sexual activity 01/22/25 05/19/25 Rx #15 tabs allopurinol 200 mg tablet 400 mg PO DAILY 05/19/25 05/19/25 History budesonide-formoterol HFA 160 2 inh inhalation BID 05/19/25 05/19/25 History mcg-4.5 mcg/actuation aerosol inhaler (Symbicort) colchicine 0.6 mg tablet 0.6 mg PO BID PRN gout 05/19/25 05/19/25 History fluticasone propionate 50 2 spray intranasal BID 05/19/25 05/19/25 History mcg/actuation nasal spray,suspension metoprolol succinate 50 mg 50 mg PO DAILY 05/19/25 05/19/25 History tablet,extended release 24 hr psyllium husk 0.4 gram capsule 0.4 g PO DAILY 05/19/25 05/19/25 History (Metamucil) apixaban 5 mg tablet (Eliquis) 5 mg PO BID #60 tabs 05/21/25 Rx dexamethasone 4 mg tablet 4 mg PO TID #60 tabs 07/05/25 Rx levetiracetam 500 mg tablet 500 mg PO BID #60 tabs 07/05/25 Rx (Keppra) Allergies Allergy/AdvReac Type Severity Reaction Status Date / Time adhesive tape Allergy Verified 07/21/25 11:26 choline fenofibrate Allergy Muscle Pain Verified 07/21/25 11:26 cyclobenzaprine Allergy Verified 07/21/25 11:26 gatifloxacin Allergy Verified 07/21/25 11:26 losartan Allergy Verified 07/21/25 11:26 niacin Allergy ITCHING Verified 07/21/25 11:26 omega-3 acid ethyl esters Allergy Rash Verified 07/21/25 11:26 risedronate sodium Allergy Rash, body Verified 07/21/25 11:26 (RISEDRONATE SODIUM) pain Josusyn-QLL-EqW Reductase Allergy Stomach Verified 07/21/25 11:26 Inhibitor pains, headache ciprofloxacin AdvReac Severe achilles Verified 07/21/25 11:26 tendon tears Penicillins AdvReac Intermediate GI upset, Verified 07/21/25 11:26 diarrhea clonidine AdvReac Mild Dry Mucus Verified 07/21/25 11:26 Membranes oxybutynin AdvReac SOB, Verified 07/21/25 11:26 stomach ache actonal Allergy Unknown shoulder, Uncoded 07/21/25 11:26 chest, knee, back rib pain dha Allergy Rash Uncoded 07/21/25 11:26 Review of Systems Review of Systems Narrative: See above otherwise negative Exam Vital Signs (past 8 hours): - 07/21/25 11:20 07/21/25 12:30 07/21/25 12:36 Temperature 97.8 F Pulse Rate 56 L 56 L Respiratory Rate 14 Blood Pressure 143/78 H 148/72 H Pulse Oximetry 99 100 Oxygen Delivery Method Room Air 07/21/25 12:37 07/21/25 12:37 07/21/25 13:00 Temperature Pulse Rate 59 L 59 L Respiratory Rate 20 Blood Pressure 129/72 Pulse Oximetry 99 98 Oxygen Delivery Method 07/21/25 13:01 07/21/25 13:01 07/21/25 13:30 Temperature Pulse Rate 60 Respiratory Rate 22 Blood Pressure 132/79 141/75 H Pulse Oximetry 97 Oxygen Delivery Method 07/21/25 13:30 07/21/25 14:00 07/21/25 14:34 Temperature Pulse Rate 64 64 65 Respiratory Rate 24 21 Blood Pressure Pulse Oximetry 99 100 100 Oxygen Delivery Method 07/21/25 14:34 07/21/25 15:05 07/21/25 15:07 Temperature Pulse Rate 52 L Respiratory Rate 23 Blood Pressure 142/79 H 138/83 Pulse Oximetry 99 Oxygen Delivery Method 07/21/25 15:07 07/21/25 15:30 07/21/25 15:30 Temperature Pulse Rate 70 70 Respiratory Rate 19 Blood Pressure 113/74 Pulse Oximetry 100 99 Oxygen Delivery Method 07/21/25 16:17 07/21/25 16:18 07/21/25 16:18 Temperature Pulse Rate 52 L 53 L Respiratory Rate 20 12 Blood Pressure 106/71 Pulse Oximetry 97 98 Oxygen Delivery Method 07/21/25 16:22 07/21/25 16:22 07/21/25 16:25 Temperature Pulse Rate 60 Respiratory Rate 16 Blood Pressure 138/77 134/75 Pulse Oximetry 99 Oxygen Delivery Method 07/21/25 16:25 07/21/25 16:30 07/21/25 16:30 Temperature Pulse Rate 59 L 61 Respiratory Rate 12 16 Blood Pressure 142/74 H Pulse Oximetry 99 99 Oxygen Delivery Method 07/21/25 16:35 07/21/25 16:35 07/21/25 16:40 Temperature Pulse Rate 62 61 Respiratory Rate 16 17 Blood Pressure 122/77 Pulse Oximetry 100 99 Oxygen Delivery Method 07/21/25 16:40 07/21/25 16:46 07/21/25 16:46 Temperature Pulse Rate 66 Respiratory Rate 23 Blood Pressure 121/73 109/69 Pulse Oximetry 100 Oxygen Delivery Method 07/21/25 16:50 07/21/25 16:50 07/21/25 16:55 Temperature Pulse Rate 60 Respiratory Rate 18 Blood Pressure 139/78 Pulse Oximetry 100 100 Oxygen Delivery Method 07/21/25 16:55 07/21/25 17:00 07/21/25 17:00 Temperature Pulse Rate 62 Respiratory Rate 24 Blood Pressure 132/77 135/69 Pulse Oximetry 100 Oxygen Delivery Method 07/21/25 17:05 07/21/25 17:05 07/21/25 17:05 Temperature 98.2 F Pulse Rate 63 62 Respiratory Rate 20 21 Blood Pressure 135/69 120/73 Pulse Oximetry 100 Oxygen Delivery Method 07/21/25 17:10 07/21/25 17:10 07/21/25 17:20 Temperature 97.8 F Pulse Rate 60 64 Respiratory Rate 17 16 Blood Pressure 136/71 128/68 Pulse Oximetry 100 Oxygen Delivery Method Oxygen Delivery Method Room Air Narrative Exam Narrative: Alert male lying in bed smiling interactive in no acute distress HEENT exam mucous membranes moist bulbar conjunctivae are mildly pale posterior pharynx is normal neck supple without adenopathy lungs are clear heart is regular rate and rhythm abdomen soft positive bowel sounds completely nontender. Extremities without cyanosis clubbing DME does have a bandage on his lower leg. Neurologic exam is normal Objective Labs 07/21/25 16:46 07/21/25 11:15 Labs: Laboratory Results - last 24 hr 07/21/25 07/21/25 07/21/25 11:15 11:35 12:01 WBC 15.8 H RBC 5.24 Hgb 17.3 Hct 51.8 MCV 98.7 MCH 33.0 MCHC 33.4 RDW 14.6 Plt Count 91 L Neut % (Auto) 91.8 H Lymph % (Auto) 3.1 L Thomas % (Auto) 4.9 Eos % (Auto) 0.0 L Baso % (Auto) 0.2 Neut # (Auto) 92444 H Lymph # (Auto) 500 L Thomas # (Auto) 800 Eos # (Auto) 0 Baso # (Auto) 0 PT 46.2 H D INR 4.2 H APTT 32 Sodium 132 L Potassium 3.5 Chloride 98 Carbon Dioxide 28 BUN 36 H Creatinine 0.99 Estimated GFR > 60 BUN/Creatinine Ratio 36.4 H Glucose 138 H Calcium 8.3 L Total Bilirubin 1.3 AST 47 ALT 99 H Alkaline Phosphatase 48 Total Protein 5.9 L Albumin 3.4 L Globulin 2.5 Albumin/Globulin Ratio 1.4 Urine RBC None seen Urine WBC None seen Ur Squamous Epith Cells None seen Urine Bacteria None seen Ur Culture Indicated? Cult not indicated Vol Urine Centrifuged 10ml (spun) Stl C. cayetanensis PCR Not detected Stool Rotavirus (PCR) Not detected Stool Adenovirus (PCR) Not detected Stool Astrovirus (PCR) Not detected Stool Cryptosporidium PCR Not detected Stl E.coli Shiga Tox PCR Not detected St Sh/Enteroin Ecoli PCR Not detected Stl Enterotoxigenic E PCR Not detected Stool EPEC (PCR) Not detected Stl E. histolytica PCR Not detected Stool Giardia Lamblia PCR Not detected Stool Sapovirus (PCR) Not detected Stl P. shigelloides PCR Not detected St Y.enterocolitica PCR Not detected Stool Vibrio (PCR) Not detected Stl Vibrio cholerae PCR Not detected Stl Enteroaggr Ecoli PCR Not detected Stl Norovirus GI/GII PCR Not detected Campylobacter (PCR) Not detected C. difficile Tox (PCR) Detected H Salmonella (PCR) Not detected Blood Type A Positive Antibody Screen Negative Crossmatch See Detail 07/21/25 16:46 WBC RBC Hgb 13.7 Hct 40.7 L MCV MCH MCHC RDW Plt Count Neut % (Auto) Lymph % (Auto) Thomas % (Auto) Eos % (Auto) Baso % (Auto) Neut # (Auto) Lymph # (Auto) Thomas # (Auto) Eos # (Auto) Baso # (Auto) PT INR APTT Sodium Potassium Chloride Carbon Dioxide BUN Creatinine Estimated GFR BUN/Creatinine Ratio Glucose Calcium Total Bilirubin AST ALT Alkaline Phosphatase Total Protein Albumin Globulin Albumin/Globulin Ratio Urine RBC Urine WBC Ur Squamous Epith Cells Urine Bacteria Ur Culture Indicated? Vol Urine Centrifuged Stl C. cayetanensis PCR Stool Rotavirus (PCR) Stool Adenovirus (PCR) Stool Astrovirus (PCR) Stool Cryptosporidium PCR Stl E.coli Shiga Tox PCR St Sh/Enteroin Ecoli PCR Stl Enterotoxigenic E PCR Stool EPEC (PCR) Stl E. histolytica PCR Stool Giardia Lamblia PCR Stool Sapovirus (PCR) Stl P. shigelloides PCR St Y.enterocolitica PCR Stool Vibrio (PCR) Stl Vibrio cholerae PCR Stl Enteroaggr Ecoli PCR Stl Norovirus GI/GII PCR Campylobacter (PCR) C. difficile Tox (PCR) Salmonella (PCR) Blood Type Antibody Screen Crossmatch Assessment & Plan Assessment & Plan narrative: GI bleed. Bright red blood probably lower colon. Probably diverticular. Given the CT scan findings. Patient has been reversed on his Coumadin. Consult on surgeon. Due to the fact that his blood pressure dropped into the 100s although he was not tachycardic and was otherwise having no dizziness or lightheadedness he was given blood today. 2 units will be given. Then we will follow every 4 hours with H& H. Otherwise no change. Surgeon will prep tonight and colonoscopy tomorrow clearly if he does not slow down in his bleeding that maybe held and will have to see how it goes. Certainly worsening may need to consider surgical approach. Patient understands questions answered. While this is probably an upper GI bleed will cover with pantoprazole Pulmonary embolus. Patient was diagnosed pulmonary embolus 3 months ago. 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 With his metastatic disease of unknown origin. At this point and we are going to have to hold anticoagulation will just have to follow closely. Certainly not a significant risk at this time. Hopefully mostly that is resolved. Metastatic disease head. Etiology is unclear. No source has been noted patient has had CT scans of chest abdomen in the last 3-4 months with no abnormality. Although he had Mets that were not showing up 3 months ago and now are quite large so whatever it is is growing rapidly. Neurosurgeon recommended Keppra which we will continue IV and dexamethasone which we will continue Solu-Medrol IV. Otherwise hopefully we can get him to his appointment on Monday but will have to see how go things go. Headache. Probably secondary to metastatic disease. Has been on Tylenol. Will do Dilaudid in the short term until we can get him taking p.o. again. Hypertension. Will hold medicines for now. Has been hypos tensive. May need to consider IV meds if his blood pressure increases will follow BPH will need to hold tamsulosin will follow closely Hypogonadism. We will not replace until he gets home. Code status no code. Disposition. Completely unclear at this point will least be here 48 hours would be my guess will see how he does as we reduce his anticoagulation and what is found in the colonoscopy. Patient is seriously ill at this point. Bleeding quite heavily hopefully this will turn around. But will have to watch closely. May need to be moved to the unit depending on how things go Time-Based Coding :: [TOTAL MINUTES] spent with patient and on the chart (including review of chart, obtaining history, exam, reviewing outside data, placing orders, documenting exam and treatment plan, and counseling patient) on [DATE].
[2025-07-21] MEDS: LACTATED RINGERS 1,000 ML 125 ML IV (20:28)
[2025-07-21] MEDS: methylPREDNISolone succ 125 MG/2 ML VIAL 60 MG IV (20:28)
[2025-07-21] MEDS: PEG3350/SOD SULF,BICARB,CL/KCL 4,000 ML SOLUTION 4000 ML PO (20:34)
[2025-07-22] VITALS (8 sets, daily range): BP systolic 108–165; BP diastolic 64–97; PULSE 58–80; RESP 12–20; TEMP 36.3–36.8; O2SAT 96–100
--- NOTE | 2025-07-22 | PATH_ITS ---
[facility] Accession Number: [id number] No. of containers..04 Tissue . 01 Material submitted: . PART A: colon - CECAL POLYP PART B: body - COLON, POLYP AT 65CM PART C: body - COLON, POLYP AT 70CM PART D: body - COLON, POLYP AT 45CM . 01 Diagnosis: Part A: CECAL POLYP: Tubular adenoma. . Part B: COLON, POLYP AT 65CM: Tubular adenoma. . Part C: COLON, POLYP AT 70CM: Tubular adenoma. . Part D: COLON, POLYP AT 45CM: Tubular adenoma. [facility] 07/30/2025 1308 Local . 01 Electronically signed: . Joe Galicia MD, Pathologist NPI- [id number] . 01 Gross description: . . . . Received are four formalin-filled containers each labeled with the patient's name. . A. In a container labeled cecal polyp. The specimen consists of two fragments of finnegan, soft tissue which range in size from 0.1 x 0.1 x 0.1 cm to 0.3 x 0.3 x 0.2 cm. The specimen is totally submitted in cassette A1. . B. In a container labeled polyp at 65 cm. The specimen consists of a 0.6 x 0.5 x 0.3 cm portion of tissue. Totally submitted in cassette B1. . C. In a container labeled polyp at 70 cm. The specimen consists of one fragment of finnegan, soft tissue which measures 0.4 x 0.3 x 0.3 cm. The specimen is totally submitted in cassette C1. . D. In a container labeled polyp at 45 cm. The specimen consists of one fragment of finnegan, soft tissue which measures 0.2 x 0.2 x 0.2 cm. The specimen is totally submitted in cassette D1. ([id number]) /BONNIE 07/30/2025 1308 Local . 01 Pathologist provided ICD-10: D12.0, D12.6 . 01 CPT . 700141, 838318, 138856, 384644 Specimen Comment: A courtesy copy of this report has been sent to [phone] Performed at: [address] [facility] [address], [place], [place] [id number] MD Joe Galicia MD Phone: [phone]
[2025-07-22] MEDS: methylPREDNISolone succ 125 MG/2 ML VIAL 60 MG IV ×3 (01:52→17:35)
[2025-07-22 02:14] LABS: Hematocrit 44.9 % (41-53); Hemoglobin 15.1 g/dL (13.5-17.5)
[2025-07-22] MEDS: ACETAMINOPHEN 325 MG TABLET 650 MG PO (03:18)
[2025-07-22] MEDS: LACTATED RINGERS 1,000 ML 125 ML IV ×3 (04:06→17:37)
--- NOTE | 2025-07-22 07:03 | PM.PREOP ---
Pre-operative Note Interval Note History & Physical reviewed/Exam performed by Physician: Yes Changes to H&P: No ASA Class (for procedural sedation): III
[2025-07-22 07:05] LABS: INR 1.7 (0.9-1.3); Prothrombin Time 18.9 SECONDS (9.4-12.5)
[2025-07-22 07:13] LABS: Alanine Aminotransferase 80 IU/L (<50); Albumin 2.2 g/dL (3.5-5.0); Albumin Globulin Ratio 1.2 (1.0-2.8); Alkaline Phosphatase 36 U/L (38-126); Blood Urea Nitrogen 36 mg/dL (9-20); Calcium 7.2 mg/dL (8.4-10.2); Carbon Dioxide 29 mmol/L (22-32); Chloride 102 mmol/L (98-107); Estimated Glomerular Filt Rate > 60 mL/min (>60); Globulin 1.9 g/dL (1.7-4.1); Glucose 158 mg/dL (70-99); HEMOLYSIS < 15 (0-50); Magnesium 1.8 mg/dL (1.6-2.3); Phosphorous 3.5 mg/dL (2.3-3.7); Potassium 3.5 mmol/L (3.4-5.1); Sodium 135 mmol/L (137-145); Total Protein 4.1 g/dL (6.3-8.2)
[2025-07-22] MEDS: PANTOPRAZOLE 40 MG VIAL IV (09:20)
[2025-07-22] MEDS: POTASSIUM CHLORIDE IN WATER 10 MEQ/100 ML PIGGYBACK 100 MEQ IV ×2 (10:31→11:37)
--- NOTE | 2025-07-22 12:51 | PM.OP.COLON ---
Operative Date/Time/Diagnoses Date of procedure: 07/22/25 Time of procedure: 13:42 Pre-op diagnosis: Rectal bleeding Post-op diagnosis: same (Large diverticulae throughout, predominantly in sigmoid, few polyps) Procedure & Clinicians Study performed: Colonoscopy with polypectomy Same procedure(s) as scheduled: Yes Indications: 80yo M presents to ED with rectal bleeding, INR 4 reversed with Kcentra, Coumadin held, CTA suggests diverticular bleeding Surgeon: Jose L Esposito Anesthesia Type: MAC +/- Procedure Notes SCOAP/Timeout: Performed Procedure in detail: Colonoscopy Patient placed in left lateral recumbent position. Time out was performed. Procedural sedation was administered by anesthesia. Examination began with a thorough inspection of the perianal area. There was no evidence of fissures, fistulae, external hemorrhoids or cutaneous malignancy. The colonoscope was then placed into the rectum and the lumen was insufflated with carbon dioxide. The scope was carefully advanced forward. Ultimately the cecum was intubated and confirmed by identification of the ileocecal valve, the appendiceal orifice and the confluence of the taenia. The scope was then slowly withdrawn examining the colon thoroughly in all directions. In the rectum, retroflexion of the scope was performed for inspection of the distal rectum and anal canal. ?Significant colonoscopy findings: ?1. Quality of the preparation-good, [place] 1-2, improved with irrigation/suction, small lesions could be missed ?2. Four polyps, 5mm, sessile, adenomatous appearing, benign appearing, all removed with snare and retrieved for pathology, one in cecum, one at 45cm, 65cm, 70cm. 3. Large mouthed diverticulae throughout, concentrated in sigmoid colon 4. No active bleeding Source of GI bleeding likely diverticulae consistent with CTA findings Scope withdrawal time: 24 minutes Findings: divertiulosis and polyp(s) Specimen(s): other (polyps) Estimated Blood Loss: 5 Complications: none Impression: Large diverticulae throughout colon, concentrated in sigmoid Multiple polyps removed, await pathology No active bleeding Post-procedure Recommendations: Colonoscopy in 5 years Plan for aftercare: PACU then floor Follow up: as needed Disposition: PACU
[2025-07-22] MEDS: GABAPENTIN 100 MG CAPSULE PO (16:21)
--- NOTE | 2025-07-22 17:57 | PM.DS.1 ---
History of Present Illness History of Present Illness Chief complaint: Blood in stool, bright red Narrative: Patient is a 80-year-old well known to me who presents with bright red blood per rectum. Patient was apparently this morning at his surgical endoscopist had Mohs surgery on his right leg. And a biopsy. Had no other significant changes. Started feeling kind of off. And then had 3 episodes of bright red blood per rectum. No dizziness no lightheadedness no abdominal pain. No fevers chills nausea or other complaint. Patient at this point felt like there was a lot of blood and came to the emergency room through 911. Otherwise he has been doing well. He has recently been on Coumadin and has been difficult to adjust. Has had some elevation in his Coumadin up to 6. Recently was 4. Head in the process of adjusting. We are trying to get him on Eliquis but insurance was not able to cover would not refill. There was no other significant new changes or complaints. 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 Patient is continuing having headache. He was recently placed on Keppra and dexamethasone until he was seen by the neurosurgeon and the oncologist down whenever it. He has no other new complaint or problem he has had no nausea or vomiting. Patient was reversed with his Coumadin in the emergency room. Surgeon has been consulted Discharge Providers Provider Date of admission: 07/21/25 15:46 Discharge Date: 07/22/25 Primary care physician: Jose David Boss MD Consults: 07/21/25 18:01 Consult to General Surgery Routine Comment: Consulting Provider: Jose L Esposito Reason for consultation: gi bleed Has provider been notified: Yes Discharge provider: Jose David Boss MD Summary Hospital Course Discharge Diagnosis: GI bleed: Lower Pulmonary embolus Atrial fibrillation Brain metastasis Headache Hypertension BPH Hospital Course: GI bleed. Bright red blood per rectum. Patient was admitted to the hospital. And was reversed with INR normalizing. Bleeding stopped sometime late last night. With no further bleeding. Patient had no abdominal pain no other changes. CT scan showed what probably appeared to be diverticular bleed. There was no other change or issue. He had no evidence of infection. Patient was prepped last night and Dr. Esposito did colonoscopy today. With findings of large diverticular lesions but no active bleeding. Patient had received 2 units of blood shortly after being in the emergency room due to low blood pressure. He had no dizziness or other change. Hematocrit was near 50 initially and had decreased to below 40 after 2 units he was at 44. He has had no further bleeding. He has no dizziness lightheadedness or other change. He will be discharged to home in stable condition mostly because he has an appoint with neurosurgeon for tomorrow. He understands and we discussed extensively concern. He will not be anticoagulated at least at this time. Pulmonary embolus. Patient had no symptoms. It has not short of breath. He has been anticoagulated for 3 months. This probably was a paraneoplastic issue so no other findings were noted. But he is comfortable at this point we need to resume anticoagulation but it will depend a little bit on what the neurosurgeon wants and when that will be sometime in the next 10-14 days if he remained stable. Would prefer to use 1 of the newer generation anticoagulations because we would difficulty monitoring his warfarin. We will discuss as outpatient. Atrial fibrillation. Patient has had atrial fibrillation was last diagnosed in brief period of time in his previous hospitalization. He was entering atrial fibrillation right as we were seeing him today. His rate is pretty well-controlled he has not got his beta-andres today. Patient had an echo 3 months ago which showed a slight decrease in his ejection fraction but really no other definitive findings. Ejection fraction was still in the 50-55% range. No significant valvular disease. Patient does meet criteria for anticoagulation but due to his GI bleed we are not going to incident that today. We will continue his diltiazem and beta-andres. For rate control and blood pressure control and we will follow from there. Rediscuss anticoagulation next week would prefer this not to be Coumadin and would be better if it was 1 of the newer generation medications. They understand this. Will discuss cost. 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 Will have them read schedule Hypertension. Patient was initially hypotensive on admission but had has improved since he was given fluid and 2 units of blood. Feeling well at this time just a little worn out. No other changes will restart usual medications. Also this will help with atrial fibrillation rate control. Brain metastasis. Etiology is unclear. Workup has been negative for primary source. Has neurosurgeon appointment tomorrow morning and I think we need to keep that. Will be going to [facility]. Oncology should be in the same location. It appears as if they have that all set up. Whatever we need to do from their perspective we will do. I suspect and we discussed that he is probably going to need a PET scan but will see what they recommend 1st. They also understand that biopsy is possibility and we certainly can not be on anticoagulation for that. Will see how things go and see what their recommendation is follow from there. will continue dexamethasone and Keppra. Headache. Better control with gabapentin , dexamethasone. Tylenol seems to be working pretty well. No other complaint or problem. Will follow. Probably related to brain metastasis. BPH stable Exam Vital Signs (past 8 hours): - 07/22/25 12:02 07/22/25 13:45 07/22/25 13:50 Temperature 97.4 F L 98.3 F 98.3 F Pulse Rate 71 62 63 Respiratory Rate 12 12 12 Blood Pressure 165/94 H 120/64 121/72 Pulse Oximetry 99 96 98 Oxygen Delivery Method Room Air Room Air Room Air Oxygen Flow Rate 07/22/25 15:00 Temperature 98.1 F Pulse Rate 64 Respiratory Rate 17 Blood Pressure 135/97 H Pulse Oximetry 100 Oxygen Delivery Method Oxygen Flow Rate 0 Fraction of Inspired Oxygen 21 SaO2/FiO2 Ratio 461 Oxygen Delivery Method Room Air Oxygen Flow Rate 0 Narrative Exam Narrative: alert fatigued but smiling male in no acute distress Bulbar conjunctiva are clear skin without rash lungs are clear heart is regular rate and rhythm abdomen is soft positive bowel sounds nontender extremities without cyanosis clubbing edema neurologic exam is unremarkable Objective Labs 07/22/25 02:05 07/22/25 06:49 Labs: Laboratory Results - last 24 hr 07/21/25 07/22/25 07/22/25 11:35 02:05 06:49 Hgb 15.1 Hct 44.9 PT 18.9 H D INR 1.7 H Sodium 135 L Potassium 3.5 Chloride 102 Carbon Dioxide 29 BUN 36 H Creatinine 1.00 Estimated GFR > 60 BUN/Creatinine Ratio 36.0 H Glucose 158 H Calcium 7.2 L Phosphorus 3.5 Magnesium 1.8 Total Bilirubin 1.6 H AST 41 ALT 80 H Alkaline Phosphatase 36 L Total Protein 4.1 L Albumin 2.2 L Globulin 1.9 Albumin/Globulin Ratio 1.2 Blood Type A Positive Antibody Screen Negative Crossmatch See Detail PFSH Medical History Elevated PSA Asthma History of DVT (deep vein thrombosis) Chronic sinusitis Hypogonadism Incomplete emptying of bladder Nocturia more than twice per night Lower urinary tract symptoms Male circumcision Kidney stones High blood pressure Gout Diverticular disease Arthritis BPH (benign prostatic hyperplasia) Surgical History Hx of colonoscopy Hx of bilateral cataract extraction H/O vasectomy (1976) Hx of toe surgery Hx of nasal sinusotomy (2008) History of arthroscopy of left shoulder (2014) History of eye surgery Hx of elbow surgery (1996) Hx of left knee surgery History of prostate surgery Family History Father Diabetes mellitus Eczema Mother Bacterial UTI Social History marital status: number of children: 3 household members: spouse lives independently: Yes Smoking Status: Former smoker alcohol intake: current substance use type: does not use Type(s) of exercise: other frequency: 5-6 times per week Discharge Assessment & Plan Assessment and Plan Assessment: improve Plan of Treatment: discharge home Discharge Plan Discharge Plan Patient Disposition: Home Discharge orders & Medications Prescriptions: Continued diltiazem HCl [Cartia XT] 240 MG capsule,extended release 24hr 240 mg PO Q DAY Qty: 0 furosemide 20 MG tablet 20 mg PO QDAY Qty: 0 chlorthalidone 25 mg tablet 50 mg PO QAM alfuzosin 10 mg tablet extended release 24 hr 10 mg PO DAILY ketoconazole 2 % Shampoo 1 applic TOPICAL 3XW saw palmetto 160 mg Capsule 160 mg PO BID fluocinonide 0.05 % Solution 1 applic TOPICAL BID-QID PRN (Reason: Rash) timolol maleate 0.5 % drops 1 drp EYE-BOTH QAM acyclovir [Zovirax] 5 % Cream 1 applic TOPICAL 5XD potassium gluconate 595 mg (99 mg) Tablet 595 mg PO DAILY cholecalciferol (vitamin D3) [Vitamin D3] 25 mcg (1,000 unit) Tablet,Chewable 75 mcg PO DAILY Repatha SureClick 140 mg/mL Pen Injector 140 mg SUBCUT Q2W clotrimazole-betameth dip-zinc 1-0.05-20 % Combo Pack See Rx Instructions .ROUTE .COMPLEX PRN (Reason: rash) Rx Instructions: 1 pkg topically PRN; anti-fungal nitroglycerin 0.4 mg tablet, sublingual 0.4 mg sublingual Q5-15M MDD 3 pills PRN (Reason: chest pain) Qty: 10 3RF Rx Instructions: do not exceed 3 doses per episode testosterone cypionate 200 mg/mL oil 0.3 mg IM QWEEK allopurinol 200 mg tablet 400 mg PO DAILY colchicine 0.6 mg tablet 0.6 mg PO BID PRN (Reason: gout) budesonide-formoterol [Symbicort] 160-4.5 mcg/actuation HFA aerosol inhaler 2 inh inhalation BID fluticasone propionate 50 mcg/actuation spray,suspension 2 spray intranasal BID psyllium husk [Metamucil] 0.4 gram capsule 0.4 g PO DAILY dexamethasone 4 mg tablet 4 mg PO TID Qty: 60 0RF levetiracetam [Keppra] 500 mg tablet 500 mg PO BID Qty: 60 0RF warfarin 5 mg tablet 10 mg PO DAILY gabapentin 100 mg capsule 100 mg PO 3XD metoprolol succinate 25 mg tablet extended release 24 hr 12.5 mg PO DAILY acyclovir [Zovirax] 5 % cream 1 applic topical 5XD PRN (Reason: cold sores) Acidophilus Tablet,Chewable 2 tab PO DAILY tadalafil 20 mg tablet 20 mg PO DAILY PRN (Reason: sexual activity) Qty: 15 2RF Rx Instructions: administer approximately 30min before sexual activity; do not use more than 1 dose per 24hrs Discontinued metoprolol succinate 50 mg tablet extended release 24 hr 50 mg PO DAILY Eliquis 5 mg Tablet 5 mg PO BID Qty: 60 3RF indomethacin 25 mg capsule 75 mg PO DAILY PRN (Reason: acute attack) Rx Instructions: administer with food or milk Follow up/Referrals: Jose David Boss MD [Primary Care Provider, Family Practice] - 1 Week Referral Note: Patient will call for follow-up next week that fits schedule Discharge Health Status Multidrug resistant organism: No MDRO Diet/Activity/Treatments Diet: Diet as Tolerated Activity: As tolerated Skin/Wound/Dressing Care Report to your healthcare provider any signs of infection, such as:: chills, fever, night sweats, increased pain, unusual drainage and unusual redness Visit Report/Discharge Packet Stand Alone Forms: Patient Portal/API, Stroke Signs & Symptoms Discharge Data Primary Care Provider: Jose David Boss VTE Deep Vein Thrombosis/Pulmonary Embolism Present on Admission: No
--- NOTE | 2025-07-22 19:25 | PC.NURSE ---
D/c summary reviewed with pt at bedside. IV's and tele removed. Pt exited via w/c with PCT to private vehicle.
[2025-07-24 14:09] LABS: C difficie Toxins A and B, EIA Negative (Negative)
== END 2025-07-22 18:50 | disposition home health service (06) | DRG 378 ==
LOC: ED 13:59 → AC 15:22
PROVIDERS: Student in an Organized Health Care Education/Training Program; Surgery; Admitting Provider Family Medicine; Emergency Provider Emergency Medicine; PCP Family Medicine; Referring Provider Emergency Medicine; Visit Provider Family Medicine
PROC: 0DJD8ZZ Inspection of Lower Intestinal Tract, Via Natural or Artificial Opening Endoscopic (ICD-10-PCS; CPT 45378; principal; 2025-07-22 13:15)
DX: K57.31 Diverticulosis of large intestine without perforation or abscess with bleeding (principal); C79.31 Secondary malignant neoplasm of brain; I27.82 Chronic pulmonary embolism; I10 Essential (primary) hypertension; N40.0 Benign prostatic hyperplasia without lower urinary tract symptoms; E29.1 Testicular hypofunction; K63.5 Polyp of colon; I48.91 Unspecified atrial fibrillation; I95.9 Hypotension, unspecified; R51.9 Headache, unspecified; M10.9 Gout, unspecified; Z79.01 Long term (current) use of anticoagulants; Z87.891 Personal history of nicotine dependence
CPT/HCPCS: 36415; 36430; 45385; 74174; 80053; 81003; 81015; 82272; 83735; 84100; 85014; 85018; 85025; 85610; 85730; 86850; 86900; 86901; 87324; 87507; 93005; 96361; 96374; 99232; 99284; P9016; J1953; J2470; J2704; J2919; J7040; J7050; J7120; J7165; Q9967

== ENCOUNTER 2025-08-19 11:04 | Emergency (ER) | payer MEDICARE, OTHER, SELFPAY ==
[2025-07-21 19:40] VITALS: BMI 27.3
[2025-08-19] VITALS (10 sets, daily range): BP systolic 128–159; BP diastolic 61–80; PULSE 96–130; RESP 12–19; TEMP 36.8; O2SAT 92–99; BMI 26.9
--- NOTE | 2025-08-19 11:06 | DI.CT.S_ITS ---
PROCEDURE: CT ANGIO HEAD AND NECK INDICATIONS: ams prior mass bleed? TECHNIQUE: After the administration of intravenous contrast, 1 mm thick sections acquired from the aortic arch through the [place]. 3-dimensional vhpdlpb-ocgyofjhk-fxpwfmvxsk (MIP) and/or volume rendering reformats were acquired of the central intracranial vasculature and neck separately. For radiation dose reduction, the following was used: automated exposure control, adjustment of mA and/or kV according to patient size. COMPARISON: [facility], CT, CT STROKE, 08/19/2025, 11:05. FINDINGS: Image quality: Diagnostic HEAD ANGIOGRAPHY: Anterior circulation: ICAs: Rdtd-cy-fzkqnhem cavernous and supraclinoid calcifications ACAs: Patent MCAs: Patent AComm: No aneurysm Venous sinuses: Patent Posterior circulation: Dominance: Left Vertebral arteries: Patent Basilar artery: Patent PComms: No aneurysm pattern and chain maker: Unremarkable. No definite bleeding aneurysm is identified. NECK ANGIOGRAPHY: Aortic arch and subclavian arteries: Mild aortic arch and great vessel calcifications CCAs: Mild calcifications on the right ICA origins (by NASCET criteria): Mild right-sided calcifications. No significant narrowing ICAs: Cervical ICA is obscured by dental hardware artifact. Overall appearance is patent ECAs: Origins appear unremarkable Vertebral arteries: Patent where visualized. Dental artifact obscures evaluation in the upper cervical spine Mild calcifications seen at the proximal left vertebral artery Soft tissues: Left scalp postsurgical changes and soft tissue swelling. No enlarged lymph nodes by size criteria. Lung apices: No apex pneumothorax. Incidental right-sided pulmonary embolism seen in the main right pulmonary artery Bones: Degenerative changes. IMPRESSION: Incidental right-sided pulmonary embolism in the main pulmonary artery. No definite aneurysm is seen to explain hemorrhage. Bxrs-lj-ydrytyss atherosclerotic disease as described above. No large vessel occlusion. Consider MRI to further evaluate the brain parenchyma if clinically needed. Any quantitative measurements of stenosis were performed using NASCET criteria. Dictated by: Kvng Bar M.D. on 08/19/2025 at 11:31 Approved by: Kvng Bar M.D. on 08/19/2025 at 11:39
--- OUTSIDE RECORDS SUMMARY | 2025-08-19 11:09 | XMS_ITS | Encounter Summary ---
Author Organization [facility] Address [address] [place] [address] Care Team Providers Care Glass Fitter Name Role Phone Jose David Boss Primary Care Provider [phone] Encounter Details Date Type Department Care Team (Late st Contact Info) Description 05/24/[address] [facility] [place] [address] [place] [address] Claudio Bedoya MD [address] [address] Social History Tobacco Use Types Packs/Day Years Used Date Smoking Tobacco: Former Cigarettes 0.5 20 0 08/21/1969 - 08/21/1989 Cigars Smokeless Tobacco: Never Alcohol Use Standard Drinks/Week Comments Yes 12 (1 standard drink = 0.6 oz pu re alcohol) 2-3 glasses a night Sex and Gender Information Value Date Recorded Sex Assigned at Not on file Legal Sex Male 7:50 PM PDT Gender Identity Not on file Sexual Orientation Not on file documented as of this encounter Plan of Treatment Not on file documented as of this encounter Visit Diagnoses Not on filedocumented in this encounter Care Teams Glass Fitter Relationship Specialty Start Date End Date Jose David Boss [address] [facility] [place] [address] [place] [address] PCP - General Family Medicine 01/17/25 documented as of this encounter
--- NOTE | 2025-08-19 11:15 | DI.RAD.S_ITS ---
PROCEDURE: XR CHEST 1V INDICATIONS: Possible stroke TECHNIQUE: One view of the chest was acquired. COMPARISON: [facility], CR, XR CHEST 1V, 07/05/2025, 5:40. [facility], CR, XR CHEST 1V, 05/18/2025, 11:27. FINDINGS AND IMPRESSION: No dense airspace disease or pleural effusion on this single view study. Very low lung volumes, limiting evaluation. Prominent mediastinal contours likely artifact of low lung volumes. Heart size is upper limit of normal. Degenerative osseous changes. Dictated by: Kvng Bar M.D. on 08/19/2025 at 12:19 Approved by: Kvng Bar M.D. on 08/19/2025 at 12:19
--- NOTE | 2025-08-19 11:15 | DI.CT.S_ITS ---
PROCEDURE: CT STROKE INDICATIONS: ams with bleed TECHNIQUE: Noncontrast 4.5 mm thick angled axial sections acquired from the foramen magnum to the vertex, with coronal reformats. For radiation dose reduction, the following was used: automated exposure control, adjustment of mA and/or kV according to patient size. COMPARISON: [facility], CT, CT HEAD/BRAIN WO CON, 03/24/2025, 2:14. FINDINGS: Image quality: Diagnostic CSF spaces: Basal cisterns are patent. Lateral ventricles are symmetric. Volume: Vascular calcifications. Periventricular white matter disease is commonly seen with chronic microangiopathy. Volume loss is present. These findings are moderate Brain: Left middle fossa hemorrhage, mostly in the subarachnoid spaces. Small left epidural hematoma also present. Suspect trace left frontal parietal subarachnoid also seen Craniofacial structures: Scalp suture lines and subjacent soft tissue swelling. Left calvarial craniotomy defect. IMPRESSION: Left calvarial postsurgical changes. Subjacent suspected small epidural hemorrhage. Scattered subarachnoid hemorrhage also seen, most obvious in the left middle fossa. Called to Dr. Astudillo This study fulfills neurological imaging criteria for inclusion or exclusion of acute stroke therapies based on available published neurological imaging guidelines. Dictated by: Kvng Bar M.D. on 08/19/2025 at 11:21 Approved by: Kvng Bar M.D. on 08/19/2025 at 11:26
[2025-08-19 11:21] LABS: Add Manual Diff / Slide Review YES; Hematocrit 43.1 % (41-53); Hemoglobin 14.5 g/dL (13.5-17.5); Mean Corpuscular HGB Conc 33.7 % (30-36); Mean Corpuscular Hemoglobin 33.6 PG (26-34); Mean Corpuscular Volume 99.8 fL (80-100); Platelet Count 103 X10^3/uL (150-400)
[2025-08-19 11:27] LABS: INR 0.9 (0.9-1.3); Prothrombin Time 9.9 SECONDS (9.4-12.5)
--- NOTE | 2025-08-19 11:27 | ED.NEUROSD ---
HPI - Neuro Symptoms/Deficit General Chief Complaint: Neuro Symptoms/Deficit Stated Complaint: Code Stroke Time Seen by Provider: 08/19/25 11:05 History of Present Illness HPI Narrative: Patient 80-year-old male with a recent history of brain mass with resection at [facility] last week. He was discharged home on August 15. reports that he has been doing well he has been able to cook his own food sometimes his responses a little bit slow but getting back to baseline. This morning he woke up hello and then at breakfast became acutely confused. Not able to answer appropriate questions. He is not on antiplatelet or anticoagulation. He was previously on warfarin but is not anymore. No recent fall or trauma. Related Data Home Medications ?Medication ?Instructions ?Recorded ?Confirmed diltiazem HCl 240 mg 240 mg PO Q DAY ##0 11/27/11 07/29/25 capsule,extended release 24 hr (Cartia XT) furosemide 20 mg tablet 20 mg PO QDAY ##0 06/03/17 07/29/25 acyclovir 5 % topical cream 1 applic topical 5XD 09/07/20 07/29/25 (Zovirax) alfuzosin 10 mg tablet,extended 10 mg PO DAILY 09/07/20 07/29/25 release 24 hr chlorthalidone 25 mg tablet 50 mg PO QAM 09/07/20 07/29/25 cholecalciferol (vitamin D3) 25 75 mcg PO DAILY 09/07/20 07/29/25 mcg (1,000 unit) chewable tablet (Vitamin D3) clotrimazole 1 %-betamethasone See Rx Instructions .Route 09/07/20 07/29/25 0.05 % cream-zinc ox 20 % paste .COMPLEX PRN rash topical evolocumab 140 mg/mL subcutaneous 140 mg SUBCUT Q2W 09/07/20 07/29/25 pen injector (Marti Barcenas) fluocinonide 0.05 % topical 1 applic topical BID-QID PRN Rash 09/07/20 07/29/25 solution ketoconazole 2 % shampoo 1 applic topical 3XW 09/07/20 07/29/25 potassium gluconate 595 mg (99 mg) 595 mg PO DAILY 09/07/20 07/29/25 tablet saw palmetto 160 mg capsule 160 mg PO BID 09/07/20 07/29/25 timolol maleate 0.5 % eye drops 1 drp EYE-BOTH QAM 09/07/20 07/29/25 testosterone cypionate 200 mg/mL 0.3 mg IM QWEEK 06/16/23 07/29/25 intramuscular oil allopurinol 200 mg tablet 400 mg PO DAILY 05/19/25 07/29/25 budesonide-formoterol HFA 160 2 inh inhalation BID 05/19/25 07/29/25 mcg-4.5 mcg/actuation aerosol inhaler (Symbicort) colchicine 0.6 mg tablet 0.6 mg PO BID PRN gout 05/19/25 07/29/25 fluticasone propionate 50 2 spray intranasal BID 05/19/25 07/29/25 mcg/actuation nasal spray,suspension psyllium husk 0.4 gram capsule 0.4 g PO DAILY 05/19/25 07/29/25 (Metamucil) Lactobacillus acidophilus 2 tab PO DAILY 07/21/25 07/29/25 (Acidophilus chewable tablet) acyclovir 5 % topical cream 1 applic topical 5XD PRN cold sores 07/21/25 07/29/25 (Zovirax) gabapentin 100 mg capsule 100 mg PO 3XD 07/21/25 07/29/25 metoprolol succinate 25 mg 12.5 mg PO DAILY 07/21/25 07/29/25 tablet,extended release 24 hr warfarin 5 mg tablet 10 mg PO DAILY 07/21/25 07/29/25 Previous Rx's ?Medication ?Instructions ?Recorded nitroglycerin 0.4 mg sublingual 0.4 mg sublingual Q5-15M PRN chest 09/09/20 tablet pain #10 tabs tadalafil 20 mg tablet 20 mg PO DAILY PRN sexual activity 01/22/25 #15 tabs dexamethasone 4 mg tablet 4 mg PO TID #60 tabs 07/05/25 levetiracetam 500 mg tablet 500 mg PO BID #60 tabs 07/05/25 (Keppra) Allergies Allergy/AdvReac Type Severity Reaction Status Date / Time adhesive tape Allergy Verified 07/29/25 10:53 choline fenofibrate Allergy Muscle Pain Verified 07/29/25 10:53 cyclobenzaprine Allergy Verified 07/29/25 10:53 gatifloxacin Allergy Verified 07/29/25 10:53 losartan Allergy Verified 07/29/25 10:53 niacin Allergy ITCHING Verified 07/29/25 10:53 omega-3 acid ethyl esters Allergy Rash Verified 07/29/25 10:53 risedronate sodium Allergy Rash, body Verified 07/29/25 10:53 (RISEDRONATE SODIUM) pain Vnxgwfi-[id number]-DlG Reductase Allergy Stomach Verified 07/29/25 10:53 Inhibitor pains, headache ciprofloxacin AdvReac Severe achilles Verified 07/29/25 10:53 tendon tears Penicillins AdvReac Intermediate GI upset, Verified 07/29/25 10:53 diarrhea clonidine AdvReac Mild Dry Mucus Verified 07/29/25 10:53 Membranes oxybutynin AdvReac SOB, Verified 07/29/25 10:53 stomach ache actonal Allergy Unknown shoulder, Uncoded 07/29/25 10:53 chest, knee, back rib pain dha Allergy Rash Uncoded 07/29/25 10:53 Patient History Medical History Elevated PSA Asthma History of DVT (deep vein thrombosis) Chronic sinusitis Hypogonadism Incomplete emptying of bladder Nocturia more than twice per night Lower urinary tract symptoms Male circumcision Kidney stones High blood pressure Gout Diverticular disease Arthritis BPH (benign prostatic hyperplasia) Surgical History Hx of colonoscopy Hx of bilateral cataract extraction H/O vasectomy (1976) Hx of toe surgery Hx of nasal sinusotomy (2008) History of arthroscopy of left shoulder (2014) History of eye surgery Hx of elbow surgery (1996) Hx of left knee surgery History of prostate surgery Family History Father Diabetes mellitus Eczema Mother Bacterial UTI Social History marital status: number of children: 3 household members: spouse lives independently: Yes alcohol intake: current substance use type: does not use Type(s) of exercise: other frequency: 5-6 times per week alcohol intake frequency: a few times a week Alcohol type: wine Exam Initial Vital Signs Initial Vital Signs: Vital Signs Blood Pressure 157/78 H 08/19/25 11:17 GENERAL: Significant facial contusion good eye contact HEENT: Head post surgical incision on head with amparo contusion and swelling CARDIOVASCULAR: Regular rate and rhythm without murmurs, rubs or gallops. RESPIRATORY: Breath sounds equal bilaterally, no wheezes rales or rhonchi. ABDOMEN: Soft, nontender. Normoactive bowel sounds all 4 quadrants. No guarding or rebound. EXTREMITIES: Normal range of motion, no clubbing or edema. Neurovascularly intact NEUROLOGICAL: Aphasic able to squeeze both hands able to lift legs not able to speak mild facial droop SKIN: Warm, dry, no laceration, no petechiae, no rashes or lesions. Course Orders Ordered: ED Orders 08/19/25 11:00 Complete Blood Count AUTO DIFF Stat Comprehensive Metabolic Panel Stat PTT Partial Thromboplastin Andrey Stat Prothrombin Time INR Stat Troponin & CK Cardiac Panel Stat 08/19/25 11:06 CT angio head and neck Stat 08/19/25 11:15 CT Stroke Stat XR chest 1V Stat EKG-12 Lead Stat Discontinued Medications Levetiracetam 1,000 mg/ Sodium (Chloride) 110 mls @ 440 mls/hr IV NOW ONE Stop: 08/19/25 12:22 Last Infusion: 08/19/25 13:45 Dose: Infused Documented By: Admin: 08/19/25 12:40 Dose: 440 mls/hr Documented By: EDWIN Lidocaine HCl (Lidocaine 2% (Glydo) 6 Ml Gel) 6 ml TOP NOW ONE Stop: 08/19/25 11:48 Last Admin: 08/19/25 13:44 Dose: Not Given Documented By: JAN Ondansetron HCl (Ondansetron 4 Mg/2 Ml Inj) 4 mg IV NOW PRN PRN Reason: Nausea And Vomiting Ondansetron HCl (Ondansetron 4 Mg Odt) 4 mg PO NOW PRN PRN Reason: Nausea And Vomiting Vital Signs Vital signs: Vital Signs - 8 hr 08/19/25 11:17 08/19/25 11:18 08/19/25 11:25 Temperature 98.2 F Pulse Rate 106 H 96 H Respiratory Rate 12 Blood Pressure 157/78 H 157/78 H Pulse Oximetry 92 Oxygen Delivery Method Room Air 08/19/25 11:30 08/19/25 11:30 08/19/25 12:00 Temperature Pulse Rate 97 H 100 H Respiratory Rate 12 18 Blood Pressure 128/70 Pulse Oximetry 93 99 Oxygen Delivery Method 08/19/25 12:00 08/19/25 12:01 08/19/25 12:01 Temperature Pulse Rate 130 H Respiratory Rate 13 Blood Pressure 133/61 133/61 Pulse Oximetry 98 Oxygen Delivery Method 08/19/25 12:04 08/19/25 12:04 08/19/25 12:30 Temperature Pulse Rate 112 H Respiratory Rate 13 Blood Pressure 148/72 H 159/80 H Pulse Oximetry 98 Oxygen Delivery Method 08/19/25 12:30 08/19/25 13:00 08/19/25 13:01 Temperature Pulse Rate 122 H 112 H Respiratory Rate 18 19 Blood Pressure 132/75 Pulse Oximetry 98 99 Oxygen Delivery Method 08/19/25 13:01 Temperature Pulse Rate 105 H Respiratory Rate 17 Blood Pressure Pulse Oximetry 99 Oxygen Delivery Method MDM - Neuro Symptoms/Deficit Lab Data 08/19/25 11:00 08/19/25 11:00 Labs: Lab Results 08/19/25 08/19/25 Range/Units 11:00 11:21 WBC 10.8 (4.5-11.0) X10^3/uL RBC 4.32 L (4.5-5.9) X10^6/uL Hgb 14.5 (13.5-17.5) g/dL Hct 43.1 (41-53) % MCV 99.8 (80-100) fL MCH 33.6 (26-34) PG MCHC 33.7 (30-36) % RDW 16.8 H (11.6-14.8) % Plt Count 103 L (150-400) X10^3/uL Neut % (Auto) Not Reportable Lymph % (Auto) Not Reportable Runnels % (Auto) Not Reportable Eos % (Auto) Not Reportable Baso % (Auto) Not Reportable Lymph # (Auto) Not Reportable Runnels # (Auto) Not Reportable Baso # (Auto) Not Reportable Total Counted 100 Seg Neutrophils % 76.0 H (38-70) % Band Neutrophils % 3.0 (3-7) % Lymphocytes % (Manual) 15.0 L (25-45) % Monocytes % (Manual) 4.0 (2-11) % Metamyelocytes % 1.0 H (-0) % Myelocytes % 1.0 H (-0) % Neutrophils # (Manual) 8532 H (8814-4499) /uL RBC Morphology Normal morphology PT 9.9 (9.4-12.5) SECONDS INR 0.9 (0.9-1.3) APTT 23 L (25.1-36.5) SECONDS Sodium 133 L (137-145) mmol/L Potassium 3.2 L (3.4-5.1) mmol/L Chloride 97 L (98-107) mmol/L Carbon Dioxide 31 (22-32) mmol/L BUN 22 H (9-20) mg/dL Creatinine 0.91 (0.66-1.25) mg/dL Estimated GFR > 60 (>60) mL/min BUN/Creatinine Ratio 24.2 H (6-22) Glucose 140 H (70-99) mg/dL POC Whole Bld Glucose 147 H (70-99) mg/dL Calcium 8.6 (8.4-10.2) mg/dL Total Bilirubin 0.8 (0.2-1.3) mg/dL AST 30 (17-59) IU/L ALT 53 H (<50) IU/L Alkaline Phosphatase 71 (38-126) U/L Total Creatine Kinase 36 L (55-170) U/L Troponin I 0.042 H (0.01-0.034) ng/mL Total Protein 6.0 L (6.3-8.2) g/dL Albumin 3.4 L (3.5-5.0) g/dL Globulin 2.6 (1.7-4.1) g/dL Albumin/Globulin Ratio 1.3 (1.0-2.8) Point of Care Testing Glucose POC [address] scan - head: Radiologist's Impression: PROCEDURE: CT STROKE INDICATIONS: ams with bleed TECHNIQUE: Noncontrast 4.5 mm thick angled axial sections acquired from the foramen magnum to the vertex, with coronal reformats. For radiation dose reduction, the following was used: automated exposure control, adjustment of mA and/or kV according to patient size. COMPARISON: [facility], CT, CT HEAD/BRAIN WO CON, 03/24/2025, 2:14. FINDINGS: Image quality: Diagnostic CSF spaces: Basal cisterns are patent. Lateral ventricles are symmetric. Volume: Vascular calcifications. Periventricular white matter disease is commonly seen with chronic microangiopathy. Volume loss is present. These findings are moderate Brain: Left middle fossa hemorrhage, mostly in the subarachnoid spaces. Small left epidural hematoma also present. Suspect trace left frontal parietal subarachnoid also seen Craniofacial structures: Scalp suture lines and subjacent soft tissue swelling. Left calvarial craniotomy defect. IMPRESSION: Left calvarial postsurgical changes. Subjacent suspected small epidural hemorrhage. Scattered subarachnoid hemorrhage also seen, most obvious in the left middle fossa. Called to Dr. Astudillo This study fulfills neurological imaging criteria for inclusion or exclusion of acute stroke therapies based on available published neurological imaging guidelines. Dictated by: Kvng Bar M.D. on 08/19/2025 at 11:21 Approved by: Kvng Bar M.D. on 08/19/2025 at 11:26 CTA - brain/neck: Radiologist's Impression: PROCEDURE: CT ANGIO HEAD AND NECK INDICATIONS: ams prior mass bleed? TECHNIQUE: After the administration of intravenous contrast, 1 mm thick sections acquired from the aortic arch through the [place] of [place]. 3-dimensional pjccbnc-ujkdprigg-vogzzfqkps (MIP) and/or volume rendering reformats were acquired of the central intracranial vasculature and neck separately. For radiation dose reduction, the following was used: automated exposure control, adjustment of mA and/or kV according to patient size. COMPARISON: [facility], CT, CT STROKE, 08/19/2025, 11:05. FINDINGS: Image quality: Diagnostic HEAD ANGIOGRAPHY: Anterior circulation: ICAs: [id number] cavernous and supraclinoid calcifications ACAs: Patent MCAs: Patent AComm: No aneurysm Venous sinuses: Patent Posterior circulation: Dominance: Left Vertebral arteries: Patent Basilar artery: Patent PComms: No aneurysm repairer controller tester: Unremarkable. No definite bleeding aneurysm is identified. NECK ANGIOGRAPHY: Aortic arch and subclavian arteries: Mild aortic arch and great vessel calcifications CCAs: Mild calcifications on the right ICA origins (by NASCET criteria): Mild right-sided calcifications. No significant narrowing ICAs: Cervical ICA is obscured by dental hardware artifact. Overall appearance is patent ECAs: Origins appear unremarkable Vertebral arteries: Patent where visualized. Dental artifact obscures evaluation in the upper cervical spine Mild calcifications seen at the proximal left vertebral artery Soft tissues: Left scalp postsurgical changes and soft tissue swelling. No enlarged lymph nodes by size criteria. Lung apices: No apex pneumothorax. Incidental right-sided pulmonary embolism seen in the main right pulmonary artery Bones: Degenerative changes. IMPRESSION: Incidental right-sided pulmonary embolism in the main pulmonary artery. No definite aneurysm is seen to explain hemorrhage. Ixig-je-cazfkdyc atherosclerotic disease as described above. No large vessel occlusion. Consider MRI to further evaluate the brain parenchyma if clinically needed. Any quantitative measurements of stenosis were performed using NASCET criteria. Dictated by: Kvng Bar M.D. on 08/19/2025 at 11:31 ECG Data Attestation: I personally reviewed and interpreted this ECG as follows: Interpretation: Atrial fibrillation rate 100 MDM Narrative Medical decision making narrative: MDM CC: Altered mental status Complicating co-morbidities: Recent benign brain masses removed Data collected from: and EMS Medical records reviewed: Previous ED records reviewed Differential considered: CVA intracranial hemorrhage Exam documented above, pertinent findings include: Significant facial contusion profound aphasia intermittently following commands Lab Test results independently reviewed as above. Pertinent findings: CBC within normal limits CMP mild hypokalemia potassium 3.2 Troponin 0.042 Independently reviewed EKG as above Atrial fibrillation rate control Imaging studies independently reviewed: Discussion was Dr. Bar Radiology acute intracranial hemorrhage, areas of subarachnoid hemorrhage and small epidural hemorrhage over the postsurgical site Consultations: 12:25 Dr. Bradley,. Neurosurgery at [facility] updated patient's symptoms test results. Recommends 1 g of Keppra recommends transfer to [facility] emergency department. 1226 Dr. Flynn ED physician at [facility] updated patient's symptoms test results kindly accepts patient Treatments: Head elevated 30? Keppra 1 g Re-evaluations: Patient improving.Patient actually becoming more alert able to help with his pants, at this time does not require intubation. Discussion: 80-year-old male presenting today with altered mental status. Found to have subarachnoid and epidural hematomas on his head CT. Long discussion with about goals of care. She reports he does not want to be a vegetable, but not yet ready for comfort care only. Agrees with transfer for neurosurgical evaluation Critical Care Time Critical Care Time Critical Care Time: Yes Total Critical Care Time: 35 Attestation: The high probability of a clinically significant, sudden or life threatening deterioration of the neurovascular system(s) required my full and direct attention, intervention and personal management. The aggregate critical care time was 35 minutes. This time is in addition to time spent performing reported procedures but includes the following: [x] Data Review and interpretation [x] Patient assessment and monitoring of vital signs [x] Documentation [x] Medication orders and management Discharge Plan [facility]: Intrac[facility] Prescriptions: No Action diltiazem HCl [Cartia XT] 240 MG capsule,extended release 24hr 240 mg PO Q DAY Qty: 0 furosemide 20 MG tablet 20 mg PO QDAY Qty: 0 chlorthalidone 25 mg tablet 50 mg PO QAM alfuzosin 10 mg tablet extended release 24 hr 10 mg PO DAILY ketoconazole 2 % Shampoo 1 applic TOPICAL 3XW saw palmetto 160 mg Capsule 160 mg PO BID fluocinonide 0.05 % Solution 1 applic TOPICAL BID-QID PRN (Reason: Rash) timolol maleate 0.5 % drops 1 drp EYE-BOTH QAM acyclovir [Zovirax] 5 % Cream 1 applic TOPICAL 5XD potassium gluconate 595 mg (99 mg) Tablet 595 mg PO DAILY cholecalciferol (vitamin D3) [Vitamin D3] 25 mcg (1,000 unit) Tablet,Chewable 75 mcg PO DAILY Repatha SureClick 140 mg/mL Pen Injector 140 mg SUBCUT Q2W clotrimazole-betameth dip-zinc 1-0.05-20 % Combo Pack See Rx Instructions .ROUTE .COMPLEX PRN (Reason: rash) Rx Instructions: 1 pkg topically PRN; anti-fungal nitroglycerin 0.4 mg tablet, sublingual 0.4 mg sublingual Q5-15M MDD 3 pills PRN (Reason: chest pain) Qty: 10 3RF Rx Instructions: do not exceed 3 doses per episode testosterone cypionate 200 mg/mL oil 0.3 mg IM QWEEK allopurinol 200 mg tablet 400 mg PO DAILY colchicine 0.6 mg tablet 0.6 mg PO BID PRN (Reason: gout) budesonide-formoterol [Symbicort] 160-4.5 mcg/actuation HFA aerosol inhaler 2 inh inhalation BID fluticasone propionate 50 mcg/actuation spray,suspension 2 spray intranasal BID psyllium husk [Metamucil] 0.4 gram capsule 0.4 g PO DAILY dexamethasone 4 mg tablet 4 mg PO TID Qty: 60 0RF levetiracetam [Keppra] 500 mg tablet 500 mg PO BID Qty: 60 0RF warfarin 5 mg tablet 10 mg PO DAILY gabapentin 100 mg capsule 100 mg PO 3XD metoprolol succinate 25 mg tablet extended release 24 hr 12.5 mg PO DAILY acyclovir [Zovirax] 5 % cream 1 applic topical 5XD PRN (Reason: cold sores) Acidophilus Tablet,Chewable 2 tab PO DAILY tadalafil 20 mg tablet 20 mg PO DAILY PRN (Reason: sexual activity) Qty: 15 2RF Rx Instructions: administer approximately 30min before sexual activity; do not use more than 1 dose per 24hrs Referrals: Jose David Boss MD [Primary Care Provider, [facility]]
--- NOTE | 2025-08-19 11:28 | EKG_ITS ---
[facility] [address] [place] [address] Test Date: 2025-08-19 Pat Name: Rolo Naranjo Department: [facility] Room: Gender: Male [employer] Wirer: : 1945 Requested By: Order Number: [id number] Reading MD: Hubert Neal Measurements Intervals [place] Rate: 100 P: AR: QRS: 19 QRSD: 92 T: 16 QT: 350 QTc: 451 Interpretive Statements Atrial fibrillation Nonspecific ST and T wave abnormality Electronically Signed On 08-20-2025 15:04:28 PST by Hubert Neal
[2025-08-19 11:29] LABS: PTT Partial Thromboplastin Tim 23 SECONDS (25.1-36.5)
[2025-08-19 11:34] LABS: Alanine Aminotransferase 53 IU/L (<50); Albumin 3.4 g/dL (3.5-5.0); Albumin Globulin Ratio 1.3 (1.0-2.8); Alkaline Phosphatase 71 U/L (38-126); Blood Urea Nitrogen 22 mg/dL (9-20); Calcium 8.6 mg/dL (8.4-10.2); Carbon Dioxide 31 mmol/L (22-32); Chloride 97 mmol/L (98-107); Creatine Kinase 36 U/L (55-170); Estimated Glomerular Filt Rate > 60 mL/min (>60); Globulin 2.6 g/dL (1.7-4.1); Glucose 140 mg/dL (70-99); HEMOLYSIS < 15 (0-50); Potassium 3.2 mmol/L (3.4-5.1); Sodium 133 mmol/L (137-145); Total Protein 6.0 g/dL (6.3-8.2)
--- NOTE | 2025-08-19 11:35 | PC.NURSE ---
Patient unable to answer questions for the [facility]. He was able to smile and show right sided facial droop. When asked alertness questions the patient only smiled and was not able to open or close eye on demand or open and close hands on demand. The pt was not able to move either leg. [facility] was not able to be preformed.
[2025-08-19 11:44] LABS: Band Neutrophils Percent 3.0 % (3-7); Lymphocytes Percent Manual 15.0 % (25-45); Metamyelocytes Percent 1.0 % (-0); Monocytes Percent Manual 4.0 % (2-11); Myelocytes Percent 1.0 % (-0); Neutrophils Absolute Manual 8532 /uL (3000-5900); RBC Morphology Normal Morphology; Segmented Neutrophils Percent 76.0 % (38-70); Total Cells Counted 100
[2025-08-19 11:46] LABS: Troponin I 0.042 ng/mL (0.01-0.034)
--- NOTE | 2025-08-19 12:21 | PC.NURSE ---
Gipson attempted to be placed. pt made motion to stop the nurse from removing pants. Patient signaled that he wanted to pull his own pants down. He proceeded to pull his own pants down moving both legs up off the bed to do so.
== END 2025-08-19 13:50 | disposition short-term general hospital (02) ==
PROVIDERS: Emergency Provider Emergency Medicine; PCP Family Medicine
DX: I62.9 Nontraumatic intracranial hemorrhage, unspecified (principal)
CPT/HCPCS: 70450; 70496; 70498; 71045; 80053; 82550; 82962; 84484; 85007; 85025; 85610; 85730; 93005; 96365; 99284; J1953; J7050; Q9967